=== PATIENT | female | born 1955 | race Caucasian/White ===

== ENCOUNTER 2018-02-21 12:20 | Inpatient (IN) | payer MEDICARE ==
[2018-02-21] MEDS ORDERED: Iopamidol 370 76% 100 ML VIAL ONE ×2 (12:30→17:48)
[2018-02-21 13:00] LABS: PTT 31.1 SEC (22.9-36.1); Prothrombin Time 13.4 SEC (12.0-14.7)
[2018-02-21 13:01] LABS: #Eosinphils 0.1 thou/uL (0.0-0.7); #Monocytes 0.4 thou/uL (0.11-0.59); %Basophils 0.5 % (0.0-1.0); %Eosinophils 1.9 % (0.0-10.0); %Lymphocytes 26.7 % (21.0-51.0); %Monocytes 5.4 % (0.0-10.0); %Neutrophils 65.4 % (42.0-75.0); Hemoglobin 12.9 g/dL (12.0-16.0); Mean Corpuscular HGB CONC 32.5 g/dL (32.0-36.0); Mean Corpuscular Hemoglobin 25.5 pg (27.0-31.0); Mean Corpuscular Volume 78.3 fl (81.0-99.0); Platelet Count 274 thou/uL (130-400); RBC Distribution Width 14.9 % (11.5-14.5); Red Blood Cell (RBC) Count 5.06 mill/uL (4.20-5.40); White Blood Cell (WBC) Count 7.6 thou/uL (4.8-10.8)
--- NOTE | 2018-02-21 13:02 | CT ---
CT BRAIN WITHOUT CONTRAST: Date: 02/21/18 HISTORY: Left-sided weakness, gait changes. Onset 4.5 hours ago. FINDINGS: No evidence of acute infarct, hemorrhage, midline shift, or abnormal extra-axial fluid collections ar e seen. The ventricular size is normal and the basilar cisterns are patent. The bony calvarium is int act. The visualized paranasal sinuses and mastoid air cells are well aerated. IMPRESSION: No CT evidence of acute intracranial process. Findings discussed over the telephone with ER physician, Dr. Nain Gambino, at 1236 hours. CODE CR. POS: JOYCELYN
[2018-02-21 13:07] LABS: ALT (SGPT) 26 U/L (8-55); AST (SGOT) 19 U/L (5-34); Albumin 3.9 g/dL (3.4-4.8); Alkaline Phosphatase 99 U/L (40-150); Anion Gap 12 mmol/L (10-20); BUN (Urea Nitrogen) 14 mg/dL (9.8-20.1); Bilirubin, Total 0.3 mg/dL (0.2-1.2); Calc. Creatinine Clearance 0 mL/min (70-130); Calcium 9.2 mg/dL (7.8-10.44); Carbon Dioxide 24 mmol/L (23-31); Chloride 105 mmol/L (98-107); Estimated GFR-MDRD 76; Globulin 3.7 g/dL (2.4-3.5); Glucose 107 mg/dL (80-115); Potassium 4.1 mmol/L (3.5-5.1); Protein, Total 7.6 g/dL (6.0-8.3); Sodium 137 mmol/L (136-145)
[2018-02-21 13:11] LABS: CKMB 0.7 ng/mL (0-6.6); Troponin I Less than 0.010 ng/mL (< 0.028)
[2018-02-21] MEDS ORDERED: Morphine 4 MG/ML VIAL ONE (15:38)
--- NOTE | 2018-02-21 17:42 | CT ---
CTA HEAD WITH IV CONTRAST AND 3D REFORMATTED IMAGING: CTA NECK WITH IV CONTRAST AND 3D REFORMATTED IMAGING: INDICATIONS: Left-sided upper extremity and lower extremity weakness with gait disturbance, with onset around 0800 hours this morning. COMPARISON: Noncontrast CT brain, dated 02/21/2018 at 12:30 p.m. FINDINGS: HEAD: No hemodynamically significant stenosis, occlusion, or aneurysmal formation is demonstrated. There is a origin of the right PHYSICIAN SUPPORT COORDINATOR. No area of abnormal enhancement is demonstrated. NECK: There are mild vascular calcifications involving the aortic arch. The great vessel origins ap pear within normal limits. The visualized aspects of the right and left subclavian artery appear wid dora patent. The common carotid arteries have a retropharyngeal course. The right internal carotid a rtery is widely patent throughout its visualized course. The left internal carotid artery is widely patent throughout its course. Both vertebral arteries appear patent throughout their course. There is post surgical change of a left thyroidectomy. There is soft tissue gas and inflammatory change in volving the right aspect of the neck, likely related to prior IV access attempt. The visualized lung apices are clear. No acute osseous abnormality is evident. There is an intervertebral disks implant at C5-C6. IMPRESSION: No hemodynamically significant stenosis, occlusion, or aneurysmal formation demonstrated. Findings were called to Dr. Arriaga at 4:15 p.m. on 02/21/2018. CODE CR POS: JOYCELYN
[2018-02-21 18:04] VITALS: BMI 49.1
[2018-02-21] MEDS ORDERED: hydrALAZINE 20 MG/ML VIAL SLOW IVP PRN (18:39)
[2018-02-21] MEDS ORDERED: Guaifenesin DM 100-10/5 ML UDCUP PO PRN (18:39)
[2018-02-21] MEDS ORDERED: PROVENTIL INHALER 6.7 G (200 INHALATIONS) INH PRN (18:39)
[2018-02-21] MEDS ORDERED: Acetaminophen 325 MG TAB PO PRN (18:39)
[2018-02-21] MEDS ORDERED: Atorvastatin Calcium 20 MG TAB PO SCH (21:00)
[2018-02-21] MEDS: Docusate 100 MG CAP PO SCH (21:06)
[2018-02-21] MEDS: Metoprolol Tartrate 25 MG TAB PO SCH (21:06)
[2018-02-21] MEDS: Famotidine 20 MG TAB PO SCH (21:06)
--- NOTE | 2018-02-22 00:15 | HP ---
REASON FOR ADMISSION: Left-sided weakness. HISTORY OF PRESENT ILLNESS: The patient gives history of waking up around 8 in the morning and having noticed left-sided numbness and weakness. She was also incoherent in her speech. She had trouble walking. This was associated with some headache in the occipital area. She called her friend who came to help her out and drove her to the emergency room here. The patient says she has had similar episode 2 days back which she thinks might have resolved or just got worse, which she is not able to tell me exactly. The patient states she started doxepin recently. This is in addition to the 250 mg sertraline that she takes on a daily basis to help with her depression and sleep. The patient is right-handed. No complaints of trouble swallowing or breathing at present. PAST MEDICAL AND SURGICAL HISTORY: History of obstructive sleep apnea on CPAP, hypertension, asthma, GERD, hypothyroidism, osteoarthritis, history of diverticulosis, morbid obesity, prior endoscopies both EGD and colonoscopy, hysterectomy, appendectomy. Has had cervical spine surgery, tonsillectomy, right hand surgery, cholecystectomy, and depression. CURRENT MEDICATIONS: The patient is on Protonix 40 mg p.o. daily, levothyroxine 150 mcg p.o. daily, losartan 50 mg p.o. daily, doxepin 100 mg p.o. at bedtime, Bentyl 20 mg half a tablet 3 times daily p.r.n., sertraline 250 mg p.o. daily. ALLERGIES: No known drug allergies. PERSONAL HISTORY: Does not abuse alcohol or drugs. She quit smoking 10 years ago, prior to that smoked one pack a day for 5 years. The patient is raising her 5-year-old grandson and has custody of her. FAMILY HISTORY: Mother at the age of 67 years. She has had history of end -stage renal disease. Father of massive [place] in his 60s. REVIEW OF SYSTEMS: The following complete review of systems was negative, unless otherwise mentioned in the HPI or below: Constitutional: Weight loss or gain, ability to conduct usual activities. Skin: Rash, itching. Eyes: Double vision, pain. ENT/Mouth: Nose bleeding, neck stiffness, pain, tenderness. Cardiovascular: Palpitations, dyspnea on exertion, orthopnea. Respiratory: Shortness of breath, wheezing, cough, hemoptysis, fever or night sweats. Gastrointestinal: Poor appetite, abdominal pain, heartburn, nausea, vomiting, constipation, or diarrhea. Genitourinary: Urgency, frequency, dysuria, nocturia. Musculoskeletal: Pain, swelling. Neurologic/Psychiatric: Anxiety, depression. Allergy/Immunologic: Skin rash, bleeding tendency. CODE STATUS: FULL. Power of hotel desk clerk is her son, Mr. Farhan Rahman Jr. PHYSICAL EXAMINATION: GENERAL: The patient is a 62-year-old female who is currently not in any acute distress. VITAL SIGNS: On arrival, blood pressure was 198/88, pulse 84 per minute, respiratory rate 20 per minute, temperature 97.6 degrees Fahrenheit, and saturating 94% on room air. NECK: Supple, no elevated JVD. HEENT: Eyes: Extraocular muscles intact. Pupils reacting to light. Oral cavity: Mucous membranes are moist. No exudates or congestion. CARDIOVASCULAR SYSTEM: S1, S2 heard. Regular rhythm. RESPIRATORY SYSTEM: Air entry 1+ bilateral. Scattered rhonchi plus no wheezes. ABDOMEN: Soft, bowel sounds heard. No tenderness, rigidity or guarding. EXTREMITIES: No peripheral edema or calf tenderness. VASCULAR SYSTEM: Peripheral pulses 1+ bilateral, no ischemic ulcerations or gangrene. CENTRAL NERVOUS SYSTEM: Cranial nerves are grossly intact. Strength on the left side is around 3/5 in the upper extremity and the same at the lower extremity. Reflexes are 1+ bilateral. Babinski is equivocal. Gait was not tested. The patient is alert, awake, and is oriented. PSYCHIATRIC SYSTEM: The patient's mood is euthymic. No hallucinations or delusions. LABORATORY AND X-RAY FINDINGS: White count of 7, H and H 12 and 39, platelet count 274, MCV 78 with 65% neutrophils. PT, INR, PTT within normal limits. Electrolytes stable. BUN 14, creatinine 0.7, glucose 107. Liver enzymes are within normal limits. Cardiac enzymes are negative. Albumin is 3.9. CT brain without contrast done shows no acute intracranial process. CT angio brain done showed no hemodynamically significant stenosis or occlusion, or aneurysmal formation. EKG done shows normal sinus rhythm at 79 beats per minute. CLINICAL IMPRESSION AND PLAN: The patient will be admitted to stroke unit for left-sided weakness with a strength of 3/5 in both upper and lower extremities on the left side. Please note patient has cervical spine disease and lumbar spine disk disease as well with prior surgeries. It is unclear if her current issues are related to cerebrovascular accident. We will obtain an MRI without contrast if there are no hardwares and is permissible to get an MRI. The patient is morbidly obese with a BMI of 49. We will place her on a small dose of Lipitor and we will obtain lipid profile in the morning. She will be on aspirin, Synthroid, Cozaar, and her Zoloft will be reduced to 100 mg twice daily. Please note patient takes a very high dose of sertraline at 250 mg daily , and also started on doxepin 100 mg at bedtime recently. She has been taking sertraline for a long time per patient with dose escalations from [facility]/referral to psychiatrist. We will also place her on a small dose of Lopressor 25 mg twice daily. We will obtain an echo with 2D Doppler for LV function. Follow stroke evidence based protocol and Neurology consultation with Dr. Banks. NOELLE
[2018-02-22 05:35] LABS: #Eosinphils 0.2 thou/uL (0.0-0.7); #Lymphocytes 2.3 thou/uL (1.20-3.40); #Monocytes 0.4 thou/uL (0.11-0.59); #Neutrophils 4.3 thou/uL (1.40-6.50); %Basophils 0.7 % (0.0-1.0); %Eosinophils 2.6 % (0.0-10.0); %Lymphocytes 32.2 % (21.0-51.0); %Monocytes 5.7 % (0.0-10.0); %Neutrophils 58.9 % (42.0-75.0); Hemoglobin 12.6 g/dL (12.0-16.0); Mean Corpuscular HGB CONC 33.2 g/dL (32.0-36.0); Mean Corpuscular Hemoglobin 25.8 pg (27.0-31.0); Mean Corpuscular Volume 77.6 fl (81.0-99.0); Mean Platelet Volume 6.8 fL (7.4-10.4); Platelet Count 268 thou/uL (130-400); RBC Distribution Width 14.9 % (11.5-14.5); Red Blood Cell (RBC) Count 4.88 mill/uL (4.20-5.40); White Blood Cell (WBC) Count 7.3 thou/uL (4.8-10.8)
[2018-02-22] MEDS ORDERED: Levothyroxine 150 MCG TAB PO SCH (06:00)
[2018-02-22 06:08] LABS: Anion Gap 12 mmol/L (10-20); BUN (Urea Nitrogen) 16 mg/dL (9.8-20.1); Calc. Creatinine Clearance 154 mL/min (70-130); Calcium 8.6 mg/dL (7.8-10.44); Carbon Dioxide 24 mmol/L (23-31); Cardiac Risk 4.4 (Less than 4.5); Chloride 104 mmol/L (98-107); Cholesterol 155 mg/dl (< 200 Desired); Estimated GFR-MDRD 72; Glucose 127 mg/dL (80-115); HDL Cholesterol 35 mg/dL (>60 Neg Risk); LDL Cholesterol, Calculated 89 mg/dL; Sodium 136 mmol/L (136-145); Triglycerides 153 mg/dL (Less than 150)
[2018-02-22] MEDS ORDERED: Mometasone/Formoterol 120 PUFF INHALER INH SCH (06:30)
[2018-02-22] MEDS ORDERED: Losartan 25 MG TAB PO SCH (09:00)
[2018-02-22] MEDS ORDERED: Enoxaparin Sodium 40 MG/0.4 ML SYRINGE SC SCH (09:00)
[2018-02-22] MEDS ORDERED: Aspirin 325 mg Enteric Coated Tablet PO SCH (09:00)
[2018-02-22] MEDS: Docusate 100 MG CAP PO SCH (09:50)
[2018-02-22] MEDS: Famotidine 20 MG TAB PO SCH (09:50)
[2018-02-22] MEDS: Metoprolol Tartrate 25 MG TAB PO SCH (09:50)
--- NOTE | 2018-02-22 11:36 | MRI ---
MRI BRAIN WITHOUT IV CONTRAST: Date: 02-22-18 History: Left sided weakness, gait changes. Stroke. Comparison: MRI brain 09-01-12 FINDINGS: Again noted are scattered punctate areas of increased FLAIR and T2 weighted signal intensity in the p eriventricular and subcortical white matter which have not significantly progressed when compared to the prior exam. There is no evidence of an acute infarction. Septum pellucidum and third ventricle ar e on the midline. Ventricular system is normal in size, shape, and position. 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 The remainder of the skull ba se, orbit, and paranasal sinuses have a normal MRI appearance. Grossly appropriate flow voids are dem onstrated at the base of the brain. IMPRESSION: 1. No acute intracranial abnormality demonstrated. 2. Chronic small vessel ischemic changes which have not significantly progressed from the prior exam. POS: MARTIN
--- NOTE | 2018-02-22 12:00 | PDOC.PN ---
- Subjective Encounter Start Date: 02/22/18 Encounter Start Time: 11:58 Ms. Vo was seen today in follow-up. She says she still feels like her left leg is a bit weaker than the right one. She says the weakness and numbness in her left arm has improved. - Objective Resuscitation Status: Resuscitation Status FULL:Full Resuscitation MAR Reviewed: Yes Vital Signs & Weight: Vital Signs (12 hours) Temp Pulse Resp BP Pulse Ox 02/22/18 08:00 97.4 F L 64 20 151/98 H 93 L 02/22/18 06:10 67 16 02/22/18 04:00 97.7 F 68 16 126/79 96 Weight Weight 295 lb 2 oz I&O: 02/21/18 02/22/18 02/23/18 06:59 06:59 06:59 Intake Total 970 Balance 970 Result Diagrams: 02/22/18 05:23 02/22/18 05:23 Phys Exam - Physical Examination HEENT: PERRLA Respiratory: no wheezing, no rales, no rhonchi, clear to auscultation bilateral Cardiovascular: RRR, no significant murmur, no rub Gastrointestinal: soft, non-tender, no distention, positive bowel sounds Musculoskeletal: no edema + mild left lower extremity weakness, but it is 5/5 Dx/Plan (1) Transient ischemic attack Status: Acute (2) Hypertension Code(s): I10 - ESSENTIAL (PRIMARY) HYPERTENSION Status: Chronic (3) Hypothyroidism Code(s): E03.9 - HYPOTHYROIDISM, UNSPECIFIED Status: Chronic (4) Morbid obesity with BMI of 45.0-49.9, adult Code(s): E66.01 - MORBID (SEVERE) OBESITY DUE TO EXCESS CALORIES; Z68.42 - BODY MASS INDEX (BMI) 45.0-49.9, ADULT Status: Chronic - Plan * Left uper and lower extremity weakness- probable TIA- will await Neurology input * HTN- not optimally controlled- discussed with the patient- weight loss would likely help * Dyslipidemia- she will need to go home on a statin * Obesity- discussed diet and exercise * Possible home later today.
[2018-02-22 17:16] VITALS: BP 140/91; TEMP 98.2
--- NOTE | 2018-02-22 21:05 | CON ---
DATE OF CONSULTATION: 02/22/2018 NEUROLOGY CONSULTATION CONSULTING PHYSICIAN: Hospitalist service. IMPRESSION: 1. Questionable transient ischemic attack. 2. Hypertension. 3. Obesity. 4. Untreated sleep apnea. PLAN: 1. Aspirin 81 mg per day. 2. Low-dose of statin. 3. Patient should follow up to have her sleep apnea addressed. HISTORY OF PRESENT ILLNESS: Ms. Vo is a 62-year-old white female who came in with complaints of left-sided weakness and numbness. She also reports some mild slurred speech. She was still able to walk. Her symptoms reportedly lasted about 4 hours. Her MRI of the brain was unremarkable other th an some chronic small vessel ischemic changes. No acute abnormalities were noted. Her CTA did not s how any intravascular stenosis. Laboratory studies were unremarkable. Her cholesterol ratio was 4.4 . Her vital signs have been stable since admission. She has not had any recurrent symptoms. She de nies any prior history of stroke like events. PAST MEDICAL HISTORY: As listed above. ALLERGIES: None reported. SOCIAL HISTORY: No tobacco or alcohol use. FAMILY HISTORY: Noncontributory. MEDICATION LIST: Reviewed. REVIEW OF SYSTEMS: No complaints of double vision, blurred vision, transient vision loss, difficulty swallowing, chest pain, or shortness of breath. PHYSICAL EXAMINATION: GENERAL: She is a morbidly obese, middle-aged woman, no distress. VITAL SIGNS: Stable. She is afebrile. HEENT: Unremarkable. NECK: Supple. EXTREMITIES: No cyanosis. NEUROLOGIC: She is alert and appropriate. Her speech is fluent and clear. Her exam is nonfocal. IMAGING: EKG shows sinus rhythm. SUMMARY: Middle-aged woman with risk factors for stroke. Nothing definitive showed up on her workup this time. I would go ahead and cover her for possible TIA that might have been missed.
--- NOTE | 2018-02-23 01:55 | DIS ---
DATE OF ADMISSION: 02/21/2018 DATE OF DISCHARGE: 02/22/2018 PRIMARY CARE PHYSICIAN: Karis Madrid MD DISCHARGE DISPOSITION: Home. PRIMARY DISCHARGE DIAGNOSES: 1. Transient ischemic attack. 2. Hypertension. 3. Morbid obesity with a body mass index of 49. 4. Obstructive sleep apnea. 5. Mild dyslipidemia. 6. Hypothyroidism. DISCHARGE MEDICATIONS: Include aspirin 81 mg daily, Lipitor 20 mg at bedtime, Symbicort 160/4.5 two puffs twice a day, Bentyl 10 mg t.i.d., Sinequan 100 mg at bedtime, levothyroxine 150 mcg daily, Coza ar 50 mg daily, Protonix 40 mg daily, Zoloft 250 mg daily, albuterol inhaler 2 puffs q.4 as needed. PROCEDURES DONE DURING ADMISSION: The patient had a CT angiogram of the brain and neck. There was n o hemodynamically significant stenosis, occlusion, or aneurysmal formation. The patient had a CT sca n of the brain which was essentially negative and also had an MRI of the brain showing no acute intra cranial abnormality. There was some chronic small vessel ischemic changes. CODE STATUS: FULL CODE. ALLERGIES: No known drug allergies. HOSPITAL COURSE: Ms. Vo is a pleasant 62-year-old female who presented to the emergency room wi complaints of numbness and weakness on her left upper and lower extremity. She was placed in obse rvation and a CT angiogram as well as an MRI of the brain was performed, both of which are essentiall y negative for any signs of acute ischemic insult. It is suspected that her symptoms are most likely a transient ischemic attack. Her symptoms were resolving the following day. She did have some cont inued weakness in the left lower leg; however, it was improving and the muscle strength was 5/5 and j ust slightly weaker in comparison to the right side. We expect a complete resolution. The patient w as noted to have some lability in her blood pressure ranging anywhere from 123 up to 180 systolic and even 200 systolic. This can be further managed as an outpatient as it was extremely labile. This w as also discussed with the patient. As well as diet and exercise were also discussed. She will be p laced on a statin as well as an aspirin and will be discharged home today with close outpatient denny goode.
== END 2018-02-22 17:38 | disposition home or self-care (01) | DRG 69 ==
LOC: ERS 12:20 → 2SE 17:30
PROVIDERS: ADMIT Internal Medicine; ATTEND Internal Medicine
DX: G45.9 Transient cerebral ischemic attack, unspecified (principal); Z68.42 Body mass index [BMI] 45.0-49.9, adult; E66.01 Morbid (severe) obesity due to excess calories; I10 Essential (primary) hypertension; G47.33 Obstructive sleep apnea (adult) (pediatric); E78.5 Hyperlipidemia, unspecified; E03.9 Hypothyroidism, unspecified; J45.909 Unspecified asthma, uncomplicated; K21.9 Gastro-esophageal reflux disease without esophagitis; F32.9 Major depressive disorder, single episode, unspecified; Z79.899 Other long term (current) drug therapy
CPT/HCPCS: 36415; 36416; 70450; 70496; 70498; 70551; 80048; 80053; 80061; 82553; 84484; 85025; 85610; 85730; 93005; 93306; 96374; G8978-GP-CJ; G8979-GP-CI; G8987-GO-CK; G8988-GO-CI; G8996-GN-CH; G8997-GN-CH; J1650; J2270

== ENCOUNTER 2018-06-02 07:19 | Outpatient (CLI) | payer MEDICARE ==
[2018-06-02] MEDS ORDERED: Regadenoson 0.4 MG/5 ML SYRINGE ONE (11:22)
--- NOTE | 2018-06-02 12:13 | NM ---
RADIONUCLIDE STRESS ONLY MYOCARDIAL PERFUSION SCAN WITH CT ATTENUATION CORRECTION AND SPECT IMAGING: LEFT VENTRICULAR WALL MOTION EVAULATION AND EJECTION FRACTION: HISTORY: Chest pain. FINDINGS: Lexiscan protocol. Heterogeneous uptake of radiotracer throughout the left ventricular myocardium. No focal perfusion defect. QGS analysis of gated SPECT images show no focal wall motion abnormalitie s. Ejection fraction is calculated at greater than 80%. IMPRESSION: Normal myocardial perfusion scan. Normal left ventricular ejection fraction. POS: MARTIN
== END 2018-06-02 07:20 | disposition home or self-care (01) ==
LOC: NM 07:19
PROVIDERS: ATTEND Physician Assistant
DX: I10 Essential (primary) hypertension (principal); R06.02 Shortness of breath
CPT/HCPCS: 78452; 93017; A9500; J0280; J2785

== ENCOUNTER 2018-06-13 13:34 | Outpatient (CLI) | payer MEDICARE ==
--- NOTE | 2018-06-13 15:26 | RAD ---
TWO VIEW CHEST: INDICATION: Preop evaluation. COMPARISON: Portable chest of 10/29/16. FINDINGS: Heart size is mildly prominent but stable. There is mild vascular engorgement w2hich appears slightl y more prominent today. Focal density in the right mid lung could represent an area of atelectasis o r focal infiltrate. There is stranding in the peripheral left lower lung which is a new finding sugg esting atelectasis. No effusion. IMPRESSION: 1. Mild cardiomegaly and mild vascular engorgement. 2. Question parenchymal density in the right mid lung. This could represent an area of atelectasis or infiltrate. 3. Linear stranding in the left peripheral lower lung is new suggesting atelectasis. Recommend close followup. Dr. Wilkerson was notified at the time of dictation. CODE CR POS: MARTIN
[2018-06-13 15:39] LABS: #Eosinphils 0.1 thou/uL (0.0-0.7); #Lymphocytes 2.4 thou/uL (1.20-3.40); #Monocytes 0.5 thou/uL (0.11-0.59); #Neutrophils 5.6 thou/uL (1.40-6.50); %Basophils 0.6 % (0.0-1.0); %Eosinophils 1.5 % (0.0-10.0); %Lymphocytes 27.5 % (21.0-51.0); %Monocytes 5.5 % (0.0-10.0); Hemoglobin 12.3 g/dL (12.0-16.0); Mean Corpuscular HGB CONC 32.3 g/dL (32.0-36.0); Mean Corpuscular Volume 77.2 fL (78.0-98.0); Mean Platelet Volume 7.5 fL (7.4-10.4); Platelet Count 291 thou/uL (130-400); RBC Distribution Width 14.9 % (11.5-14.5); Red Blood Cell (RBC) Count 4.91 mill/uL (4.20-5.40); White Blood Cell (WBC) Count 8.6 thou/uL (4.8-10.8)
[2018-06-13 15:57] LABS: ALT (SGPT) 34 U/L (8-55); AST (SGOT) 23 U/L (5-34); Alkaline Phosphatase 94 U/L (40-150); Anion Gap 15 mmol/L (10-20); BUN (Urea Nitrogen) 23 mg/dL (9.8-20.1); Bilirubin, Direct 0.2 mg/dL (0.1-0.3); Bilirubin, Total 0.3 mg/dL (0.2-1.2); Calc. Creatinine Clearance 0 mL/min (70-130); Calcium 8.9 mg/dL (7.8-10.44); Carbon Dioxide 22 mmol/L (23-31); Chloride 109 mmol/L (98-107); Estimated GFR-MDRD 72; Globulin 3.2 g/dL (2.4-3.5); Glucose 112 mg/dL (80-115); Potassium 3.9 mmol/L (3.5-5.1); Protein, Total 7.2 g/dL (6.0-8.3); Sodium 142 mmol/L (136-145)
--- NOTE | 2018-06-17 14:58 | EKG ---
Test Reason : Blood Pressure : / mmHG Vent. Rate : 071 BPM Atrial Rate : 071 BPM P-R Int : 164 ms QRS Dur : 084 ms QT Int : 392 ms P-R-T Axes : 043 023 040 degrees QTc Int : 425 ms Normal sinus rhythm Cannot rule out Anterior infarct , age undetermined Abnormal ECG When compared with ECG of 21-FEB-2018 13:33, No significant change was found Confirmed by GURWINDER VELAZQUEZ MD ([id number]) on 06/17/2018 2:58:11 PM Referred By: JERI Confirmed By:GURWINDER VELAZQUEZ MD
== END 2018-06-13 13:35 | disposition home or self-care (01) ==
LOC: LABBT 13:34
PROVIDERS: ATTEND Surgery
DX: Z01.818 Encounter for other preprocedural examination (principal); I10 Essential (primary) hypertension; G47.30 Sleep apnea, unspecified; I51.7 Cardiomegaly; Z68.41 Body mass index [BMI] 40.0-44.9, adult
CPT/HCPCS: 71046; 80053; 80076; 83036; 85025; 93005; 93010

== ENCOUNTER 2018-12-28 16:49 | Emergency (ER) | payer MEDICARE ==
[~2018-12-28 16:49] MED LIST: ISOVUE-370 76%-LOCM 1 ML ONE
[2018-12-28 17:50] LABS: #Basophils 0.1 thou/uL (0.0-0.2); #Eosinphils 0.1 thou/uL (0.0-0.7); #Lymphocytes 2.1 thou/uL (1.20-3.40); #Monocytes 0.5 thou/uL (0.11-0.59); #Neutrophils 5.6 thou/uL (1.40-6.50); %Basophils 1.2 % (0.0-1.0); %Eosinophils 1.5 % (0.0-10.0); %Lymphocytes 24.9 % (21.0-51.0); %Monocytes 5.8 % (0.0-10.0); %Neutrophils 66.5 % (42.0-75.0); Hemoglobin 13.2 g/dL (12.0-16.0); Mean Corpuscular HGB CONC 31.3 g/dL (32.0-36.0); Mean Corpuscular Hemoglobin 24.6 pg (27.0-31.0); Mean Corpuscular Volume 78.7 fL (78.0-98.0); Mean Platelet Volume 8.3 fL (7.4-10.4); Platelet Count 323 thou/uL (130-400); RBC Distribution Width 15.4 % (11.5-14.5); Red Blood Cell (RBC) Count 5.36 mill/uL (4.20-5.40); White Blood Cell (WBC) Count 8.4 thou/uL (4.8-10.8)
[2018-12-28] MEDS ORDERED: Acetaminophen 500 MG TAB ONE (18:08)
[2018-12-28 18:26] LABS: Bilirubin Negative (Negative); Blood, Urine Negative (Negative); Clarity CLEAR (Clear); Glucose, Urine (Dipstick) Negative (Negative); Leukocyte Small (Negative); Nitrite Positive (Negative); Protein, Urine (Dipstick) Negative (Neg-Trace); Specific Gravity, Urine 1.018 (1.002-1.036)
[2018-12-28 18:27] LABS: Bacteria/HPF None Seen HPF (None Seen); Hyaline Casts/LPF 4-6 HYALINE CAST LPF (0-3 Hyaline); Pathc Cast-AUWi Flag 1.45 (0-2.49); RBC/HPF 0-3 HPF (0-3); Squamous Epithelial 0-3 HPF (0-3); WBC/HPF None Seen HPF (0-3)
[2018-12-28 18:33] LABS: ALT (SGPT) 33 U/L (8-55); AST (SGOT) 41 U/L (5-34); Albumin 3.7 g/dL (3.4-4.8); Alkaline Phosphatase 99 U/L (40-150); Anion Gap 15 mmol/L (10-20); BUN (Urea Nitrogen) 16 mg/dL (9.8-20.1); Bilirubin, Total 0.2 mg/dL (0.2-1.2); Calc. Creatinine Clearance 0 mL/min (70-130); Calcium 9.5 mg/dL (7.8-10.44); Carbon Dioxide 22 mmol/L (23-31); Chloride 105 mmol/L (98-107); Estimated GFR-MDRD 76; Globulin 4.5 g/dL (2.4-3.5); Glucose 103 mg/dL (80-115); Potassium 5.2 mmol/L (3.5-5.1); Protein, Total 8.2 g/dL (6.0-8.3); Sodium 137 mmol/L (136-145)
--- NOTE | 2018-12-28 19:40 | CT ---
CT ANGIOGRAM CHEST WITH CONTRAST 12/28/18 HISTORY: COPD, hypertension. TECHNIQUE: CT angiogram chest performed after the intravenous administration of contrast. 3D rendering is provid ed. No proximal segmental pulmonary arterial filling defect. The aortic contour is nonaneurysmal. The pulmonary trunk measures 3.2 cm, abnormally dilated. No mediastinal adenopathy. Small right pericardiophrenic lymph nodes. These are similar to the prior examination. There are extensive calcified paraesophageal lymph nodes. There appears to be a prior le ft sided thyroidectomy. Pulmonary nodules are unchanged. No interval size increase. Large calcified granuloma left lung base. Mild atelectasis in the lung bases. No pneumothorax or effu ayan. No acute displaced rib fracture. Multiple calcified granulomas of the spleen. IMPRESSION: 1. No proximal segmental pulmonary arterial filling defect. 2. Dilated pulmonary trunk consistent of pulmonary arterial hypertension. 3. Unchanged pulmonary nodule as well as calcified paraesophageal lymph nodes and calcified gran uloma of the spleen suggesting prior granulomatous disease. POS: HOME
[2018-12-28] MEDS ORDERED: Ketorolac Tromethamine 30 MG/ML VIAL ONE (20:06)
== END 2018-12-28 20:16 | disposition home or self-care (01) ==
LOC: ERS 16:49
DX: J45.901 Unspecified asthma with (acute) exacerbation (principal); M54.9 Dorsalgia, unspecified; I10 Essential (primary) hypertension
CPT/HCPCS: 71275; 80053; 81003; 81015; 84484; 85025; 85379; 94640; 96374; J1885; Q9966

== ENCOUNTER 2020-05-02 10:46 | Outpatient (CLI) | payer MEDICARE, OTHER ==
[2020-05-02 18:17] LABS: #Eosinphils 0.2 thou/uL (0.0-0.7); #Lymphocytes 2.6 thou/uL (1.20-3.40); #Monocytes 0.5 thou/uL (0.11-0.59); #Neutrophils 5.7 thou/uL (1.40-6.50); %Basophils 0.2 % (0.0-1.0); %Eosinophils 1.7 % (0.0-10.0); %Lymphocytes 28.8 % (21.0-51.0); %Monocytes 5.2 % (0.0-10.0); %Neutrophils 64.2 % (42.0-75.0); Hemoglobin 13.3 g/dL (12.0-16.0); Mean Corpuscular HGB CONC 30.9 g/dL (32.0-36.0); Mean Corpuscular Hemoglobin 23.7 pg (27.0-31.0); Mean Corpuscular Volume 76.7 fL (78.0-98.0); Mean Platelet Volume 8.2 fL (7.4-10.4); Platelet Count 325 thou/uL (130-400); RBC Distribution Width 14.6 % (11.5-14.5); Red Blood Cell (RBC) Count 5.62 mill/uL (4.20-5.40); White Blood Cell (WBC) Count 8.9 thou/uL (4.8-10.8)
[2020-05-02 18:32] LABS: ALT (SGPT) 22 U/L (8-55); AST (SGOT) 20 U/L (5-34); Alkaline Phosphatase 105 U/L (40-110); Anion Gap 15 mmol/L (10-20); BUN (Urea Nitrogen) 16 mg/dL (9.8-20.1); Bilirubin, Total 0.4 mg/dL (0.2-1.2); Calc. Creatinine Clearance 0 mL/min (70-130); Calcium 9.2 mg/dL (7.8-10.44); Carbon Dioxide 23 mmol/L (23-31); Cardiac Risk 3.2 (Less than 4.5); Chloride 104 mmol/L (98-107); Cholesterol 108 mg/dl (< 200 Desired); Estimated GFR-MDRD 65; Globulin 3.6 g/dL (2.4-3.5); Glucose 102 mg/dL (80-115); HDL Cholesterol 34 mg/dL (>60 Neg Risk); LDL Cholesterol, Calculated 42 mg/dL; Potassium 3.9 mmol/L (3.5-5.1); Protein, Total 7.6 g/dL (6.0-8.3); Sodium 138 mmol/L (136-145); Triglycerides 160 mg/dL (Less than 150)
[2020-05-03 12:55] LABS: SARS-CoV-2 MS2 Positive; SARS-CoV-2 N Gene Negative; SARS-CoV-2 S Gene Negative; SARS-CoV-2 orf1ab Negative
== END 2020-05-02 10:47 | disposition home or self-care (01) ==
LOC: LABBT 10:46
PROVIDERS: ATTEND Internal Medicine Cardiovascular Disease
DX: Z01.812 Encounter for preprocedural laboratory examination (principal); Z11.59 Encounter for screening for other viral diseases
CPT/HCPCS: 80053; 80061; 85025; U0003; 87635

== ENCOUNTER 2020-07-23 07:39 | Outpatient (CLI) | payer MEDICARE ==
--- NOTE | 2020-07-23 08:12 | RAD ---
Lumbar spine 4 views: 07/23/2020 COMPARISON: None HISTORY: Back pain with lower extremity radiculopathy FINDINGS: Detailed assessment on the neutral lateral exam is limited secondary to body habitus and sl ight motion artifact. On the neutral exam there is retrolisthesis measuring 5 mm at L3-4. This is grossly unchanged on the flexion and extension imaging. Lower lumbar spine facet hypertrophy noted at L3-4, L4-5, and L5-S1. Mild disc space narrowing at the L2-3 and L3-4 levels. Laminectomy changes are noted at L4-5. No acute osseous abnormality. IMPRESSION: Degenerative changes as detailed above.
== END 2020-07-23 07:40 | disposition home or self-care (01) ==
LOC: BICRAD 07:39
PROVIDERS: ATTEND Neurological Surgery
DX: M54.5 Low back pain (principal); M47.816 Spondylosis without myelopathy or radiculopathy, lumbar region
CPT/HCPCS: 72110

== ENCOUNTER 2020-08-01 17:13 | Inpatient (IN) | payer MEDICARE, OTHER ==
[~2020-08-01 17:13] MED LIST changes: -ISOVUE-370 76%-LOCM 1 ML ONE; +Iopamidol-370 76% 500 ML 1 ML ONE
[2020-08-01 18:56] LABS: #Eosinphils 0.1 thou/uL (0.0-0.7); #Lymphocytes 1.4 thou/uL (1.20-3.40); #Monocytes 0.5 thou/uL (0.11-0.59); #Neutrophils 4.9 thou/uL (1.40-6.50); %Basophils 0.3 % (0.0-1.0); %Eosinophils 2.1 % (0.0-10.0); %Lymphocytes 20.2 % (21.0-51.0); %Monocytes 6.5 % (0.0-10.0); %Neutrophils 70.9 % (42.0-75.0); Hemoglobin 11.7 g/dL (12.0-16.0); Mean Corpuscular HGB CONC 32.6 g/dL (32.0-36.0); Mean Corpuscular Hemoglobin 26.3 pg (27.0-31.0); Mean Corpuscular Volume 80.8 fL (78.0-98.0); Mean Platelet Volume 7.1 fL (7.4-10.4); Platelet Count 227 thou/uL (130-400); RBC Distribution Width 15.6 % (11.5-14.5); Red Blood Cell (RBC) Count 4.46 mill/uL (4.20-5.40); White Blood Cell (WBC) Count 6.9 thou/uL (4.8-10.8)
[2020-08-01 19:03] LABS: PTT 34.9 sec (22.9-36.1); Prothrombin Time 13.1 sec (12.0-14.7)
--- NOTE | 2020-08-01 19:05 | CT ---
Exam: Head CT without contrast HISTORY: Altered mental status. Level 2 stroke alert. COMPARISON: 06/17/2020 FINDINGS: Hemorrhage: No intraparenchymal hemorrhage or extra-axial hematoma. Brain parenchyma: Cortical bautista-white matter differentiation is preserved. No mass effect or midline shift. Basilar cisterns are patent. Ventricular system: Ventricles and sulci are patent and symmetric. Calvarium: Intact. Sinuses and mastoid air cells: Adequate aeration. IMPRESSION: No acute intracranial process. Results discussed with Dr. Clark 08/01/2020 at 7:03 PM Code CR
[2020-08-01 19:18] LABS: ALT (SGPT) 25 U/L (8-55); AST (SGOT) 34 U/L (5-34); Albumin 3.5 g/dL (3.4-4.8); Alkaline Phosphatase 95 U/L (40-110); Anion Gap 11 mmol/L (10-20); BUN (Urea Nitrogen) 22 mg/dL (9.8-20.1); Bilirubin, Total 0.4 mg/dL (0.2-1.2); CK (CPK) 74 U/L (29-168); Calc. Creatinine Clearance 0 mL/min (70-130); Calcium 8.2 mg/dL (7.8-10.44); Carbon Dioxide 31 mmol/L (23-31); Chloride 101 mmol/L (98-107); Estimated GFR-MDRD 42; Globulin 3.8 g/dL (2.4-3.5); Glucose 126 mg/dL (80-115); Magnesium 1.8 mg/dL (1.6-2.6); Potassium 4.4 mmol/L (3.5-5.1); Protein, Total 7.3 g/dL (6.0-8.3); Sodium 139 mmol/L (136-145)
--- NOTE | 2020-08-01 19:34 | RAD ---
Exam: Chest one view HISTORY:Chest pain Comparison: 06/13/2020 FINDINGS: Cardiac silhouette:Cardiomegaly. Aorta: Unremarkable Pulmonary vessels: Prominent. Costophrenic angles: Clear LUNGS: Diminished lung was, likely due to a poor inspiratory effort. Increased interstitial may in pa rt be due to crowding secondary to diminished lung volumes. Interstitial edema and/or infiltrate cannot be entirely excluded. Pneumothorax: None Osseous abnormalities: None IMPRESSION: 1. Diminished lung volumes. Interstitial prominence may be due to decreased lung volume. Superimposed edema and/or infiltrate cannot be excluded. Repeat 2 view chest radiograph with better inspiration is recommended.
--- NOTE | 2020-08-01 19:49 | PDOC.HHP ---
Hospitalist HPI - History of Present Illness R leg weakness, altered mental status History of Present Illness: Patient is a 65 year old female with PMH HTN, TIAs, asthma/COPD on home o2, diverticulitis, DJD, distant uterine cancer s/p hysterectomy, hypothyroidism who presents to ED for altered mental status and R lower extremity weakness and numbness. She was last at baseline around noon, went for nap and woke up with new symptoms at 4pm. She states she woke up confused and did not know where she was. 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 She had similar event in May of this year as well, diagnosed with TIA at that time. She takes aspirin and statin daily. She fell this morning and had acute on chronic back and r leg pain afterwards. She complains of continued L sided weakness and also acute on chronic back pain and leg pain. She has COPD and also states that she has had increased shortness of breath and developed wheezing lately despite medication compliance. She uses O2 at home and is at baseline o2 requirement. In ED, labs unremarkable, CT head without acute findings. CTA head and neck did not reveal significant stenosis/occlusion/vascular abnormalities. Chronic lung nodules were observed. CXR with bilateral infiltrates concerning for COVID pneumonia. patient admitted for further workup and care. Hospitalist ROS - Review of Systems Constitutional: denies: fever, chills, sweats, weakness, malaise, other Eyes: denies: pain, vision change, conjunctivae inflammation, eyelid inflammation, redness, other ENT: denies: ear pain, ear discharge, nose pain, nose discharge, nose congestion, mouth pain, mouth swelling, throat pain, throat swelling, other Respiratory: reports: cough, shortness of breath, wheezing. denies: dry, hemoptysis, SOB with excertion, pleuritic pain, sputum, other Cardiovascular: denies: chest pain, palpitations, orthopnea, paroxysmal noc. dyspnea, edema, light headedness, other Gastrointestinal: denies: nausea, vomiting, abdominal pain, diarrhea, constipation, melena, hematochezia, other Genitourinary: denies: dysuria, frequency, incontinence, hematuria, retention, other Musculoskeletal: denies: neck pain, shoulder pain, arm pain, back pain, hand pain, leg pain, foot pain, other Skin: denies: rash, lesions, phu, bruising, other Neurological: reports: weakness, numbness, other (R lower extremity weakness and numbness) All other systems reviewed; all pertinent +/- noted in HPI/Subj - Medication Medications: dicyclomine oral [facility] Aug 01, 2020 18:38 JACQUELINE Ocampo Rachel capsule : Strength - 10 mg : ORAL Patient Dose: 20 mg Oral 3 times a day. Symbicort [facility] Aug 01, 2020 18:38 JACQUELINE Ocampo Rachel HFA aerosol inhaler : Strength - 80 mcg-4.5 mcg/actuation : INHALATION Patient Dose: 2 puff(s) 2 times a day. losartan [facility] Aug 01, 2020 18:38 JACQUELINE Ocampo Rachel tablet : Strength - 50 mg : ORAL Patient Dose: 100 once a day. levothyroxine oral [facility] Aug 01, 2020 18:38 JACQUELINE Ocampo Rachel tablet : Strength - 150 mcg : ORAL Patient Dose: once a day. pantoprazole oral [facility] Aug 01, 2020 18:38 JACQUELINE Ocampo Rachel tablet,delayed release (DR/EC) : Strength - 40 mg : ORAL Patient Dose: once a day. furosemide oral [facility] Aug 01, 2020 18:38 JACQUELINE Ocampo Rachel tablet : Strength - 20 mg : ORAL Patient Dose: 0.5 once a day. gabapentin [facility] Aug 01, 2020 18:42 JACQUELINE Pang Maggie TABLET : Strength - 600 mg : ORAL Patient Dose: 300 mg Oral once a day (at bedtime). promethazine oral [facility] Aug 01, 2020 18:42 JACQUELINE Pang Maggie TABLET : Strength - 25 mg : ORAL Patient Dose: 25 mg Oral every 6 hours PRN. traMADol [facility] Aug 01, 2020 18:42 JACQUELINE Pang Maggie TABLET : Strength - 50 mg : ORAL Patient Dose: 1 tab(s) Oral every 6 to 8 hours. Vitamin D3 [facility] Aug 01, 2020 18:42 JACQUELINE Pang Rebecca CAPSULE (HARD, SOFT, ETC.) : Strength - 1,000 unit : ORAL Patient Dose: 3000 units Oral once a day. Aspir-81 [facility] Aug 01, 2020 18:44 JACQUELINE Ocampo Rachel tablet,delayed release (DR/EC) : Strength - 81 mg : ORAL Patient Dose: 325 mg once a day. meclizine [facility] Aug 01, 2020 18:44 JACQUELINE Ocampo, Nelida tablet : Strength - 25 mg : ORAL Patient Dose: As Needed. isosorbide dinitrate oral [facility] Aug 01, 2020 18:46 JACQUELINE Pang, Maggie tablet : Strength - 30 mg : ORAL Patient Dose: 60 mg Oral once a day. amLODIPine [facility] Aug 01, 2020 18:47 JACQUELINE Pang, Maggie TABLET : Strength - 10 mg : ORAL Patient Dose: 5 mg Oral once a day (in the morning). Hospitalist History - Past Medical History Other Medical History: HTN, TIAs, asthma/COPD on home o2, diverticulitis, DJD, distant uterine cancer s/p hysterectomy, hypothyroidism - Past Surgical History Other Surgical History: EGD AND COLONOSCOPY ON 11/29/14., Surgical history of appendectomy, Surgical history of carpal tunnel surgery, RIGHT HAND, Surgical history of cholecystectomy, Surgical history of hysterectomy, Surgical history of spinal surgery, cervical, Surgical history of tonsillectomy, bladder sling placed 2010.verified 08/01/20. - Family History Family History: reports: no pertinent history - Social History Smoking Status: Former smoker Alcohol: reports: None Drugs: reports: none - Exam General Appearance: NAD, awake alert Eye: PERRL, anicteric sclera ENT: normocephalic atraumatic, no oropharyngeal lesions, moist mucosa Neck: supple, symmetric, no JVD, no thyromegaly, no lymphadenopathy, no carotid bruit Heart: RRR, no murmur, no gallops, no rubs, normal peripheral pulses Respiratory: CTAB, no rales, no ronchi, normal chest expansion, no tachypnea, wheezes Gastrointestinal: soft, non-tender, non-distended, normal bowel sounds, no palpable masses, no hepatomegaly, no splenomegaly, no bruit Extremities: no cyanosis, no clubbing, no edema Skin: normal turgor, no lesions, no rashes Neurological: cranial nerve grossly intact Neurological - other findings: L sided weakness 4/5 arm and leg muscle groups and reduced sensation Musculoskeletal: normal tone, no muscle wasting Psychiatric: normal affect, normal behavior, A&O x 3 Hospitalist Results - Labs Result Diagrams: 08/01/20 18:46 08/01/20 18:46 Lab results: WBC 6.9 thou/uL (4.8-10.8) 08/01/20 18:46 Hgb 11.7 g/dL (12.0-16.0) L 08/01/20 18:46 Hct 36.0 % (36.0-47.0) 08/01/20 18:46 MCV 80.8 fL (78.0-98.0) 08/01/20 18:46 Plt Count 227 thou/uL (130-400) 08/01/20 18:46 Neutrophils % 70.9 % (42.0-75.0) 08/01/20 18:46 Sodium 139 mmol/L (136-145) 08/01/20 18:46 Potassium 4.4 mmol/L (3.5-5.1) 08/01/20 18:46 Chloride 101 mmol/L (98-107) 08/01/20 18:46 Carbon Dioxide 31 mmol/L (23-31) 08/01/20 18:46 BUN 22 mg/dL (9.8-20.1) H 08/01/20 18:46 Creatinine 1.27 mg/dL (0.6-1.1) H 08/01/20 18:46 Glucose 126 mg/dL (80-115) H 08/01/20 18:46 Lactic Acid 0.7 mmol/L (0.5-2.2) 08/01/20 18:46 Calcium 8.2 mg/dL (7.8-10.44) 08/01/20 18:46 Total Bilirubin 0.4 mg/dL (0.2-1.2) 08/01/20 18:46 AST 34 U/L (5-34) 08/01/20 18:46 ALT 25 U/L (8-55) 08/01/20 18:46 Alkaline Phosphatase 95 U/L (40-110) 08/01/20 18:46 Creatine Kinase 74 U/L (29-168) 08/01/20 18:46 Troponin I 0.016 ng/mL (< 0.028) 08/01/20 18:46 Serum Total Protein 7.3 g/dL (6.0-8.3) 08/01/20 18:46 Albumin 3.5 g/dL (3.4-4.8) 08/01/20 18:46 Additional comment: VITAL SIGNS [facility] Aug 01, 2020 19:21 JACQUELINE Avina, Bam BP: 124/69 Pulse: 73 Resp: 18 Temp: 97.8 (Oral) Pain: 9 O2 sat: 100 on (3L Oxygen) Time: 08/01/2020 19:21. ED documents, laboratory studies, imaging reports, EKG reviewed - EKG Interpretation EKG: NSR 71 bpm, no STEMI, no AVB Hospitalist H&P A/P - Plan Plan: Patient is a 65 year old female with PMH HTN, TIAs, asthma/COPD on home o2, diverticulitis, DJD, distant uterine cancer s/p hysterectomy, hypothyroidism who presents to ED for altered mental status and R lower extremity weakness and numbness. # L sided weakness and suspected ischemic stroke # history of TIA acute onset confusion and L sided weakness similar to last TIA, takes ASA and statin, CT head without acute findings. CTA head and neck did not reveal significant stenosis/occlusion/vascular abnormalities - continue statin/aspirin - consult neurology, stroke team - permissive HTN - MRI brain # bilateral pneumonia - concerning for COVID 19 # COPD w/ exacerbation on 3L O2 by NC which is baseline. - admit to neurology unit w/ covid precautions - start empiric solu medrol iv - azithromycin/ceftriaxone - PRN + scheduled duonebs and resume home symbicort - ABG # lung nodules - incindental finding on imaging, reported as stable, recommend outpatient workup and follow up imaging # HTN - permissive HTN # hypothyroid - resume synthroid DVT/ GI ppx
[2020-08-01] MEDS ORDERED: Aspirin Chewable 81 MG TAB ONE (20:13)
[2020-08-01] MEDS ORDERED: traMADol HCl 50 MG TAB ONE (20:13)
--- NOTE | 2020-08-01 20:29 | RAD ---
Exam: Chest one view HISTORY:COVID pneumonia Comparison: 08/01/2020 at 7:18 PM FINDINGS: Cardiac silhouette: Normal Aorta: Unremarkable Pulmonary vessels: Normal Costophrenic angles: Clear LUNGS: Stable aeration and expansion lung parenchyma. Patchy interstitial opacities, compatible with patient's history of COVID pneumonia. Pneumothorax: None Osseous abnormalities: None IMPRESSION: Patchy interstitial opacities, compatible with COVID pneumonia.
[2020-08-01 21:48] LABS: Bilirubin Negative (Negative); Blood, Urine Negative (Negative); Clarity Clear (Clear); Glucose, Urine (Dipstick) Normal (Negative); Ketone, Urine Negative (Negative); Leukocyte Negative Leu/uL (Negative); Nitrite Negative (Negative); Protein, Urine (Dipstick) Negative (Neg-Trace); Specific Gravity, Urine 1.047 (1.002-1.036); Urobilinogen Normal mg/dL (Less than 2); pH, Urine 5.5 (5.0-9.0)
[2020-08-02 00:01] LABS: SARS-CoV-2 NAA Rapid Test Not Detected (NotDetected)
[2020-08-02] MEDS ORDERED: Ondansetron PF 4 MG/2 ML Vial IVP PRN (00:54)
[2020-08-02] MEDS ORDERED: Guaifenesin DM 100-10/5 ML UDCUP PO PRN (00:54)
[2020-08-02] MEDS ORDERED: Acetaminophen 325 MG TAB PO PRN (00:54)
[2020-08-02] MEDS ORDERED: Labetalol HCl 100 MG/20 ML VIAL SLOW IVP PRN (00:55)
[2020-08-02] MEDS ORDERED: hydrALAZINE 20 MG/ML VIAL SLOW IVP PRN (00:55)
[2020-08-02] MEDS ORDERED: Electrolyte Replacement Protoc 1 EACH EACH FS PRN (01:00)
[2020-08-02 01:11] LABS: Troponin I Less than 0.010 ng/mL (< 0.028)
[2020-08-02] MEDS: HYDROcodone/Acetaminophen 5/325 mg Tablet PO PRN (01:16)
[2020-08-02 01:24] LABS: Thyroid Stimulating Hormone 5.8539 uIU/mL (0.35-4.94)
[2020-08-02] MEDS ORDERED: cefTRIAXone\\ROCEPHIN 1 GM in Sodium Chloride 0.9% 100 ML IVPB SCH ×3 (01:30→22:00)
[2020-08-02] MEDS ORDERED: Azithromycin 500 MG in Sodium Chloride 0.9% 250 ML 250 ML IVPB SCH ×2 (01:30→21:00)
[2020-08-02] MEDS: Morphine 2 MG/ML VIAL SLOW IVP PRN ×4 (02:35→18:26)
[2020-08-02 02:40] LABS: Actual Bicarbonate (HCO3v) 29 mEq/L (22-28); Base Excess 3.5 mEq/L (-2.0 to +3.0); Calcium, Ionized (venous) 0.96 mmol/L (1.16-1.32); Chloride (ABG LAB) 102 mmol/L (98-106); Hemoglobin (Hb) 13.3 g/dL (11.7-16.0); Potassium - ABG Lab 3.99 mmol/L (3.70-5.30); Sodium 137.7 mmol/L (133-146)
[2020-08-02 05:23] LABS: Cardiac Risk 3.4 (Less than 4.5)
[2020-08-02] MEDS: Azithromycin 500 MG in Sodium Chloride 0.9% 250 ML 250 ML IVPB SCH (05:46)
[2020-08-02] MEDS: methylPREDNISolone Sod Succ 40 MG VIAL IVP SCH ×3 (05:47→22:02)
[2020-08-02] MEDS: Levothyroxine 150 MCG TAB PO SCH (05:47)
[2020-08-02] MEDS: Mometasone 200 MCG/Formoterol 5 MCG 120 PUFF INHALER INH SCH ×2 (05:48→19:10)
[2020-08-02] MEDS: cefTRIAXone\\ROCEPHIN 1 GM in Sodium Chloride 0.9% 100 ML IVPB SCH (05:49)
[2020-08-02] MEDS ORDERED: Magnesium 2 GM/50 ML 2 GM in Premix Bag 1 BAG IVPB SCH (06:45)
[2020-08-02] MEDS ORDERED: Aspirin 325 mg Enteric Coated Tablet PO SCH (09:00)
[2020-08-02] MEDS: Enoxaparin Sodium 40 MG/0.4 ML SYRINGE SC SCH (10:29)
[2020-08-02] MEDS: Polyethylene Glycol 3350 17 GM Packet PO SCH ×2 (10:30→11:37)
[2020-08-02 12:35] LABS: SARS-CoV-2 MS2 Positive; SARS-CoV-2 N Gene Negative; SARS-CoV-2 S Gene Negative; SARS-CoV-2 by NAA Not Detected (NotDetected); SARS-CoV-2 orf1ab Negative
--- NOTE | 2020-08-02 13:29 | CON ---
NEUROLOGY CONSULTATION DATE OF CONSULTATION: 08/02/2020 REASON FOR CONSULTATION: Altered mental status/right leg weakness. HISTORY OF PRESENT ILLNESS: Ms. Vo is a 65-year-old female with medical history significant for hypertension; TIA; asthma; COPD, on home oxygen; diverticulitis; DJD; uterine cancer; status post hysterectomy; hypothyroidism, presented to the emergency room with altered mental status and right lower extremity weakness and numbness. Per the patient, she was at her baseline until noon yesterday when she woke up from a nap and was unable to get up and woke up with these symptoms. At 4 p.m. 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 Per the patient, she had a similar event in May of this year and was diagnosed with a TIA and was discharged home on aspirin and statin. Per the patient, she has been compliant with her medication. She does admit that she had extreme acute on chronic back pain and right leg pain, for which she took the pain medications. In the emergency room, the labs were unremarkable and a CT scan was done, which did not reveal any acute intracranial pathology. CT of the head and neck did not reveal hemodynamically significant stenosis and chest x-ray showed bilateral infiltrate, and there was a concern about COVID pneumonia. She was admitted for further workup. The patient denies nausea, vomiting, headache, chest pain, abdominal pain, or problems with speech or swallowing. REVIEW OF SYSTEMS:- Constitutional: denies: fever, chills, sweats, weakness, malaise, other Eyes: denies: pain, vision change, conjunctivae inflammation, eyelid inflammation, redness, other ENT: denies: ear pain, ear discharge, nose pain, nose discharge, nose congestion, mouth pain, mouth swelling, throat pain, throat swelling, other Respiratory: reports: cough, shortness of breath, wheezing. denies: dry, hemoptysis, SOB with excertion, pleuritic pain, sputum, other Cardiovascular: denies: chest pain, palpitations, orthopnea, paroxysmal noc. dyspnea, edema, light headedness, other Gastrointestinal: denies: nausea, vomiting, abdominal pain, diarrhea, constipation, melena, hematochezia, other Genitourinary: denies: dysuria, frequency, incontinence, hematuria, retention, other Musculoskeletal: denies: neck pain, shoulder pain, arm pain, back pain, hand pain, leg pain, foot pain, other Skin: denies: rash, lesions, phu, bruising, other Neurological: reports: weakness, numbness, other (R lower extremity weakness and numbness) All other systems reviewed; all pertinent +/- noted in HPI/Subj MEDICATIONS: 1. Dicyclomine 20 mg t.i.d. 2. Symbicort 2 puffs 2 times a day. 3. Losartan 100 mg once daily. 4. Levothyroxine 150 mcg once daily. 5. Pantoprazole 40 mg once daily. 6. Furosemide 20 mg daily. 7. Gabapentin 300 mg once a day. 8. Promethazine 25 mg every 6 hours p.r.n. 9. Tramadol 50 mg every 6 to 8 hours. 10. Vitamin D3, 3000 units once daily. 11. Aspirin 325 mg daily. 12. Amlodipine 10 mg once a day. PAST MEDICAL HISTORY: Hypertension, TIA, asthma, COPD, early diverticulitis, DJD, history of uterine cancer, status post hysterectomy, and hypothyroidism. PAST SURGICAL HISTORY: EGD, colonoscopy, appendectomy, cholecystectomy, hysterectomy, history of spinal surgery, tonsillectomy, bladder sling placed in 2010. FAMILY HISTORY: No family history of stroke. SOCIAL HISTORY: The patient is a former smoker. Denies alcohol or illegal drug use. ALLERGIES: NKDA PHYSICAL EXAMINATION: VITAL SIGNS: Blood pressure 124/69, pulse 73, respiratory rate 18. General Appearance: NAD, awake alert Eye: PERRL, anicteric sclera ENT: normocephalic atraumatic, no oropharyngeal lesions, moist mucosa Neck: supple, symmetric, no JVD, no thyromegaly, no lymphadenopathy, no carotid bruit Heart: RRR, no murmur, no gallops, no rubs, normal peripheral pulses Respiratory: CTAB, no rales, no ronchi, normal chest expansion, no tachypnea, wheezes Gastrointestinal: soft, non-tender, non-distended, normal bowel sounds, no palpable masses, no hepatomegaly, no splenomegaly, no bruit Extremities: no cyanosis, no clubbing, no edema Skin: normal turgor, no lesions, no rashes Neurological: Mental status: The patient is alert and oriented to person, place, and time. Speech is clear. Cranial nerves 2 through 12 intact. Motor: Muscle tone and bulk are normal. Strength is 5/5 in the right upper and lower extremities, 4/5 in the left upper and lower extremities. Sensation: Decreased. Cerebellar: Finger-nose testing intact. Gait: Deferred due to the patient's safety reasons. DATA REVIEWED: I reviewed the labs, which were significant for hyperglycemia at 126 and chronic kidney disease with BUN of 22 and creatinine of 1.27, acute kidney injury. EKG showed normal sinus rhythm. Lab results: WBC 6.9 thou/uL (4.8-10.8) 08/01/20 18:46 Hgb 11.7 g/dL (12.0-16.0) L 08/01/20 18:46 Hct 36.0 % (36.0-47.0) 08/01/20 18:46 MCV 80.8 fL (78.0-98.0) 08/01/20 18:46 Plt Count 227 thou/uL (130-400) 08/01/20 18:46 Neutrophils % 70.9 % (42.0-75.0) 08/01/20 18:46 Sodium 139 mmol/L (136-145) 08/01/20 18:46 Potassium 4.4 mmol/L (3.5-5.1) 08/01/20 18:46 Chloride 101 mmol/L (98-107) 08/01/20 18:46 Carbon Dioxide 31 mmol/L (23-31) 08/01/20 18:46 BUN 22 mg/dL (9.8-20.1) H 08/01/20 18:46 Creatinine 1.27 mg/dL (0.6-1.1) H 08/01/20 18:46 Glucose 126 mg/dL (80-115) H 08/01/20 18:46 Lactic Acid 0.7 mmol/L (0.5-2.2) 08/01/20 18:46 Calcium 8.2 mg/dL (7.8-10.44) 08/01/20 18:46 Total Bilirubin 0.4 mg/dL (0.2-1.2) 08/01/20 18:46 AST 34 U/L (5-34) 08/01/20 18:46 ALT 25 U/L (8-55) 08/01/20 18:46 Alkaline Phosphatase 95 U/L (40-110) 08/01/20 18:46 Creatine Kinase 74 U/L (29-168) 08/01/20 18:46 Troponin I 0.016 ng/mL (< 0.028) 08/01/20 18:46 Serum Total Protein 7.3 g/dL (6.0-8.3) 08/01/20 18:46 Albumin 3.5 g/dL (3.4-4.8) 08/01/20 18:46 ASSESSMENT AND PLAN: Ms. Karis Vo is a 65-year-old female with a history significant for hypertension; prior transient ischemic attack; asthma; chronic obstructive pulmonary disease, on home oxygen; diverticulitis; degenerative joint disease; hypothyroidism, presented with an episode of altered mental status with right lower extremity weakness and numbness. Differential diagnosis includes transient ischemic attack versus seizures. With her seizures, consider EEG to rule out underlying cortical irritability. MRI brain to assess for acute intracranial process. CTA of the head and neck did not reveal significant stenosis. Continue aspirin and high-intensity statin for secondary stroke prevention. Permissive control of blood pressure at this time. Strict control of blood glucose. Continue home medications. 2 D echocardiography to evaluate for left ventricular ejection fraction. Continue medical management per primary team for other issues including bilateral pneumonia, which can also contribute to altered mental status. Physical Therapy/Occupational Therapy/Speech. Deep venous thrombosis prophylaxis. We will continue to follow. Thank you for the consult. Job ID: [id number] MTDD
--- NOTE | 2020-08-02 17:02 | PDOC.HOSPP ---
- Subjective Encounter Date: 08/02/20 Encounter Time: 16:45 Subjective: f/u for AMS/syncope/RLE weakness and transient amnesia. Workup to date unrevealing and no recurrence. - Objective Vital Signs & Weight: Vital Signs (12 hours) Temp Pulse Resp BP BP Pulse Ox 08/02/20 15:34 98.4 F 93 17 130/60 95 08/02/20 14:52 90 16 92 L 08/02/20 10:48 80 16 93 L 08/02/20 10:40 98.2 F 80 21 H 155/68 H 93 L 08/02/20 07:17 96 08/02/20 07:16 75 16 96 08/02/20 04:55 97.5 F L 67 16 144/67 H 98 Weight Weight 304 lb I&O: 08/01/20 08/02/20 08/03/20 06:59 06:59 06:59 Intake Total 580 606 Balance 580 606 Result Diagrams: 08/01/20 18:46 08/01/20 18:46 Additional Labs: Accuchecks 08/02/20 08/01/20 14:11 18:42 POC Glucose 276 H 120 H Microbiology 08/01/20 19:31 Venous blood - Right Hand Blood Culture - Preliminary Specimen has been received and culture in progre ss. No Growth to date. 08/01/20 18:46 Venous blood - Left Arm Blood Culture - Preliminary Specimen has been received and culture in prog ress. No Growth to date. Laboratory Tests 07/05/20 08/01/20 08/01/20 13:31 18:46 18:46 Creatinine 0.76 Lactic Acid 0.7 Troponin I 0.016 Triglycerides Cholesterol LDL Cholesterol, Calc HDL Cholesterol Vitamin B12 TSH 3rd Generation 08/01/20 08/01/20 08/02/20 23:52 23:52 04:52 Creatinine Lactic Acid Troponin I Less than 0.010 Triglycerides 142 Cholesterol 104 LDL Cholesterol, Calc 45 HDL Cholesterol 31 Vitamin B12 448 TSH 3rd Generation 5.8539 H Radiology Reviewed by me: Yes (CT brain - negative) EKG Reviewed by me: Yes (Tele - SR) Hospitalist ROS - Medication Medications: Active Medications Generic Name Dose Route Start Last Admin Trade Name Freq PRN Reason Stop Dose Admin Hydrocodone Bitart/Acetaminophen 1 tab 08/02/20 00:54 08/02/20 01:16 Hydrocodone/Acetaminophen 5/325 Mg Tablet PO 1 tab Q4H PRN Administration Moderate Pain (4-6) Albuterol/Ipratropium 3 ml 08/02/20 07:00 08/02/20 14:52 Ipratropium/Albuterol Sulfate 3 Ml Neb NEB 3 ml [id number] SHAINA Administration Aspirin 325 mg 08/02/20 09:00 08/02/20 10:29 Aspirin 325 Mg Enteric Coated Tablet PO 325 mg DAILY SHAINA Administration Enoxaparin Sodium 40 mg 08/02/20 09:00 08/02/20 10:29 Enoxaparin Sodium 40 Mg/0.4 Ml Syringe SC 40 mg 0900 SHAINA Administration Azithromycin 500 mg/ Sodium 250 mls @ 250 mls/hr 08/02/20 06:00 08/02/20 05:46 Chloride IVPB 250 mls 0600 SHAINA Administration Ceftriaxone Sodium 1 gm/ 100 mls @ 200 mls/hr 08/02/20 06:30 08/02/20 05:49 Sodium Chloride IVPB 100 mls 0630 SHAINA Administration Levothyroxine Sodium 150 mcg 08/02/20 06:00 08/02/20 05:47 Levothyroxine 150 Mcg Tab PO 150 mcg 0600 SHAINA Administration Methylprednisolone Sodium Succinate 60 mg 08/02/20 06:00 08/02/20 13:19 Methylprednisolone Sod Succ 40 Mg Vial IVP 60 mg Q8HR SHAINA Administration Mometasone Furoate/Formoterol Fumar 1 puff 08/02/20 06:30 08/02/20 05:48 Mometasone 200 Mcg/Formoterol 5 Mcg 120 Puff Inhaler INH 1 puff BID-RT SHAINA Administration Morphine Sulfate 2 mg 08/02/20 00:54 08/02/20 13:13 Morphine 2 Mg/Ml Vial SLOW IVP 2 mg Q4H PRN Administration severe pain 4-10 Pantoprazole Sodium 40 mg 08/02/20 09:00 08/02/20 10:29 Pantoprazole 40 Mg Tab PO 40 mg DAILY SHAINA Administration Polyethylene Glycol 17 gm 08/02/20 09:00 08/02/20 11:37 Polyethylene Glycol 3350 17 Gm Packet PO Not Given DAILY SHAINA - Exam General Appearance: NAD, awake alert Eye: PERRL, anicteric sclera ENT: normocephalic atraumatic, no oropharyngeal lesions Neck: supple, symmetric, no JVD, no thyromegaly, no lymphadenopathy Heart: RRR, no murmur, no gallops, no rubs, normal peripheral pulses Heart - other findings: S1, S2 Respiratory: CTAB, no wheezes, no rales, no ronchi, normal chest expansion Gastrointestinal: soft, non-tender, non-distended, normal bowel sounds, no palpable masses Extremities: no cyanosis, no clubbing, no edema Skin: normal turgor, no lesions Neurological: cranial nerve grossly intact, no new deficit Musculoskeletal: normal tone, normal strength, no muscle wasting Psychiatric: normal affect, A&O x 3 Hosp A/P (1) Syncope Code(s): R55 - SYNCOPE AND COLLAPSE Status: Acute Plan: Suspected, continue current mgmt, MRI brain pending, EEG pending (2) Acute metabolic encephalopathy Code(s): G93.41 - METABOLIC ENCEPHALOPATHY Status: Acute Plan: Transient, may be iatrogenic with pain meds (3) Transient global amnesia Code(s): G45.4 - TRANSIENT GLOBAL AMNESIA Status: Acute Plan: See above (4) Hypertension Code(s): I10 - ESSENTIAL (PRIMARY) HYPERTENSION Status: Chronic Qualifiers: Hypertension type: essential hypertension Qualified Code(s): I10 - Essential (primary) hypertension (5) Hypothyroidism Code(s): E03.9 - HYPOTHYROIDISM, UNSPECIFIED Status: Chronic Plan: Continue Levothyroxine 150mcg daily - Plan continue antibiotics, 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
[2020-08-02] MEDS ORDERED: Meclizine HCl 25 MG TAB PO PRN (17:07)
[2020-08-02] MEDS: Insulin Regular 300 UNITS/3 ML VIAL SC PRN ×2 (17:23→18:38)
[2020-08-02] MEDS ORDERED: Non-Formulary Item 1 EACH (Budesonide-Formoterol [Symbicort 160-4.5] 160 MG/4.5 MG Aer) INH SCH (18:30)
[2020-08-02] MEDS ORDERED: Gabapentin 300 MG CAP PO SCH (21:00)
[2020-08-02] MEDS ORDERED: Azithromycin 500 MG in Syringe 0 ML IVPB SCH (21:00)
[2020-08-02] MEDS: Atorvastatin Calcium 40 MG TAB PO SCH (22:02)
[2020-08-03] MEDS: HYDROcodone/Acetaminophen 5/325 mg Tablet PO PRN ×4 (03:03→22:53)
[2020-08-03 05:33] LABS: Anion Gap 15 mmol/L (10-20); BUN (Urea Nitrogen) 21 mg/dL (9.8-20.1); Calc. Creatinine Clearance 141 mL/min (70-130); Calcium 8.5 mg/dL (7.8-10.44); Carbon Dioxide 22 mmol/L (23-31); Chloride 101 mmol/L (98-107); Estimated GFR-MDRD 65; Glucose 198 mg/dL (80-115); Potassium 4.4 mmol/L (3.5-5.1); Sodium 134 mmol/L (136-145)
[2020-08-03] MEDS: cefTRIAXone\\ROCEPHIN 1 GM in Sodium Chloride 0.9% 100 ML IVPB SCH (05:50)
[2020-08-03] MEDS: methylPREDNISolone Sod Succ 40 MG VIAL IVP SCH ×2 (05:50→22:35)
[2020-08-03] MEDS: Morphine 2 MG/ML VIAL SLOW IVP PRN (05:51)
[2020-08-03] MEDS: Levothyroxine 150 MCG TAB PO SCH (05:54)
[2020-08-03] MEDS: Insulin Regular 300 UNITS/3 ML VIAL SC PRN ×3 (05:55→18:24)
[2020-08-03] MEDS: Mometasone 200 MCG/Formoterol 5 MCG 120 PUFF INHALER INH SCH ×2 (06:50→18:15)
[2020-08-03] MEDS: Aspirin 325 mg Enteric Coated Tablet PO SCH (08:59)
[2020-08-03] MEDS: Amlodipine 5 MG TAB PO SCH (08:59)
[2020-08-03] MEDS: Enoxaparin Sodium 40 MG/0.4 ML SYRINGE SC SCH (08:59)
[2020-08-03] MEDS: Cholecalciferol 1,000 UNITS (25 MCG) TAB PO SCH (09:00)
[2020-08-03] MEDS: Azithromycin 500 MG in Sodium Chloride 0.9% 250 ML 250 ML IVPB SCH (09:01)
[2020-08-03] MEDS: Polyethylene Glycol 3350 17 GM Packet PO SCH ×2 (09:02→13:50)
[2020-08-03] MEDS ORDERED: Lorazepam 2 MG/ML VIAL SLOW IVP SCH (12:15)
[2020-08-03] MEDS: tiZANidine HCl 4 MG TAB PO SCH ×2 (15:05→22:35)
[2020-08-03] MEDS: Lidocaine 5% Patch TD SCH (15:06)
[2020-08-03] MEDS: Gabapentin 300 MG CAP PO SCH ×2 (15:06→22:35)
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
--- NOTE | 2020-08-03 19:35 | CT ---
CT Brain WO Con History: Strokelike symptoms Comparison: CT brain 2 days prior Findings: No acute hemorrhage or infarct. No midline shift or mass effect. Ventricular size and extra -axial CSF spaces are normal. Calvarium is intact. Paranasal sinuses and mastoids are clear. Impression: No acute intracranial abnormality.
[2020-08-03] MEDS: Atorvastatin Calcium 40 MG TAB PO SCH (22:35)
[2020-08-03] MEDS ORDERED: Dextrose 5% in Water 1,000 ML IV PRN (23:45)
[2020-08-03] MEDS ORDERED: Dextrose 50% Abboject 50 ML SYRINGE IVP PRN (23:45)
[2020-08-03] MEDS ORDERED: HumaLOG 300 UNITS/3 ML VIAL SC PRN (23:50)
[2020-08-04] MEDS: Insulin Regular 300 UNITS/3 ML VIAL SC PRN ×5 (00:04→21:37)
[2020-08-04] MEDS: Lidocaine Patch Removal 1 EACH TOP SCH (00:08)
[2020-08-04] MEDS: Azithromycin 500 MG in Sodium Chloride 0.9% 250 ML 250 ML IVPB SCH (05:44)
[2020-08-04] MEDS: Levothyroxine 150 MCG TAB PO SCH (05:44)
[2020-08-04] MEDS: HYDROcodone/Acetaminophen 5/325 mg Tablet PO PRN ×3 (05:47→21:35)
[2020-08-04] MEDS: Mometasone 200 MCG/Formoterol 5 MCG 120 PUFF INHALER INH SCH ×2 (07:22→19:32)
[2020-08-04] MEDS: cefTRIAXone\\ROCEPHIN 1 GM in Sodium Chloride 0.9% 100 ML IVPB SCH (08:15)
[2020-08-04] MEDS ORDERED: Magnesium Citrate 300 ML BOT PO SCH (09:00)
[2020-08-04] MEDS ORDERED: Docusate 100 MG CAP PO SCH (09:30)
[2020-08-04] MEDS: Polyethylene Glycol 3350 17 GM Packet PO SCH (09:39)
[2020-08-04] MEDS: traMADol HCl 50 MG TAB PO PRN (09:41)
[2020-08-04] MEDS: Amlodipine 5 MG TAB PO SCH (09:42)
[2020-08-04] MEDS: Enoxaparin Sodium 40 MG/0.4 ML SYRINGE SC SCH (09:42)
[2020-08-04] MEDS: Aspirin 325 mg Enteric Coated Tablet PO SCH (09:42)
[2020-08-04] MEDS: Cholecalciferol 1,000 UNITS (25 MCG) TAB PO SCH (09:42)
[2020-08-04] MEDS: methylPREDNISolone Sod Succ 40 MG VIAL IVP SCH (09:43)
[2020-08-04] MEDS: Gabapentin 300 MG CAP PO SCH ×3 (09:43→21:34)
[2020-08-04] MEDS: tiZANidine HCl 4 MG TAB PO SCH ×3 (09:43→21:34)
[2020-08-04 10:09] LABS: Bacteria/HPF None Seen HPF (None Seen); Bilirubin Negative (Negative); Blood, Urine Negative (Negative); Clarity Clear (Clear); Glucose, Urine (Dipstick) 300 mg/dL (Negative); Ketone, Urine Negative (Negative); Leukocyte Negative Leu/uL (Negative); Nitrite Negative (Negative); Protein, Urine (Dipstick) Negative (Neg-Trace); RBC/HPF 0-3 HPF (0-3); Specific Gravity, Urine 1.016 (1.002-1.036); Squamous Epithelial 0-3 HPF (0-3); Urobilinogen Normal mg/dL (Less than 2); WBC/HPF 0-3 HPF (0-3); pH, Urine 7.5 (5.0-9.0)
[2020-08-04 10:11] LABS: Urine Culture Reflex No No
--- NOTE | 2020-08-04 11:04 | RAD ---
Radiograph abdomen one view: 08/04/2020 HISTORY: 65-year-old female with constipation and lower abdominal pain FINDINGS: Moderate amount of colonic stool in the left and right colon and transverse colon. No gas-filled dilated small bowel loops. Innumerable tiny round calcifications throughout left upper quadrant, overlying a mildly enlarged spl enic shadow. Midline laminectomy defects at lower lumbar spine. IMPRESSION: 1. No evidence of bowel obstruction. 2. Splenomegaly. 3. Old granulomatous disease of the spleen (innumerable calcified granulomata).
--- NOTE | 2020-08-04 11:09 | RAD ---
RADIOGRAPH LUMBAR SPINE 3 VIEWS: DATE: 08/04/2020 HISTORY: 65-year-old female with low back pain COMPARISON: 07/23/2020 FINDINGS: Straightening of the normal lumbar curvature. Vertebral body heights are maintained. 5 lumbar-type vertebrae. Vertebral body heights are maintained. Multilevel small endplate marginal osteophytes protrude into the prevertebral space. Mild disc space narrowing at multiple levels, most notably L2-3 and L3-4. L5-S1 and L4-5 disc spaces are maintained. Minimal retrolisthesis of L3 on L4. No anterolisthesis. Facet DJD at mid and lower levels. Laminectomy defects at L4-5 and L5. No interval change.. IMPRESSION: 1) lumbar spondylosis consisting of multilevel facet osteoarthrosis. 2) status post lower level laminectomies 3) loss of lordosis suggestive of muscle spasm.
--- NOTE | 2020-08-04 11:56 | PDOC.HOSPP ---
- Subjective Subjective: complaints of back pain, which has improved. Rpt CT head negative. C/o lower abd discomfort. - Objective Vital Signs & Weight: Vital Signs (12 hours) Temp Pulse Resp BP Pulse Ox 08/04/20 11:30 97.7 F 78 16 141/97 H 94 L 08/04/20 09:42 88 08/04/20 08:00 97.7 F 88 16 122/77 98 08/04/20 07:22 82 16 98 08/04/20 07:20 70 20 98 08/04/20 04:00 97.9 F 78 20 122/65 97 08/04/20 00:42 96 Weight Weight 314 lb I&O: 08/03/20 08/04/20 08/05/20 06:59 06:59 06:59 Intake Total 706 1443 395 Output Total 308 2100 Balance 398 -657 395 Result Diagrams: 08/01/20 18:46 08/03/20 04:32 Additional Labs: Accuchecks 08/04/20 08/04/20 08/03/20 11:35 05:47 23:38 POC Glucose 297 H 196 H 271 H 08/03/20 08/03/20 18:07 12:41 POC Glucose 398 H 340 H Radiology Reviewed by me: Yes EKG Reviewed by me: Yes Hospitalist ROS - Medication Medications: Active Medications Generic Name Dose Route Start Last Admin Trade Name Freq PRN Reason Stop Dose Admin Hydrocodone Bitart/Acetaminophen 1 tab 08/02/20 00:54 08/04/20 05:47 Hydrocodone/Acetaminophen 5/325 Mg Tablet PO 1 tab Q4H PRN Administration Moderate Pain (4-6) Albuterol/Ipratropium 3 ml 08/02/20 07:00 08/04/20 10:21 Ipratropium/Albuterol Sulfate 3 Ml Neb NEB Not Given [id number] SHAINA Amlodipine Besylate 5 mg 08/03/20 09:00 08/04/20 09:42 Amlodipine 5 Mg Tab PO 5 mg DAILY SHAINA Administration Aspirin 325 mg 08/03/20 09:00 08/04/20 09:42 Aspirin 325 Mg Enteric Coated Tablet PO 325 mg DAILY SHAINA Administration Atorvastatin Calcium 40 mg 08/02/20 21:00 08/03/20 22:35 Atorvastatin Calcium 40 Mg Tab PO 40 mg HS SHAINA Administration Cholecalciferol 1,000 units 08/03/20 09:00 08/04/20 09:42 Cholecalciferol 1,000 Units (25 Mcg) Tab PO 1,000 units DAILY SHAINA Administration Docusate Sodium 100 mg 08/04/20 09:30 08/04/20 09:43 Docusate 100 Mg Cap PO 08/04/20 12:00 100 mg NOW SHAINA Administration Enoxaparin Sodium 40 mg 08/02/20 09:00 08/04/20 09:42 Enoxaparin Sodium 40 Mg/0.4 Ml Syringe SC 40 mg 0900 SHAINA Administration Gabapentin 600 mg 08/03/20 15:00 08/04/20 09:43 Gabapentin 300 Mg Cap PO 600 mg TID SHAINA Administration Azithromycin 500 mg/ Sodium 250 mls @ 250 mls/hr 08/02/20 06:00 08/04/20 05:44 Chloride IVPB 250 mls 0600 SHAINA Administration Ceftriaxone Sodium 1 gm/ 100 mls @ 200 mls/hr 08/02/20 06:30 08/04/20 08:15 Sodium Chloride IVPB 100 mls 0630 SHAINA Administration Insulin Human Regular 0 units 08/02/20 00:55 08/04/20 11:45 Insulin Regular 300 Units/3 Ml Vial SC 6 unit .MODERATE SLIDING SC PRN Administration Moderate Correctional Scale Insulin Human Regular 0 units 08/03/20 23:45 08/04/20 00:04 Insulin Regular 300 Units/3 Ml Vial SC 3 unit .BEDTIME SLIDING SC PRN Administration BEDTIME SLIDING SCALE Protocol Isosorbide Mononitrate 60 mg 08/03/20 09:00 08/04/20 09:43 Isosorbide Mononitrate Er 60 Mg Tab PO 60 mg DAILY SHAINA Administration Levothyroxine Sodium 150 mcg 08/02/20 06:00 08/04/20 05:44 Levothyroxine 150 Mcg Tab PO 150 mcg 0600 SHAINA Administration Lidocaine 2 patch 08/03/20 13:00 08/03/20 15:06 Lidocaine 5% Patch TD 2 patch 1300 SHAINA Administration Magnesium Citrate 300 ml 08/04/20 09:00 08/04/20 09:39 Magnesium Citrate 300 Ml Bot PO 08/04/20 12:00 300 ml NOW SHAINA Administration Methylprednisolone Sodium Succinate 40 mg 08/03/20 21:00 08/04/20 09:43 Methylprednisolone Sod Succ 40 Mg Vial IVP 40 mg BID SHAINA Administration Miscellaneous Medication 1 each 08/04/20 01:00 08/04/20 00:08 Lidocaine Patch Removal 1 Each TOP 1 each 0100 SHAINA Administration Mometasone Furoate/Formoterol Fumar 1 puff 08/02/20 06:30 08/04/20 07:22 Mometasone 200 Mcg/Formoterol 5 Mcg 120 Puff Inhaler INH 1 puff BID-RT SHAINA Administration Morphine Sulfate 2 mg 08/02/20 00:54 08/03/20 05:51 Morphine 2 Mg/Ml Vial SLOW IVP 2 mg Q4H PRN Administration severe pain 4-10 Pantoprazole Sodium 40 mg 08/03/20 09:00 08/04/20 09:43 Pantoprazole 40 Mg Tab PO 40 mg DAILY SHAINA Administration Polyethylene Glycol 17 gm 08/02/20 09:00 08/04/20 09:39 Polyethylene Glycol 3350 17 Gm Packet PO 17 gm DAILY SHAINA Administration Tizanidine HCl 4 mg 08/03/20 15:00 08/04/20 09:43 Tizanidine Hcl 4 Mg Tab PO 4 mg TID SHAINA Administration Tramadol HCl 50 mg 08/02/20 17:07 08/04/20 09:41 Tramadol Hcl 50 Mg Tab PO 50 mg Q6H PRN Administration Mild Pain (1-3) - Exam General Appearance: NAD Eye: PERRL ENT: normocephalic atraumatic Neck: supple, symmetric, no JVD Heart: RRR Respiratory: CTAB, no wheezes Gastrointestinal: tender to palpation (suprapubic area) Extremities: no cyanosis Skin: normal turgor Neurological: cranial nerve grossly intact Musculoskeletal: normal tone Psychiatric: normal affect Hosp A/P - Plan Patient is a 65 year old female with PMH HTN, TIAs, asthma/COPD on home o2, d iverticulitis, DJD, distant uterine cancer s/p hysterectomy, hypothyroidism who presents to ED for altered mental status and R lower extremity weakness and numbness. Abd discomfort - exam benign. suspect d/t constipation --check KUB. start aggressive bowel regimen. --anticipated home tomorrow if her back pain is better controlled. AMS - likley d/t Acute metabolic encephalopathy. Mental status returned to baseline. --patient is unable to tolerate MRI due to her body habitus. Rpt CT negative --Appreciate neurology input Community-acquired pneumonia --Continue azithromycin, Rocephin empirically. COVID PCR was negative. Taper steroid. Cont nebs COPD with exacerbation --Continue taper steroid, transition to oral steroid, breathing treatment, empiric antibiotic as above Left side weakness --Continue PT. Patient had history of TIA. Will repeat CT as patient unable to tolerate MRI --Continue aspirin and statin Essential hypertension --Blood pressure stable continue current medications Hypothyroidism --Continue levothyroxine Morbid obesity with BMI of 47.6 --Aggressive risk factor modification is recommended Acute on chronic low back pain --Lumbar xray reviewed. adjusted pain regimen. Pt has an open MRI scheduled on the 08/21. Encouraged to keep appt
[2020-08-04] MEDS: Lidocaine 5% Patch TD SCH (13:16)
[2020-08-04] MEDS: Atorvastatin Calcium 40 MG TAB PO SCH (21:35)
[2020-08-04] MEDS: Docusate 100 MG CAP PO SCH (21:35)
[2020-08-05] MEDS: traMADol HCl 50 MG TAB PO PRN (00:08)
[2020-08-05] MEDS: Lidocaine Patch Removal 1 EACH TOP SCH (03:30)
[2020-08-05 04:56] LABS: #Lymphocytes 1.8 thou/uL (1.20-3.40); #Monocytes 0.7 thou/uL (0.11-0.59); #Neutrophils 7.5 thou/uL (1.40-6.50); %Basophils 0.4 % (0.0-1.0); %Eosinophils 0.1 % (0.0-10.0); %Lymphocytes 17.8 % (21.0-51.0); %Neutrophils 74.7 % (42.0-75.0); Hemoglobin 11.9 g/dL (12.0-16.0); Mean Corpuscular HGB CONC 31.3 g/dL (32.0-36.0); Mean Corpuscular Hemoglobin 25.5 pg (27.0-31.0); Mean Corpuscular Volume 81.3 fL (78.0-98.0); Mean Platelet Volume 7.6 fL (7.4-10.4); Platelet Count 221 thou/uL (130-400); RBC Distribution Width 15.7 % (11.5-14.5); Red Blood Cell (RBC) Count 4.69 mill/uL (4.20-5.40)
[2020-08-05] MEDS: Mometasone 200 MCG/Formoterol 5 MCG 120 PUFF INHALER INH SCH (05:04)
[2020-08-05 05:13] LABS: Anion Gap 11 mmol/L (10-20); BUN (Urea Nitrogen) 29 mg/dL (9.8-20.1); Calc. Creatinine Clearance 145 mL/min (70-130); Calcium 8.1 mg/dL (7.8-10.44); Carbon Dioxide 26 mmol/L (23-31); Chloride 103 mmol/L (98-107); Estimated GFR-MDRD 65; Glucose 155 mg/dL (80-115); Magnesium 2.6 mg/dL (1.6-2.6); Potassium 4.4 mmol/L (3.5-5.1); Sodium 136 mmol/L (136-145)
[2020-08-05] MEDS: Levothyroxine 150 MCG TAB PO SCH (05:31)
[2020-08-05] MEDS: Azithromycin 500 MG in Sodium Chloride 0.9% 250 ML 250 ML IVPB SCH (05:31)
[2020-08-05 05:37] LABS: CKMB 1.6 ng/mL (0-6.6)
--- NOTE | 2020-08-05 07:52 | RAD ---
RADIOGRAPH CHEST 1 VIEW: DATE: 08/05/2020 HISTORY: 65-year-old female with chest tightness FINDINGS: There are no airspace densities, pulmonary edema, pneumothorax, or cardiomegaly. The lateral costophr enic angles are sharp. Elevated right hemidiaphragm. Scar or subsegmental atelectasis at left midlung zone. IMPRESSION: No acute cardiopulmonary findings.
[2020-08-05] MEDS ORDERED: predniSONE 20 MG TAB PO SCH (08:00)
[2020-08-05] MEDS: Gabapentin 300 MG CAP PO SCH ×2 (08:30→15:02)
[2020-08-05] MEDS: Cholecalciferol 1,000 UNITS (25 MCG) TAB PO SCH (08:30)
[2020-08-05] MEDS: Aspirin 325 mg Enteric Coated Tablet PO SCH (08:30)
[2020-08-05] MEDS: Docusate 100 MG CAP PO SCH (08:30)
[2020-08-05] MEDS: Amlodipine 5 MG TAB PO SCH (08:31)
[2020-08-05] MEDS: HYDROcodone/Acetaminophen 5/325 mg Tablet PO PRN (08:32)
[2020-08-05] MEDS: Enoxaparin Sodium 40 MG/0.4 ML SYRINGE SC SCH (08:36)
[2020-08-05] MEDS: Polyethylene Glycol 3350 17 GM Packet PO SCH (08:38)
[2020-08-05] MEDS: tiZANidine HCl 4 MG TAB PO SCH ×2 (08:57→15:02)
[2020-08-05] MEDS ORDERED: Cefdinir 300 MG CAP PO SCH (11:15)
[2020-08-05] MEDS: Insulin Regular 300 UNITS/3 ML VIAL SC PRN (11:20)
[2020-08-05] MEDS: cefTRIAXone\\ROCEPHIN 1 GM in Sodium Chloride 0.9% 100 ML IVPB SCH (11:37)
--- NOTE | 2020-08-05 11:49 | CT ---
EXAM: CT ANGIOGRAM OF THE HEAD AND NECK INDICATION: Stroke COMPARISON: CT angiogram of the head and neck 06/14/2020 and 06/15/2020 TECHNIQUE: CT angiogram of the head and neck are performed in the axial plane. Three-dimensional refo rmatted images are submitted for interpretation. FINDINGS: CTA OF THE HEAD WITH AND WITHOUT CONTRAST: POSTCONTRAST CT OF BRAIN: Pathologic enhancement: No pathologic enhancement the brain. Postcontrast soft tissue neck CT: Aerodigestive tract:Aerodigestive tract is patent. No mucosal abnormality. Mass effect upon the poste rior oral cavity and hypopharynx due to medial deviation of the carotid arteries. Sinuses: Adequate aeration. Orbits: Bilateral ocular lenses are appropriately located. Both globes are intact. Retrobulbar fat is preserved. Symmetric attenuation the optic nerves and ocular rectus muscles. Salivary glands:Symmetric attenuation Thyroid gland: Absent left thyroid lobe Lymph nodes: No evidence of lymphadenopathy by size criteria. Paraspinal muscles: Symmetric attenuation of the sternocleidomastoid muscles. Appropriate attenuation of the paraspinal muscles. Cervical spine:Stable degenerative changes. Stable fusion at C5-C6. Upper mediastinum and lung apices: Patchy opacities of the lung parenchyma. There is a 0.6 cm groundg lass nodule in the right upper lobe. There is a 1 cm nodule, right suprahilar location. CTA OF THE NECK WITH CONTRAST: Aorta: Appropriate enhancement and luminal diameter. Right carotid artery: Appropriate enhancement and luminal diameter of the origin the right carotid ar diane, innominate artery, common carotid artery, carotid bifurcation and internal carotid artery. No significant stenosis based upon NASCET criteria Left carotid: Appropriate enhancement and luminal diameter the origin of the carotid artery, common c arotid artery, carotid bifurcation and in internal carotid artery. No significant stenosis based upon NASCET criteria Subclavian arteries:Symmetric and patent Vertebral arteries:Patent throughout their course in the neck. Dominant left vertebral artery. CTA OF THE BRAIN: Intracranial internal carotid arteries:Symmetric and patent Anterior circulation: Appropriate enhancement and luminal diameter the A1 segments, proximal A2 segme nts, M1 segments and proximal MCA branches. No occlusion or high-grade stenosis Intracranial vertebral arteries: Patent. Visualized PICA artery are are unremarkable. Posterior circulation: Both vertebral arteries supply normal caliber basilar artery. Bilateral P1 seg ments have appropriate enhancement and luminal diameter. IMPRESSION: 1. No hemodynamically significant stenosis, occlusion or aneurysmal formation. 2. Multiple lung parenchymal nodules which have been described as chronic on a previous CT angiogram of the chest performed on 06/13/2020 Results study discussed with Dr. Clark 08/01/2020 at 7:27 PM Code CR Transcribed Date/Time: 08/05/2020 11:48 AM
[2020-08-05 12:12] VITALS: TEMP 98
[2020-08-05] MEDS: Lidocaine 5% Patch TD SCH (12:18)
[2020-08-05 13:09] VITALS: BP 133/63
--- NOTE | 2020-08-06 09:03 | EKG ---
Test Reason : CP Blood Pressure : / mmHG Vent. Rate : 068 BPM Atrial Rate : 068 BPM P-R Int : 158 ms QRS Dur : 098 ms QT Int : 392 ms P-R-T Axes : 034 033 033 degrees QTc Int : 416 ms Normal sinus rhythm Normal ECG Confirmed by DR. Shirley SAAVEDRA ([id number]) on 08/06/2020 9:03:13 AM Referred By: ZACH Confirmed By:DR. Shirley SAAVEDRA
--- NOTE | 2020-08-06 11:22 | DIS ---
DATE OF ADMISSION: 08/02/2020 DATE OF DISCHARGE: 08/05/2020 PRIMARY CARE PROVIDER: Lela Aj, nurse practitioner. DISCHARGE DIAGNOSES: 1. Altered mental status, likely due to acute metabolic encephalopathy. No evidence of cerebrovascular accident. 2. Community-acquired pneumonia. 3. Chronic obstructive pulmonary disease with exacerbation. 4. Acute on chronic back pain. 5. Essential hypertension. 6. Hypothyroidism. 7. Morbid obesity with BMI of 47.6. LABORATORY DATA: WBC 10.0, hemoglobin 11.9, hematocrit 38.1, and platelets 221. INR is 1.0. Chemistry; sodium is 136, potassium 4.4, chloride is 103, BUN 29, and creatinine 0.88. IMAGING STUDY: 1. Brain CT, no acute intracranial abnormality. 2. Chest x-ray, diminished lung volume. Interstitial prominence, may due to decreased lung volume, superimposed edema, and/or infiltrate cannot be excluded. 3. CTA of the head and neck, no hemodynamically significant stenosis, occlusions, or aneurysmal formation. 4. Repeat brain CT on 08/03/2020. No acute intracranial abnormality. 5. Lumbar spine x-ray. Lumbar spondylosis consistent with multilevel facet osteoarthrosis, status post low-level laminectomy, loss of lordosis suggestive of muscle spasm. 6. Abdominal x-ray, no evidence of bowel obstruction. Moderate amount of colonic stool in the left and right colon and transverse colon. CONSULTATION: None. PROCEDURE PERFORMED: None. HISTORY OF PRESENT ILLNESS AND BRIEF HOSPITAL COURSE: The patient is a pleasant 65-year-old female, who has significant past medical history of hypertension, TIA, asthma/COPD, on home O2 of 2 to 3 L, history of diverticulitis, DJD of the lumbar spine, distant uterine cancer, status post hysterectomy, hypothyroidism, who presented to the ED with altered mental status. Symptoms associated with right lower extremity weakness and numbness. For that reason, she was subsequently admitted to hospitalist for further evaluations and management. Initial chest x-ray was suggestive of possible pneumonia. She was also in acute exacerbation of her COPD. The patient was started on steroids, empiric antibiotics. The patient was doing well. Her symptoms resolved. Mental status is back to baseline. Unfortunately, due to her body habitus, the patient was not able to fit in the MRI. For that reason, repeated CT was done after 48 hours. Again, no evidence of intracranial abnormalities. Her symptoms likely due to acute metabolic encephalopathy, that is now resolved. The patient was weaned down to her baseline home O2 requirement. At this time, the patient is stable to discharge home on oral antibiotic and taper prednisone. Additionally, the patient also complaining of back pain, she does have chronic back pain at her lumbar area, she also had a history of laminectomy. She follows at outpatient neurosurgery and has an open MRI scheduled on August 21, which we have encouraged her to keep the followup appointment and follow up with her data integrity specialist for further management. We have made some adjustment to her medication. We increased the dose of her gabapentin to 600 mg along with Lidoderm patch and muscle relaxants. Her symptoms are now back to baseline. At this time, the patient is stable to discharge home. DISPOSITION: Home. ACTIVITY: As tolerated. DIET: Low salt, heart-healthy diet. FOLLOWUP CARE: The patient to follow up with her PCP in 1 to 2 weeks and follow up with her data integrity specialist as scheduled. PHYSICAL EXAMINATION: VITAL SIGNS: Temperature is 98, respiratory rate 14, pulse 74, saturating 96% on 3 L, and blood pressure is 124/56. GENERAL APPEARANCE: The patient appears to be comfortable. She is not in acute distress. HEENT: Normocephalic, atraumatic. Mucous membranes moist. NECK: Supple. No lymphadenopathy. No JVD. CARDIOVASCULAR: Regular rate and rhythm. S1 and S2 noted. No murmur. PULMONARY: Clear to auscultation bilaterally. ABDOMEN: Soft, nontender, obese. MUSCULOSKELETAL: No joint pain or tenderness. No lower extremity edema. SKIN: Intact. NEUROLOGIC: Cranial nerves II through XII grossly intact. No focal weakness. PSYCHIATRIC: The patient is alert and oriented x3 with normal affect. DISCHARGE MEDICATIONS: New prescriptions: 1. Omnicef 300 mg b.i.d. x5 days. 2. Prednisone dose pack taper use as directed. 3. Gabapentin was increased to 600 mg t.i.d. 4. Zanaflex 4 mg t.i.d. p.r.n. for muscle spasm. 5. Lidoderm patch 5% apply one patch daily. She will continue her regular home medications including; 1. Nitroglycerin tablet p.r.n. for chest pain. 2. Bentyl 20 mg one tablet t.i.d. 3. Furosemide 20 mg p.o. daily. 4. Levothyroxine 150 mcg p.o. daily. 5. Meclizine 25 mg p.r.n. for dizziness. 6. Phenergan 25 mg q.12 p.r.n. 7. Protonix 40 mg p.o. daily. 8. Symbicort 160/4.5 mcg two puffs inhaler b.i.d. 9. Tramadol 50 mg q.6 p.r.n. 10. Vitamin D3 1000 units p.o. daily. 11. Aspirin 325 mg p.o. daily. 12. Imdur 60 mg p.o. daily. 13. Losartan 100 mg p.o. daily. 14. Norvasc 5 mg p.o. daily. Thank you for allowing us to participate in this patient's care. Discharge time spent, 35 minutes. Job ID: [id number] MTDD
--- NOTE | 2020-08-07 06:13 | PQF ---
CLINICAL DOCUMENTATION CLARIFICATION FORM: Dear : Fernando Mario Date / Time: 08/07/20 0612 Please exercise your independent, professional judgment in responding to the clarification form. Clinical indicators are provided on the bottom of this form for your review In your clinical opinion based on clinical findings below, can you please identify the etiology of Metabolic Encephalopathy if due to: Please check appropriate box(es): [ ] Adverse effect of pain medication [ X ] AECOPD [ ] CAP [ ] Other diagnosis [ ] Unable to determine Physician Signature: Date/Time: For continuity of documentation, please document condition throughout progress notes and discharge summary. Thank You. To be completed by CDI/Coding staff for physician review: Present Clinical Indicators - Signs / Symptoms / Labs Results and Location in Medical Record [X] BP 130/63, Pulse 68, Resp 18, Temp 97.8 Vital signs 08/01 [X] VBG: pH7.40, pCO2 48.1, HCCO3 29 Sat 98.4 Laboratory 08/02 [X] Presented with altered mental status and R lower extremity weakness and numbness H&P p1 08/01 Dr Joseph [X] COPD with excerbation with bilateral Pneumonia H&P p5 08/01 Dr Joseph [X] Acute metabolic encephalopathy, transient, may be iatrogenic with pain meds HPN p5 08/02 Dr Troncoso Present Risk Factors Results and Location in Medical Record [X] 65 year-old Female H&P p1 08/01 Dr Joseph [X] Morbid obesity H&P p1 08/01 Dr Joseph [X] Hx of uterine cancer H&P p1 08/01 Dr Joseph [X] Hx of TIA H&P p1 08/01 Dr Joseph [X] COPD on Home O2 H&P p1 08/01 Dr Joseph [X] Former smoker H&P p1 08/01 Dr Joseph Present Treatments Results and Location in Medical Record [X] IV Ceftriaoxne 1gm JAN 01 [X] IVF NS 1L JAN 01 [X] IV Azithromycin 500 mg JAN 01 [X] Duoneb 3 ml JAN 01 [X] Oxygen 3L Respiratory Panel 08/02 [X] Blood gas Laboratory 08/02 [X] Brain CT Imaging Dr Lechuga 08/01 [X] Neurologist consult Consult Breanna Sherwood CDS/Operating Theatre Technician Signature: Amber De Leon Phone #: [phone] Date/Time: 08/07/2020611 This is a permanent part of the Medical Record [facility]
== END 2020-08-05 15:37 | disposition home health service (06) | DRG 193 ==
LOC: ERS 17:13 → 2SE 23:27 → OBSVTOIN 08-02 05:50
PROVIDERS: ADMIT Internal Medicine; ATTEND Internal Medicine
PROC: 3E0234Z Introduction of Serum, Toxoid and Vaccine into Muscle, Percutaneous Approach (ICD-10-PCS; principal; 2020-08-02)
DX: J18.9 Pneumonia, unspecified organism (principal); G93.41 Metabolic encephalopathy; J44.0 Chronic obstructive pulmonary disease with (acute) lower respiratory infection; Z68.42 Body mass index [BMI] 45.0-49.9, adult; J44.1 Chronic obstructive pulmonary disease with (acute) exacerbation; Z23 Encounter for immunization; Z20.828 Contact with and (suspected) exposure to other viral communicable diseases; G89.29 Other chronic pain; I10 Essential (primary) hypertension; E03.9 Hypothyroidism, unspecified; M47.816 Spondylosis without myelopathy or radiculopathy, lumbar region; E66.01 Morbid (severe) obesity due to excess calories; R91.8 Other nonspecific abnormal finding of lung field; Z99.81 Dependence on supplemental oxygen; Z85.42 Personal history of malignant neoplasm of other parts of uterus; Z86.73 Personal history of transient ischemic attack (TIA), and cerebral infarction without residual deficits; Z90.49 Acquired absence of other specified parts of digestive tract; Z87.891 Personal history of nicotine dependence
CPT/HCPCS: 36415; 36416; 70450; 70496; 70498; 71045; 72100; 74018; 80048; 80053; 80061; 81001; 81003; 82550; 82553; 82607; 82805; 83605; 83735; 84439; 84443; 84484; 85025; 85610; 85730; 87040; 87635; 90471; 90732; 93005; 93010; 94640; 95712; 95819; 95957; 96374; 96375; G0009; G0378; J0456; J0696; J1650; J1815; J2060; J2270; J2920; J3475; J3490; J7050; J7512; J7620; Q9967; U0002; U0003

== ENCOUNTER 2020-08-12 09:22 | Inpatient (IN) | payer MEDICARE, OTHER ==
--- NOTE | 2020-08-12 10:25 | RAD ---
EXAM: Single view of the chest HISTORY: Shortness of breath COMPARISON: 08/05/2020 FINDINGS: Single view of the chest shows a normal sized cardiomediastinal silhouette. There is stabl e elevation of the right hemidiaphragm. There is no evidence of consolidation, mass, or pleural effusion. No acute osseous abnormality. IMPRESSION: No evidence of acute cardiopulmonary disease
[2020-08-12 10:33] LABS: Base Excess-Venous 5.5 mmol/L (-2.0 to 3.0); Bicarbonate (HCO3v) 32.9 mmol/L (22.0-28.0); CO2 Tension (PvCO2) 59.4 mmHg (40.0-50.0); Calcium, Ionized 1.09 mmol/L (1.15-1.33); Chloride 97 mmol/L (98-107); Hemoglobin - Calc 13.6 g/dL (12.0-16.0); Sodium 137 mmol/L (138-145); T. Carbon Dioxide 34.8 mmol/L (22.0-28.0)
[2020-08-12] MEDS ORDERED: Magnesium 2 GM/50 ML BAG (IN WATER) ONE (10:35)
[2020-08-12] MEDS ORDERED: predniSONE 20 MG TAB ONE (10:35)
[2020-08-12] MEDS ORDERED: Acetaminophen 325 MG TAB ONE (10:35)
[2020-08-12 10:43] LABS: Hemoglobin 11.8 g/dL (12.0-16.0); Mean Corpuscular HGB CONC 31.1 g/dL (32.0-36.0); Mean Corpuscular Hemoglobin 25.4 pg (27.0-31.0); Mean Corpuscular Volume 81.8 fL (78.0-98.0); Mean Platelet Volume 7.2 fL (7.4-10.4); Platelet Count 304 thou/uL (130-400); RBC Distribution Width 16.1 % (11.5-14.5); Red Blood Cell (RBC) Count 4.63 mill/uL (4.20-5.40); White Blood Cell (WBC) Count 22.9 thou/uL (4.8-10.8)
[2020-08-12] MEDS ORDERED: PROVENTIL INHALER 6.7 G (200 INHALATIONS) INH SCH (10:45)
[2020-08-12] MEDS ORDERED: Albuterol 200 PUFF (6.7GM INHALER) ONE (10:50)
[2020-08-12] MEDS ORDERED: Iopamidol-370 76% 500 ML 1 ML ONE (10:52)
[2020-08-12 10:56] LABS: ALT (SGPT) 39 U/L (8-55); AST (SGOT) 22 U/L (5-34); Albumin 3.7 g/dL (3.4-4.8); Alkaline Phosphatase 111 U/L (40-110); Anion Gap 12 mmol/L (10-20); BUN (Urea Nitrogen) 17 mg/dL (9.8-20.1); Bilirubin, Total 0.7 mg/dL (0.2-1.2); Calc. Creatinine Clearance 0 mL/min (70-130); Carbon Dioxide 31 mmol/L (23-31); Chloride 96 mmol/L (98-107); Estimated GFR-MDRD 63; Globulin 3.3 g/dL (2.4-3.5); Glucose 119 mg/dL (80-115); Potassium 4.1 mmol/L (3.5-5.1); Sodium 135 mmol/L (136-145)
[2020-08-12 11:06] LABS: Band 3 % (5-11); Lymphocytes 8 % (21-51); MDiff Complete? YES; Monocytes 7 % (0-10); Neutrophil 82 % (42-75); Platelet Morphology Comment Appears Adequate; RBC Morphology Normal
--- NOTE | 2020-08-12 11:13 | CT ---
Exam: CT angiogram of the chest HISTORY: Shortness of breath. Fever. COMPARISON: 06/13/2020. TECHNIQUE: CT angiogram of the chest is performed in the axial plane. Three-dimensional reformatted i mages are submitted for interpretation FINDINGS: Mediastinum: No mass, lymphadenopathy or hematoma. HEART: Normal size. No significant pericardial fluid. Aorta: No aneurysm or dissection Upper solid abdominal viscera: No acute abnormality. Multiple calcified granulomas in the spleen. Red emonstration of an enlarged peripancreatic lymph node, measuring 2.3 x 1.3 cm. Stable hyperdensity involving a distal esophageal diverticulum. Enlarged gastrohepatic ligament lymph node measures 1.1 c m. Trachea and central bronchi: Patent Pleural spaces: No effusion Lung parenchyma: There are interstitial and alveolar opacities throughout the lung parenchyma which m ay represent pneumonia. There do appear to be multiple solid nodules in the lung parenchyma. Solid nodule in the right upper lobe measures 0.6 cm, middle lobe measures 0.7 cm, left upper lobe measures 0.7 cm. Calcified granuloma in the left lower lobe measures 0.7 cm and 0.9 cm. Pneumothorax: None Osseous structures: No lytic or blastic lesions Pulmonary arteries: Adequate contrast opacification pulmonary arterial system to the level of lobar a rteries. No filling defect to suggest pulmonary embolism. Limited evaluation of the segmental and subsegmental arteries due to timing of contrast bolus. IMPRESSION: 1. No evidence of pulmonary artery embolism to the level of the lobar arteries 2. Multifocal interstitial and alveolar opacities worrisome for multilobar pneumonia until proven oth erwise. 3. Redemonstration of multiple solid nodules throughout the lung parenchyma. There is also evidence o f an enlarged peripancreatic lymph node and enlarged gastroesophageal lymph node. Possibility of metastases/malignancy cannot be excluded. Transcribed Date/Time: 08/12/2020 11:38 AM
[2020-08-12 12:03] LABS: Bilirubin Negative (Negative); Blood, Urine Negative (Negative); Clarity Clear (Clear); Glucose, Urine (Dipstick) Normal (Negative); Ketone, Urine Negative (Negative); Leukocyte Negative Leu/uL (Negative); Nitrite Negative (Negative); Protein, Urine (Dipstick) Negative (Neg-Trace); Specific Gravity, Urine 1.018 (1.002-1.036); Urobilinogen Normal mg/dL (Less than 2); pH, Urine 7.5 (5.0-9.0)
[2020-08-12] MEDS ORDERED: Cefepime 2 GM VIAL ONE (12:03)
[2020-08-12 12:18] LABS: SARS-CoV-2 NAA Rapid Test Not Detected (NotDetected)
[2020-08-12 13:03] LABS: Troponin I Less than 0.010 ng/mL (< 0.028)
--- NOTE | 2020-08-12 15:47 | CON ---
DATE OF CONSULTATION: 08/12/2020 CONSULTING PHYSICIAN: Marbin Gonzalez. REASON FOR CONSULTATION: Pneumonia. HISTORY OF PRESENT ILLNESS: Karis is a 65-year-old female, who was initially hospitalized here on 08/01/2020 by the [facility] with altered mental status and right leg weakness. Her discharge summary from 08/05/2020 indicates that she was also diagnosed with community-acquired pneumonia and COPD exacerbation. Discharge medications indicate that she went home on Omnicef and prednisone. The patient states that she took both medications. She has now been home for about 1 week. She came in today with fever, but no issues with her mental status. Her vital signs show a temperature of 99.9, but her primary care doctor had measured her at 101.9. She has been given cefepime and vancomycin in the emergency room. She says she is coughing up green-colored sputum secretions with some blood. She is also having some dysuria. Additionally, she has thrush in her mouth. PAST MEDICAL HISTORY: 1. Hypertension. 2. Transient ischemic attack. 3. Asthma/COPD, requiring home O2 at 3 L nasal cannula. 4. Diverticulitis. 5. Degenerative joint disease. 6. Uterine cancer. 7. Hypothyroidism. PAST SURGICAL HISTORY: She has had a hysterectomy, colonoscopy, EGD, appendectomy, carpal tunnel release in the right hand, cholecystectomy, spinal surgery, tonsillectomy, and bladder sling. FAMILY MEDICAL HISTORY: Unremarkable. SOCIAL HISTORY: Quit smoking over 30 years ago. Does not consume alcohol. She lives at home with her 7-year-old grandchild. MEDICATIONS PRIOR TO ADMISSION: 1. Omnicef 300 mg b.i.d. 2. Prednisone taper dose. 3. Gabapentin 600 mg t.i.d. 4. Zanaflex 4 mg t.i.d. 5. Lidoderm 5% patch. 6. Nitroglycerin tablets. 7. Bentyl 20 mg t.i.d. p.r.n. 8. Furosemide 20 mg daily. 9. Levothyroxine 150 mcg daily. 10. Meclizine 25 mg p.r.n. dizziness. 11. Phenergan 25 mg every 12 hours as needed. 12. Protonix 40 mg daily. 13. Symbicort 160/4.5 two puffs twice daily. 14. Tramadol 50 mg every 6 hours as needed for back pain. 15. Vitamin D3 of 1000 units daily. 16. Aspirin 325 mg daily. 17. Imdur 60 mg daily. 18. Losartan 100 mg daily. 19. Norvasc 5 mg daily. REVIEW OF SYSTEMS: She endorses fever, chills, hemoptysis, greenish sputum production, loss of appetite, back pain, and mouth pain. Otherwise, her 12-point review of systems is negative. PHYSICAL EXAMINATION: VITAL SIGNS: Temperature 99.9, pulse 88, blood pressure 130/63, O2 saturation 98% on 3 L, and respiratory rate 18. GENERAL: The patient is a morbidly obese female with estimated weight 136 kg. She is awake and alert and in no distress. HEENT: She has thrush on her tongue. She has a class 4 Mallampati airway. NECK: No adenopathy or JVD. LUNGS: Diminished breath sounds, but clear. CARDIOVASCULAR: S1 and S2, regular without murmur. ABDOMEN: Soft and nontender to palpation. EXTREMITIES: No clubbing, cyanosis, or edema. NEUROLOGIC: Seems grossly intact throughout. LABORATORY DATA: White blood cell count 22.9, hemoglobin 11.8, hematocrit 37.8, and platelet count 304. Sodium 137, potassium 4, chloride 97, CO2 of 31, BUN 17, creatinine 0.9, glucose 119, alkaline phosphatase 111. Troponin 0.05. BNP 60. COVID test was negative. Urinalysis did not show any white blood cells. Chest x-ray showed no change, but CT of the chest showed bilateral lower lobe infiltrates, right greater than left. ASSESSMENT: 1. Pneumonia - I am not sure if we are dealing with something new or continuation of previous process. Resistant organisms would have to be in the differential diagnosis. 2. Obesity. 3. Probable underlying obstructive sleep apnea. 4. Chronic low back pain. RECOMMENDATIONS: 1. I would extend her antibiotics to meropenem, Levaquin, and vancomycin. Awaiting cultures. 2. Low-dose steroids since she was recently on prednisone. 3. Consider CPAP/BiPAP at night if she has any difficulty. 4. Diflucan for 3 days for thrush. TIME SPENT: The above encompassed 75 minutes. Of that time, greater than 50% spent with the patient and/or the patient's unit in the hospital. Job ID: [id number]
[2020-08-12 16:48] LABS: Troponin I Less than 0.010 ng/mL (< 0.028)
[2020-08-12] MEDS ORDERED: Acetaminophen 650 MG Suppository PR PRN (17:15)
[2020-08-12] MEDS ORDERED: Senokot S 8.6-50 MG TAB PO PRN (17:15)
[2020-08-12] MEDS ORDERED: Guaifenesin DM 100-10/5 ML UDCUP PO PRN (17:15)
[2020-08-12] MEDS ORDERED: Acetaminophen 325 MG TAB PO PRN (17:15)
[2020-08-12] MEDS ORDERED: HYDROcodone/Acetaminophen 5/325 mg Tablet PO PRN (17:15)
[2020-08-12] MEDS ORDERED: Ondansetron PF 4 MG/2 ML Vial IVP PRN (17:15)
[2020-08-12] MEDS ORDERED: Ondansetron ODT 4 MG TAB PO PRN (17:15)
[2020-08-12] MEDS ORDERED: Promethazine 25 MG TAB PO PRN (17:22)
[2020-08-12] MEDS ORDERED: Meclizine HCl 25 MG TAB PO PRN (17:22)
[2020-08-12] MEDS ORDERED: traMADol HCl 50 MG TAB PO PRN (17:22)
[2020-08-12] MEDS ORDERED: Nitroglycerin 0.4 MG TAB (25 Tab Bottle) SL PRN (17:22)
[2020-08-12] MEDS: methylPREDNISolone Sod Succ 40 MG VIAL IVP SCH ×2 (17:27→23:09)
--- NOTE | 2020-08-12 18:15 | HP ---
PRIMARY CARE PHYSICIAN: Lela Aj at [facility]. CHIEF COMPLAINT: Fever and cough. HISTORY OF PRESENT ILLNESS: This is a 65-year-old white female with a known history of morbid obesity, COPD, on 3 L of home oxygen and she was recently hospitalized a week ago with pneumonia. She improved and was sent home on Omnicef. Stated that her symptoms had resolved until last night when she started to get fevers and cough productive of thick dark sputum with some blood. She also has shortness of breath and eventually came to the emergency room here today. In the ER, a CT scan showed bilateral multifocal infiltrates consistent with pneumonia. Dr. Mathew, Pulmonology, was consulted. He has put her on broad-spectrum antibiotics for possible resistant pneumonia including Levaquin and meropenem. REVIEW OF SYSTEMS: CONSTITUTIONAL: See HPI. EYES: The patient's states her vision is a little bit blurred. ENT: She has had some nasal congestion and drainage and severe burning of her throat and of her tongue. This has been going on since last night as well. CARDIOVASCULAR: No chest pain. No palpitations or racing heart. PULMONARY: See HPI. She has had some anterior lower chest pain with the cough since last night. GASTROINTESTINAL: The patient had some nausea this morning, but did not vomit. No diarrhea. She has had a little bit of constipation, but this improved with some stool softeners at home. GENITOURINARY: No dysuria or hematuria, but the patient does report that she has been having to strain to get her urine out. MUSCULOSKELETAL: The patient has chronic muscle aches and joint pains in all her extremities. She also has some severe low back pain, it is being worked up. She will also get an open MRI done tomorrow. She has been taking tramadol at home, although this has not been controlling the pain well. [place] during her last hospitalization helped better. SKIN: No rashes or lesions she has noted. NEUROLOGIC: No numbness, tingling, or focal weakness. PAST MEDICAL HISTORY: 1. Asthma/COPD, on 3 L nasal cannula at home. 2. Hypertension. 3. TIA 2 to 3 weeks ago. 4. Diverticulitis. 5. Degenerative joint disease. 6. Uterine cancer years ago with resection and treatments. 7. Hypothyroidism. 8. Degenerative disk disease. PAST PSYCHIATRIC HISTORY: Positive for bipolar disorder and depression. PAST SURGICAL HISTORY: 1. Complete hysterectomy for cancer. 2. Appendectomy. 3. Cholecystectomy. 4. Carpal tunnel surgery on right hand. 5. Tonsillectomy. 6. Bladder sling. SOCIAL HISTORY: The patient is a former smoker, but quit 30 years ago. No alcohol or illicit drug use. She does state she is a full code and if she is incapacitated then her son would be her medical decision maker, his name is Remi Rahman junior. FAMILY HISTORY: Mother at age 67 with end-stage renal disease. Father had a massive RI in his 60s. There is also diabetes and cancer running in the family. ALLERGIES: NO KNOWN DRUG ALLERGIES. CURRENT MEDICATIONS: 1. Amlodipine 5 mg daily. 2. Aspirin 325 mg daily. 3. Symbicort 160/4.5 two puffs inhaled twice a day. 4. Cefdinir 300 mg twice a day. 5. Vitamin D3 1000 units daily. 6. Bentyl 20 mg 3 times a day. 7. Furosemide 10 mg daily. 8. Gabapentin 900 mg at night. 9. Isosorbide mononitrate 60 mg daily. 10. Levothyroxine 150 mcg daily. 11. Lidoderm patch transdermal daily. 12. Losartan 100 mg daily. 13. Meclizine 25 mg as needed. 14. Nitroglycerin as needed. 15. Protonix 40 mg daily. 16. Prednisone Dosepak. 17. Phenergan as needed. 18. Tizanidine 4 mg 3 times a day. 19. Tramadol 50 mg q.6 hours as needed. PHYSICAL EXAMINATION: VITAL SIGNS: Blood pressure 141/63, pulse 77, respirations 18, temperature 98.0, and O2 saturation 93% on 3 L nasal cannula. GENERAL: This is a well-developed, obese, white female in no acute distress. HEENT: Pupils equal, round, and reactive to light. Oropharynx clear without lesions, erythema, or exudate. She does have some thrush to her tongue, otherwise clear. HEART: Regular rate and rhythm. No murmurs, rubs, or gallops. LUNGS: Clear to auscultation bilaterally. No wheezes, crackles, or rhonchi. ABDOMEN: Soft, obese, mildly tenderness to palpation around the umbilicus without any guarding or rebound tenderness. No masses or hepatosplenomegaly noted. EXTREMITIES: No clubbing, cyanosis, or edema. SKIN: No rashes or other lesions noted. NEUROLOGIC: The patient moves all extremities equally. No facial droop. PSYCHIATRIC: Alert and oriented x3. Normal mood and affect. LABORATORY DATA: CBC with a white blood cell count of 22,000, 82% neutrophils, 3% bands, hemoglobin 11.8, hematocrit 37.8, and platelet count 304. Venous blood gas with a pCO2 of 59, PO2 of 81, and normal pH. Complete metabolic panel is notable for a sodium of 135, chloride of 96, glucose of 119, and alkaline phosphatase of 111, the rest was normal. Troponin is negative x3. Lactic acid was negative. Urinalysis was negative on admission. COVID testing was negative on admission. Chest x-ray done in the emergency room, I did review it. No evidence of acute cardiopulmonary disease. CTA of the chest done in the emergency room shows no evidence for PE. There is multifocal interstitial and alveolar opacities worrisome for multilobar pneumonia and redemonstration of multiple solid nodules throughout the lung parenchyma, they were seen on previous CT scan and appeared to be unchanged. EKG done in the emergency room shows normal sinus rhythm at a heart rate of 93 beats per minute with nonspecific T-wave changes and a low-voltage QRS. ASSESSMENT: 1. Recurrent multifocal pneumonia with sepsis. The patient did have a fever in her primary care physician's office and has a significantly elevated white blood cell count meeting sepsis criteria. Given her recent adequate treatment for pneumonia, it is possible she has a resistant bacteria and Dr. Mathew has been consulted and has put her on meropenem and Levaquin. Blood and urine cultures are pending. She is doing well on her home oxygen level. 2. Chronic respiratory failure with hypoxia, stable on home oxygen. 3. Thrush. The patient has been put on Diflucan for the next 3 days. 4. Hypertension. We will resume the patient's home blood pressure medications. 5. Hypothyroidism. Resume the patient's home levothyroxine. 6. Difficulty with urinating and history of needing a bladder sling. We will get a postvoid residual and place a Bui if needed. 7. Deep venous thrombosis prophylaxis. Put the patient on Lovenox daily. 8. Gastrointestinal prophylaxis. We will continue the patient's Protonix. 9. Code status. The patient is a full code. Should she be incapacitated, her medical decision maker is Remi Rahman junior. Job ID: [id number]
[2020-08-12] MEDS: Mometasone 200 MCG/Formoterol 5 MCG 120 PUFF INHALER INH SCH (19:29)
[2020-08-12] MEDS ORDERED: Famotidine 20 MG TAB PO SCH (21:00)
[2020-08-12] MEDS: Gabapentin 300 MG CAP PO SCH (22:14)
[2020-08-12] MEDS: tiZANidine HCl 4 MG TAB PO SCH (22:14)
[2020-08-12] MEDS: Dicyclomine 20 MG TAB PO SCH (22:15)
[2020-08-12] MEDS: HYDROcodone/Acetaminophen 5/325 mg Tablet PO PRN (22:15)
[2020-08-12] MEDS: Meropenem 2 GM in Sodium Chloride 0.9% 100 ML IVPB SCH (22:16)
[2020-08-13] MEDS: HYDROcodone/Acetaminophen 5/325 mg Tablet PO PRN ×2 (02:24→21:49)
[2020-08-13 04:51] LABS: #Lymphocytes 0.8 thou/uL (1.20-3.40); #Monocytes 0.4 thou/uL (0.11-0.59); #Neutrophils 17.3 thou/uL (1.40-6.50); %Eosinophils 0.1 % (0.0-10.0); %Lymphocytes 4.2 % (21.0-51.0); %Neutrophils 93.7 % (42.0-75.0); Hemoglobin 11.1 g/dL (12.0-16.0); Mean Corpuscular HGB CONC 30.5 g/dL (32.0-36.0); Mean Corpuscular Hemoglobin 24.8 pg (27.0-31.0); Mean Corpuscular Volume 81.6 fL (78.0-98.0); Mean Platelet Volume 8.3 fL (7.4-10.4); Platelet Count 244 thou/uL (130-400); RBC Distribution Width 16.1 % (11.5-14.5); Red Blood Cell (RBC) Count 4.48 mill/uL (4.20-5.40); White Blood Cell (WBC) Count 18.5 thou/uL (4.8-10.8)
[2020-08-13 05:15] LABS: Anion Gap 13 mmol/L (10-20); BUN (Urea Nitrogen) 19 mg/dL (9.8-20.1); Calc. Creatinine Clearance 149 mL/min (70-130); Calcium 8.8 mg/dL (7.8-10.44); Carbon Dioxide 25 mmol/L (23-31); Chloride 100 mmol/L (98-107); Estimated GFR-MDRD 66; Glucose 199 mg/dL (80-115); Potassium 5.1 mmol/L (3.5-5.1); Sodium 133 mmol/L (136-145)
[2020-08-13] MEDS: methylPREDNISolone Sod Succ 40 MG VIAL IVP SCH ×3 (05:55→18:03)
[2020-08-13] MEDS: Levothyroxine 150 MCG TAB PO SCH (05:56)
[2020-08-13] MEDS: Meropenem 2 GM in Sodium Chloride 0.9% 100 ML IVPB SCH ×3 (05:56→21:35)
[2020-08-13] MEDS: Mometasone 200 MCG/Formoterol 5 MCG 120 PUFF INHALER INH SCH ×2 (06:41→18:34)
--- NOTE | 2020-08-13 07:21 | PDOC.HOSPP ---
- Subjective Encounter Date: 08/13/20 Encounter Time: 10:00 Subjective: Patient breathing well. Not coughing badly today and no fever. Has been feeling dizzy this morning, and BP running a bit low for her. No other complaints. - Objective Vital Signs & Weight: Vital Signs (12 hours) Temp Pulse Resp BP Pulse Ox 08/13/20 06:42 95 08/13/20 06:41 83 20 95 08/13/20 06:39 85 16 95 08/13/20 04:42 98.1 F 68 18 165/70 H 94 L 08/13/20 01:59 16 08/12/20 22:46 68 20 97 08/12/20 19:52 98.2 F 86 16 148/65 H 94 L Weight Weight 318 lb I&O: 08/12/20 08/13/20 08/14/20 06:59 06:59 06:59 Intake Total 600 Output Total 900 Balance -300 Result Diagrams: 08/13/20 04:10 08/13/20 04:10 Hospitalist ROS - Review of Systems Constitutional: denies: fever, chills Respiratory: denies: cough, shortness of breath Cardiovascular: denies: chest pain, palpitations Gastrointestinal: denies: nausea, vomiting, abdominal pain Genitourinary: denies: dysuria, hematuria - Medication Medications: Active Medications Generic Name Dose Route Start Last Admin Trade Name Freq PRN Reason Stop Dose Admin Hydrocodone Bitart/Acetaminophen 2 tab 08/12/20 17:15 08/13/20 02:24 Hydrocodone/Acetaminophen 5/325 Mg Tablet PO 2 tab Q4H PRN Administration Severe Pain (7-10) Albuterol/Ipratropium 3 ml 08/12/20 18:30 08/13/20 06:39 Ipratropium/Albuterol Sulfate 3 Ml Neb NEB 3 ml [id number] SHAINA Administration Dicyclomine HCl 20 mg 08/12/20 21:00 08/12/20 22:15 Dicyclomine 20 Mg Tab PO 20 mg TID SHAINA Administration Gabapentin 900 mg 08/12/20 21:00 08/12/20 22:14 Gabapentin 300 Mg Cap PO 900 mg HS SHAINA Administration Meropenem 2 gm/ Sodium 100 mls @ 200 mls/hr 08/12/20 22:00 08/13/20 05:56 Chloride IVPB 100 mls Q8HR SHAINA Administration Levofloxacin 750 mg/ Device 150 mls @ 100 mls/hr 08/12/20 17:00 08/12/20 17:27 IVPB 150 mls Q24HR SHAINA Administration Levothyroxine Sodium 150 mcg 08/13/20 06:00 08/13/20 05:56 Levothyroxine 150 Mcg Tab PO 150 mcg 0600 SHAINA Administration Methylprednisolone Sodium Succinate 20 mg 08/12/20 18:00 08/13/20 05:55 Methylprednisolone Sod Succ 40 Mg Vial IVP 20 mg Q6HR SHAINA Administration Mometasone Furoate/Formoterol Fumar 2 puff 08/12/20 18:30 08/13/20 06:41 Mometasone 200 Mcg/Formoterol 5 Mcg 120 Puff Inhaler INH 2 puff BID-RT SHAINA Administration Tizanidine HCl 4 mg 08/12/20 21:00 08/12/20 22:14 Tizanidine Hcl 4 Mg Tab PO 4 mg TID SHAINA Administration - Exam General Appearance: NAD, awake alert ENT: moist mucosa Heart: RRR, no murmur, no gallops, no rubs Respiratory: CTAB, no wheezes, no rales, no ronchi Gastrointestinal: soft, non-tender, non-distended, normal bowel sounds Psychiatric: normal affect, normal behavior, A&O x 3 Hosp A/P (1) Pneumonia Code(s): J18.9 - PNEUMONIA, UNSPECIFIED ORGANISM Status: Acute Qualifiers: Laterality: bilateral Lung location: unspecified part of lung (2) COPD (chronic obstructive pulmonary disease) Status: Chronic (3) Chronic respiratory failure with hypoxia Code(s): J96.11 - CHRONIC RESPIRATORY FAILURE WITH HYPOXIA Status: Chronic (4) Thrush Code(s): B37.0 - CANDIDAL STOMATITIS Status: Acute (5) GERD (gastroesophageal reflux disease) Code(s): K21.9 - GASTRO-ESOPHAGEAL REFLUX DISEASE WITHOUT ESOPHAGITIS Status: Chronic (6) Hypertension Code(s): I10 - ESSENTIAL (PRIMARY) HYPERTENSION Status: Chronic Qualifiers: Hypertension type: essential hypertension Qualified Code(s): I10 - Essential (primary) hypertension (7) Hypothyroidism Code(s): E03.9 - HYPOTHYROIDISM, UNSPECIFIED Status: Chronic (8) Morbid obesity with BMI of 45.0-49.9, adult Code(s): E66.01 - MORBID (SEVERE) OBESITY DUE TO EXCESS CALORIES; Z68.42 - BODY MASS INDEX [BMI] 45.0-49.9, ADULT Status: Chronic (9) Sleep apnea Code(s): G47.30 - SLEEP APNEA, UNSPECIFIED Status: Suspected - Plan Pneumonia- sating well on her home 3L O2. On Levaquin and Meropenem since 08/12/2020 Thrush from steroids- on Fluconazole x3 days starting 08/12/2020 Dizziness resolved with fluids, will hold BP medications unless SBP 130 or greater. Difficulty urinating- no urinary retention on bladder scan, will need to follow up with urology as an outpatient about her previous bladder lift GI proph/GERD- Protonix DVT proph- Lovenox
[2020-08-13] MEDS: tiZANidine HCl 4 MG TAB PO SCH ×3 (08:24→21:35)
[2020-08-13] MEDS: Losartan 25 MG TAB PO SCH (08:24)
[2020-08-13] MEDS: Cholecalciferol 1,000 UNITS (25 MCG) TAB PO SCH (08:25)
[2020-08-13] MEDS: Dicyclomine 20 MG TAB PO SCH ×3 (08:25→21:35)
[2020-08-13] MEDS: Furosemide 20 MG TAB PO SCH (08:25)
[2020-08-13] MEDS: Amlodipine 5 MG TAB PO SCH (08:25)
[2020-08-13] MEDS: Enoxaparin Sodium 40 MG/0.4 ML SYRINGE SC SCH (08:25)
[2020-08-13] MEDS: Fluconazole 100 MG TAB PO SCH (08:25)
[2020-08-13] MEDS: Lidocaine 5% Patch TD SCH (08:26)
[2020-08-13] MEDS: Aspirin 325 mg Enteric Coated Tablet PO SCH (08:28)
--- NOTE | 2020-08-13 09:24 | PRG ---
DATE OF SERVICE: 08/13/2020 SUBJECTIVE: Ms. Vo says she feels better today compared to yesterday. She says her shortness of breath is improved. OBJECTIVE: VITAL SIGNS: Temperature 97.4, pulse 75, respirations 22, O2 saturations 94% on 3 L, and blood pressure 136/92. HEENT: Clear. NECK: No JVD. LUNGS: Diminished breath sounds at the bases. CARDIAC: S1 and S2. Regular. ABDOMEN: Soft. EXTREMITIES: No edema. LABORATORY DATA: White blood cell count 18.5, hematocrit 36.6, and platelet count 244. Sodium 133, potassium 5.1, chloride 100, CO2 of 25, BUN 19, creatinine 0.8, and glucose 199. Culture showed no growth to-date. ASSESSMENT: 1. Pneumonia. 2. Obesity. 3. Probable underlying obstructive sleep apnea. PLAN: 1. Continue meropenem, Levaquin, vancomycin, and consolidate based on culture results. 2. Continue low-dose steroids. 3. Diflucan for thrush in her mouth. Job ID: [id number]
[2020-08-13] MEDS ORDERED: Sodium Chloride 0.9% 500 ML IVPB SCH ×2 (10:15→15:30)
[2020-08-13 14:29] VITALS: BMI 52.9
[2020-08-13] MEDS: Gabapentin 300 MG CAP PO SCH (21:35)
[2020-08-14] MEDS: methylPREDNISolone Sod Succ 40 MG VIAL IVP SCH ×4 (00:45→17:05)
[2020-08-14] MEDS ORDERED: Cepastat Lozenges 1 LOZ PO PRN (01:59)
[2020-08-14] MEDS: Levothyroxine 150 MCG TAB PO SCH (05:47)
[2020-08-14] MEDS: Meropenem 2 GM in Sodium Chloride 0.9% 100 ML IVPB SCH ×3 (05:47→23:30)
[2020-08-14] MEDS: Mometasone 200 MCG/Formoterol 5 MCG 120 PUFF INHALER INH SCH ×2 (06:50→18:31)
[2020-08-14] MEDS: Dicyclomine 20 MG TAB PO SCH ×3 (09:08→19:51)
[2020-08-14] MEDS: Aspirin 325 mg Enteric Coated Tablet PO SCH (09:08)
[2020-08-14] MEDS: Enoxaparin Sodium 40 MG/0.4 ML SYRINGE SC SCH (09:08)
[2020-08-14] MEDS: Lidocaine 5% Patch TD SCH (09:08)
[2020-08-14] MEDS: tiZANidine HCl 4 MG TAB PO SCH ×3 (09:09→19:51)
[2020-08-14] MEDS: Fluconazole 100 MG TAB PO SCH (09:09)
[2020-08-14] MEDS: Furosemide 20 MG TAB PO SCH (09:09)
[2020-08-14] MEDS: Cholecalciferol 1,000 UNITS (25 MCG) TAB PO SCH (09:12)
[2020-08-14] MEDS: Amlodipine 5 MG TAB PO SCH (09:38)
[2020-08-14] MEDS: Losartan 25 MG TAB PO SCH (09:38)
--- NOTE | 2020-08-14 10:58 | PRG ---
DATE OF SERVICE: 08/14/2020 SUBJECTIVE: The patient seems to be doing better. She says she is less short of breath and she is coughing up sputum. OBJECTIVE: VITAL SIGNS: On exam, temperature 97.9, pulse 71, respirations 18, O2 saturation 93% on 2 L, and blood pressure 135/62. HEENT: Unremarkable. NECK: No adenopathy or JVD. LUNGS: She has right lower lobe crackles. CARDIAC: S1 and S2. Regular. ABDOMEN: Soft. EXTREMITIES: No edema. LABORATORY DATA: Her cultures show no growth today. No new labs were done today. ASSESSMENT: 1. Pneumonia. 2. Underlying obstructive sleep apnea. PLAN: Go ahead and stop the fluconazole tomorrow after 3 days. She is continued on Levaquin and meropenem. Given her elevation in potassium yesterday, her chemistry will be rechecked tomorrow. Job ID: [id number]
--- NOTE | 2020-08-14 12:03 | PDOC.HOSPP ---
- Subjective Encounter Date: 08/14/20 Encounter Time: 12:00 Subjective: f/u for bilat PNA on Meropenem/Levaquin since 08/12/20. Remains on baseline O2 @ 2L/min NC. Still weak and fatigued. - Objective Vital Signs & Weight: Vital Signs (12 hours) Temp Pulse Resp BP BP Pulse Ox 08/14/20 11:44 97.5 F L 71 19 134/61 94 L 08/14/20 10:53 82 20 96 08/14/20 09:17 78 135/62 08/14/20 07:40 97.9 F 71 18 127/59 L 93 L 08/14/20 06:50 76 20 95 08/14/20 06:49 95 08/14/20 06:48 66 20 95 08/14/20 04:00 97.5 F L 65 16 109/54 L 94 L Weight Admit Weight 315 lb 4.8 oz Weight 316 lb 14.4 oz I&O: 08/13/20 08/14/20 08/15/20 06:59 06:59 06:59 Intake Total 600 550 Output Total 900 600 Balance -300 -50 Result Diagrams: 08/13/20 04:10 08/13/20 04:10 Additional Labs: Microbiology 08/12/20 11:10 Nasal swab Influenza Types A,B Direct EIA - Final 08/12/20 11:47 Urine voided Urine Culture - Preliminary 08/12/20 10:00 Venous blood - Left Hand Blood Culture - Preliminary NO GROWTH AT 48 HOURS 08/12/20 09:47 Venous blood - Right Arm Blood Culture - Preliminary NO GROWTH AT 48 HOURS 08/01/20 19:31 Venous blood - Right Hand Blood Culture - Preliminary Specimen has been received and culture in progress. No Growth to date. 08/01/20 18:46 Venous blood - Left Arm Blood Culture - Preliminary Specimen has been received and culture in progress. No Growth to date. Laboratory Tests 07/05/20 08/01/20 08/01/20 13:31 18:46 18:46 WBC Neutrophils % Neutrophils % (Manual) Creatinine 0.76 Lactic Acid 0.7 Troponin I 0.016 Triglycerides Cholesterol LDL Cholesterol, Calc HDL Cholesterol Vitamin B12 TSH 3rd Generation 08/01/20 08/01/20 08/02/20 23:52 23:52 04:52 WBC Neutrophils % Neutrophils % (Manual) Creatinine Lactic Acid Troponin I Less than 0.010 Triglycerides 142 Cholesterol 104 LDL Cholesterol, Calc 45 HDL Cholesterol 31 Vitamin B12 448 TSH 3rd Generation 5.8539 H 08/12/20 08/13/20 09:47 04:10 WBC 22.9 H Neutrophils % 93.7 H Neutrophils % (Manual) 82 H Creatinine Lactic Acid Troponin I Triglycerides Cholesterol LDL Cholesterol, Calc HDL Cholesterol Vitamin B12 TSH 3rd Generation Radiology Reviewed by me: Yes (CTA chest - multilobar PNA) EKG Reviewed by me: Yes (Tele - SR) Hospitalist ROS - Medication Medications: Active Medications Generic Name Dose Route Start Last Admin Trade Name Freq PRN Reason Stop Dose Admin Hydrocodone Bitart/Acetaminophen 2 tab 08/12/20 17:15 08/13/20 21:49 Hydrocodone/Acetaminophen 5/325 Mg Tablet PO 2 tab Q4H PRN Administration Severe Pain (7-10) Albuterol/Ipratropium 3 ml 08/12/20 18:30 08/14/20 10:53 Ipratropium/Albuterol Sulfate 3 Ml Neb NEB 3 ml [id number] SHAINA Administration Amlodipine Besylate 5 mg 08/13/20 09:00 08/14/20 09:38 Amlodipine 5 Mg Tab PO Not Given DAILY SHAINA Aspirin 325 mg 08/13/20 09:00 08/14/20 09:08 Aspirin 325 Mg Enteric Coated Tablet PO 325 mg DAILY SHAINA Administration Cholecalciferol 1,000 units 08/13/20 09:00 08/14/20 09:12 Cholecalciferol 1,000 Units (25 Mcg) Tab PO 1,000 units DAILY SHAINA Administration Dicyclomine HCl 20 mg 08/12/20 21:00 08/14/20 09:08 Dicyclomine 20 Mg Tab PO 20 mg TID SHAINA Administration Enoxaparin Sodium 40 mg 08/13/20 09:00 08/14/20 09:08 Enoxaparin Sodium 40 Mg/0.4 Ml Syringe SC 40 mg 0900 SHAINA Administration Fluconazole 100 mg 08/13/20 09:00 08/14/20 09:09 Fluconazole 100 Mg Tab PO 08/15/20 09:01 100 mg DAILY SHAINA Administration Furosemide 10 mg 08/13/20 09:00 08/14/20 09:09 Furosemide 20 Mg Tab PO 10 mg DAILY SHAINA Administration Gabapentin 900 mg 08/12/20 21:00 08/13/20 21:35 Gabapentin 300 Mg Cap PO 900 mg HS SHAINA Administration Meropenem 2 gm/ Sodium 100 mls @ 200 mls/hr 08/12/20 22:00 08/14/20 05:47 Chloride IVPB 100 mls Q8HR SHAINA Administration Levofloxacin 750 mg/ Device 150 mls @ 100 mls/hr 08/12/20 17:00 08/13/20 18:03 IVPB 150 mls Q24HR SHAINA Administration Isosorbide Mononitrate 60 mg 08/13/20 09:00 08/14/20 09:38 Isosorbide Mononitrate Er 60 Mg Tab PO Not Given DAILY SHAINA Levothyroxine Sodium 150 mcg 08/13/20 06:00 08/14/20 05:47 Levothyroxine 150 Mcg Tab PO 150 mcg 0600 SHAINA Administration Lidocaine 1 patch 08/13/20 09:00 08/14/20 09:08 Lidocaine 5% Patch TD 1 patch DAILY SHAINA Administration Losartan Potassium 100 mg 08/13/20 09:00 08/14/20 09:38 Losartan 25 Mg Tab PO Not Given DAILY SHAINA Meclizine HCl 25 mg 08/12/20 17:22 08/13/20 11:46 Meclizine Hcl 25 Mg Tab PO 25 mg DAILY PRN Administration Dizziness Methylprednisolone Sodium Succinate 20 mg 08/12/20 18:00 08/14/20 05:47 Methylprednisolone Sod Succ 40 Mg Vial IVP 20 mg Q6HR SHAINA Administration Mometasone Furoate/Formoterol Fumar 2 puff 08/12/20 18:30 08/14/20 06:50 Mometasone 200 Mcg/Formoterol 5 Mcg 120 Puff Inhaler INH 2 puff BID-RT SHAINA Administration Pantoprazole Sodium 40 mg 08/13/20 09:00 08/14/20 09:09 Pantoprazole 40 Mg Tab PO 40 mg DAILY SHAINA Administration Tizanidine HCl 4 mg 08/12/20 21:00 08/14/20 09:09 Tizanidine Hcl 4 Mg Tab PO 4 mg TID SHAINA Administration Tramadol HCl 50 mg 08/12/20 17:22 08/13/20 11:46 Tramadol Hcl 50 Mg Tab PO 50 mg Q6H PRN Administration Pain - Exam General Appearance: NAD, awake alert Eye: PERRL, anicteric sclera ENT: normocephalic atraumatic, no oropharyngeal lesions Neck: supple, symmetric, no JVD, no thyromegaly, no lymphadenopathy Heart: RRR, no murmur, no gallops, no rubs, normal peripheral pulses Heart - other findings: S1, S2 Respiratory - other findings: diminished bilat, occ rhonchi/wheeze Gastrointestinal: soft, non-tender, non-distended, normal bowel sounds, no palpable masses Gastrointestinal - other findings: obese Extremities: no cyanosis, 1+ LE edema Skin: normal turgor, no lesions Neurological: cranial nerve grossly intact, no new deficit Musculoskeletal: normal tone, generalized weakness Psychiatric: normal affect, A&O x 3 Hosp A/P (1) Bacterial pneumonia Code(s): J15.9 - UNSPECIFIED BACTERIAL PNEUMONIA Status: Acute Plan: Continue Meropenem/Levaquin, pulmonary support, O2 supplementation, contineu Solumedrol/Dulera (2) Chronic respiratory failure with hypoxia Code(s): J96.11 - CHRONIC RESPIRATORY FAILURE WITH HYPOXIA Status: Chronic Plan: Continue O2 supplementation 2L/min NC (3) Thrush Code(s): B37.0 - CANDIDAL STOMATITIS Status: Acute (4) COPD (chronic obstructive pulmonary disease) Status: Chronic Plan: See above in #1 (5) Hypertension Code(s): I10 - ESSENTIAL (PRIMARY) HYPERTENSION Status: Chronic Qualifiers: Hypertension type: essential hypertension Qualified Code(s): I10 - Essential (primary) hypertension (6) Hypothyroidism Code(s): E03.9 - HYPOTHYROIDISM, UNSPECIFIED Status: Chronic Plan: Resume home Levothyroxine 150mcg daily - Plan continue antibiotics, PT/OT, social work program coordinator, respiratory therapy, out of bed/ambulate, DVT proph w/SCDs Continue pulmonary support Continue Meropenem/Levaquin Continue Solumedrol Continue Duonebs/Dulera PT for mobilizaton AM lab: BMP, CBC
[2020-08-14] MEDS: Lidocaine Patch Removal TOP SCH (19:51)
[2020-08-14] MEDS: Gabapentin 300 MG CAP PO SCH (19:51)
[2020-08-15] MEDS: methylPREDNISolone Sod Succ 40 MG VIAL IVP SCH ×2 (00:07→05:40)
[2020-08-15] MEDS: HYDROcodone/Acetaminophen 5/325 mg Tablet PO PRN ×3 (03:16→19:51)
[2020-08-15 03:44] LABS: #Lymphocytes 0.7 thou/uL (1.20-3.40); #Monocytes 0.4 thou/uL (0.11-0.59); #Neutrophils 9.2 thou/uL (1.40-6.50); %Basophils 0.1 % (0.0-1.0); %Eosinophils 0.1 % (0.0-10.0); %Lymphocytes 6.4 % (21.0-51.0); %Monocytes 3.7 % (0.0-10.0); %Neutrophils 89.7 % (42.0-75.0); Hemoglobin 10.9 g/dL (12.0-16.0); Mean Corpuscular HGB CONC 30.7 g/dL (32.0-36.0); Mean Corpuscular Hemoglobin 25.1 pg (27.0-31.0); Mean Corpuscular Volume 81.9 fL (78.0-98.0); Mean Platelet Volume 7.5 fL (7.4-10.4); Platelet Count 293 thou/uL (130-400); Red Blood Cell (RBC) Count 4.35 mill/uL (4.20-5.40); White Blood Cell (WBC) Count 10.3 thou/uL (4.8-10.8)
[2020-08-15 04:08] LABS: Anion Gap 13 mmol/L (10-20); BUN (Urea Nitrogen) 31 mg/dL (9.8-20.1); Calc. Creatinine Clearance 132 mL/min (70-130); Calcium 8.6 mg/dL (7.8-10.44); Carbon Dioxide 28 mmol/L (23-31); Chloride 100 mmol/L (98-107); Estimated GFR-MDRD 57; Glucose 345 mg/dL (80-115); Potassium 4.5 mmol/L (3.5-5.1); Sodium 136 mmol/L (136-145)
[2020-08-15] MEDS: Levothyroxine 150 MCG TAB PO SCH (05:40)
[2020-08-15] MEDS: Meropenem 2 GM in Sodium Chloride 0.9% 100 ML IVPB SCH (06:14)
[2020-08-15] MEDS: Mometasone 200 MCG/Formoterol 5 MCG 120 PUFF INHALER INH SCH ×2 (07:32→19:02)
[2020-08-15] MEDS: tiZANidine HCl 4 MG TAB PO SCH ×3 (09:09→19:50)
[2020-08-15] MEDS: Lidocaine 5% Patch TD SCH (09:09)
[2020-08-15] MEDS: Furosemide 20 MG TAB PO SCH (09:10)
[2020-08-15] MEDS: Aspirin 325 mg Enteric Coated Tablet PO SCH (09:11)
[2020-08-15] MEDS: Amlodipine 5 MG TAB PO SCH (09:11)
[2020-08-15] MEDS: Fluconazole 100 MG TAB PO SCH (09:11)
[2020-08-15] MEDS: Cholecalciferol 1,000 UNITS (25 MCG) TAB PO SCH (09:11)
[2020-08-15] MEDS: Dicyclomine 20 MG TAB PO SCH ×3 (09:11→19:51)
[2020-08-15] MEDS: Enoxaparin Sodium 40 MG/0.4 ML SYRINGE SC SCH (09:11)
[2020-08-15] MEDS: Losartan 25 MG TAB PO SCH (09:11)
--- NOTE | 2020-08-15 10:57 | PRG ---
DATE OF SERVICE: 08/15/2020 SUBJECTIVE: She continues to feel better, but is having some problems with bladder retention. OBJECTIVE: VITAL SIGNS: Temperature 98.3, pulse 80, respirations 22, O2 saturation 96% on 2.5 L, blood pressure 142/63. HEENT: Unremarkable. NECK: No JVD. No bruits. LUNGS: Fairly clear. CARDIAC: S1 and S2. Regular. ABDOMEN: Soft and obese. EXTREMITIES: No edema. LABORATORY DATA: White blood cell count 10, hematocrit 35.6, and platelet count 293. Sodium 136, potassium 4.5, chloride 100, CO2 of 28, BUN 31, creatinine 0.9, glucose 345. ASSESSMENT: 1. Pneumonia with failure of previous therapy. 2. Obstructive sleep apnea. PLAN: Since she is having trouble IV access, I will go ahead and change her Levaquin oral medication. Since cultures have been sterile, I think it is probably safe to stop the meropenem. I have also changed her steroids to oral therapy. Provided her bladder issues have resolved, I think she is stable for discharge by tomorrow. Job ID: [id number]
--- NOTE | 2020-08-15 18:10 | PDOC.HOSPP ---
- Subjective Encounter Date: 08/15/20 Encounter Time: 18:00 Subjective: f/u for bilat PNA on Levaquin/O2. States feeling much better overall. Some urine retention relieved with in/out cath. - Objective Vital Signs & Weight: Vital Signs (12 hours) Temp Pulse Resp BP Pulse Ox Pulse Ox 08/15/20 17:10 97 08/15/20 12:00 98.4 F 82 20 138/62 97 08/15/20 09:11 80 08/15/20 08:39 98.3 F 80 22 H 142/63 H 96 08/15/20 07:33 80 16 Weight Admit Weight 315 lb 4.8 oz Weight 316 lb 14.4 oz I&O: 08/14/20 08/15/20 08/16/20 06:59 06:59 06:59 Intake Total 550 3360 Output Total 600 2560 Balance -50 800 Result Diagrams: 08/15/20 03:37 08/15/20 03:37 Additional Labs: Microbiology 08/12/20 11:10 Nasal swab Influenza Types A,B Direct EIA - Final 08/12/20 11:47 Urine voided Urine Culture - Preliminary 08/12/20 10:00 Venous blood - Left Hand Blood Culture - Preliminary NO GROWTH AT 48 HOURS 08/12/20 09:47 Venous blood - Right Arm Blood Culture - Preliminary NO GROWTH AT 48 HOURS 08/01/20 19:31 Venous blood - Right Hand Blood Culture - Preliminary Specimen has been received and culture in progress. No Growth to date. 08/01/20 18:46 Venous blood - Left Arm Blood Culture - Preliminary Specimen has been received and culture in progress. No Growth to date. Laboratory Tests 07/05/20 08/01/20 08/01/20 13:31 18:46 18:46 WBC Neutrophils % Neutrophils % (Manual) Creatinine 0.76 Lactic Acid 0.7 Troponin I 0.016 Triglycerides Cholesterol LDL Cholesterol, Calc HDL Cholesterol Vitamin B12 TSH 3rd Generation 08/01/20 08/01/20 08/02/20 23:52 23:52 04:52 WBC Neutrophils % Neutrophils % (Manual) Creatinine Lactic Acid Troponin I Less than 0.010 Triglycerides 142 Cholesterol 104 LDL Cholesterol, Calc 45 HDL Cholesterol 31 Vitamin B12 448 TSH 3rd Generation 5.8539 H 08/12/20 08/13/20 09:47 04:10 WBC 22.9 H Neutrophils % 93.7 H Neutrophils % (Manual) 82 H Creatinine Lactic Acid Troponin I Triglycerides Cholesterol LDL Cholesterol, Calc HDL Cholesterol Vitamin B12 TSH 3rd Generation Hospitalist ROS - Medication Medications: Active Medications Generic Name Dose Route Start Last Admin Trade Name Freq PRN Reason Stop Dose Admin Hydrocodone Bitart/Acetaminophen 2 tab 08/12/20 17:15 08/15/20 09:10 Hydrocodone/Acetaminophen 5/325 Mg Tablet PO 2 tab Q4H PRN Administration Severe Pain (7-10) Albuterol/Ipratropium 3 ml 08/12/20 18:30 08/15/20 14:12 Ipratropium/Albuterol Sulfate 3 Ml Neb NEB 3 ml [id number] SHAINA Administration Amlodipine Besylate 5 mg 08/13/20 09:00 08/15/20 09:11 Amlodipine 5 Mg Tab PO 5 mg DAILY SHAINA Administration Aspirin 325 mg 08/13/20 09:00 08/15/20 09:11 Aspirin 325 Mg Enteric Coated Tablet PO 325 mg DAILY SHAINA Administration Cholecalciferol 1,000 units 08/13/20 09:00 08/15/20 09:11 Cholecalciferol 1,000 Units (25 Mcg) Tab PO 1,000 units DAILY SHAINA Administration Dicyclomine HCl 20 mg 08/12/20 21:00 08/15/20 14:44 Dicyclomine 20 Mg Tab PO 20 mg TID SHAINA Administration Enoxaparin Sodium 40 mg 08/13/20 09:00 08/15/20 09:11 Enoxaparin Sodium 40 Mg/0.4 Ml Syringe SC 40 mg 0900 SHAINA Administration Furosemide 10 mg 08/13/20 09:00 08/15/20 09:10 Furosemide 20 Mg Tab PO 10 mg DAILY SHAINA Administration Gabapentin 900 mg 08/12/20 21:00 08/14/20 19:51 Gabapentin 300 Mg Cap PO 900 mg HS SHAIAN Administration Isosorbide Mononitrate 60 mg 08/13/20 09:00 08/15/20 09:10 Isosorbide Mononitrate Er 60 Mg Tab PO 60 mg DAILY SHAINA Administration Levofloxacin 750 mg 08/15/20 17:00 08/15/20 17:17 Levofloxacin 750 Mg Tab PO 750 mg 1700 SHAINA Administration Levothyroxine Sodium 150 mcg 08/13/20 06:00 08/15/20 05:40 Levothyroxine 150 Mcg Tab PO 150 mcg 0600 SHAINA Administration Lidocaine 1 patch 08/13/20 09:00 08/15/20 09:09 Lidocaine 5% Patch TD 1 patch DAILY SHAINA Administration Losartan Potassium 100 mg 08/13/20 09:00 08/15/20 09:11 Losartan 25 Mg Tab PO 100 mg DAILY SHAINA Administration Meclizine HCl 25 mg 08/12/20 17:22 08/13/20 11:46 Meclizine Hcl 25 Mg Tab PO 25 mg DAILY PRN Administration Dizziness Miscellaneous Medication 1 each 08/14/20 21:00 08/14/20 19:51 Lidocaine Patch Removal TOP 1 each HS SHAINA Administration Mometasone Furoate/Formoterol Fumar 2 puff 08/12/20 18:30 08/15/20 07:32 Mometasone 200 Mcg/Formoterol 5 Mcg 120 Puff Inhaler INH 2 puff BID-RT SHAINA Administration Pantoprazole Sodium 40 mg 08/13/20 09:00 08/15/20 09:09 Pantoprazole 40 Mg Tab PO 40 mg DAILY SHAINA Administration Tizanidine HCl 4 mg 08/12/20 21:00 08/15/20 14:44 Tizanidine Hcl 4 Mg Tab PO 4 mg TID SHAINA Administration Tramadol HCl 50 mg 08/12/20 17:22 08/13/20 11:46 Tramadol Hcl 50 Mg Tab PO 50 mg Q6H PRN Administration Pain - Exam General Appearance: NAD, awake alert Eye: PERRL, anicteric sclera ENT: normocephalic atraumatic, no oropharyngeal lesions Neck: supple, symmetric, no JVD, no thyromegaly, no lymphadenopathy Heart: RRR, no gallops, no rubs, normal peripheral pulses Heart - other findings: S1, S2 Respiratory - other findings: diminished bilat, basilar coarse sounds Gastrointestinal: soft, non-tender, non-distended, normal bowel sounds, no palpable masses Extremities: no cyanosis, no clubbing Skin: normal turgor, no lesions Neurological: cranial nerve grossly intact, no new deficit Musculoskeletal: normal tone, normal strength, no muscle wasting Psychiatric: normal affect, A&O x 3 Hosp A/P (1) Bacterial pneumonia Code(s): J15.9 - UNSPECIFIED BACTERIAL PNEUMONIA Status: Acute Plan: Continue pulmonary support, Levaquin 750mg daily, O2/Duonebs (2) Chronic respiratory failure with hypoxia Code(s): J96.11 - CHRONIC RESPIRATORY FAILURE WITH HYPOXIA Status: Chronic (3) Thrush Code(s): B37.0 - CANDIDAL STOMATITIS Status: Acute (4) COPD (chronic obstructive pulmonary disease) Status: Chronic (5) Hypertension Code(s): I10 - ESSENTIAL (PRIMARY) HYPERTENSION Status: Chronic Qualifiers: Hypertension type: essential hypertension Qualified Code(s): I10 - Essential (primary) hypertension (6) Hypothyroidism Code(s): E03.9 - HYPOTHYROIDISM, UNSPECIFIED Status: Chronic (7) Urine retention Code(s): R33.9 - RETENTION OF URINE, UNSPECIFIED Status: Acute Plan: Trial Flomax 0.4mg HS, serial monitoring, outpt follow up with Urology - Plan continue antibiotics, social media marketing analyst, respiratory therapy, DVT proph w/SCDs Continue pulmonary support Continue Levaquin Continue Prednisone Continue Duonebs/Dulera PT for mobilizaton Trial Flomax 0.4mg HS Likely home in 24h
[2020-08-15] MEDS: Lidocaine Patch Removal TOP SCH (19:46)
[2020-08-15] MEDS: Gabapentin 300 MG CAP PO SCH (19:50)
[2020-08-15] MEDS ORDERED: Tamsulosin HCl 0.4 MG CAP PO SCH (21:00)
[2020-08-16] MEDS: HYDROcodone/Acetaminophen 5/325 mg Tablet PO PRN (03:53)
[2020-08-16] MEDS: Levothyroxine 150 MCG TAB PO SCH (06:12)
[2020-08-16] MEDS: Mometasone 200 MCG/Formoterol 5 MCG 120 PUFF INHALER INH SCH (06:28)
[2020-08-16] MEDS: Lidocaine 5% Patch TD SCH (08:40)
[2020-08-16] MEDS: Enoxaparin Sodium 40 MG/0.4 ML SYRINGE SC SCH (08:40)
[2020-08-16] MEDS: Losartan 25 MG TAB PO SCH (08:41)
[2020-08-16] MEDS: Amlodipine 5 MG TAB PO SCH (08:41)
[2020-08-16] MEDS: Cholecalciferol 1,000 UNITS (25 MCG) TAB PO SCH (08:42)
[2020-08-16] MEDS: Aspirin 325 mg Enteric Coated Tablet PO SCH (08:42)
[2020-08-16] MEDS: Dicyclomine 20 MG TAB PO SCH (08:42)
[2020-08-16] MEDS: Furosemide 20 MG TAB PO SCH (08:42)
[2020-08-16] MEDS: tiZANidine HCl 4 MG TAB PO SCH (08:42)
[2020-08-16 08:43] VITALS: BP 143/63; TEMP 98
[2020-08-16] MEDS ORDERED: predniSONE 20 MG TAB PO SCH (09:00)
--- NOTE | 2020-08-16 09:42 | DIS ---
DATE OF ADMISSION: 08/12/2020 DATE OF DISCHARGE: 08/16/2020 DISCHARGE DIAGNOSES: 1. Bacterial pneumonia, suspected gram-positive cocci, improved. 2. Chronic hypoxic respiratory failure, on 3 L/minute by nasal cannula. 3. Chronic obstructive pulmonary disease, suspected. 4. Hypertension, stable. 5. Hypothyroidism. 6. Urinary retention, improved. CONSULTATION: Dr. Luigi Mathew with Pulmonology Service. PERTINENT LABORATORY AND X-RAY FINDINGS: Lactic acid level 0.8. Troponin I negative x3. BNP 60. Albumin 3.7. CBC showed a white blood cell count ranging between 10.3 to 22.9, hemoglobin ranged between 10.9 to 11.8. COVID-19 PCR not detected, 08/12/2020. Blood cultures x2 dated 08/12/2020 showed no growth at 48 hours. Influenza A and B antigen dated 08/12/2020 negative. Urine culture dated 08/12/2020 showed 10,000 to 25,000 colonies of mixed skin stone. Portable chest x-ray dated 08/12/2020 showed no acute cardiopulmonary process. CT angiogram of the chest dated 08/12/2020 showed no evidence for pulmonary embolus. Multifocal interstitial and alveolar opacities consistent with multilobar pneumonia. HOSPITAL COURSE: The patient was initially admitted after presenting with increased cough, shortness of breath, and fever. The patient with history of COPD, on chronic oxygen supplementation at 3 L/minute by nasal cannula with recent hospitalization with pneumonia, presenting for worsening shortness of breath and persistent cough and fever. Chest imaging showed evidence of pulmonary infiltrates bilaterally concerning for progressive infectious process. The patient was initially placed on IV Levaquin and meropenem and given general pulmonary supportive management including oxygen supplementation and bronchodilator therapy. The patient continued to clinically improve with IV antibiotic therapy and aggressive pulmonary supportive care monitored by the Pulmonology Service during her hospital course. The patient was transitioned to oral Levaquin and remained afebrile through the remainder of the hospital course. The patient was also treated for urinary retention with a trial of Flomax and will continue on an outpatient basis after discharge. Overall, the patient did remain clinically stable during the hospital course, tolerating regular oral intake with stable vital signs. Currently, the patient at baseline oxygen supplementation at 3 L/minute by nasal cannula. I have examined the patient at the time of discharge and discussed followup instructions. The patient verbalizes understanding and agreement, ready for discharge on 08/16/2020. DISCHARGE MEDICATIONS: 1. Lasix 10 mg p.o. daily. 2. Gabapentin 900 mg p.o. at bedtime. 3. Levothyroxine 150 mcg p.o. daily. 4. Meclizine 25 mg p.o. daily p.r.n. 5. Nitroglycerin 0.4 mg sublingually q.5 minutes p.r.n. chest pain. 6. Protonix 40 mg p.o. daily. 7. Symbicort 160/4.5 two puffs inhaled b.i.d. 8. Tramadol 50 mg p.o. q.6 hours p.r.n. 9. Vitamin D3 of 1000 units p.o. daily. 10. Flomax 0.4 mg p.o. daily. 11. Isosorbide mononitrate 60 mg p.o. daily. 12. Levofloxacin 750 mg p.o. daily x10 days. 13. Lidocaine 5% patch one patch transdermally daily, then removed. 14. Losartan 100 mg p.o. daily. 15. Amlodipine 5 mg p.o. daily. 16. Prednisone 20 mg 2 tablets p.o. daily x3 days, followed by 1 tablet p.o. daily x3 days, followed by half a tablet p.o. daily x3 days. 17. Zanaflex 4 mg p.o. t.i.d. p.r.n. FOLLOWUP: The patient may follow up with her primary care provider, Lela Aj within 7 days of discharge. The patient may follow up with Dr. Luigi Mathew to coordinate outpatient sleep study. CONDITION ON DISCHARGE: Fair. ACTIVITY: Ad-pardeep. DIET: Heart healthy. CODE STATUS: Full. DISPOSITION: To home, 08/16/2020. TIME SPENT: Total time preparing and coordinating discharge is 34 minutes. Job ID: [id number]
== END 2020-08-16 13:30 | disposition home or self-care (01) | DRG 871 ==
LOC: ERS 09:22 → ERHOLD 12:28 → 2NO 15:45 → ONC 08-14 23:23
PROVIDERS: ADMIT Family Medicine; ATTEND Family Medicine
DX: A41.89 Other specified sepsis (principal); J15.9 Unspecified bacterial pneumonia; J44.1 Chronic obstructive pulmonary disease with (acute) exacerbation; Z68.43 Body mass index [BMI] 50.0-59.9, adult; J96.11 Chronic respiratory failure with hypoxia; I10 Essential (primary) hypertension; Z20.828 Contact with and (suspected) exposure to other viral communicable diseases; K21.9 Gastro-esophageal reflux disease without esophagitis; E03.9 Hypothyroidism, unspecified; F31.9 Bipolar disorder, unspecified; M54.5 Low back pain; G89.29 Other chronic pain; G47.33 Obstructive sleep apnea (adult) (pediatric); E66.01 Morbid (severe) obesity due to excess calories; M19.90 Unspecified osteoarthritis, unspecified site; B37.9 Candidiasis, unspecified; R33.9 Retention of urine, unspecified; Z90.49 Acquired absence of other specified parts of digestive tract; Z90.710 Acquired absence of both cervix and uterus; Z87.891 Personal history of nicotine dependence; Z79.82 Long term (current) use of aspirin; Z79.890 Hormone replacement therapy; Z79.51 Long term (current) use of inhaled steroids; Z79.899 Other long term (current) drug therapy; Z86.73 Personal history of transient ischemic attack (TIA), and cerebral infarction without residual deficits; Z99.81 Dependence on supplemental oxygen
CPT/HCPCS: 36415; 71045; 71275; 80048; 80053; 81003; 82330; 82803; 83605; 83880; 84484; 85025; 87040; 87086; 87804; 93005; J0692; J1650; J1956; J2185; J2920; J3370; J3475; J3490; J7030; J7512; J7620; Q9967; U0002

== ENCOUNTER 2020-08-19 12:45 | Inpatient (IN) | payer MEDICARE, OTHER ==
[2020-08-19 13:13] LABS: #Lymphocytes 0.4 thou/uL (1.20-3.40); #Monocytes 0.4 thou/uL (0.11-0.59); #Neutrophils 11.6 thou/uL (1.40-6.50); %Basophils 0.1 % (0.0-1.0); %Eosinophils 0.2 % (0.0-10.0); %Lymphocytes 3.6 % (21.0-51.0); %Neutrophils 93.2 % (42.0-75.0); Hemoglobin 10.7 g/dL (12.0-16.0); Mean Corpuscular HGB CONC 31.6 g/dL (32.0-36.0); Mean Corpuscular Hemoglobin 25.5 pg (27.0-31.0); Mean Corpuscular Volume 80.8 fL (78.0-98.0); Mean Platelet Volume 7.2 fL (7.4-10.4); Platelet Count 176 thou/uL (130-400); RBC Distribution Width 15.8 % (11.5-14.5); Red Blood Cell (RBC) Count 4.18 mill/uL (4.20-5.40); White Blood Cell (WBC) Count 12.5 thou/uL (4.8-10.8)
[2020-08-19 13:38] LABS: Albumin 2.9 g/dL (3.4-4.8); Calcium 8.1 mg/dL (7.8-10.44); Chloride 100 mmol/L (98-107); Globulin 3.1 g/dL (2.4-3.5); Glucose 228 mg/dL (80-115); Potassium 4.3 mmol/L (3.5-5.1); Sodium 131 mmol/L (136-145)
[2020-08-19 13:39] LABS: Anion Gap 15 mmol/L (10-20); Carbon Dioxide 20 mmol/L (23-31)
[2020-08-19 13:40] LABS: Bilirubin, Total 0.5 mg/dL (0.2-1.2)
[2020-08-19 13:41] LABS: Alkaline Phosphatase 73 U/L (40-110); Calc. Creatinine Clearance 0 mL/min (70-130); Estimated GFR-MDRD 54
[2020-08-19 13:42] LABS: BUN (Urea Nitrogen) 28 mg/dL (9.8-20.1)
[2020-08-19 13:43] LABS: AST (SGOT) 42 U/L (5-34)
[2020-08-19 13:44] LABS: ALT (SGPT) 50 U/L (8-55)
--- NOTE | 2020-08-19 14:03 | RAD ---
PORTABLE CHEST 1 VIEW: Date: 08/19/2020 Time: 1307 hours HISTORY: Chest pain, shortness of breath. COMPARISON: 08/12/2020. FINDINGS/IMPRESSION: There is continued elevation of the right hemidiaphragm. The heart size is prominent. There are mild patchy infiltrates in the left lower lung and the right mid lung. No pneumothoraces or large effusion s are seen. POS: OFF
[2020-08-19] MEDS ORDERED: cefTRIAXone\\ROCEPHIN 2 GM VIAL ONE (14:36)
[2020-08-19] MEDS ORDERED: Azithromycin 500 MG VIAL ONE (14:36)
[2020-08-19 15:04] LABS: Bacteria/HPF None Seen HPF (None Seen); Bilirubin Negative (Negative); Blood, Urine Negative (Negative); Clarity Clear (Clear); Glucose, Urine (Dipstick) Normal (Negative); Ketone, Urine Negative (Negative); Leukocyte Negative Leu/uL (Negative); Nitrite Negative (Negative); Protein, Urine (Dipstick) 30 mg/dL (Neg-Trace); RBC/HPF None Seen HPF (0-3); Specific Gravity, Urine 1.028 (1.002-1.036); Squamous Epithelial 0-3 HPF (0-3); Urobilinogen Normal mg/dL (Less than 2); WBC/HPF 0-3 HPF (0-3); pH, Urine 5.5 (5.0-9.0)
[2020-08-19] MEDS ORDERED: methylPREDNISolone Sod Succ/PF 125 MG/2 ML VIAL ONE (15:47)
--- NOTE | 2020-08-19 16:19 | PDOC.HHP ---
Hospitalist HPI - History of Present Illness Shortness of breath History of Present Illness: This is a 65-year-old female with a history of COPD on 3 L home oxygen, recently discharged treated for pneumonia and acute hypoxic respiratory failure coming back 3 days after discharge on account of worsening shortness of breath. She went home and started feeling short of breath a day after with fever. she al so had 2 loose stools a day ago which have since resolved. Giving her increasing requirements for oxygen, her geriatric care manager decided that she would have to come to the ED At presentation her BP was 132/52, pulse 92, respiratory rate 26, temperature 99.4 and saturating 85 on room air. Labs showed a leukocytosis of 12.5, was 10.3 4 days ago, hemoglobin 10.7, sodium 131, creatinine 1.03, glucose 228, urinalysis was essentially within normal limits. Chest x-ray showed continued elevation of the right hemidiaphragm with patchy infiltrates in the left lower lung and right midlung. Lactate was 0.8 She was started on duo nebs, methylprednisolone, azithromycin and ceftriaxone. Hospitalist team was then consulted for admission Hospitalist ROS - Review of Systems Constitutional: reports: fever, chills, weakness. denies: sweats Respiratory: reports: cough, shortness of breath (Brownish sputum blood-tinged), SOB with excertion Cardiovascular: denies: chest pain, palpitations, orthopnea, paroxysmal noc. dyspnea Gastrointestinal: reports: nausea, abdominal pain, diarrhea. denies: vomiting Genitourinary: denies: dysuria, frequency, incontinence Neurological: denies: weakness, numbness, incoordination, change in speech Hospitalist History - Past Medical History Cardiac: reports: CHF, HTN Pulmonary: reports: COPD Endocrine: reports: Hypothyroidism - Past Surgical History Past Surgical History: reports: Appendectomy, Hysterectomy Other Surgical History: Bladder sling, tonsillectomy - Family History Other Family History: MS, renal disease - Social History Smoking Status: Former smoker Alcohol: reports: None Drugs: reports: none - Exam General Appearance: awake alert General - other findings: Mild respiratory distress, morbidly obese Heart: RRR, no murmur, no gallops, normal peripheral pulses Respiratory: wheezes (Bilateral) Respiratory - other findings: Nasal cannula in place4 L Gastrointestinal: soft, non-tender, non-distended, normal bowel sounds, no palpable masses Extremities: no cyanosis, no clubbing, 1+ LE edema Neurological: cranial nerve grossly intact, no weakness Psychiatric: normal affect, A&O x 3 Hospitalist Results - Labs Result Diagrams: 08/19/20 13:05 08/19/20 13:05 Lab results: WBC 12.5 thou/uL (4.8-10.8) H 08/19/20 13:05 Hgb 10.7 g/dL (12.0-16.0) L 08/19/20 13:05 Hct 33.8 % (36.0-47.0) L 08/19/20 13:05 MCV 80.8 fL (78.0-98.0) 08/19/20 13:05 Plt Count 176 thou/uL (130-400) 08/19/20 13:05 Neutrophils % 93.2 % (42.0-75.0) H 08/19/20 13:05 Sodium 131 mmol/L (136-145) L 08/19/20 13:05 Potassium 4.3 mmol/L (3.5-5.1) 08/19/20 13:05 Chloride 100 mmol/L (98-107) 08/19/20 13:05 Carbon Dioxide 20 mmol/L (23-31) L 08/19/20 13:05 BUN 28 mg/dL (9.8-20.1) H 08/19/20 13:05 Creatinine 1.03 mg/dL (0.6-1.1) 08/19/20 13:05 Glucose 228 mg/dL (80-115) H 08/19/20 13:05 Lactic Acid 0.8 mmol/L (0.5-2.2) 08/19/20 13:05 Calcium 8.1 mg/dL (7.8-10.44) 08/19/20 13:05 Total Bilirubin 0.5 mg/dL (0.2-1.2) 08/19/20 13:05 AST 42 U/L (5-34) H 08/19/20 13:05 ALT 50 U/L (8-55) 08/19/20 13:05 Alkaline Phosphatase 73 U/L (40-110) 08/19/20 13:05 B-Natriuretic Peptide 18.4 pg/mL (0-100) 08/19/20 13:06 Serum Total Protein 6.0 g/dL (6.0-8.3) 08/19/20 13:05 Albumin 2.9 g/dL (3.4-4.8) L 08/19/20 13:05 Urine Ketones Negative mg/dL (Negative) 08/19/20 14:54 Urine Blood Negative (Negative) 08/19/20 14:54 Urine Nitrite Negative (Negative) 08/19/20 14:54 Ur Leukocyte Esterase Negative Ladarius/uL (Negative) 08/19/20 14:54 Urine RBC None Seen HPF (0-3) 08/19/20 14:54 Urine WBC 0-3 HPF (0-3) 08/19/20 14:54 Ur Squamous Epith Cells 0-3 HPF (0-3) 08/19/20 14:54 Urine Bacteria None Seen HPF (None Seen) 08/19/20 14:54 Hospitalist H&P A/P - Plan Plan: This is a 65-year-old female patient with a history of hypertension, CHF, COPD on home oxygen recently admitted for pneumonia and discharged 3 days ago. -Sepsis Leukocytosis and tachypnea with polmonary source BP stable, did not receive bollus lactate within normal limits Continue antibiotics Treat pneumonia Acute hypoxic respiratory failure In the setting of COPD exacerbation/pneumonia Currently on 4 L from a baseline of 3 Continue close monitoring Pneumonia Mild patchy infiltrate noted on left lower lungs admitted right lung Started on azithromycin and ceftriaxone Given her recent admission we will give doxycycline and cefepime Covid test pending, low suspicion however Follow-up on cultures Acute COPD exacerbation Continue on steroids, antibiotics Duo nebs as needed schedule Heart failure No indication of acute exacerbation We will check BNP Lasix 40 mg IV for now. Restart home medications once verified. Diarrhea Hard to lose stools a day agocurrently stopped We will monitor Initial concerns for C. difficile given recent admission and antibiotics Stool test and if diarrhea case Morbid obesity VT prophylaxisLovenox CODE STATUSfull code Addendum: Covid test came back positive Start dexamethasone Check CRP, ferritin, D-dimer ID consult in a.m.
[2020-08-19 17:46] LABS: SARS-CoV-2 NAA Rapid Test DETECTED (NotDetected)
[2020-08-19] MEDS: Cefepime 1 GM in Sodium Chloride 0.9% 100 ML IVPB SCH (19:44)
[2020-08-19] MEDS: Acetaminophen 325 MG TAB PO PRN (21:14)
[2020-08-19] MEDS ORDERED: Albuterol 200 PUFF (6.7GM INHALER) INH PRN (22:08)
[2020-08-19] MEDS: Albuterol 200 PUFF (6.7GM INHALER) INH SCH (22:28)
[2020-08-20] MEDS: Albuterol 200 PUFF (6.7GM INHALER) INH SCH ×6 (03:41→22:17)
[2020-08-20] MEDS: Benzonatate 100 MG CAP PO PRN ×3 (04:26→20:40)
[2020-08-20] MEDS: Acetaminophen 325 MG TAB PO PRN ×2 (04:26→20:39)
[2020-08-20 06:06] LABS: #Lymphocytes 0.4 thou/uL (1.20-3.40); #Monocytes 0.2 thou/uL (0.11-0.59); #Neutrophils 5.8 thou/uL (1.40-6.50); %Eosinophils 0.1 % (0.0-10.0); %Lymphocytes 6.4 % (21.0-51.0); %Monocytes 2.9 % (0.0-10.0); %Neutrophils 90.6 % (42.0-75.0); Hemoglobin 11.5 g/dL (12.0-16.0); Mean Corpuscular HGB CONC 31.2 g/dL (32.0-36.0); Mean Corpuscular Hemoglobin 25.7 pg (27.0-31.0); Mean Corpuscular Volume 82.2 fL (78.0-98.0); Mean Platelet Volume 7.6 fL (7.4-10.4); Platelet Count 192 thou/uL (130-400); RBC Distribution Width 15.7 % (11.5-14.5); Red Blood Cell (RBC) Count 4.48 mill/uL (4.20-5.40); White Blood Cell (WBC) Count 6.4 thou/uL (4.8-10.8)
[2020-08-20 06:17] LABS: Anion Gap 12 mmol/L (10-20); BUN (Urea Nitrogen) 19 mg/dL (9.8-20.1); Calc. Creatinine Clearance 159 mL/min (70-130); Calcium 8.5 mg/dL (7.8-10.44); Carbon Dioxide 30 mmol/L (23-31); Chloride 103 mmol/L (98-107); Estimated GFR-MDRD 74; Glucose 201 mg/dL (80-115); Potassium 4.4 mmol/L (3.5-5.1); Sodium 141 mmol/L (136-145)
[2020-08-20] MEDS: Enoxaparin Sodium 40 MG/0.4 ML SYRINGE SC SCH (09:00)
[2020-08-20] MEDS: Cefepime 1 GM in Sodium Chloride 0.9% 100 ML IVPB SCH (09:00)
[2020-08-20] MEDS ORDERED: methylPREDNISolone Sod Succ 40 MG VIAL IVP SCH (09:00)
[2020-08-20] MEDS: Dexamethasone 10 MG in Sodium Chloride 0.9% 50 ML IVPB SCH (11:07)
--- NOTE | 2020-08-20 14:17 | PDOC.HOSPP ---
- Subjective Encounter Date: 08/20/20 Encounter Time: 14:15 Subjective: Ms. Vo was seen today in follow-up of respiratory failure due to COVID pneumonia. She had some difficulty breathing earlier, and had some panicking. She is doing better now on high flow oxygen. - Objective Vital Signs & Weight: Vital Signs (12 hours) Temp Pulse Resp BP Pulse Ox 08/20/20 13:00 78 22 H 96 08/20/20 11:20 97.8 F 79 20 169/83 H 94 L 08/20/20 09:00 97.5 F L 69 20 164/79 H 93 L 08/20/20 03:39 97.8 F 73 17 158/103 H 93 L Weight Admit Weight 305 lb Weight 305 lb Result Diagrams: 08/20/20 05:36 08/20/20 05:36 Hospitalist ROS - Medication Medications: Active Medications Generic Name Dose Route Start Last Admin Trade Name Freq PRN Reason Stop Dose Admin Acetaminophen 650 mg 08/19/20 20:24 08/20/20 04:26 Acetaminophen 325 Mg Tab PO 650 mg Q4H PRN Administration Headache/Fever or Pain Albuterol Sulfate 2 puff 08/19/20 22:30 08/20/20 13:57 Albuterol 200 Puff (6.7gm Inhaler) INH 2 puff [id number] SHAINA Administration Benzonatate 100 mg 08/20/20 04:12 08/20/20 12:31 Benzonatate 100 Mg Cap PO 100 mg TIDPRN PRN Administration Cough Enoxaparin Sodium 40 mg 08/20/20 09:00 08/20/20 09:00 Enoxaparin Sodium 40 Mg/0.4 Ml Syringe SC 40 mg 0900 SHAINA Administration Dexamethasone 10 mg/ Sodium 51 mls @ 100 mls/hr 08/20/20 09:00 08/20/20 11:07 Chloride IVPB 51 mls DAILY SHAINA Administration - Exam Eye: PERRL Heart: RRR, no murmur, no gallops, no rubs, normal peripheral pulses Respiratory: rales (at the bases, and some wheezing) Gastrointestinal: soft, non-tender, non-distended, normal bowel sounds, no palpable masses, no hepatomegaly Extremities: no cyanosis, no edema Hosp A/P (1) Acute respiratory failure with hypoxemia Code(s): J96.01 - ACUTE RESPIRATORY FAILURE WITH HYPOXIA Status: Acute (2) Pneumonia due to COVID-19 virus Code(s): U07.1 - COVID-19; J12.89 - OTHER VIRAL PNEUMONIA Status: Acute (3) GERD (gastroesophageal reflux disease) Code(s): K21.9 - GASTRO-ESOPHAGEAL REFLUX DISEASE WITHOUT ESOPHAGITIS Status: Chronic (4) Hypertension Code(s): I10 - ESSENTIAL (PRIMARY) HYPERTENSION Status: Chronic Qualifiers: Hypertension type: essential hypertension Qualified Code(s): I10 - Essential (primary) hypertension (5) Hypothyroidism Code(s): E03.9 - HYPOTHYROIDISM, UNSPECIFIED Status: Chronic (6) Morbid obesity with BMI of 45.0-49.9, adult Code(s): E66.01 - MORBID (SEVERE) OBESITY DUE TO EXCESS CALORIES; Z68.42 - BODY MASS INDEX [BMI] 45.0-49.9, ADULT Status: Chronic - Plan * Acute respiratory failure due to COVID pneumonia- Continue Decadron, and Remde sivir has been started by ID * Doxycycline has been discontinued * HTN- blood pressure is elevated- will re-start Losartan * Hypothyroidism- she appears clinically euthyroid- will re-start Levothyroxine *
[2020-08-20] MEDS ORDERED: traMADol HCl 50 MG TAB PO PRN (14:20)
[2020-08-20] MEDS ORDERED: Meclizine HCl 25 MG TAB PO PRN (14:20)
[2020-08-20] MEDS ORDERED: Nitroglycerin 0.4 MG TAB (25 Tab Bottle) SL PRN (14:20)
[2020-08-20] MEDS ORDERED: REMDESIVIR (EUA) 200 MG in Sodium Chloride 0.9% 250 ML 210 ML IV SCH (14:30)
--- NOTE | 2020-08-20 14:32 | CON ---
DATE OF CONSULTATION: 08/20/2020 REASON FOR CONSULTATION: COVID pneumonia. HISTORY OF PRESENT ILLNESS: Ms. Vo has a history of obesity, COPD, sleep apnea, and hypertension. She was admitted in May 2020 with hypertensive urgency and a possible TIA. Her medications were adjusted and readmitted in July. Discharged on August 06. Discharge diagnoses included altered mental state, metabolic encephalopathy, and community-acquired pneumonia. The chest x-ray showed interstitial prominence. She has home O2 at 2 to 3 L normally and she was discharged home on prednisone taper and then readmitted on August 12 with fever and cough. The patient had a CT scan of the chest, which demonstrated an area of subsegmental pulmonary consolidation in the right lower lobe. Blood cultures were negative and she had negative SARS-CoV-2 PCR. Previous SARS-CoV-2 PCR on August 01 was not detected as well. She had COVID PCR, which is a slow PCR negative on August 02, June 13, and May 02. She had a discharge diagnosis of bacterial pneumonia and she was given Lasix, Flomax, levofloxacin, and prednisone for discharge with a tapering dose. She was discharged just two or three days before readmission with worsening dyspnea and diarrhea and this time on arrival, she had a temperature of 99.4 and O2 saturations were 85 on room air and 92 on 4 L oxygen. The exam described as coarse breath sounds. Abdomen is soft. Heart exam was described as normal. Initial lab data; white cell count 12.5, hemoglobin 10.7, platelets 176, and 93% neutrophils. D-dimer is 1.11 and sodium 131, creatinine 1.03, AST 42, ALT 50, and albumin 2.9. Urinalysis was essentially normal. At this time, the SARS-CoV-2 RNA PCR was positive. The chest x-ray with patchy bilateral infiltrates. The patient is awake, sitting in bed with a high-flow nasal cannula O2 being just started and she is a bit tachypneic and apprehensive. No headaches. No chest pain. Some cough. No abdominal pain or diarrhea. She did have diarrhea earlier though. She is voiding in the diaper. No neurological symptoms. PAST MEDICAL HISTORY: Includes obesity, COPD, asthma, hypertension, TIA, diverticulitis, uterine cancer in remission after resection and chemotherapy, and recent episode of pneumonia diagnosed as bacterial pneumonia, treated with antimicrobial therapy. PAST SURGICAL HISTORY: Hysterectomy, appendectomy, cholecystectomy, carpal tunnel, tonsillectomy, and bladder sling. SOCIAL HISTORY: Former smoker, quit 3 decades ago. 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 FAMILY HISTORY: End-stage renal disease, coronary artery disease, and type 2 diabetes. ALLERGIES: NONE. CURRENT MEDICATION LIST: 1. Inhalers. 2. Cefepime. 3. Decadron. 4. Doxycyline. PHYSICAL EXAMINATION: VITAL SIGNS: T-max 98.8, blood pressure 160/80, heart rate 79, and O2 saturation 96 on 50 L/minute high-flow nasal cannula O2. SKIN: Normal. Peripheral IV access. No Bui catheter. GENERAL: Awake and oriented. Follows commands. Tachypneic. HEENT: Oral cavity somewhat dry. LUNGS: Symmetric air entry. No crackles or wheezing. HEART: S1 and S2. Regular rate. Diminished heart sounds. ABDOMEN: Soft, not distended or tender. No ascites. No bladder distention. EXTREMITIES: Osteoarthrosis, but no inflammatory process. Trace edema. Pulses 1+ in dorsalis pedis. Moves all extremities equally. Plantar responses are flexor. NEUROLOGIC: Cognitive function appears to be intact. LABORATORY DATA: The latest white cell count 6.4, hemoglobin 11.5, platelets 192, and 90% neutrophils. Creatinine 0.78. CRP 12.04 and ferritin 409. ASSESSMENT: Obesity, chronic obstructive pulmonary disease/asthma, and episode of pneumonia recently treated here in the hospital just a few days ago, now with a positive SARS-CoV-2 PCR and patchy bilateral pulmonary infiltrates. DISCUSSION: The incubation time for SARS-CoV-2 is around 4 or 5 days, so this means that she might have acquired the virus in the hospital or that she had it in the last admission and the SARS-CoV-2 PCR test was falsely negative. This second possibility is the more likely one, although I cannot be certain of either possibility. We will give her the benefit of the doubt and start remdesivir. Continue Decadron. Discontinue antimicrobial therapy. She is at high risk for complications of worsening of her pneumonia and end up in the ICU intubated. Hopefully, she will turn around. Monitor daily inflammatory markers. Job ID: [id number] [facility]
[2020-08-20 15:00] LABS: SARS-CoV-2 IgG Ab Non-Reactive (NonReactive); SARS-CoV-2 IgG Index 0.03 S/CO (< 1.40)
[2020-08-20] MEDS ORDERED: hydrALAZINE 25 MG TAB PO PRN (15:25)
[2020-08-20] MEDS: tiZANidine HCl 4 MG TAB PO SCH ×2 (15:52→20:38)
[2020-08-20] MEDS: Chloraseptic Spray 180 ml Bottle PO PRN ×2 (17:27→20:36)
[2020-08-20] MEDS: Gabapentin 300 MG CAP PO SCH (20:38)
[2020-08-20] MEDS: Guaifenesin DM 100-10/5 ML UDCUP PO PRN (20:40)
[2020-08-21] MEDS: Albuterol 200 PUFF (6.7GM INHALER) INH SCH ×5 (03:15→18:37)
[2020-08-21] MEDS: Guaifenesin DM 100-10/5 ML UDCUP PO PRN ×4 (03:15→20:04)
[2020-08-21] MEDS: Levothyroxine 150 MCG TAB PO SCH (06:19)
[2020-08-21] MEDS: Losartan 25 MG TAB PO SCH (07:44)
[2020-08-21] MEDS: tiZANidine HCl 4 MG TAB PO SCH ×3 (07:44→19:43)
[2020-08-21] MEDS: Tamsulosin HCl 0.4 MG CAP PO SCH (07:45)
[2020-08-21] MEDS: Dexamethasone 10 MG in Sodium Chloride 0.9% 50 ML IVPB SCH (07:45)
[2020-08-21] MEDS: Amlodipine 5 MG TAB PO SCH (07:45)
[2020-08-21] MEDS: Enoxaparin Sodium 40 MG/0.4 ML SYRINGE SC SCH ×2 (07:45→19:42)
[2020-08-21 08:10] LABS: ALT (SGPT) 53 U/L (8-55); AST (SGOT) 38 U/L (5-34); Albumin 3.5 g/dL (3.4-4.8); Alkaline Phosphatase 86 U/L (40-110); Anion Gap 15 mmol/L (10-20); BUN (Urea Nitrogen) 20 mg/dL (9.8-20.1); Bilirubin, Direct 0.2 mg/dL (0.1-0.3); Bilirubin, Total 0.3 mg/dL (0.2-1.2); Calc. Creatinine Clearance 155 mL/min (70-130); Calcium 9.1 mg/dL (7.8-10.44); Carbon Dioxide 26 mmol/L (23-31); Chloride 103 mmol/L (98-107); Estimated GFR-MDRD 72; Glucose 111 mg/dL (80-115); Potassium 4.6 mmol/L (3.5-5.1); Protein, Total 7.5 g/dL (6.0-8.3); Sodium 139 mmol/L (136-145)
[2020-08-21] MEDS: Chloraseptic Spray 180 ml Bottle PO PRN (08:18)
--- NOTE | 2020-08-21 13:45 | PRG ---
DATE OF SERVICE: SUBJECTIVE: Ms. Vo still uncomfortable at rest, tachypneic. No abdominal pain. OBJECTIVE: VITAL SIGNS: T-max 98.5, BP 140/70, heart rate 66. She is on 60% high-flow nasal cannula with satting at 91. LUNGS: With a few crackles on both sides. HEART: S1 and S2, regular rate. ABDOMEN: Soft, not distended or tender. EXTREMITIES: Moves extremities equally. LABORATORY DATA: White cell count 6.4, hemoglobin 11, platelets 192. D-dimer down to 0.63 and ferritin is at 493, which is up. CRP is down to 6.22, which on admission. ASSESSMENT AND DISCUSSION: Obesity, chronic obstructive pulmonary disease, asthma, recent pneumonia, now with positive SARS-CoV-2 PCR, just 2 or 3 days after being discharged from the last admission, patchy bilateral pulmonary infiltrates, high oxygen supplementation requirements, pretty much maxed out on her high-flow nasal cannula O2 supplementation, so it is unclear the duration of illness right now. I am afraid that she has been positive since the last admission. The initial test done when she was admitted last time was a false negative test that is the more likely scenario. In the other hand, her COVID antibody test was negative, which would argue against an infection longer than one week duration. At this point in time, she is getting worse and will have pulmonary consult on the case in preparation for possible requirement of transfer to the ICU and intubation. Job ID: [id number] [facility]
--- NOTE | 2020-08-21 14:22 | CON ---
DATE OF CONSULTATION: HISTORY OF PRESENT ILLNESS: Karis Vo is a 65-year-old morbidly obese female, who was just discharged from the hospital no more than 48 hours ago, readmitted to the hospital on Wednesday08/19/2020. Infectious Disease was consulted for bilateral bronchopneumonia. She has multiple coronavirus tests negative, now it was positive, appears she was re-swabbed and has been negative as of yesterday. She is in isolation room. Infectious Disease notified as she was having more difficulty breathing. Upon arrival to the room, she was coughing, but really appeared to be in no significant distress. She is on high-flow with sats running at about 90. She states she has seen Dr. Mathew in the past. Following the discharge from the hospital, she says she has not been in any place, just stayed in the house. There is no fever, no chills. PAST MEDICAL HISTORY: Sleep apnea, to undergo a repeat sleep study; history of morbid obesity; history of hypothyroidism; history of apparently chronic asthma; history of diabetes; and history of diverticulitis. PAST SURGICAL HISTORY: Colonoscopy, cholecystectomy, hysterectomy, spinal surgery, tonsils, bladder sling surgery. SOCIAL HISTORY: Tobacco abuse, quit 10 years ago. No alcohol. History of depression. HOME MEDICATIONS: Include: 1. Protonix 40. 2. Nitroglycerin. 3. Meclizine 25. 4. Losartan 100. 5. Synthroid 150. 6. ISMO 60. 7. Gabapentin . 8. Symbicort. 9. Amlodipine. 10. Tramadol. 11. Tizanidine 4. 12. Prednisone. 13. Flomax. HOSPITAL MEDICATIONS: She is now in the hospital on, 1. Dexamethasone. 2. Lovenox. 3. Hydralazine. 4. Synthroid. 5. Meclizine. 6. No antibiotics. ALLERGIES: NONE. REVIEW OF SYSTEMS: Otherwise, negative. PHYSICAL EXAMINATION: VITAL SIGNS: FiO2 of 70%, sats 90, respiratory rate 22, temperature 98, blood pressure 160/83. CHEST: Morbid obesity, but no wheezing or no crackles. CARDIAC: Normal S1, S2. No gallops. LABORATORY DATA: On admission, white count was 6000, H and H 11 and 36, platelet count 192. Chemistry shows normal BUN and creatinine. C-reactive protein is 6.2. Thyroid function borderline elevated at 5.8. IMPRESSION: 1. Respiratory failure, morbid obesity, bilateral bronchopneumonia, possibly aspiration. 2. Coronavirus, indeterminate, possibly positive. 3. Sleep apnea, depression, hypothyroidism. PLAN: Continue Decadron as prescribed. I would give a convalescent plasma if she has not already had. She was started on remdesivir as per Infectious Disease. I have added some inhaled steroids. Consider nocturnal BiPAP, daytime high-flow. She clearly has what appears to be obstructive sleep apnea. Increase the dose of Lovenox as prescribed. This is a consultation note, 70 minutes, 50% direct patient care. Job ID: [id number]
[2020-08-21] MEDS: REMDESIVIR (EUA) 100 MG in Sodium Chloride 0.9% 250 ML 230 ML IV SCH (15:16)
[2020-08-21] MEDS ORDERED: Dextrose 50% Abboject 50 ML SYRINGE SLOW IVP PRN (16:04)
[2020-08-21] MEDS ORDERED: HumaLOG 300 UNITS/3 ML VIAL SC PRN (16:04)
[2020-08-21] MEDS ORDERED: Dextrose 5% in Water 1,000 ML IV PRN (16:04)
--- NOTE | 2020-08-21 16:07 | PDOC.HOSPP ---
- Subjective Encounter Date: 08/21/20 Encounter Time: 16:05 Subjective: Ms. Vo was seen today in follow-up of respiratory failure due to COVID pneumonia. She has had some ups and downs in how she is feeling. She notes some dyspnea off and on. - Objective Vital Signs & Weight: Vital Signs (12 hours) Temp Pulse Resp BP Pulse Ox 08/21/20 15:41 97.8 F 67 24 H 143/80 H 92 L 08/21/20 12:05 98.2 F 66 26 H 144/74 H 91 L 08/21/20 09:00 22 H 89 L 08/21/20 07:45 98.5 F 68 22 H 164/83 H 86 L Weight Admit Weight 305 lb Weight 305 lb I&O: 08/20/20 08/21/20 08/22/20 06:59 06:59 06:59 Intake Total 2140 Output Total 600 Balance 1540 Result Diagrams: 08/20/20 05:36 08/21/20 07:41 Hospitalist ROS - Medication Medications: Active Medications Generic Name Dose Route Start Last Admin Trade Name Freq PRN Reason Stop Dose Admin Acetaminophen 650 mg 08/19/20 20:24 08/20/20 20:39 Acetaminophen 325 Mg Tab PO 650 mg Q4H PRN Administration Headache/Fever or Pain Albuterol Sulfate 2 puff 08/21/20 13:00 08/21/20 12:46 Albuterol 200 Puff (6.7gm Inhaler) INH 2 puff [id number] SHAINA Administration Amlodipine Besylate 5 mg 08/21/20 09:00 08/21/20 07:45 Amlodipine 5 Mg Tab PO 5 mg DAILY SHAINA Administration Benzonatate 100 mg 08/20/20 04:12 08/20/20 20:40 Benzonatate 100 Mg Cap PO 100 mg TIDPRN PRN Administration Cough Gabapentin 900 mg 08/20/20 21:00 08/20/20 20:38 Gabapentin 300 Mg Cap PO 900 mg HS SHAINA Administration Guaifenesin/Dextromethorphan 15 ml 08/20/20 20:14 08/21/20 15:15 Guaifenesin Dm 100-10/5 Ml Udcup PO 15 ml Q4H PRN Administration Cough Remdesivir 100 mg/ Sodium 250 mls @ 250 mls/hr 08/21/20 15:00 08/21/20 15:16 Chloride IV 08/24/20 15:59 250 mls 1500 SHAINA Administration Doxycycline Hyclate 100 mg/ 100 mls @ 100 mls/hr 08/21/20 13:00 08/21/20 13:00 Sodium Chloride IVPB 100 mls 0100,1300 SHAINA Administration Isosorbide Mononitrate 60 mg 08/21/20 09:00 08/21/20 07:44 Isosorbide Mononitrate Er 60 Mg Tab PO 60 mg DAILY SHAINA Administration Levothyroxine Sodium 150 mcg 08/21/20 06:00 08/21/20 06:19 Levothyroxine 150 Mcg Tab PO 150 mcg 0600 SHAINA Administration Losartan Potassium 100 mg 08/21/20 09:00 08/21/20 07:44 Losartan 25 Mg Tab PO 100 mg DAILY SHAINA Administration Pantoprazole Sodium 40 mg 08/21/20 09:00 08/21/20 07:45 Pantoprazole 40 Mg Tab PO 40 mg DAILY SHAINA Administration Phenol 1 ml 08/20/20 14:28 08/21/20 08:18 Chloraseptic [place] 180 Ml Bottle PO 1 spr BIDPRN PRN Administration Sore Throat Tamsulosin HCl 0.4 mg 08/21/20 09:00 08/21/20 07:45 Tamsulosin Hcl 0.4 Mg Cap PO 0.4 mg DAILY SHAINA Administration Tizanidine HCl 4 mg 08/20/20 15:00 08/21/20 15:15 Tizanidine Hcl 4 Mg Tab PO 4 mg TID SHAINA Administration Tramadol HCl 50 mg 08/20/20 14:20 08/21/20 03:29 Tramadol Hcl 50 Mg Tab PO 50 mg Q6H PRN Administration Pain - Exam Eye: PERRL, anicteric sclera Heart: RRR, no murmur, no gallops, no rubs, normal peripheral pulses Respiratory: rales (+ rales in both bases) Gastrointestinal: soft, non-tender, non-distended, normal bowel sounds, no palpable masses, no hepatomegaly, no splenomegaly Extremities: no cyanosis, 1+ LE edema Hosp A/P (1) Acute respiratory failure with hypoxemia Code(s): J96.01 - ACUTE RESPIRATORY FAILURE WITH HYPOXIA Status: Acute (2) Pneumonia due to COVID-19 virus Code(s): U07.1 - COVID-19; J12.89 - OTHER VIRAL PNEUMONIA Status: Acute (3) GERD (gastroesophageal reflux disease) Code(s): K21.9 - GASTRO-ESOPHAGEAL REFLUX DISEASE WITHOUT ESOPHAGITIS Status: Chronic (4) Hypertension Code(s): I10 - ESSENTIAL (PRIMARY) HYPERTENSION Status: Chronic Qualifiers: Hypertension type: essential hypertension Qualified Code(s): I10 - Essential (primary) hypertension (5) Hypothyroidism Code(s): E03.9 - HYPOTHYROIDISM, UNSPECIFIED Status: Chronic (6) Morbid obesity with BMI of 45.0-49.9, adult Code(s): E66.01 - MORBID (SEVERE) OBESITY DUE TO EXCESS CALORIES; Z68.42 - BODY MASS INDEX [BMI] 45.0-49.9, ADULT Status: Chronic - Plan * Acute respiratory failure due to COVID pneumonia- Continue Decadron, and Remdesivir * She continues to require high flow oxygen * HTN- blood pressure is elevated- will re-start Losartan * Hypothyroidism- she appears clinically euthyroid- will re-start Levothyroxine * DM- blood glucose is stable so far * She is at high risk for decompensation due to COVID infection due to multiple co-morbid risk factors
[2020-08-21] MEDS: HumaLOG 300 UNITS/3 ML VIAL SC PRN (16:41)
[2020-08-21] MEDS: methylPREDNISolone Sod Succ 40 MG VIAL IVP SCH (18:26)
[2020-08-21] MEDS: Mometasone 200 MCG/Formoterol 5 MCG 120 PUFF INHALER INH SCH ×2 (18:54→19:43)
[2020-08-21] MEDS: Gabapentin 300 MG CAP PO SCH (19:42)
[2020-08-21] MEDS: Benzonatate 100 MG CAP PO PRN (22:27)
[2020-08-22] MEDS: methylPREDNISolone Sod Succ 40 MG VIAL IVP SCH ×5 (00:06→22:53)
[2020-08-22] MEDS: Albuterol 200 PUFF (6.7GM INHALER) INH SCH ×5 (01:15→19:28)
[2020-08-22] MEDS: Levothyroxine 150 MCG TAB PO SCH (04:48)
[2020-08-22] MEDS: Enoxaparin Sodium 40 MG/0.4 ML SYRINGE SC SCH (08:13)
[2020-08-22] MEDS: tiZANidine HCl 4 MG TAB PO SCH ×4 (08:14→20:34)
[2020-08-22] MEDS: Losartan 25 MG TAB PO SCH ×2 (08:14→11:31)
[2020-08-22] MEDS: Amlodipine 5 MG TAB PO SCH ×2 (08:14→11:31)
[2020-08-22] MEDS: Tamsulosin HCl 0.4 MG CAP PO SCH ×2 (08:15→11:31)
[2020-08-22 08:51] LABS: ALT (SGPT) 48 U/L (8-55); AST (SGOT) 31 U/L (5-34); Albumin 3.3 g/dL (3.4-4.8); Alkaline Phosphatase 82 U/L (40-110); Anion Gap 15 mmol/L (10-20); BUN (Urea Nitrogen) 25 mg/dL (9.8-20.1); Bilirubin, Direct 0.2 mg/dL (0.1-0.3); Bilirubin, Total 0.3 mg/dL (0.2-1.2); Calc. Creatinine Clearance 151 mL/min (70-130); Calcium 9.2 mg/dL (7.8-10.44); Carbon Dioxide 28 mmol/L (23-31); Chloride 103 mmol/L (98-107); Estimated GFR-MDRD 70; Glucose 178 mg/dL (80-115); Potassium 4.7 mmol/L (3.5-5.1); Sodium 141 mmol/L (136-145)
[2020-08-22] MEDS ORDERED: Propofol 1,000 MG/100 ML VIAL IV ONE (09:12)
[2020-08-22] MEDS ORDERED: Electrolyte Replacement Protoc 1 EACH EACH FS ONE (09:16)
[2020-08-22] MEDS ORDERED: Ventilator Sedation Protocol 1 EACH FS ONE (09:16)
[2020-08-22] MEDS ORDERED: Vecuronium 10 MG VIAL ONE (09:20)
--- NOTE | 2020-08-22 09:42 | PRG ---
DATE OF SERVICE: 08/22/2020 35 minutes of critical care time. SUBJECTIVE: This patient has done extremely poorly over the last 24 hours. She is on BiPAP. She is requiring 100% FiO2 and still not oxygenating very well. OBJECTIVE: VITAL SIGNS: Her temperature is 97.5, pulse 75, blood pressure 156/64. GENERAL: She is a morbidly obese female, who is in respiratory distress. HEENT: Unremarkable. NECK: No JVD. LUNGS: Coarse breath sounds. CARDIAC: S1 and S2. Regular. ABDOMEN: Obese, soft, nontender. EXTREMITIES: Obese. LABORATORY DATA: D-dimer 0.57. Sodium 141, potassium 4.7, chloride 103, CO2 of 28, BUN 25, creatinine 0.8, glucose 178. C-reactive protein is 5.8. Her COVID test was positive, but her antibodies are negative. ASSESSMENT: 1. COVID-19 pneumonia. 2. Acute hypoxic respiratory failure. 3. Morbid obesity. 4. Diabetes mellitus. PLAN: The patient needs to be intubated, placed in a prone position. She will continue on steroids, anticoagulation. Since she is in the early phase of illness, she has been placed on remdesivir. I will go ahead and give her some convalescent plasma. Job ID: [id number]
[2020-08-22] MEDS ORDERED: Morphine 2 MG/ML VIAL SLOW IVP PRN (10:00)
[2020-08-22] MEDS ORDERED: Fentanyl BOLUS 250 ML IVPB PRN (10:00)
[2020-08-22] MEDS: fentaNYL Citrate/PF 2,000 MCG in Sodium Chloride 0.9% 60 ML IV SCH ×2 (10:00→22:53)
[2020-08-22] MEDS ORDERED: DISCONTINUE PREVIOUS NARCOTIC PAIN MEDICATIONS AND BENZODIAZEPINES FS SCH (10:00)
[2020-08-22] MEDS ORDERED: Propofol BOLUS 1,000 MG/100 ML VIAL IV PRN (10:00)
[2020-08-22 10:03] LABS: Actual Bicarbonate (HCO3a) 30.1 mEq/L (22-28); Base Excess (BEa) 4.4 mEq/L (-2.0 to +3.0); CO2 Tension 49.7 mmHg (35.0-45.0); Calcium, Ionized (arterial) 1.13 mmol/L (1.12-1.30); Hemoglobin (Hb) 12.5 g/dL (12.0-16.0); Potassium - ABG Lab 4.24 mmol/L (3.70-5.30)
[2020-08-22 10:04] LABS: ALV-art Gradient 600.775 mmHg (0-20); O2 Tension (PaO2), arterial 50.1 mmHg (> 80.0); Puncture Site RR
[2020-08-22] MEDS ORDERED: Electrolyte Replacement Protocol FS PRN (10:30)
[2020-08-22] MEDS: Lorazepam 2 MG/ML VIAL SLOW IVP PRN ×2 (10:45→16:18)
[2020-08-22] MEDS: Vecuronium 10 MG VIAL IVP PRN ×7 (10:50→23:00)
--- NOTE | 2020-08-22 11:08 | OP ---
DATE OF PROCEDURE: 08/22/2020 PROCEDURE PERFORMED: Right IJ central line placement. PREOPERATIVE DIAGNOSES: COVID-19 pneumonia, poor IV access. POSTOPERATIVE DIAGNOSIS: Successful right IJ central line placement. ANESTHESIA: None. DESCRIPTION OF PROCEDURE: This was done on emergent basis as the patient had poor IV access and needs to be prone ventilated. The patient was placed in Trendelenburg position. The right internal jugular area was cleansed with chlorhexidine and draped sterilely. Using real-time ultrasound, the right IJ vessel was cannulated with a needle. A guidewire was passed. Needle was removed. Triple-lumen catheter was placed over guidewire, the vessel was dilated. Three ports flushed of venous blood. The patient tolerated the procedure well. Job ID: [id number]
--- NOTE | 2020-08-22 11:26 | RAD ---
Chest AP view INDICATION: Tube placement COMPARISON: August 22, 2020 FINDINGS: Lungs: Bilateral pneumonia is largely stable Cardiac silhouette: The cardiomediastinal silhouette appears within normal limits. Pulmonary vasculature: Normal Pleural spaces: No pleural effusion or pneumothorax is demonstrated. Upper abdomen: No abnormality seen. Osseous structures: No acute osseous abnormality. Additional findings: There is a new right IJ central venous catheter in the region of the right atri um. There is a new gastric catheter projects below the left hemidiaphragm. ET tube tip is unchanged. IMPRESSION: Stable bilateral pneumonia. Tubes and lines as above
[2020-08-22] MEDS: Cholecalciferol 1,000 UNITS (25 MCG) TAB PO SCH (11:31)
--- NOTE | 2020-08-22 11:51 | RAD ---
1 VIEW CHEST: Date: 08/22/2020 HISTORY: Pneumonia. COMPARISON: 08/12/2020. FINDINGS: There has been interval placement of an endotracheal tube which overlies the T5 vertebral body and ab ove the level of the peter. There has been interval worsening of air space opacities at the left phyllis g base with interval development of more confluent opacities within the right mid and upper lung zone , as well as left mid lung zones, worrisome for multifocal pneumonia and possibly atypical infectious process. Elevation right hemidiaphragm again present. Cardiac silhouette is within normal limits. IMPRESSION: 1. Worsening air space opacities bilaterally which may represent multifocal pneumonia and possibly a typical infectious process. 2. Interval placement of an endotracheal tube which is above the level of the peter. 3. Stable postoperative change of the cervical spine. POS: OFF
[2020-08-22] MEDS: Propofol 1,000 MG/100 ML VIAL IV PRN ×4 (11:58→22:54)
[2020-08-22] MEDS: REMDESIVIR (EUA) 100 MG in Sodium Chloride 0.9% 250 ML 230 ML IV SCH (15:56)
[2020-08-22] MEDS: HumaLOG 300 UNITS/3 ML VIAL SC PRN (16:27)
--- NOTE | 2020-08-22 17:46 | PDOC.HOSPP ---
- Subjective Encounter Date: 08/22/20 Encounter Time: 17:45 Subjective: Ms. Vo was seen today in follow-up of COVID pneumonia. She had a progressive need for increasing oxygen requirements. She did not do well on Bipap, and has been moved to the ICU and has been intubated and placed in the p ck position. - Objective Vital Signs & Weight: Vital Signs (12 hours) Temp Pulse Resp BP BP Pulse Ox 08/22/20 16:00 28 H 08/22/20 14:45 64 152/60 H 08/22/20 14:00 28 H 08/22/20 12:00 28 H 96 08/22/20 11:25 56 L 121/72 08/22/20 10:00 28 H 08/22/20 09:00 84 L 08/22/20 08:10 97.5 F L 75 24 H 156/64 H 84 L 08/22/20 08:00 84 L Weight Admit Weight 305 lb Weight 305 lb Most Recent Monitor Data Heart Rate from ECG 64 NIBP 149/87 NIBP BP-Mean 107 Respiration from ECG 28 SpO2 97 I&O: 08/21/20 08/22/20 08/23/20 06:59 06:59 06:59 Intake Total 2140 1800 590 Output Total 600 700 335 Balance 1540 1100 255 Result Diagrams: 08/20/20 05:36 08/22/20 07:34 Additional Labs: Accuchecks 08/22/20 06:03 POC Glucose 159 H Hospitalist ROS - Medication Medications: Active Medications Generic Name Dose Route Start Last Admin Trade Name Freq PRN Reason Stop Dose Admin Acetaminophen 650 mg 08/19/20 20:24 08/20/20 20:39 Acetaminophen 325 Mg Tab PO 650 mg Q4H PRN Administration Headache/Fever or Pain Albuterol Sulfate 2 puff 08/21/20 13:00 08/22/20 01:15 Albuterol 200 Puff (6.7gm Inhaler) INH Not Given [id number] SHAINA Amlodipine Besylate 5 mg 08/21/20 09:00 08/22/20 11:31 Amlodipine 5 Mg Tab PO Not Given DAILY SHAINA Benzonatate 100 mg 08/20/20 04:12 08/21/20 22:27 Benzonatate 100 Mg Cap PO 100 mg TIDPRN PRN Administration Cough Cholecalciferol 1,000 units 08/22/20 09:00 08/22/20 11:31 Cholecalciferol 1,000 Units (25 Mcg) Tab PO Not Given DAILY SHAINA Gabapentin 900 mg 08/20/20 21:00 08/21/20 19:42 Gabapentin 300 Mg Cap PO 900 mg HS SHAINA Administration Guaifenesin/Dextromethorphan 15 ml 08/20/20 20:14 08/21/20 20:04 Guaifenesin Dm 100-10/5 Ml Udcup PO 15 ml Q4H PRN Administration Cough Remdesivir 100 mg/ Sodium 250 mls @ 250 mls/hr 08/21/20 15:00 08/22/20 15:56 Chloride IV 08/24/20 15:59 250 mls 1500 SHAINA Administration Fentanyl Citrate 2,000 mcg/ 100 mls @ 0 mls/hr 08/22/20 10:00 08/22/20 10:00 Sodium Chloride IV 09/21/20 10:00 100 mls INF SHAINA Administration Protocol Per Protocol Insulin Human Lispro 0 units 08/21/20 16:04 08/22/20 16:27 Humalog 300 Units/3 Ml Vial SC 2 unit .MODERATE SLIDING SC PRN Administration Moderate Correctional Scale Isosorbide Mononitrate 60 mg 08/21/20 09:00 08/22/20 11:31 Isosorbide Mononitrate Er 60 Mg Tab PO Not Given DAILY SHAINA Levothyroxine Sodium 150 mcg 08/21/20 06:00 08/22/20 04:48 Levothyroxine 150 Mcg Tab PO 150 mcg 0600 SHAINA Administration Lorazepam 2 mg 08/22/20 10:00 08/22/20 16:18 Lorazepam 2 Mg/Ml Vial SLOW IVP 09/21/20 10:00 2 mg Q1H PRN Administration Breakthrough agitation Losartan Potassium 100 mg 08/21/20 09:00 08/22/20 11:31 Losartan 25 Mg Tab PO Not Given DAILY SHAINA Methylprednisolone Sodium Succinate 40 mg 08/21/20 18:00 08/22/20 11:53 Methylprednisolone Sod Succ 40 Mg Vial IVP 40 mg Q6HR SHAINA Administration Mometasone Furoate/Formoterol Fumar 2 puff 08/21/20 18:30 08/21/20 19:43 Mometasone 200 Mcg/Formoterol 5 Mcg 120 Puff Inhaler INH 2 puff BID-RT SHAINA Administration Pantoprazole Sodium 40 mg 08/21/20 09:00 08/22/20 11:31 Pantoprazole 40 Mg Tab PO Not Given DAILY SHAINA Phenol 1 ml 08/20/20 14:28 08/21/20 08:18 Chloraseptic [place] 180 Ml Bottle PO 1 spr BIDPRN PRN Administration Sore Throat Propofol 1,000 mg 08/22/20 10:00 08/22/20 14:47 Propofol 1,000 Mg/100 Ml Vial IV 09/21/20 10:00 1,000 mg INF PRN Administration TO ACHIEVE GOAL RASS Protocol Tamsulosin HCl 0.4 mg 08/21/20 09:00 08/22/20 11:31 Tamsulosin Hcl 0.4 Mg Cap PO Not Given DAILY SHAINA Tizanidine HCl 4 mg 08/20/20 15:00 08/22/20 16:19 Tizanidine Hcl 4 Mg Tab PO Not Given TID SHAINA Vecuronium [place] 10 mg 08/22/20 09:17 08/22/20 16:18 Vecuronium 10 Mg Vial IVP 10 mg Q30MIN PRN Administration Agitation - Exam Eye: PERRL, anicteric sclera Heart: RRR, no murmur, no gallops, no rubs, normal peripheral pulses Respiratory: rales Gastrointestinal: soft, non-tender, non-distended, normal bowel sounds, no palpable masses, no hepatomegaly Extremities: no cyanosis, no edema Hosp A/P (1) Acute respiratory failure with hypoxemia Code(s): J96.01 - ACUTE RESPIRATORY FAILURE WITH HYPOXIA Status: Acute (2) Pneumonia due to COVID-19 virus Code(s): U07.1 - COVID-19; J12.89 - OTHER VIRAL PNEUMONIA Status: Acute (3) GERD (gastroesophageal reflux disease) Code(s): K21.9 - GASTRO-ESOPHAGEAL REFLUX DISEASE WITHOUT ESOPHAGITIS Status: Chronic (4) Hypertension Code(s): I10 - ESSENTIAL (PRIMARY) HYPERTENSION Status: Chronic Qualifiers: Hypertension type: essential hypertension Qualified Code(s): I10 - Essential (primary) hypertension (5) Hypothyroidism Code(s): E03.9 - HYPOTHYROIDISM, UNSPECIFIED Status: Chronic (6) Morbid obesity with BMI of 45.0-49.9, adult Code(s): E66.01 - MORBID (SEVERE) OBESITY DUE TO EXCESS CALORIES; Z68.42 - BODY MASS INDEX [BMI] 45.0-49.9, ADULT Status: Chronic - Plan * Acute respiratory failure due to COVID pneumonia- She has decompensated and has been intubated and placed in the prone position * PCCM is managing * She is receiving Remdesivir, and convalescent plasma is currently being infused * HTN- blood pressure is stable * Hypothyroidism- stable * DM- blood glucose is stable * Agree with increased dose of Lovenox- given the thrombotic nature of the disease
[2020-08-22] MEDS: Mometasone 200 MCG/Formoterol 5 MCG 120 PUFF INHALER INH SCH (19:20)
[2020-08-22] MEDS: Enoxaparin Sodium 80 MG/0.8 ML SYRINGE SC SCH (20:33)
[2020-08-22] MEDS: Gabapentin 300 MG CAP PO SCH (20:34)
[2020-08-22] MEDS ORDERED: Sterile Water 10 ML ONE (22:56)
[2020-08-23] MEDS: Albuterol 200 PUFF (6.7GM INHALER) INH SCH ×4 (01:12→18:55)
[2020-08-23] MEDS: Vecuronium 10 MG VIAL IVP PRN ×6 (01:53→21:20)
[2020-08-23] MEDS: Propofol 1,000 MG/100 ML VIAL IV PRN ×6 (01:53→23:48)
[2020-08-23] MEDS: HumaLOG 300 UNITS/3 ML VIAL SC PRN ×4 (03:33→21:25)
[2020-08-23 04:45] LABS: ALT (SGPT) 40 U/L (8-55); AST (SGOT) 26 U/L (5-34); Albumin 2.7 g/dL (3.4-4.8); Alkaline Phosphatase 71 U/L (40-110); Anion Gap 16 mmol/L (10-20); BUN (Urea Nitrogen) 32 mg/dL (9.8-20.1); Bilirubin, Direct 0.3 mg/dL (0.1-0.3); Bilirubin, Total 0.4 mg/dL (0.2-1.2); Calc. Creatinine Clearance 155 mL/min (70-130); Carbon Dioxide 24 mmol/L (23-31); Chloride 101 mmol/L (98-107); Estimated GFR-MDRD 72; Glucose 259 mg/dL (80-115); Potassium 3.2 mmol/L (3.5-5.1); Protein, Total 5.8 g/dL (6.0-8.3); Sodium 138 mmol/L (136-145)
[2020-08-23] MEDS ORDERED: Potassium Chloride 40 MEQ in Premix Bag 1 BAG IVPB SCH (05:00)
[2020-08-23] MEDS: methylPREDNISolone Sod Succ 40 MG VIAL IVP SCH (05:23)
[2020-08-23] MEDS: Levothyroxine 150 MCG TAB PO SCH (05:24)
[2020-08-23] MEDS: Mometasone 200 MCG/Formoterol 5 MCG 120 PUFF INHALER INH SCH ×2 (07:16→18:55)
--- NOTE | 2020-08-23 07:51 | RAD ---
EXAM: Portable chest PROVIDED CLINICAL HISTORY: Respiratory insufficiency COMPARISON: 08/22/2020 FINDINGS: Evaluation is limited by patient body habitus. Given differences in positioning, significant interval change with respect to the prior examination is not apparent. IMPRESSION: As above.
[2020-08-23 08:25] LABS: Actual Bicarbonate (HCO3a) 23.8 mEq/L (22-28); Base Excess (BEa) 3.6 mEq/L (-2.0 to +3.0); Calcium, Ionized (arterial) 1.09 mmol/L (1.12-1.30); Hemoglobin (Hb) 12.6 g/dL (12.0-16.0); O2 Tension (PaO2), arterial 61.9 mmHg (> 80.0); Potassium - ABG Lab 3.74 mmol/L (3.70-5.30)
[2020-08-23] MEDS: Cholecalciferol 1,000 UNITS (25 MCG) TAB PO SCH (08:48)
[2020-08-23] MEDS: Enoxaparin Sodium 80 MG/0.8 ML SYRINGE SC SCH ×2 (08:49→20:48)
[2020-08-23] MEDS: Ascorbic Acid 500 mg Chewable Tablet PER TUBE SCH (08:49)
[2020-08-23] MEDS: Zinc Sulfate 220 MG CAP PO SCH (08:50)
[2020-08-23] MEDS: Tamsulosin HCl 0.4 MG CAP PO SCH (08:50)
[2020-08-23] MEDS: tiZANidine HCl 4 MG TAB PO SCH ×3 (08:50→20:53)
[2020-08-23] MEDS: Losartan 25 MG TAB PO SCH (08:50)
[2020-08-23] MEDS: Amlodipine 5 MG TAB PO SCH (08:51)
[2020-08-23 09:06] LABS: CO2 Tension 24.2 mmHg (35.0-45.0); Puncture Site LRA; pH, Arterial 7.61 (7.35-7.45)
[2020-08-23] MEDS ORDERED: Sterile Water 10 ML ONE (09:11)
--- NOTE | 2020-08-23 09:23 | PRG ---
DATE OF SERVICE: 08/23/2020 35 minutes critical care time. SUBJECTIVE: The patient remains intubated in a prone position on mechanical ventilation. There has been no acute changes overnight. OBJECTIVE: VITAL SIGNS: Temperature 97.8, pulse 67, blood pressure 143/68, O2 saturation generally in the mid 90s. 24-hour intake has been 1709, output 790. HEENT: Cannot be assessed because she is in a prone position. Her lungs have crackles bilaterally. CARDIAC: S1 and S2. Regular. EXTREMITIES: Trace edema. LABORATORY DATA: ABG is pending at the time of dictation. Sodium is 138, potassium 3.2, chloride 101, CO2 of 24, BUN 32, creatinine 0.8, glucose 259. CBC was not done. Chest x-ray continues to show bilateral infiltrates, although aeration is better compared to yesterday. ASSESSMENT: 1. COVID-19 pneumonia. 2. Acute hypoxic respiratory failure requiring mechanical ventilation. 3. Morbid obesity. PLAN: Continue care with steroids, anticoagulation, mechanical ventilation, and insulin. I think she will be on the ventilator for many days. Job ID: [id number]
[2020-08-23 10:28] LABS: Potassium 3.6 mmol/L (3.5-5.1)
[2020-08-23] MEDS: Hydrocortisone Sod Succ/PF 100 mg/2 ml Vial IVP SCH ×3 (11:14→23:48)
[2020-08-23] MEDS: fentaNYL Citrate/PF 2,000 MCG in Sodium Chloride 0.9% 60 ML IV SCH (12:12)
[2020-08-23] MEDS: NPH, Human Insulin Isophane 300 UNIT/3 ML VIAL SC SCH ×2 (12:27→20:49)
[2020-08-23] MEDS: Vasopressin 20 UNIT, Admixture Fee 1 EACH in Sodium Chloride 0.9% 50 ML IV SCH ×2 (13:45→19:18)
[2020-08-23] MEDS: Sodium Chloride 0.9% 1,000 ML IV SCH ×2 (13:46→23:14)
--- NOTE | 2020-08-23 14:32 | PDOC.HOSPP ---
- Subjective Encounter Date: 08/23/20 Encounter Time: 14:31 Subjective: Mr. Vo was seen today in follow-up of respiratory failure due to COVID pneumonia. She is intubated. She has been just taken off of prone positioning. - Objective Vital Signs & Weight: Vital Signs (12 hours) Temp Pulse Resp BP Pulse Ox 08/23/20 14:10 50 L 08/23/20 12:00 98 F 63 18 08/23/20 10:33 67 08/23/20 10:00 18 08/23/20 08:51 67 154/80 H 08/23/20 08:00 28 H 95 08/23/20 06:47 65 08/23/20 06:00 28 H 08/23/20 04:00 97.8 F 28 H 08/23/20 02:35 58 L 113/63 Weight Admit Weight 305 lb Weight 305 lb Most Recent Monitor Data Heart Rate from ECG 58 NIBP 80/43 NIBP BP-Mean 55 Respiration from ECG 18 SpO2 98 I&O: 08/22/20 08/23/20 08/24/20 06:59 06:59 06:59 Intake Total 1800 1709.3 200 Output Total 700 790 135 Balance 1100 919.3 65 Result Diagrams: 08/20/20 05:36 08/23/20 09:50 Hospitalist ROS - Medication Medications: Active Medications Generic Name Dose Route Start Last Admin Trade Name Freq PRN Reason Stop Dose Admin Acetaminophen 650 mg 08/19/20 20:24 08/20/20 20:39 Acetaminophen 325 Mg Tab PO 650 mg Q4H PRN Administration Headache/Fever or Pain Albuterol Sulfate 2 puff 08/21/20 13:00 08/23/20 14:13 Albuterol 200 Puff (6.7gm Inhaler) INH 2 puff [id number] SHAINA Administration Amlodipine Besylate 5 mg 08/21/20 09:00 08/23/20 08:51 Amlodipine 5 Mg Tab PO 5 mg DAILY SHAINA Administration Ascorbic Acid 1,000 mg 08/23/20 09:00 08/23/20 08:49 Ascorbic Acid 500 Mg Chewable Tablet PER TUBE 1,000 mg DAILY SHAINA Administration Benzonatate 100 mg 08/20/20 04:12 08/21/20 22:27 Benzonatate 100 Mg Cap PO 100 mg TIDPRN PRN Administration Cough Cholecalciferol 1,000 units 08/22/20 09:00 08/23/20 08:48 Cholecalciferol 1,000 Units (25 Mcg) Tab PO 1,000 units DAILY SHAINA Administration Enoxaparin Sodium 80 mg 08/22/20 09:18 08/23/20 08:49 Enoxaparin Sodium 80 Mg/0.8 Ml Syringe SC 80 mg BID SHAINA Administration Gabapentin 900 mg 08/20/20 21:00 08/22/20 20:34 Gabapentin 300 Mg Cap PO 900 mg HS SHAINA Administration Guaifenesin/Dextromethorphan 15 ml 08/20/20 20:14 08/21/20 20:04 Guaifenesin Dm 100-10/5 Ml Udcup PO 15 ml Q4H PRN Administration Cough Hydrocortisone Sodium Succinate 100 mg 08/23/20 12:00 08/23/20 11:14 Hydrocortisone Sod Succ/Pf 100 Mg/2 Ml Vial IVP 100 mg Q6HR SHAINA Administration Remdesivir 100 mg/ Sodium 250 mls @ 250 mls/hr 08/21/20 15:00 08/22/20 15:56 Chloride IV 08/24/20 15:59 250 mls 1500 SHAINA Administration Fentanyl Citrate 2,000 mcg/ 100 mls @ 0 mls/hr 08/22/20 10:00 08/23/20 12:12 Sodium Chloride IV 09/21/20 10:00 100 mls INF SHAINA Administration Protocol Per Protocol Doxycycline Hyclate 100 mg/ 100 mls @ 100 mls/hr 08/22/20 21:00 08/23/20 08:48 Sodium Chloride IVPB 100 mls Q12HR SHAINA Administration Sodium Chloride 1,000 mls @ 75 mls/hr 08/23/20 13:45 08/23/20 13:46 Normal Saline 0.9% IV 1,000 mls .[id number] SHAINA Administration Vasopressin 20 unit/ 51 mls @ 0 mls/hr 08/23/20 13:45 08/23/20 13:45 Miscellaneous Medication 1 IV 51 mls each/ Sodium Chloride INF SHAINA Administration Protocol As Directed Insulin Human Lispro 0 units 08/21/20 16:04 08/23/20 10:00 Humalog 300 Units/3 Ml Vial SC 4 unit .MODERATE SLIDING SC PRN Administration Moderate Correctional Scale Insulin Human NPH 20 unit 08/23/20 09:00 08/23/20 12:27 Nph, Human Insulin Isophane 300 Unit/3 Ml Vial SC Not Given BID SHAINA Isosorbide Mononitrate 60 mg 08/21/20 09:00 08/23/20 08:50 Isosorbide Mononitrate Er 60 Mg Tab PO 60 mg DAILY SHAINA Administration Levothyroxine Sodium 150 mcg 08/21/20 06:00 08/23/20 05:24 Levothyroxine 150 Mcg Tab PO 150 mcg 0600 SHAINA Administration Lorazepam 2 mg 08/22/20 10:00 08/22/20 16:18 Lorazepam 2 Mg/Ml Vial SLOW IVP 09/21/20 10:00 2 mg Q1H PRN Administration Breakthrough agitation Losartan Potassium 100 mg 08/21/20 09:00 08/23/20 08:50 Losartan 25 Mg Tab PO 100 mg DAILY SHAINA Administration Mometasone Furoate/Formoterol Fumar 2 puff 08/21/20 18:30 08/23/20 07:16 Mometasone 200 Mcg/Formoterol 5 Mcg 120 Puff Inhaler INH 2 puff BID-RT SHAINA Administration Pantoprazole Sodium 40 mg 08/21/20 09:00 08/23/20 08:50 Pantoprazole 40 Mg Tab PO 40 mg DAILY SHAINA Administration Phenol 1 ml 08/20/20 14:28 08/21/20 08:18 Chloraseptic [place] 180 Ml Bottle PO 1 spr BIDPRN PRN Administration Sore Throat Propofol 1,000 mg 08/22/20 10:00 08/23/20 11:13 Propofol 1,000 Mg/100 Ml Vial IV 09/21/20 10:00 1,000 mg INF PRN Administration TO ACHIEVE GOAL RASS Protocol Sodium Chloride 10 ml 08/23/20 09:00 08/23/20 08:51 Flush - Normal Saline 10 Ml Syringe IVF 10 ml Q12HR SHAINA Administration Tamsulosin HCl 0.4 mg 08/21/20 09:00 08/23/20 08:50 Tamsulosin Hcl 0.4 Mg Cap PO 0.4 mg DAILY SHAINA Administration Tizanidine HCl 4 mg 08/20/20 15:00 08/23/20 08:50 Tizanidine Hcl 4 Mg Tab PO 4 mg TID SHAINA Administration Vecuronium [place] 10 mg 08/22/20 09:17 08/23/20 11:34 Vecuronium 10 Mg Vial IVP 10 mg Q30MIN PRN Administration Agitation Zinc Sulfate 220 mg 08/23/20 09:00 08/23/20 08:50 Zinc Sulfate 220 Mg Cap PO 220 mg DAILY SHAINA Administration - Exam Eye: PERRL, anicteric sclera Heart: RRR, no murmur, no gallops, no rubs, normal peripheral pulses Respiratory: rales (+ rales at both bases) Gastrointestinal: soft, non-tender, non-distended, normal bowel sounds, no palpable masses, no hepatomegaly Extremities: no cyanosis, 1+ LE edema Hosp A/P (1) Acute respiratory failure with hypoxemia Code(s): J96.01 - ACUTE RESPIRATORY FAILURE WITH HYPOXIA Status: Acute (2) Pneumonia due to COVID-19 virus Code(s): U07.1 - COVID-19; J12.89 - OTHER VIRAL PNEUMONIA Status: Acute (3) GERD (gastroesophageal reflux disease) Code(s): K21.9 - GASTRO-ESOPHAGEAL REFLUX DISEASE WITHOUT ESOPHAGITIS Status: Chronic (4) Hypertension Code(s): I10 - ESSENTIAL (PRIMARY) HYPERTENSION Status: Chronic Qualifiers: Hypertension type: essential hypertension Qualified Code(s): I10 - Essential (primary) hypertension (5) Hypothyroidism Code(s): E03.9 - HYPOTHYROIDISM, UNSPECIFIED Status: Chronic (6) Morbid obesity with BMI of 45.0-49.9, adult Code(s): E66.01 - MORBID (SEVERE) OBESITY DUE TO EXCESS CALORIES; Z68.42 - BODY MASS INDEX [BMI] 45.0-49.9, ADULT Status: Chronic - Plan * Acute respiratory failure due to COVID pneumonia- on requiring ventilator support. She is now out of prone position * She is on her forth day of Remdesivir, and received convalescent plasma yesterday * HTN- has been variable, and a little on the lower side * Hypothyroidism- stable * DM- blood glucose is stable * Continue Lovenos for thrombotic prophylaxis ( due to COVID ) * Prognosis is guarded
[2020-08-23] MEDS: REMDESIVIR (EUA) 100 MG in Sodium Chloride 0.9% 250 ML 230 ML IV SCH (15:38)
[2020-08-23] MEDS: Gabapentin 300 MG CAP PO SCH (20:48)
[2020-08-24] MEDS ORDERED: Bacteriostatic Normal Saline 30 ML VIAL ONE
[2020-08-24] MEDS: Vecuronium 10 MG VIAL IVP PRN ×6 (00:02→18:17)
[2020-08-24] MEDS: Albuterol 200 PUFF (6.7GM INHALER) INH SCH ×4 (00:44→18:38)
[2020-08-24] MEDS: fentaNYL Citrate/PF 2,000 MCG in Sodium Chloride 0.9% 60 ML IV SCH ×2 (01:38→15:27)
[2020-08-24] MEDS: Vasopressin 20 UNIT, Admixture Fee 1 EACH in Sodium Chloride 0.9% 50 ML IV SCH (03:39)
[2020-08-24] MEDS: Propofol 1,000 MG/100 ML VIAL IV PRN ×8 (03:39→23:34)
[2020-08-24 03:44] LABS: Actual Bicarbonate (HCO3a) 26.5 mEq/L (22-28); Base Excess (BEa) -0.2 mEq/L (-2.0 to +3.0); CO2 Tension 53.2 mmHg (35.0-45.0); Calcium, Ionized (arterial) 1.06 mmol/L (1.12-1.30); Carboxyhemoglobin (COHb) 0.3 gm% (0.0-3.0); Hemoglobin (Hb) 10.9 g/dL (12.0-16.0); Potassium - ABG Lab 4.04 mmol/L (3.70-5.30); pH, Arterial 7.32 (7.35-7.45)
[2020-08-24 03:46] LABS: O2 Tension (PaO2), arterial 40.7 mmHg (> 80.0)
[2020-08-24 03:47] LABS: Puncture Site RBA
[2020-08-24] MEDS: HumaLOG 300 UNITS/3 ML VIAL SC PRN ×4 (04:01→21:53)
[2020-08-24 04:51] LABS: #Basophils 0.1 thou/uL (0.0-0.2); #Lymphocytes 0.5 thou/uL (1.20-3.40); #Monocytes 0.2 thou/uL (0.11-0.59); #Neutrophils 6.2 thou/uL (1.40-6.50); %Basophils 0.7 % (0.0-1.0); %Lymphocytes 6.6 % (21.0-51.0); %Monocytes 3.4 % (0.0-10.0); %Neutrophils 89.4 % (42.0-75.0); Hemoglobin 10.5 g/dL (12.0-16.0); Mean Corpuscular Hemoglobin 25.9 pg (27.0-31.0); Mean Corpuscular Volume 80.9 fL (78.0-98.0); Mean Platelet Volume 7.9 fL (7.4-10.4); Platelet Count 179 thou/uL (130-400); RBC Distribution Width 15.8 % (11.5-14.5); Red Blood Cell (RBC) Count 4.04 mill/uL (4.20-5.40)
[2020-08-24 05:15] LABS: ALT (SGPT) 39 U/L (8-55); AST (SGOT) 23 U/L (5-34); Albumin 2.7 g/dL (3.4-4.8); Alkaline Phosphatase 70 U/L (40-110); Anion Gap 16 mmol/L (10-20); BUN (Urea Nitrogen) 45 mg/dL (9.8-20.1); Bilirubin, Direct 0.2 mg/dL (0.1-0.3); Bilirubin, Total 0.2 mg/dL (0.2-1.2); Calc. Creatinine Clearance 151 mL/min (70-130); Calcium 7.6 mg/dL (7.8-10.44); Carbon Dioxide 24 mmol/L (23-31); Chloride 102 mmol/L (98-107); Estimated GFR-MDRD 70; Glucose 335 mg/dL (80-115); Potassium 4.1 mmol/L (3.5-5.1); Protein, Total 5.7 g/dL (6.0-8.3); Sodium 138 mmol/L (136-145)
[2020-08-24] MEDS: Hydrocortisone Sod Succ/PF 100 mg/2 ml Vial IVP SCH ×4 (05:33→23:00)
[2020-08-24] MEDS: Levothyroxine 150 MCG TAB PO SCH (05:33)
[2020-08-24] MEDS: Mometasone 200 MCG/Formoterol 5 MCG 120 PUFF INHALER INH SCH ×2 (06:42→18:53)
[2020-08-24 07:01] LABS: Actual Bicarbonate (HCO3a) 24.1 mEq/L (22-28); Base Excess (BEa) -0.8 mEq/L (-2.0 to +3.0); CO2 Tension 40.8 mmHg (35.0-45.0); Calcium, Ionized (arterial) 1.08 mmol/L (1.12-1.30); Carboxyhemoglobin (COHb) 0.4 gm% (0.0-3.0); Hemoglobin (Hb) 12.8 g/dL (12.0-16.0); O2 Tension (PaO2), arterial 88.8 mmHg (> 80.0); Potassium - ABG Lab 3.81 mmol/L (3.70-5.30); pH, Arterial 7.39 (7.35-7.45)
[2020-08-24 07:13] LABS: Puncture Site RRAD
[2020-08-24] MEDS: Lorazepam 2 MG/ML VIAL SLOW IVP PRN (07:48)
[2020-08-24] MEDS: Enoxaparin Sodium 80 MG/0.8 ML SYRINGE SC SCH ×2 (09:16→19:50)
[2020-08-24] MEDS: Zinc Sulfate 220 MG CAP PO SCH (09:16)
[2020-08-24] MEDS: Tamsulosin HCl 0.4 MG CAP PO SCH (09:17)
[2020-08-24] MEDS: Amlodipine 5 MG TAB PO SCH (09:17)
[2020-08-24] MEDS: Cholecalciferol 1,000 UNITS (25 MCG) TAB PO SCH (09:17)
[2020-08-24] MEDS: Losartan 25 MG TAB PO SCH (09:17)
[2020-08-24] MEDS: tiZANidine HCl 4 MG TAB PO SCH ×3 (09:17→19:53)
[2020-08-24] MEDS: Ascorbic Acid 500 mg Chewable Tablet PER TUBE SCH (09:17)
[2020-08-24] MEDS: NPH, Human Insulin Isophane 300 UNIT/3 ML VIAL SC SCH ×2 (09:18→19:52)
--- NOTE | 2020-08-24 09:54 | PDOC.HOSPP ---
- Subjective Encounter Date: 08/24/20 Encounter Time: 11:00 Subjective: Patient desated again early this morning, had to be put prone again and doing better now. - Objective Vital Signs & Weight: Vital Signs (12 hours) Temp Pulse Resp BP Pulse Ox 08/24/20 09:17 65 148/65 H 08/24/20 08:00 18 100 08/24/20 07:00 96.5 F L 08/24/20 06:00 18 08/24/20 04:00 97.6 F 18 08/24/20 02:59 47 L 122/56 L 08/24/20 02:00 18 08/24/20 00:00 98.9 F 18 08/23/20 22:51 47 L 113/54 L 08/23/20 22:00 18 Weight Admit Weight 305 lb Weight 305 lb Most Recent Monitor Data Heart Rate from ECG 64 NIBP 151/64 NIBP BP-Mean 93 Respiration from ECG 18 SpO2 98 I&O: 08/23/20 08/24/20 08/25/20 06:59 06:59 05:59 Intake Total 1709.3 3014.6 100 Output Total 790 585 110 Balance 919.3 2429.6 -10 Result Diagrams: 08/24/20 03:50 08/24/20 03:50 Additional Labs: Accuchecks 08/24/20 08/24/20 08/23/20 09:25 03:48 15:44 POC Glucose 264 H 286 H 240 H 08/23/20 08/23/20 08/22/20 09:57 03:29 16:24 POC Glucose 232 H 234 H 193 H 08/21/20 19:56 POC Glucose 202 H Hospitalist ROS - Review of Systems ROS unobtainable: due to endotracheal tube - Medication Medications: Active Medications Generic Name Dose Route Start Last Admin Trade Name Freq PRN Reason Stop Dose Admin Acetaminophen 650 mg 08/19/20 20:24 08/20/20 20:39 Acetaminophen 325 Mg Tab PO 650 mg Q4H PRN Administration Headache/Fever or Pain Albuterol Sulfate 2 puff 08/21/20 13:00 08/24/20 06:42 Albuterol 200 Puff (6.7gm Inhaler) INH 2 puff [id number] SHAINA Administration Amlodipine Besylate 5 mg 08/21/20 09:00 08/24/20 09:17 Amlodipine 5 Mg Tab PO 5 mg DAILY SHAINA Administration Ascorbic Acid 1,000 mg 08/23/20 09:00 08/24/20 09:17 Ascorbic Acid 500 Mg Chewable Tablet PER TUBE 1,000 mg DAILY SHAINA Administration Benzonatate 100 mg 08/20/20 04:12 08/21/20 22:27 Benzonatate 100 Mg Cap PO 100 mg TIDPRN PRN Administration Cough Cholecalciferol 1,000 units 08/22/20 09:00 08/24/20 09:17 Cholecalciferol 1,000 Units (25 Mcg) Tab PO 1,000 units DAILY SHAINA Administration Enoxaparin Sodium 80 mg 08/22/20 09:18 08/24/20 09:16 Enoxaparin Sodium 80 Mg/0.8 Ml Syringe SC 80 mg BID SHAINA Administration Gabapentin 900 mg 08/20/20 21:00 08/23/20 20:48 Gabapentin 300 Mg Cap PO 900 mg HS SHAINA Administration Guaifenesin/Dextromethorphan 15 ml 08/20/20 20:14 08/21/20 20:04 Guaifenesin Dm 100-10/5 Ml Udcup PO 15 ml Q4H PRN Administration Cough Hydrocortisone Sodium Succinate 100 mg 08/23/20 12:00 08/24/20 05:33 Hydrocortisone Sod Succ/Pf 100 Mg/2 Ml Vial IVP 100 mg Q6HR SHAINA Administration Remdesivir 100 mg/ Sodium 250 mls @ 250 mls/hr 08/21/20 15:00 08/23/20 15:38 Chloride IV 08/24/20 15:59 250 mls 1500 SHAINA Administration Fentanyl Citrate 2,000 mcg/ 100 mls @ 0 mls/hr 08/22/20 10:00 08/24/20 01:38 Sodium Chloride IV 09/21/20 10:00 100 mls INF SHAINA Administration Protocol Per Protocol Doxycycline Hyclate 100 mg/ 100 mls @ 100 mls/hr 08/22/20 21:00 08/24/20 09:16 Sodium Chloride IVPB 100 mls Q12HR SHAINA Administration Sodium Chloride 1,000 mls @ 75 mls/hr 08/23/20 13:45 08/23/20 23:14 Normal Saline 0.9% IV 1,000 mls .[id number] SHAINA Administration Vasopressin 20 unit/ 51 mls @ 0 mls/hr 08/23/20 13:45 08/24/20 03:39 Miscellaneous Medication 1 IV 51 mls each/ Sodium Chloride INF SHAINA Administration Protocol As Directed Insulin Human Lispro 0 units 08/21/20 16:04 08/24/20 09:19 Humalog 300 Units/3 Ml Vial SC 6 unit .MODERATE SLIDING SC PRN Administration Moderate Correctional Scale Insulin Human NPH 20 unit 08/23/20 09:00 08/24/20 09:18 Nph, Human Insulin Isophane 300 Unit/3 Ml Vial SC 20 unit BID SHAINA Administration Isosorbide Mononitrate 60 mg 08/21/20 09:00 08/24/20 09:16 Isosorbide Mononitrate Er 60 Mg Tab PO 60 mg DAILY SHAINA Administration Levothyroxine Sodium 150 mcg 08/21/20 06:00 08/24/20 05:33 Levothyroxine 150 Mcg Tab PO 150 mcg 0600 SHAINA Administration Lorazepam 2 mg 08/22/20 10:00 08/24/20 07:48 Lorazepam 2 Mg/Ml Vial SLOW IVP 09/21/20 10:00 2 mg Q1H PRN Administration Breakthrough agitation Losartan Potassium 100 mg 08/21/20 09:00 08/24/20 09:17 Losartan 25 Mg Tab PO 100 mg DAILY SHAINA Administration Mometasone Furoate/Formoterol Fumar 2 puff 08/21/20 18:30 08/24/20 06:42 Mometasone 200 Mcg/Formoterol 5 Mcg 120 Puff Inhaler INH 2 puff BID-RT SHAINA Administration Pantoprazole Sodium 40 mg 08/21/20 09:00 08/24/20 09:17 Pantoprazole 40 Mg Tab PO 40 mg DAILY SHAINA Administration Phenol 1 ml 08/20/20 14:28 08/21/20 08:18 Chloraseptic [place] 180 Ml Bottle PO 1 spr BIDPRN PRN Administration Sore Throat Propofol 1,000 mg 08/22/20 10:00 08/24/20 07:24 Propofol 1,000 Mg/100 Ml Vial IV 09/21/20 10:00 1,000 mg INF PRN Administration TO ACHIEVE GOAL RASS Protocol Sodium Chloride 10 ml 08/23/20 09:00 08/24/20 09:42 Flush - Normal Saline 10 Ml Syringe IVF 10 ml Q12HR SHAINA Administration Tamsulosin HCl 0.4 mg 08/21/20 09:00 08/24/20 09:17 Tamsulosin Hcl 0.4 Mg Cap PO 0.4 mg DAILY SHAINA Administration Tizanidine HCl 4 mg 08/20/20 15:00 08/24/20 09:17 Tizanidine Hcl 4 Mg Tab PO 4 mg TID SHAINA Administration Vecuronium [place] 10 mg 08/22/20 09:17 08/24/20 07:47 Vecuronium 10 Mg Vial IVP 10 mg Q30MIN PRN Administration Agitation Zinc Sulfate 220 mg 08/23/20 09:00 08/24/20 09:16 Zinc Sulfate 220 Mg Cap PO 220 mg DAILY SHAINA Administration - Exam General - other findings: sedated and unresponsive on the vent, prone position ENT: moist mucosa Heart: RRR, no murmur, no gallops, no rubs Respiratory: CTAB, no wheezes, no rales, no ronchi Gastrointestinal: normal bowel sounds Extremities: no edema Psychiatric - other findings: unresponsive on the vent Hosp A/P - Plan * Acute respiratory failure due to COVID pneumonia- on requiring ventilator support. She is now back to prone position due to desats * She is finishing her last day of Remdesivir, and received convalescent plasma. * HTN- has been variable, and a little on the lower side * Hypothyroidism- stable * DM- blood glucose is stable * Continue Lovenox for thrombotic prophylaxis ( due to COVID ) * Prognosis is guarded
--- NOTE | 2020-08-24 10:11 | RAD ---
PORTABLE CHEST: 08/24/20 PROVIDED CLINICAL HISTORY: Pneumonia. COMPARISON: 08/23/2020 FINDINGS: Evaluation is limited by patient body habitus. Significant interval change with respect to the prior examination is not apparent. IMPRESSION: As above. POS: CLIFF
[2020-08-24] MEDS: Sodium Chloride 0.9% 1,000 ML IV SCH (13:42)
--- NOTE | 2020-08-24 14:58 | PRG ---
DATE OF SERVICE: 08/24/2020 SUBJECTIVE: Ms. Vo has been placed back in prone position since early hours of the morning. She continues to receive significant ventilatory support including rate of 18, bilevel 32/15 with FiO2 of 0.7%. She is receiving paralytics as well. Interestingly, her blood pressure is improved prone rather than supine. PHYSICAL EXAMINATION: VITAL SIGNS: Blood pressure is 118/55, heart rate is 53, saturation 97%. She is intubated, paralyzed in prone. LUNGS: Rhonchi, but no wheezing. HEART: Regular rate and rhythm. ABDOMEN: Obese. EXTREMITIES: She has no edema. LABORATORY DATA: White count 7000, hemoglobin is 10.5 with hematocrit of 32.7, and platelet count 179,000. Blood gas following prone positioning includes pH 7.39, CO2 of 41, pO2 of 88, and bicarbonate 24. Sodium is 138, potassium 4.1, chloride 102, BUN 45, creatinine 0.8. Liver tests are negative. IMAGING: Chest x-ray this morning reveals extensive bilateral consolidative findings. IMPRESSION: COVID pneumonia with severe respiratory failure, requiring high ventilatory support and prone positioning. PLAN: We will continue current support. Prognosis is guarded. Critical care, 32 minutes. Job ID: [id number]
[2020-08-24] MEDS: REMDESIVIR (EUA) 100 MG in Sodium Chloride 0.9% 250 ML 230 ML IV SCH (15:27)
[2020-08-24] MEDS: Gabapentin 300 MG CAP PO SCH (19:50)
[2020-08-25] MEDS: Vasopressin 20 UNIT, Admixture Fee 1 EACH in Sodium Chloride 0.9% 50 ML IV SCH ×3 (00:43→22:44)
[2020-08-25] MEDS: Albuterol 200 PUFF (6.7GM INHALER) INH SCH ×4 (01:37→18:49)
[2020-08-25] MEDS: Propofol 1,000 MG/100 ML VIAL IV PRN ×7 (02:04→23:39)
[2020-08-25] MEDS: fentaNYL Citrate/PF 2,000 MCG in Sodium Chloride 0.9% 60 ML IV SCH ×2 (03:21→17:47)
[2020-08-25 04:00] LABS: #Lymphocytes 0.5 thou/uL (1.20-3.40); #Monocytes 0.3 thou/uL (0.11-0.59); #Neutrophils 7.5 thou/uL (1.40-6.50); %Lymphocytes 6.4 % (21.0-51.0); %Neutrophils 90.6 % (42.0-75.0); Hemoglobin 10.2 g/dL (12.0-16.0); Mean Corpuscular HGB CONC 32.4 g/dL (32.0-36.0); Mean Corpuscular Hemoglobin 25.8 pg (27.0-31.0); Mean Corpuscular Volume 79.7 fL (78.0-98.0); Mean Platelet Volume 8.2 fL (7.4-10.4); Platelet Count 205 thou/uL (130-400); RBC Distribution Width 15.7 % (11.5-14.5); Red Blood Cell (RBC) Count 3.95 mill/uL (4.20-5.40); White Blood Cell (WBC) Count 8.2 thou/uL (4.8-10.8)
[2020-08-25 04:22] LABS: Anion Gap 15 mmol/L (10-20); BUN (Urea Nitrogen) 52 mg/dL (9.8-20.1); CRP (Inflammatory) 1.25 mg/dL (= or < 0.5); Calc. Creatinine Clearance 139 mL/min (70-130); Calcium 7.4 mg/dL (7.8-10.44); Carbon Dioxide 24 mmol/L (23-31); Chloride 104 mmol/L (98-107); Estimated GFR-MDRD 64; Glucose 240 mg/dL (80-115); Potassium 4.2 mmol/L (3.5-5.1); Sodium 139 mmol/L (136-145)
[2020-08-25] MEDS: Sodium Chloride 0.9% 1,000 ML IV SCH ×2 (04:26→14:38)
[2020-08-25] MEDS: HumaLOG 300 UNITS/3 ML VIAL SC PRN ×4 (04:36→21:41)
[2020-08-25] MEDS: Levothyroxine 150 MCG TAB PO SCH (05:13)
[2020-08-25] MEDS: Hydrocortisone Sod Succ/PF 100 mg/2 ml Vial IVP SCH ×4 (05:13→23:39)
[2020-08-25 07:59] LABS: Actual Bicarbonate (HCO3a) 24.2 mEq/L (22-28); CO2 Tension 37.5 mmHg (35.0-45.0); Calcium, Ionized (arterial) 1.05 mmol/L (1.12-1.30); Carboxyhemoglobin (COHb) 0.3 gm% (0.0-3.0); Hemoglobin (Hb) 10.4 g/dL (12.0-16.0); O2 Tension (PaO2), arterial 81.3 mmHg (> 80.0); Potassium - ABG Lab 3.92 mmol/L (3.70-5.30); pH, Arterial 7.43 (7.35-7.45)
[2020-08-25] MEDS: Mometasone 200 MCG/Formoterol 5 MCG 120 PUFF INHALER INH SCH ×2 (08:03→18:49)
[2020-08-25] MEDS: Losartan 25 MG TAB PO SCH (08:03)
[2020-08-25] MEDS: Ascorbic Acid 500 mg Chewable Tablet PER TUBE SCH (08:05)
[2020-08-25] MEDS: Zinc Sulfate 220 MG CAP PO SCH (08:05)
[2020-08-25] MEDS: Tamsulosin HCl 0.4 MG CAP PO SCH (08:05)
[2020-08-25] MEDS: Amlodipine 5 MG TAB PO SCH (08:05)
[2020-08-25] MEDS: NPH, Human Insulin Isophane 300 UNIT/3 ML VIAL SC SCH ×2 (08:06→21:09)
[2020-08-25] MEDS: Enoxaparin Sodium 80 MG/0.8 ML SYRINGE SC SCH ×2 (08:06→21:08)
[2020-08-25] MEDS: tiZANidine HCl 4 MG TAB PO SCH ×3 (08:06→21:08)
[2020-08-25] MEDS: Cholecalciferol 1,000 UNITS (25 MCG) TAB PO SCH (08:06)
[2020-08-25 08:13] LABS: Puncture Site RRA
[2020-08-25 08:14] LABS: ALV-art Gradient 370.925 mmHg (0-20)
[2020-08-25] MEDS: Lorazepam 2 MG/ML VIAL SLOW IVP PRN ×3 (09:31→16:33)
--- NOTE | 2020-08-25 10:28 | RAD ---
PORTABLE CHEST; 08/25/20 PROVIDED CLINICAL HISTORY: Pneumonia. COMPARISON: 08/24/2020 FINDINGS: Evaluation is limited by patient body habitus. Significant interval change with respect to the prior examination is not apparent. IMPRESSION: As above. POS: CLIFF
--- NOTE | 2020-08-25 10:49 | PRG ---
DATE OF SERVICE: 08/25/2020 SUBJECTIVE: She has been prone position since 3 a.m. yesterday morning. She was just now repositioned into the supine position and we will see if there is hemodynamic stability. From a ventilator perspective, she remains on a rate of 18 with bilevel support 30/15, FiO2 of 70%. PHYSICAL EXAMINATION: VITAL SIGNS: Blood pressure 135/61, heart rate is 45. This is a bit lower than she has been, although usually she is in the upper 40s and lower 50s. Her current saturation is 96%. GENERAL: She is not responsive to verbal stimuli secondary to sedation. LUNGS: Coarse rhonchi and no wheezing. HEART: Bradycardic without murmur. ABDOMEN: Obese. There is no palpable cord or asymmetric swelling. LABORATORY DATA: White count 8200, hemoglobin is 10.2 with hematocrit of 31.5, and platelet count 205,000. Blood gas shows pH 7.43, CO2 of 37, PO2 of 81, bicarbonate 24 on ventilator settings as above (prone at that time). Chemistries include sodium 139, potassium 4.2, chloride 104, CO2 is 24, BUN 52, creatinine 0.9, glucose ranging from 240 to 300. Chest x-ray today interpreted by me to show endotracheal tube just above the peter and probably could be withdrawn about a centimeter. She has patchy consolidation greater on the left than on the right. Compared to the x-ray of 08/22, the right lung appears slightly better, although there are very dramatic changes in technique. IMPRESSION: 1. COVID pneumonia with severe hypoxic respiratory failure. 2. Diabetes. PLAN: We will continue current ventilator support. She has been prone for the past 30 hours. She is returned to the supine position and we will see how she does over the next period of time. Her bradycardia persists, although hemodynamically is acceptable. Plan as above. Critical care, 32 minutes. Job ID: [id number]
[2020-08-25] MEDS: Vecuronium 10 MG VIAL IVP PRN (17:23)
--- NOTE | 2020-08-25 19:29 | PDOC.HOSPP ---
- Subjective Encounter Date: 08/25/20 Encounter Time: 18:25 Subjective: f/u for COVID PNA with resp failure on Bi-level. Bradycardia noted on tele monitoring but no fever noted. Receiving Doxycycline/Hydrocortisone/Lovenox. - Objective Vital Signs & Weight: Vital Signs (12 hours) Temp Pulse Resp BP Pulse Ox 08/25/20 18:46 43 L 08/25/20 18:00 18 08/25/20 16:00 97.9 F 18 08/25/20 14:55 48 L 130/61 08/25/20 14:00 18 08/25/20 12:00 97.8 F 18 08/25/20 10:03 45 L 135/61 08/25/20 10:00 18 08/25/20 09:00 98.3 F 08/25/20 08:05 57 L 104/49 L 08/25/20 08:00 18 08/25/20 07:50 97 08/25/20 07:48 57 L 104/49 L Weight Admit Weight 305 lb Weight 305 lb Most Recent Monitor Data Heart Rate from ECG 44 NIBP 101/45 NIBP BP-Mean 63 Respiration from ECG 18 SpO2 92 I&O: 08/24/20 08/25/20 08/26/20 07:59 06:59 06:59 Intake Total 1809 Output Total 660 Balance 1149 Result Diagrams: 08/25/20 03:15 08/25/20 03:15 Additional Labs: Accuchecks 08/25/20 08/25/20 08/24/20 17:22 11:53 21:50 POC Glucose 210 H 202 H 282 H Microbiology 08/19/20 13:52 Venous blood - Right Hand Blood Culture - Final NO GROWTH IN 5 DAYS 08/19/20 13:05 Venous blood - Left Hand Blood Culture - Final NO GROWTH IN 5 DAYS 08/12/20 11:10 Nasal swab Influenza Types A,B Direct EIA - Final 08/12/20 11:47 Urine voided Urine Culture - Preliminary 08/12/20 10:00 Venous blood - Left Hand Blood Culture - Preliminary NO GROWTH AT 48 HOURS 08/12/20 09:47 Venous blood - Right Arm Blood Culture - Preliminary NO GROWTH AT 48 HOURS 08/01/20 19:31 Venous blood - Right Hand Blood Culture - Preliminary Specimen has been received and culture in progress. No Growth to date. 08/01/20 18:46 Venous blood - Left Arm Blood Culture - Preliminary Specimen has been received and culture in progress. No Growth to date. Laboratory Tests 07/05/20 08/01/20 08/01/20 13:31 18:46 18:46 WBC Neutrophils % Neutrophils % (Manual) D-Dimer Creatinine 0.76 Lactic Acid 0.7 Ferritin Troponin I 0.016 C-Reactive Protein Triglycerides Cholesterol LDL Cholesterol, Calc HDL Cholesterol Vitamin B12 TSH 3rd Generation SARS-CoV-2 Rap RNA(RT-PCR) SARS-CoV-2 IgG Ab SARS-CoV-2 IgG Ab Index 08/01/20 08/01/20 08/02/20 23:52 23:52 04:52 WBC Neutrophils % Neutrophils % (Manual) D-Dimer Creatinine Lactic Acid Ferritin Troponin I Less than 0.010 C-Reactive Protein Triglycerides 142 Cholesterol 104 LDL Cholesterol, Calc 45 HDL Cholesterol 31 Vitamin B12 448 TSH 3rd Generation 5.8539 H SARS-CoV-2 Rap RNA(RT-PCR) SARS-CoV-2 IgG Ab SARS-CoV-2 IgG Ab Index 08/12/20 08/13/20 08/19/20 09:47 04:10 15:55 WBC 22.9 H Neutrophils % 93.7 H Neutrophils % (Manual) 82 H D-Dimer Creatinine Lactic Acid Ferritin Troponin I C-Reactive Protein Triglycerides Cholesterol LDL Cholesterol, Calc HDL Cholesterol Vitamin B12 TSH 3rd Generation SARS-CoV-2 Rap RNA(RT-PCR) DETECTED A* SARS-CoV-2 IgG Ab SARS-CoV-2 IgG Ab Index 08/20/20 08/21/20 08/22/20 05:30 06:05 07:34 WBC Neutrophils % Neutrophils % (Manual) D-Dimer Creatinine Lactic Acid Ferritin 493.48 H Troponin I C-Reactive Protein 5.82 H Triglycerides Cholesterol LDL Cholesterol, Calc HDL Cholesterol Vitamin B12 TSH 3rd Generation SARS-CoV-2 Rap RNA(RT-PCR) SARS-CoV-2 IgG Ab Non-Reactive SARS-CoV-2 IgG Ab Index 0.03 08/22/20 08/22/20 08/23/20 07:34 07:34 03:31 WBC Neutrophils % Neutrophils % (Manual) D-Dimer 0.57 H Creatinine Lactic Acid Ferritin 567.72 H Troponin I C-Reactive Protein 2.83 H Triglycerides Cholesterol LDL Cholesterol, Calc HDL Cholesterol Vitamin B12 TSH 3rd Generation SARS-CoV-2 Rap RNA(RT-PCR) SARS-CoV-2 IgG Ab SARS-CoV-2 IgG Ab Index 08/23/20 08/23/20 08/24/20 03:31 03:31 03:50 WBC Neutrophils % Neutrophils % (Manual) D-Dimer 0.40 Creatinine Lactic Acid Ferritin 491.35 H Troponin I C-Reactive Protein 1.79 H Triglycerides Cholesterol LDL Cholesterol, Calc HDL Cholesterol Vitamin B12 TSH 3rd Generation SARS-CoV-2 Rap RNA(RT-PCR) SARS-CoV-2 IgG Ab SARS-CoV-2 IgG Ab Index 08/24/20 08/24/20 08/25/20 03:50 03:50 03:15 WBC Neutrophils % Neutrophils % (Manual) D-Dimer 0.55 H Creatinine Lactic Acid Ferritin 323.43 H Troponin I C-Reactive Protein 1.25 H Triglycerides Cholesterol LDL Cholesterol, Calc HDL Cholesterol Vitamin B12 TSH 3rd Generation SARS-CoV-2 Rap RNA(RT-PCR) SARS-CoV-2 IgG Ab SARS-CoV-2 IgG Ab Index 08/25/20 08/25/20 03:15 03:15 WBC Neutrophils % Neutrophils % (Manual) D-Dimer 0.55 H Creatinine Lactic Acid Ferritin 211.74 Troponin I C-Reactive Protein Triglycerides Cholesterol LDL Cholesterol, Calc HDL Cholesterol Vitamin B12 TSH 3rd Generation SARS-CoV-2 Rap RNA(RT-PCR) SARS-CoV-2 IgG Ab SARS-CoV-2 IgG Ab Index Radiology Reviewed by me: Yes (PCXR - bilat infiltrates, no significant change, lines/tubes in position) EKG Reviewed by me: Yes (Tele - Sinus mahad in 40's) Hospitalist ROS - Medication Medications: Active Medications Generic Name Dose Route Start Last Admin Trade Name Freq PRN Reason Stop Dose Admin Acetaminophen 650 mg 08/19/20 20:24 08/20/20 20:39 Acetaminophen 325 Mg Tab PO 650 mg Q4H PRN Administration Headache/Fever or Pain Albuterol Sulfate 2 puff 08/21/20 13:00 08/25/20 18:49 Albuterol 200 Puff (6.7gm Inhaler) INH 2 puff [id number] SHAINA Administration Amlodipine Besylate 5 mg 08/21/20 09:00 08/25/20 08:05 Amlodipine 5 Mg Tab PO Not Given DAILY [facility] Ascorbic Acid 1,000 mg 08/23/20 09:00 08/25/20 08:05 Ascorbic Acid 500 Mg Chewable Tablet PER TUBE 1,000 mg DAILY SHAINA Administration Benzonatate 100 mg 08/20/20 04:12 08/21/20 22:27 Benzonatate 100 Mg Cap PO 100 mg TIDPRN PRN Administration Cough Cholecalciferol 1,000 units 08/22/20 09:00 08/25/20 08:06 Cholecalciferol 1,000 Units (25 Mcg) Tab PO 1,000 units DAILY SHAINA Administration Enoxaparin Sodium 80 mg 08/22/20 09:18 08/25/20 08:06 Enoxaparin Sodium 80 Mg/0.8 Ml Syringe SC 80 mg BID SHAINA Administration Gabapentin 900 mg 08/20/20 21:00 08/24/20 19:50 Gabapentin 300 Mg Cap PO 900 mg HS SHAINA Administration Guaifenesin/Dextromethorphan 15 ml 08/20/20 20:14 08/21/20 20:04 Guaifenesin Dm 100-10/5 Ml Udcup PO 15 ml Q4H PRN Administration Cough Hydrocortisone Sodium Succinate 100 mg 08/23/20 12:00 08/25/20 17:30 Hydrocortisone Sod Succ/Pf 100 Mg/2 Ml Vial IVP 100 mg Q6HR SHAINA Administration Fentanyl Citrate 2,000 mcg/ 100 mls @ 0 mls/hr 08/22/20 10:00 08/25/20 17:47 Sodium Chloride IV 09/21/20 10:00 100 mls INF SHAINA Administration Protocol Per Protocol Doxycycline Hyclate 100 mg/ 100 mls @ 100 mls/hr 08/22/20 21:00 08/25/20 08:18 Sodium Chloride IVPB 100 mls Q12HR SHAINA Administration Sodium Chloride 1,000 mls @ 75 mls/hr 08/23/20 13:45 08/25/20 14:38 Normal Saline 0.9% IV 1,000 mls .[id number] SHAINA Administration Vasopressin 20 unit/ 51 mls @ 0 mls/hr 08/23/20 13:45 08/25/20 11:49 Miscellaneous Medication 1 IV 51 mls each/ Sodium Chloride INF SHAINA Administration Protocol As Directed Insulin Human Lispro 0 units 08/21/20 16:04 08/25/20 17:30 Humalog 300 Units/3 Ml Vial SC 4 unit .MODERATE SLIDING SC PRN Administration Moderate Correctional Scale Insulin Human NPH 20 unit 08/23/20 09:00 08/25/20 08:06 Nph, Human Insulin Isophane 300 Unit/3 Ml Vial SC 20 unit BID SHAINA Administration Isosorbide Mononitrate 60 mg 08/21/20 09:00 08/25/20 08:05 Isosorbide Mononitrate Er 60 Mg Tab PO 60 mg DAILY SHAINA Administration Levothyroxine Sodium 150 mcg 08/21/20 06:00 08/25/20 05:13 Levothyroxine 150 Mcg Tab PO 150 mcg 0600 SHAINA Administration Lorazepam 2 mg 08/22/20 10:00 08/25/20 16:33 Lorazepam 2 Mg/Ml Vial SLOW IVP 09/21/20 10:00 2 mg Q1H PRN Administration Breakthrough agitation Losartan Potassium 100 mg 08/21/20 09:00 08/25/20 08:03 Losartan 25 Mg Tab PO 100 mg DAILY SHAINA Administration Mometasone Furoate/Formoterol Fumar 2 puff 08/21/20 18:30 08/25/20 18:49 Mometasone 200 Mcg/Formoterol 5 Mcg 120 Puff Inhaler INH 2 puff BID-RT SHAINA Administration Pantoprazole Sodium 40 mg 08/21/20 09:00 08/25/20 08:18 Pantoprazole 40 Mg Tab PO 40 mg DAILY SHAINA Administration Phenol 1 ml 08/20/20 14:28 08/21/20 08:18 Chloraseptic [place] 180 Ml Bottle PO 1 spr BIDPRN PRN Administration Sore Throat Propofol 1,000 mg 08/22/20 10:00 08/25/20 19:19 Propofol 1,000 Mg/100 Ml Vial IV 09/21/20 10:00 1,000 mg INF PRN Administration TO ACHIEVE GOAL RASS Protocol Sodium Chloride 10 ml 08/23/20 09:00 08/25/20 08:07 Flush - Normal Saline 10 Ml Syringe IVF 10 ml Q12HR SHAINA Administration Tamsulosin HCl 0.4 mg 08/21/20 09:00 08/25/20 08:05 Tamsulosin Hcl 0.4 Mg Cap PO 0.4 mg DAILY SHAINA Administration Tizanidine HCl 4 mg 08/20/20 15:00 08/25/20 14:37 Tizanidine Hcl 4 Mg Tab PO 4 mg TID SHAINA Administration Vecuronium [place] 10 mg 08/22/20 09:17 08/25/20 17:23 Vecuronium 10 Mg Vial IVP 10 mg Q30MIN PRN Administration Agitation Zinc Sulfate 220 mg 08/23/20 09:00 08/25/20 08:05 Zinc Sulfate 220 Mg Cap PO 220 mg DAILY SHAINA Administration - Exam General - other findings: sedate on mech vent Eye: PERRL, anicteric sclera ENT: normocephalic atraumatic, no oropharyngeal lesions ENT - other findings: ETT in place Neck: supple, symmetric, no JVD, no thyromegaly, no lymphadenopathy Heart: RRR, no gallops, no rubs, normal peripheral pulses Heart - other findings: S1, S2 bradycardic Respiratory - other findings: diminished bilat, few rhonchi Gastrointestinal: soft, non-distended, normal bowel sounds, no palpable masses Gastrointestinal - other findings: obese Extremities: no cyanosis, 1+ LE edema Skin: normal turgor Neurological - other findings: sedate on mech vent Musculoskeletal: generalized weakness Psychiatric: somnolent, lethargic Hosp A/P (1) Pneumonia due to COVID-19 virus Code(s): U07.1 - COVID-19; J12.89 - OTHER VIRAL PNEUMONIA Status: Acute Plan: Continue aggressive pulmonary support, Doxycycline/Hydrocortisone/Lovenox/Vit C/Zinc (2) Acute respiratory failure with hypoxemia Code(s): J96.01 - ACUTE RESPIRATORY FAILURE WITH HYPOXIA Status: Acute Plan: Continue mech ventilation with Bi-level, prone ventilation PRN (3) Acute metabolic encephalopathy Code(s): G93.41 - METABOLIC ENCEPHALOPATHY Status: Acute Plan: Secondary to #1, supportive mgmt (4) Sinus bradycardia Code(s): R00.1 - BRADYCARDIA, UNSPECIFIED Status: Acute Plan: Likely multifactorial including sedation, may consider alternative sedation (5) COPD (chronic obstructive pulmonary disease) Status: Chronic (6) Hypertension Code(s): I10 - ESSENTIAL (PRIMARY) HYPERTENSION Status: Chronic Qualifiers: Hypertension type: essential hypertension Qualified Code(s): I10 - Essential (primary) hypertension - Plan continue antibiotics, 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
[2020-08-25] MEDS: Gabapentin 300 MG CAP PO SCH (21:08)
[2020-08-26] MEDS ORDERED: Sterile Water 10 ML ONE ×3 (00:01→21:02)
[2020-08-26] MEDS ORDERED: Norepinephrine 8 MG/0.9% NS 250 ML ONE (00:05)
[2020-08-26] MEDS: Lorazepam 2 MG/ML VIAL SLOW IVP PRN (00:07)
[2020-08-26 00:20] LABS: Actual Bicarbonate (HCO3a) 24.4 mEq/L (22-28); Base Excess (BEa) -2.8 mEq/L (-2.0 to +3.0); CO2 Tension 54.3 mmHg (35.0-45.0); Calcium, Ionized (arterial) 1.09 mmol/L (1.12-1.30); Carboxyhemoglobin (COHb) 0.3 gm% (0.0-3.0); Hemoglobin (Hb) 10.5 g/dL (12.0-16.0); O2 Tension (PaO2), arterial 60.6 mmHg (> 80.0); Potassium - ABG Lab 4.38 mmol/L (3.70-5.30); pH, Arterial 7.27 (7.35-7.45)
[2020-08-26 00:30] LABS: Puncture Site RRA
[2020-08-26 00:31] LABS: ALV-art Gradient 584.525 mmHg (0-20)
[2020-08-26] MEDS: Albuterol 200 PUFF (6.7GM INHALER) INH SCH ×4 (01:40→19:10)
[2020-08-26] MEDS: Propofol 1,000 MG/100 ML VIAL IV PRN ×4 (04:34→22:38)
[2020-08-26] MEDS: HumaLOG 300 UNITS/3 ML VIAL SC PRN ×2 (04:34→14:02)
[2020-08-26] MEDS: Vecuronium 10 MG VIAL IVP PRN ×3 (04:37→21:03)
[2020-08-26] MEDS: fentaNYL Citrate/PF 2,000 MCG in Sodium Chloride 0.9% 60 ML IV SCH ×2 (04:48→15:40)
[2020-08-26 04:53] LABS: #Lymphocytes 0.4 thou/uL (1.20-3.40); #Monocytes 0.2 thou/uL (0.11-0.59); %Eosinophils 0.1 % (0.0-10.0); %Lymphocytes 6.5 % (21.0-51.0); %Monocytes 2.7 % (0.0-10.0); %Neutrophils 90.6 % (42.0-75.0); Hemoglobin 10.4 g/dL (12.0-16.0); Mean Corpuscular HGB CONC 31.5 g/dL (32.0-36.0); Mean Corpuscular Hemoglobin 25.4 pg (27.0-31.0); Mean Corpuscular Volume 80.6 fL (78.0-98.0); Mean Platelet Volume 8.6 fL (7.4-10.4); Platelet Count 169 thou/uL (130-400); RBC Distribution Width 15.9 % (11.5-14.5); Red Blood Cell (RBC) Count 4.08 mill/uL (4.20-5.40); White Blood Cell (WBC) Count 6.6 thou/uL (4.8-10.8)
[2020-08-26 05:12] LABS: Anion Gap 13 mmol/L (10-20); BUN (Urea Nitrogen) 54 mg/dL (9.8-20.1); Calc. Creatinine Clearance 159 mL/min (70-130); Calcium 7.2 mg/dL (7.8-10.44); Carbon Dioxide 26 mmol/L (23-31); Chloride 104 mmol/L (98-107); Estimated GFR-MDRD 74; Glucose 292 mg/dL (80-115); Potassium 4.6 mmol/L (3.5-5.1); Sodium 138 mmol/L (136-145)
[2020-08-26] MEDS: Hydrocortisone Sod Succ/PF 100 mg/2 ml Vial IVP SCH ×3 (05:39→18:40)
[2020-08-26] MEDS: Levothyroxine 150 MCG TAB PO SCH (05:39)
[2020-08-26] MEDS: Vasopressin 20 UNIT, Admixture Fee 1 EACH in Sodium Chloride 0.9% 50 ML IV SCH (07:03)
[2020-08-26 08:02] LABS: Base Excess (BEa) -1.9 mEq/L (-2.0 to +3.0); Calcium, Ionized (arterial) 1.09 mmol/L (1.12-1.30); Carboxyhemoglobin (COHb) 0.3 gm% (0.0-3.0); Hemoglobin (Hb) 10.8 g/dL (12.0-16.0); Potassium - ABG Lab 4.67 mmol/L (3.70-5.30)
[2020-08-26 08:05] LABS: CO2 Tension 60.4 mmHg (35.0-45.0); pH, Arterial 7.25 (7.35-7.45)
[2020-08-26 08:06] LABS: O2 Tension (PaO2), arterial 36.8 mmHg (> 80.0); Puncture Site LF
[2020-08-26] MEDS: Mometasone 200 MCG/Formoterol 5 MCG 120 PUFF INHALER INH SCH ×2 (08:20→19:10)
[2020-08-26] MEDS: Amlodipine 5 MG TAB PO SCH (09:10)
[2020-08-26] MEDS: Sodium Chloride 0.9% 1,000 ML IV SCH ×2 (09:10→20:51)
[2020-08-26] MEDS: Losartan 25 MG TAB PO SCH ×2 (09:11→09:31)
[2020-08-26] MEDS: tiZANidine HCl 4 MG TAB PO SCH ×3 (09:11→21:40)
[2020-08-26] MEDS: Zinc Sulfate 220 MG CAP PO SCH (09:11)
[2020-08-26] MEDS: Ascorbic Acid 500 mg Chewable Tablet PER TUBE SCH (09:11)
[2020-08-26] MEDS: Tamsulosin HCl 0.4 MG CAP PO SCH (09:11)
[2020-08-26] MEDS: NPH, Human Insulin Isophane 300 UNIT/3 ML VIAL SC SCH ×2 (09:30→20:52)
--- NOTE | 2020-08-26 09:31 | RAD ---
CHEST 1 VIEW PORTABLE: Date; 08/26/2020 HISTORY: Follow-up pneumonia. FINDINGS/IMPRESSION: Life support tubes again noted in place and stable. Extensive bilateral alveolar and ground-glass opa city and linear and parenchymal changes noted with some blunting in the costophrenic angles, worse on the left side. There does appear to be somewhat more opacity in the right lung on today's exam than on the most recent 08/25/2020 study. Continue short-term follow-up. POS: RRE
[2020-08-26] MEDS: Enoxaparin Sodium 80 MG/0.8 ML SYRINGE SC SCH ×2 (13:35→20:52)
[2020-08-26] MEDS: DOPamine 400 MG/D5W 250 ML 250 ML IVPB SCH (13:46)
[2020-08-26] MEDS: Cholecalciferol 1,000 UNITS (25 MCG) TAB PO SCH (14:17)
--- NOTE | 2020-08-26 20:22 | PDOC.HOSPP ---
- Subjective Encounter Date: 08/26/20 Encounter Time: 18:25 Subjective: f/u for COVID PNA/Resp failure currently on [facility] prone ventilation after episode of severe hypoxia this am. - Objective Vital Signs & Weight: Vital Signs (12 hours) Temp Pulse Resp BP 08/26/20 18:00 18 08/26/20 16:00 18 08/26/20 14:49 64 08/26/20 14:00 18 08/26/20 13:28 44 L 154/57 H 08/26/20 13:00 96.0 F L 08/26/20 12:00 18 08/26/20 10:20 49 L 168/77 H 08/26/20 10:00 18 08/26/20 09:10 46 L 118/58 L Weight Admit Weight 305 lb Weight 305 lb Most Recent Monitor Data Heart Rate from ECG 70 NIBP 146/63 NIBP BP-Mean 90 Respiration from ECG 17 SpO2 100 I&O: 08/25/20 08/26/20 08/27/20 06:59 06:59 06:59 Intake Total 3736 64 Output Total 1210 725 Balance 2526 -661 Result Diagrams: 08/26/20 03:55 08/26/20 03:55 Additional Labs: Accuchecks 08/26/20 08/26/20 08/26/20 18:19 14:36 03:59 POC Glucose 197 H 214 H 260 H 08/25/20 08/23/20 21:17 21:10 POC Glucose 203 H 239 H Microbiology 08/19/20 13:52 Venous blood - Right Hand Blood Culture - Final NO GROWTH IN 5 DAYS 08/19/20 13:05 Venous blood - Left Hand Blood Culture - Final NO GROWTH IN 5 DAYS 08/12/20 11:10 Nasal swab Influenza Types A,B Direct EIA - Final 08/12/20 11:47 Urine voided Urine Culture - Preliminary 08/12/20 10:00 Venous blood - Left Hand Blood Culture - Preliminary NO GROWTH AT 48 HOURS 08/12/20 09:47 Venous blood - Right Arm Blood Culture - Preliminary NO GROWTH AT 48 HOURS 08/01/20 19:31 Venous blood - Right Hand Blood Culture - Preliminary Specimen has been received and culture in progress. No Growth to date. 08/01/20 18:46 Venous blood - Left Arm Blood Culture - Preliminary Specimen has been received and culture in progress. No Growth to date. Laboratory Tests 07/05/20 08/01/20 08/01/20 13:31 18:46 18:46 WBC Neutrophils % Neutrophils % (Manual) D-Dimer Creatinine 0.76 Lactic Acid 0.7 Ferritin Troponin I 0.016 C-Reactive Protein Triglycerides Cholesterol LDL Cholesterol, Calc HDL Cholesterol Vitamin B12 TSH 3rd Generation SARS-CoV-2 Rap RNA(RT-PCR) SARS-CoV-2 IgG Ab SARS-CoV-2 IgG Ab Index 08/01/20 08/01/20 08/02/20 23:52 23:52 04:52 WBC Neutrophils % Neutrophils % (Manual) D-Dimer Creatinine Lactic Acid Ferritin Troponin I Less than 0.010 C-Reactive Protein Triglycerides 142 Cholesterol 104 LDL Cholesterol, Calc 45 HDL Cholesterol 31 Vitamin B12 448 TSH 3rd Generation 5.8539 H SARS-CoV-2 Rap RNA(RT-PCR) SARS-CoV-2 IgG Ab SARS-CoV-2 IgG Ab Index 08/12/20 08/13/20 08/19/20 09:47 04:10 15:55 WBC 22.9 H Neutrophils % 93.7 H Neutrophils % (Manual) 82 H D-Dimer Creatinine Lactic Acid Ferritin Troponin I C-Reactive Protein Triglycerides Cholesterol LDL Cholesterol, Calc HDL Cholesterol Vitamin B12 TSH 3rd Generation SARS-CoV-2 Rap RNA(RT-PCR) DETECTED A* SARS-CoV-2 IgG Ab SARS-CoV-2 IgG Ab Index 08/20/20 08/21/20 08/22/20 05:30 06:05 07:34 WBC Neutrophils % Neutrophils % (Manual) D-Dimer Creatinine Lactic Acid Ferritin 493.48 H Troponin I C-Reactive Protein 5.82 H Triglycerides Cholesterol LDL Cholesterol, Calc HDL Cholesterol Vitamin B12 TSH 3rd Generation SARS-CoV-2 Rap RNA(RT-PCR) SARS-CoV-2 IgG Ab Non-Reactive SARS-CoV-2 IgG Ab Index 0.03 08/22/20 08/22/20 08/23/20 07:34 07:34 03:31 WBC Neutrophils % Neutrophils % (Manual) D-Dimer 0.57 H Creatinine Lactic Acid Ferritin 567.72 H Troponin I C-Reactive Protein 2.83 H Triglycerides Cholesterol LDL Cholesterol, Calc HDL Cholesterol Vitamin B12 TSH 3rd Generation SARS-CoV-2 Rap RNA(RT-PCR) SARS-CoV-2 IgG Ab SARS-CoV-2 IgG Ab Index 08/23/20 08/23/20 08/24/20 03:31 03:31 03:50 WBC Neutrophils % Neutrophils % (Manual) D-Dimer 0.40 Creatinine Lactic Acid Ferritin 491.35 H Troponin I C-Reactive Protein 1.79 H Triglycerides Cholesterol LDL Cholesterol, Calc HDL Cholesterol Vitamin B12 TSH 3rd Generation SARS-CoV-2 Rap RNA(RT-PCR) SARS-CoV-2 IgG Ab SARS-CoV-2 IgG Ab Index 08/24/20 08/24/20 08/25/20 03:50 03:50 03:15 WBC Neutrophils % Neutrophils % (Manual) D-Dimer 0.55 H Creatinine Lactic Acid Ferritin 323.43 H Troponin I C-Reactive Protein 1.25 H Triglycerides Cholesterol LDL Cholesterol, Calc HDL Cholesterol Vitamin B12 TSH 3rd Generation SARS-CoV-2 Rap RNA(RT-PCR) SARS-CoV-2 IgG Ab SARS-CoV-2 IgG Ab Index 08/25/20 08/25/20 03:15 03:15 WBC Neutrophils % Neutrophils % (Manual) D-Dimer 0.55 H Creatinine Lactic Acid Ferritin 211.74 Troponin I C-Reactive Protein Triglycerides Cholesterol LDL Cholesterol, Calc HDL Cholesterol Vitamin B12 TSH 3rd Generation SARS-CoV-2 Rap RNA(RT-PCR) SARS-CoV-2 IgG Ab SARS-CoV-2 IgG Ab Index Radiology Reviewed by me: Yes (PCXR - bilat infiltrates, lines/tubes in places) EKG Reviewed by me: Yes (Tele - SR) Hospitalist ROS - Medication Medications: Active Medications Generic Name Dose Route Start Last Admin Trade Name Freq PRN Reason Stop Dose Admin Acetaminophen 650 mg 08/19/20 20:24 08/20/20 20:39 Acetaminophen 325 Mg Tab PO 650 mg Q4H PRN Administration Headache/Fever or Pain Albuterol Sulfate 2 puff 08/21/20 13:00 08/26/20 19:10 Albuterol 200 Puff (6.7gm Inhaler) INH 2 puff [id number] SHAINA Administration Amlodipine Besylate 5 mg 08/21/20 09:00 08/26/20 09:10 Amlodipine 5 Mg Tab PO Not Given DAILY SHAINA Ascorbic Acid 1,000 mg 08/23/20 09:00 08/26/20 09:11 Ascorbic Acid 500 Mg Chewable Tablet PER TUBE 1,000 mg DAILY SHAINA Administration Benzonatate 100 mg 08/20/20 04:12 08/21/20 22:27 Benzonatate 100 Mg Cap PO 100 mg TIDPRN PRN Administration Cough Cholecalciferol 1,000 units 08/22/20 09:00 08/26/20 14:17 Cholecalciferol 1,000 Units (25 Mcg) Tab PO Not Given DAILY SHAINA Enoxaparin Sodium 80 mg 08/22/20 09:18 08/26/20 13:35 Enoxaparin Sodium 80 Mg/0.8 Ml Syringe SC 80 mg BID SHAINA Administration Gabapentin 900 mg 08/20/20 21:00 08/25/20 21:08 Gabapentin 300 Mg Cap PO 900 mg HS SHAINA Administration Guaifenesin/Dextromethorphan 15 ml 08/20/20 20:14 08/21/20 20:04 Guaifenesin Dm 100-10/5 Ml Udcup PO 15 ml Q4H PRN Administration Cough Hydrocortisone Sodium Succinate 100 mg 08/23/20 12:00 08/26/20 18:40 Hydrocortisone Sod Succ/Pf 100 Mg/2 Ml Vial IVP 100 mg Q6HR SHAINA Administration Fentanyl Citrate 2,000 mcg/ 100 mls @ 0 mls/hr 08/22/20 10:00 08/26/20 15:40 Sodium Chloride IV 09/21/20 10:00 100 mls INF SHAINA Administration Protocol Per Protocol Doxycycline Hyclate 100 mg/ 100 mls @ 100 mls/hr 08/22/20 21:00 08/26/20 13:33 Sodium Chloride IVPB 100 mls Q12HR SHAINA Administration Sodium Chloride 1,000 mls @ 75 mls/hr 08/23/20 13:45 08/26/20 09:10 Normal Saline 0.9% IV Not Given .[id number] SHAINA Vasopressin 20 unit/ 51 mls @ 0 mls/hr 08/23/20 13:45 08/26/20 07:03 Miscellaneous Medication 1 IV 51 mls each/ Sodium Chloride INF SHAINA Administration Protocol As Directed Dopamine HCl/Dextrose 250 mls @ 0 mls/hr 08/26/20 13:00 08/26/20 13:46 Dopamine 400 Mg/D5w 250 Ml IVPB 250 mls INF SHAINA Administration Protocol As Directed Insulin Human Lispro 0 units 08/21/20 16:04 08/26/20 14:02 Humalog 300 Units/3 Ml Vial SC 4 unit .MODERATE SLIDING SC PRN Administration Moderate Correctional Scale Insulin Human NPH 20 unit 08/23/20 09:00 08/26/20 09:30 Nph, Human Insulin Isophane 300 Unit/3 Ml Vial SC 20 unit BID SHAINA Administration Isosorbide Mononitrate 60 mg 08/21/20 09:00 08/26/20 09:31 Isosorbide Mononitrate Er 60 Mg Tab PO Not Given DAILY SHAINA Levothyroxine Sodium 150 mcg 08/21/20 06:00 08/26/20 05:39 Levothyroxine 150 Mcg Tab PO 150 mcg 0600 SHAINA Administration Lorazepam 2 mg 08/22/20 10:00 08/26/20 00:07 Lorazepam 2 Mg/Ml Vial SLOW IVP 09/21/20 10:00 2 mg Q1H PRN Administration Breakthrough agitation Losartan Potassium 100 mg 08/21/20 09:00 08/26/20 09:31 Losartan 25 Mg Tab PO Not Given DAILY SHAINA Mometasone Furoate/Formoterol Fumar 2 puff 08/21/20 18:30 08/26/20 19:10 Mometasone 200 Mcg/Formoterol 5 Mcg 120 Puff Inhaler INH 2 puff BID-RT SHAINA Administration Pantoprazole Sodium 40 mg 08/21/20 09:00 08/26/20 09:11 Pantoprazole 40 Mg Tab PO 40 mg DAILY SHAINA Administration Phenol 1 ml 08/20/20 14:28 08/21/20 08:18 Chloraseptic [place] 180 Ml Bottle PO 1 spr BIDPRN PRN Administration Sore Throat Propofol 1,000 mg 08/22/20 10:00 08/26/20 17:47 Propofol 1,000 Mg/100 Ml Vial IV 09/21/20 10:00 1,000 mg INF PRN Administration TO ACHIEVE GOAL RASS Protocol Sodium Chloride 10 ml 08/23/20 09:00 08/26/20 14:18 Flush - Normal Saline 10 Ml Syringe IVF Not Given Q12HR SHAINA Tamsulosin HCl 0.4 mg 08/21/20 09:00 08/26/20 09:11 Tamsulosin Hcl 0.4 Mg Cap PO 0.4 mg DAILY SHAINA Administration Tizanidine HCl 4 mg 08/20/20 15:00 08/26/20 18:39 Tizanidine Hcl 4 Mg Tab PO Not Given TID SHAINA Vecuronium [place] 10 mg 08/22/20 09:17 08/26/20 17:47 Vecuronium 10 Mg Vial IVP 10 mg Q30MIN PRN Administration Agitation Zinc Sulfate 220 mg 08/23/20 09:00 08/26/20 09:11 Zinc Sulfate 220 Mg Cap PO 220 mg DAILY SHAINA Administration - Exam General Appearance: ill appearing General - other findings: prone mech ventilation ENT: normocephalic atraumatic, no oropharyngeal lesions ENT - other findings: ETT in prone position Neck: supple, symmetric, no JVD, no thyromegaly Heart: RRR, no gallops, no rubs, normal peripheral pulses Heart - other findings: S1, S2 Respiratory - other findings: diminished in bilat cisneros Gastrointestinal: non-tender, normal bowel sounds, no palpable masses, no guarding Extremities: no cyanosis, 1+ LE edema Skin: normal turgor Neurological - other findings: sedate on mech ventilation Musculoskeletal: generalized weakness Psychiatric: somnolent, lethargic Hosp A/P (1) Pneumonia due to COVID-19 virus Code(s): U07.1 - COVID-19; J12.89 - OTHER VIRAL PNEUMONIA Status: Acute Plan: Continue Doxycycline/Lovenox/Hydrocortisone/mech prone ventilation (2) Acute respiratory failure with hypoxemia Code(s): J96.01 - ACUTE RESPIRATORY FAILURE WITH HYPOXIA Status: Acute (3) Acute metabolic encephalopathy Code(s): G93.41 - METABOLIC ENCEPHALOPATHY Status: Acute (4) Sinus bradycardia Code(s): R00.1 - BRADYCARDIA, UNSPECIFIED Status: Acute Plan: Improved with prone ventilation (5) COPD (chronic obstructive pulmonary disease) Status: Chronic (6) Hypertension Code(s): I10 - ESSENTIAL (PRIMARY) HYPERTENSION Status: Chronic Qualifiers: Hypertension type: essential hypertension Qualified Code(s): I10 - Essential (primary) hypertension - Plan continue antibiotics, respiratory therapy Consults: Palliative Care Continue critical support Mech ventilation with Bi-level, prone Continue Hydrocortisone Continue Doxycycline Continue Lovenox Continue IVF's AM lab: BMP, CBC, ABG PCXR in am
--- NOTE | 2020-08-26 21:14 | PRG ---
DATE OF SERVICE: 08/26/2020 SUBJECTIVE: Karis Vo is prone ventilated. Medications have been reviewed. OBJECTIVE: VITAL SIGNS: Blood pressure is 144/57, heart rate is 70s. She is afebrile. LUNGS: Unchanged. HEART: Unchanged. ABDOMEN: Unchanged. LABORATORY DATA: White count 6.6, hemoglobin 10.4, platelets 169. Electrolytes are unremarkable. BUN 54. IMPRESSION: COVID pneumonia, severe. PH today is 7.25, CO2 60, PO2 36, prior to being prone is on bilevel 30/15. Does not seem likely that she will survive this. Her FiO2 is at 100%. Critical care time 30 min. Job ID: [id number] MTDD
[2020-08-26] MEDS: Gabapentin 300 MG CAP PO SCH (21:40)
[2020-08-27] MEDS ORDERED: Sterile Water 10 ML ONE ×2 (00:24→05:41)
[2020-08-27] MEDS: Lorazepam 2 MG/ML VIAL SLOW IVP PRN ×4 (00:26→22:07)
[2020-08-27] MEDS: Vecuronium 10 MG VIAL IVP PRN ×5 (00:26→22:07)
[2020-08-27] MEDS: Hydrocortisone Sod Succ/PF 100 mg/2 ml Vial IVP SCH ×5 (00:27→22:07)
[2020-08-27] MEDS: Albuterol 200 PUFF (6.7GM INHALER) INH SCH ×4 (00:38→19:37)
[2020-08-27] MEDS: fentaNYL Citrate/PF 2,000 MCG in Sodium Chloride 0.9% 60 ML IV SCH ×2 (02:57→15:40)
[2020-08-27] MEDS: Propofol 1,000 MG/100 ML VIAL IV PRN ×4 (03:06→16:49)
[2020-08-27 04:24] LABS: #Lymphocytes 0.3 thou/uL (1.20-3.40); #Monocytes 0.4 thou/uL (0.11-0.59); #Neutrophils 9.3 thou/uL (1.40-6.50); %Eosinophils 0.2 % (0.0-10.0); %Lymphocytes 2.9 % (21.0-51.0); %Monocytes 3.8 % (0.0-10.0); Hemoglobin 10.9 g/dL (12.0-16.0); Mean Corpuscular HGB CONC 31.3 g/dL (32.0-36.0); Mean Corpuscular Volume 79.9 fL (78.0-98.0); Mean Platelet Volume 7.9 fL (7.4-10.4); Platelet Count 274 thou/uL (130-400); RBC Distribution Width 16.1 % (11.5-14.5); Red Blood Cell (RBC) Count 4.37 mill/uL (4.20-5.40)
[2020-08-27 04:44] LABS: Anion Gap 13 mmol/L (10-20); BUN (Urea Nitrogen) 42 mg/dL (9.8-20.1); Calc. Creatinine Clearance 166 mL/min (70-130); Calcium 7.8 mg/dL (7.8-10.44); Carbon Dioxide 26 mmol/L (23-31); Chloride 106 mmol/L (98-107); Estimated GFR-MDRD 78; Glucose 199 mg/dL (80-115); Potassium 4.5 mmol/L (3.5-5.1); Sodium 140 mmol/L (136-145)
[2020-08-27] MEDS: Levothyroxine 150 MCG TAB PO SCH (05:48)
[2020-08-27] MEDS: DOPamine 400 MG/D5W 250 ML 250 ML IVPB SCH ×2 (07:26→19:48)
[2020-08-27] MEDS: Enoxaparin Sodium 80 MG/0.8 ML SYRINGE SC SCH ×2 (07:59→19:44)
[2020-08-27 08:38] LABS: Actual Bicarbonate (HCO3a) 24.5 mEq/L (22-28); Base Excess (BEa) 1.7 mEq/L (-2.0 to +3.0); CO2 Tension 32.3 mmHg (35.0-45.0); Calcium, Ionized (arterial) 1.11 mmol/L (1.12-1.30); Carboxyhemoglobin (COHb) 0.3 gm% (0.0-3.0); Hemoglobin (Hb) 11.7 g/dL (12.0-16.0); O2 Tension (PaO2), arterial 196.8 mmHg (> 80.0)
[2020-08-27 08:43] LABS: ALV-art Gradient 475.825 mmHg (0-20); Puncture Site RRA
[2020-08-27] MEDS: Mometasone 200 MCG/Formoterol 5 MCG 120 PUFF INHALER INH SCH ×2 (08:48→19:37)
[2020-08-27] MEDS: NPH, Human Insulin Isophane 300 UNIT/3 ML VIAL SC SCH ×2 (08:50→19:46)
--- NOTE | 2020-08-27 10:22 | RAD ---
PORTABLE CHEST: Date: 08/27/2020 HISTORY: Multifocal pneumonia follow-up. COMPARISON: Prior day's study. FINDINGS: Endotracheal and NG tubes are in satisfactory position. Bilateral infiltrative lung changes are stabl e. Right central line is unchanged. IMPRESSION: Stable exam. POS: LOW
[2020-08-27] MEDS: Amlodipine 5 MG TAB PO SCH (11:37)
[2020-08-27] MEDS: Cholecalciferol 1,000 UNITS (25 MCG) TAB PO SCH (11:38)
[2020-08-27] MEDS: Tamsulosin HCl 0.4 MG CAP PO SCH (11:38)
[2020-08-27] MEDS: Losartan 25 MG TAB PO SCH (11:38)
[2020-08-27] MEDS: Ascorbic Acid 500 mg Chewable Tablet PER TUBE SCH (11:38)
[2020-08-27] MEDS: tiZANidine HCl 4 MG TAB PO SCH ×3 (11:39→19:45)
[2020-08-27] MEDS: Zinc Sulfate 220 MG CAP PO SCH (11:39)
[2020-08-27] MEDS: HumaLOG 300 UNITS/3 ML VIAL SC PRN ×3 (12:00→22:23)
[2020-08-27] MEDS: Sodium Chloride 0.9% 1,000 ML IV SCH (17:50)
[2020-08-27] MEDS: Gabapentin 300 MG CAP PO SCH (19:44)
--- NOTE | 2020-08-27 20:06 | PDOC.HOSPP ---
- Subjective Encounter Date: 08/27/20 Encounter Time: 19:45 Subjective: f/u for COVID PNA/resp [facility] with Bi-level 30/15 with FIO2 80%. - Objective Vital Signs & Weight: Vital Signs (12 hours) Temp Pulse Resp BP Pulse Ox 08/27/20 18:00 19 08/27/20 16:00 99.1 F 18 94 L 08/27/20 14:00 18 08/27/20 13:34 69 08/27/20 12:00 23 H 95 08/27/20 11:37 69 140/58 L 08/27/20 10:20 69 140/58 L 08/27/20 10:00 18 08/27/20 08:30 76 Weight Admit Weight 305 lb Weight 305 lb Most Recent Monitor Data Heart Rate from ECG 52 NIBP 150/58 NIBP BP-Mean 88 Respiration from ECG 18 SpO2 90 I&O: 08/26/20 08/27/20 08/28/20 06:59 06:59 06:59 Intake Total 3736 2537 1479.3 Output Total 1210 1915 1065 Balance 2526 622 414.3 Result Diagrams: 08/27/20 03:05 08/27/20 03:05 Additional Labs: Accuchecks 08/27/20 08/27/20 08/27/20 15:33 11:46 03:14 POC Glucose 161 H 179 H 186 H 08/26/20 21:10 POC Glucose 198 H Microbiology 08/19/20 13:52 Venous blood - Right Hand Blood Culture - Final NO GROWTH IN 5 DAYS 08/19/20 13:05 Venous blood - Left Hand Blood Culture - Final NO GROWTH IN 5 DAYS 08/12/20 11:10 Nasal swab Influenza Types A,B Direct EIA - Final 08/12/20 11:47 Urine voided Urine Culture - Preliminary 08/12/20 10:00 Venous blood - Left Hand Blood Culture - Preliminary NO GROWTH AT 48 HOURS 08/12/20 09:47 Venous blood - Right Arm Blood Culture - Preliminary NO GROWTH AT 48 HOURS 08/01/20 19:31 Venous blood - Right Hand Blood Culture - Preliminary Specimen has been received and culture in progress. No Growth to date. 08/01/20 18:46 Venous blood - Left Arm Blood Culture - Preliminary Specimen has been received and culture in progress. No Growth to date. Laboratory Tests 07/05/20 08/01/20 08/01/20 13:31 18:46 18:46 WBC Neutrophils % Neutrophils % (Manual) D-Dimer Creatinine 0.76 Lactic Acid 0.7 Ferritin Troponin I 0.016 C-Reactive Protein Triglycerides Cholesterol LDL Cholesterol, Calc HDL Cholesterol Vitamin B12 TSH 3rd Generation SARS-CoV-2 Rap RNA(RT-PCR) SARS-CoV-2 IgG Ab SARS-CoV-2 IgG Ab Index 08/01/20 08/01/20 08/02/20 23:52 23:52 04:52 WBC Neutrophils % Neutrophils % (Manual) D-Dimer Creatinine Lactic Acid Ferritin Troponin I Less than 0.010 C-Reactive Protein Triglycerides 142 Cholesterol 104 LDL Cholesterol, Calc 45 HDL Cholesterol 31 Vitamin B12 448 TSH 3rd Generation 5.8539 H SARS-CoV-2 Rap RNA(RT-PCR) SARS-CoV-2 IgG Ab SARS-CoV-2 IgG Ab Index 08/12/20 08/13/20 08/19/20 09:47 04:10 15:55 WBC 22.9 H Neutrophils % 93.7 H Neutrophils % (Manual) 82 H D-Dimer Creatinine Lactic Acid Ferritin Troponin I C-Reactive Protein Triglycerides Cholesterol LDL Cholesterol, Calc HDL Cholesterol Vitamin B12 TSH 3rd Generation SARS-CoV-2 Rap RNA(RT-PCR) DETECTED A* SARS-CoV-2 IgG Ab SARS-CoV-2 IgG Ab Index 08/20/20 08/21/20 08/22/20 05:30 06:05 07:34 WBC Neutrophils % Neutrophils % (Manual) D-Dimer Creatinine Lactic Acid Ferritin 493.48 H Troponin I C-Reactive Protein 5.82 H Triglycerides Cholesterol LDL Cholesterol, Calc HDL Cholesterol Vitamin B12 TSH 3rd Generation SARS-CoV-2 Rap RNA(RT-PCR) SARS-CoV-2 IgG Ab Non-Reactive SARS-CoV-2 IgG Ab Index 0.03 08/22/20 08/22/20 08/23/20 07:34 07:34 03:31 WBC Neutrophils % Neutrophils % (Manual) D-Dimer 0.57 H Creatinine Lactic Acid Ferritin 567.72 H Troponin I C-Reactive Protein 2.83 H Triglycerides Cholesterol LDL Cholesterol, Calc HDL Cholesterol Vitamin B12 TSH 3rd Generation SARS-CoV-2 Rap RNA(RT-PCR) SARS-CoV-2 IgG Ab SARS-CoV-2 IgG Ab Index 08/23/20 08/23/2020 03:31 03:31 03:50 WBC Neutrophils % Neutrophils % (Manual) D-Dimer 0.40 Creatinine Lactic Acid Ferritin 491.35 H Troponin I C-Reactive Protein 1.79 H Triglycerides Cholesterol LDL Cholesterol, Calc HDL Cholesterol Vitamin B12 TSH 3rd Generation SARS-CoV-2 Rap RNA(RT-PCR) SARS-CoV-2 IgG Ab SARS-CoV-2 IgG Ab Index 08/24/20 08/24/20 08/25/20 03:50 03:50 03:15 WBC Neutrophils % Neutrophils % (Manual) D-Dimer 0.55 H Creatinine Lactic Acid Ferritin 323.43 H Troponin I C-Reactive Protein 1.25 H Triglycerides Cholesterol LDL Cholesterol, Calc HDL Cholesterol Vitamin B12 TSH 3rd Generation SARS-CoV-2 Rap RNA(RT-PCR) SARS-CoV-2 IgG Ab SARS-CoV-2 IgG Ab Index 08/25/20 08/25/20 03:15 03:15 WBC Neutrophils % Neutrophils % (Manual) D-Dimer 0.55 H Creatinine Lactic Acid Ferritin 211.74 Troponin I C-Reactive Protein Triglycerides Cholesterol LDL Cholesterol, Calc HDL Cholesterol Vitamin B12 TSH 3rd Generation SARS-CoV-2 Rap RNA(RT-PCR) SARS-CoV-2 IgG Ab SARS-CoV-2 IgG Ab Index Radiology Reviewed by me: Yes (PCXR - lines/tubes in place, bilat infiltrates) EKG Reviewed by me: Yes (Tele - SR) Hospitalist ROS - Medication Medications: Active Medications Generic Name Dose Route Start Last Admin Trade Name Freq PRN Reason Stop Dose Admin Acetaminophen 650 mg 08/19/20 20:24 08/20/20 20:39 Acetaminophen 325 Mg Tab PO 650 mg Q4H PRN Administration Headache/Fever or Pain Albuterol Sulfate 2 puff 08/21/20 13:00 08/27/20 19:37 Albuterol 200 Puff (6.7gm Inhaler) INH 2 puff [id number] SHAINA Administration Amlodipine Besylate 5 mg 08/21/20 09:00 08/27/20 11:37 Amlodipine 5 Mg Tab PO Not Given DAILY SHAINA Ascorbic Acid 1,000 mg 08/23/20 09:00 08/27/20 11:38 Ascorbic Acid 500 Mg Chewable Tablet PER TUBE Not Given DAILY SHAINA Benzonatate 100 mg 08/20/20 04:12 08/21/20 22:27 Benzonatate 100 Mg Cap PO 100 mg TIDPRN PRN Administration Cough Cholecalciferol 1,000 units 08/22/20 09:00 08/27/20 11:38 Cholecalciferol 1,000 Units (25 Mcg) Tab PO Not Given DAILY SHAINA Enoxaparin Sodium 80 mg 08/22/20 09:18 08/27/20 19:44 Enoxaparin Sodium 80 Mg/0.8 Ml Syringe SC 80 mg BID SHAINA Administration Gabapentin 900 mg 08/20/20 21:00 08/27/20 19:44 Gabapentin 300 Mg Cap PO 900 mg HS SHAINA Administration Guaifenesin/Dextromethorphan 15 ml 08/20/20 20:14 08/21/20 20:04 Guaifenesin Dm 100-10/5 Ml Udcup PO 15 ml Q4H PRN Administration Cough Hydrocortisone Sodium Succinate 100 mg 08/23/20 12:00 08/27/20 17:48 Hydrocortisone Sod Succ/Pf 100 Mg/2 Ml Vial IVP 100 mg Q6HR SHAINA Administration Fentanyl Citrate 2,000 mcg/ 100 mls @ 0 mls/hr 08/22/20 10:00 08/27/20 15:40 Sodium Chloride IV 09/21/20 10:00 100 mls INF SHAINA Administration Protocol Per Protocol Doxycycline Hyclate 100 mg/ 100 mls @ 100 mls/hr 08/22/20 21:00 08/27/20 19:55 Sodium Chloride IVPB 100 mls Q12HR SHAINA Administration Sodium Chloride 1,000 mls @ 75 mls/hr 08/23/20 13:45 08/27/20 17:50 Normal Saline 0.9% IV 1,000 mls .[id number] SHAINA Administration Vasopressin 20 unit/ 51 mls @ 0 mls/hr 08/23/20 13:45 08/26/20 07:03 Miscellaneous Medication 1 IV 51 mls each/ Sodium Chloride INF SHAINA Administration Protocol As Directed Dopamine HCl/Dextrose 250 mls @ 0 mls/hr 08/26/20 13:00 08/27/20 19:48 Dopamine 400 Mg/D5w 250 Ml IVPB 250 mls INF SHAINA Administration Protocol As Directed Insulin Human Lispro 0 units 08/21/20 16:04 08/27/20 15:33 Humalog 300 Units/3 Ml Vial SC 2 unit .MODERATE SLIDING SC PRN Administration Moderate Correctional Scale Insulin Human NPH 20 unit 08/23/20 09:00 08/27/20 19:46 Nph, Human Insulin Isophane 300 Unit/3 Ml Vial SC 20 unit BID SHAINA Administration Isosorbide Mononitrate 60 mg 08/21/20 09:00 08/27/20 11:38 Isosorbide Mononitrate Er 60 Mg Tab PO Not Given DAILY SHAINA Levothyroxine Sodium 150 mcg 08/21/20 06:00 08/27/20 05:48 Levothyroxine 150 Mcg Tab PO Not Given 0600 SHAINA Lorazepam 2 mg 08/22/20 10:00 08/27/20 16:47 Lorazepam 2 Mg/Ml Vial SLOW IVP 09/21/20 10:00 2 mg Q1H PRN Administration Breakthrough agitation Losartan Potassium 100 mg 08/21/20 09:00 08/27/20 11:38 Losartan 25 Mg Tab PO Not Given DAILY SHAINA Mometasone Furoate/Formoterol Fumar 2 puff 08/21/20 18:30 08/27/20 19:37 Mometasone 200 Mcg/Formoterol 5 Mcg 120 Puff Inhaler INH 2 puff BID-RT SHAINA Administration Phenol 1 ml 08/20/20 14:28 08/21/20 08:18 Chloraseptic [place] 180 Ml Bottle PO 1 spr BIDPRN PRN Administration Sore Throat Propofol 1,000 mg 08/22/20 10:00 08/27/20 16:49 Propofol 1,000 Mg/100 Ml Vial IV 09/21/20 10:00 1,000 mg INF PRN Administration TO ACHIEVE GOAL RASS Protocol Sodium Chloride 10 ml 08/23/20 09:00 08/27/20 19:47 Flush - Normal Saline 10 Ml Syringe IVF 10 ml Q12HR SHAINA Administration Tamsulosin HCl 0.4 mg 08/21/20 09:00 08/27/20 11:38 Tamsulosin Hcl 0.4 Mg Cap PO Not Given DAILY SHAINA Tizanidine HCl 4 mg 08/20/20 15:00 08/27/20 19:45 Tizanidine Hcl 4 Mg Tab PO 4 mg TID SHAINA Administration Vecuronium [place] 10 mg 08/22/20 09:17 08/27/20 12:28 Vecuronium 10 Mg Vial IVP 10 mg Q30MIN PRN Administration Agitation Zinc Sulfate 220 mg 08/23/20 09:00 08/27/20 11:39 Zinc Sulfate 220 Mg Cap PO Not Given DAILY SHAINA - Exam General - other findings: sedate on mech vent ENT: normocephalic atraumatic, no oropharyngeal lesions ENT - other findings: ETT in place Neck: supple, symmetric, no JVD, no thyromegaly Heart: RRR, no gallops, no rubs, normal peripheral pulses Heart - other findings: S1, S2 Respiratory - other findings: diminished bilat, coarse sounds in bases Gastrointestinal: soft, normal bowel sounds, no palpable masses, no guarding, no rigidity Gastrointestinal - other findings: obese Extremities: no cyanosis, 1+ LE edema Skin: normal turgor Psychiatric: somnolent, lethargic Hosp A/P (1) Pneumonia due to COVID-19 virus Code(s): U07.1 - COVID-19; J12.89 - OTHER VIRAL PNEUMONIA Status: Acute Plan: Continue Doxycycline/Lovenox/Hydrocortisone/mech prone ventilation (2) Acute respiratory failure with hypoxemia Code(s): J96.01 - ACUTE RESPIRATORY FAILURE WITH HYPOXIA Status: Acute Plan: Continue mech ventilation, poor overall prognosis (3) Acute metabolic encephalopathy Code(s): G93.41 - METABOLIC ENCEPHALOPATHY Status: Acute (4) Sinus bradycardia Code(s): R00.1 - BRADYCARDIA, UNSPECIFIED Status: Acute (5) COPD (chronic obstructive pulmonary disease) Status: Chronic (6) Hypertension Code(s): I10 - ESSENTIAL (PRIMARY) HYPERTENSION Status: Chronic Qualifiers: Hypertension type: essential hypertension Qualified Code(s): I10 - Esse ntial (primary) hypertension - Plan continue antibiotics, respiratory therapy, DVT proph w/SCDs Continue critical support [facility] ventilation with Bi-level, prone Continue Hydrocortisone Continue Doxycycline Continue Lovenox Continue IVF's AM lab: BMP, CBC, ABG PCXR in am
--- NOTE | 2020-08-27 20:18 | PDOC.BPN ---
- Brief Progress Note Encounter Date: 08/27/20 Encounter Time: 20:15 Ms Vo remains on mech ventilation due to COVID PNA and severe hypoxia. Discussed with Dr. Dunlap and agree that the overall prognosis is poor and would not recommend aggressive resuscitation and convert to DNAR given the multitude of co-morbid conditions. No other family available to discuss the code status and no legal guardian or MPOA discovered.
[2020-08-28] MEDS: Propofol 1,000 MG/100 ML VIAL IV PRN ×6 (00:36→23:27)
[2020-08-28] MEDS: Vecuronium 10 MG VIAL IVP PRN ×4 (00:37→12:33)
[2020-08-28] MEDS: Lorazepam 2 MG/ML VIAL SLOW IVP PRN ×2 (00:37→02:55)
[2020-08-28] MEDS: Albuterol 200 PUFF (6.7GM INHALER) INH SCH ×4 (00:57→18:40)
[2020-08-28] MEDS: Sodium Chloride 0.9% 1,000 ML IV SCH ×2 (01:04→14:11)
[2020-08-28] MEDS: fentaNYL Citrate/PF 2,000 MCG in Sodium Chloride 0.9% 60 ML IV SCH ×2 (03:36→17:07)
[2020-08-28 04:16] LABS: #Lymphocytes 0.6 thou/uL (1.20-3.40); #Monocytes 0.4 thou/uL (0.11-0.59); #Neutrophils 9.8 thou/uL (1.40-6.50); %Basophils 0.1 % (0.0-1.0); %Eosinophils 0.3 % (0.0-10.0); %Lymphocytes 5.6 % (21.0-51.0); %Monocytes 3.3 % (0.0-10.0); %Neutrophils 90.8 % (42.0-75.0); Hemoglobin 11.6 g/dL (12.0-16.0); Mean Corpuscular HGB CONC 31.8 g/dL (32.0-36.0); Mean Corpuscular Hemoglobin 25.7 pg (27.0-31.0); Mean Corpuscular Volume 80.8 fL (78.0-98.0); Mean Platelet Volume 7.7 fL (7.4-10.4); Platelet Count 278 thou/uL (130-400); RBC Distribution Width 16.4 % (11.5-14.5); Red Blood Cell (RBC) Count 4.51 mill/uL (4.20-5.40); White Blood Cell (WBC) Count 10.8 thou/uL (4.8-10.8)
[2020-08-28 04:32] LABS: Anion Gap 13 mmol/L (10-20); BUN (Urea Nitrogen) 32 mg/dL (9.8-20.1); Calc. Creatinine Clearance 180 mL/min (70-130); Calcium 8.2 mg/dL (7.8-10.44); Carbon Dioxide 26 mmol/L (23-31); Chloride 109 mmol/L (98-107); Estimated GFR-MDRD 86; Glucose 256 mg/dL (80-115); Potassium 4.8 mmol/L (3.5-5.1); Sodium 143 mmol/L (136-145)
[2020-08-28] MEDS: HumaLOG 300 UNITS/3 ML VIAL SC PRN ×4 (04:36→21:28)
[2020-08-28] MEDS: Hydrocortisone Sod Succ/PF 100 mg/2 ml Vial IVP SCH ×4 (05:06→23:27)
[2020-08-28] MEDS: Levothyroxine 150 MCG TAB PO SCH (05:06)
--- NOTE | 2020-08-28 07:54 | RAD ---
Chest AP view INDICATION: Pneumonia COMPARISON: August 27, 2020 FINDINGS: Lungs: Bilateral airspace disease is largely stable. Cardiac silhouette: Cardiomegaly persists Pulmonary vasculature: Pulmonary vascular congestion stable. Pleural spaces: Small bilateral pleural effusions are similar. No pneumothorax is evident. Upper abdomen: No abnormality seen. Osseous structures: No acute osseous abnormality. Additional findings: ET tube, gastric catheter right IJ central venous catheter appears stable. Ther e are multiple cardiac leads overlying the patient. IMPRESSION: Stable examination.
[2020-08-28] MEDS: Zinc Sulfate 220 MG CAP PO SCH (08:19)
[2020-08-28] MEDS: Enoxaparin Sodium 80 MG/0.8 ML SYRINGE SC SCH ×2 (08:19→20:08)
[2020-08-28] MEDS: tiZANidine HCl 4 MG TAB PO SCH ×3 (08:20→20:09)
[2020-08-28] MEDS: Tamsulosin HCl 0.4 MG CAP PO SCH (08:20)
[2020-08-28] MEDS: Ascorbic Acid 500 mg Chewable Tablet PER TUBE SCH (08:20)
[2020-08-28] MEDS: Mometasone 200 MCG/Formoterol 5 MCG 120 PUFF INHALER INH SCH ×2 (08:20→18:50)
[2020-08-28] MEDS: Cholecalciferol 1,000 UNITS (25 MCG) TAB PO SCH (08:20)
[2020-08-28] MEDS: Pantoprazole 40 MG GRANULES PACKET PER TUBE SCH (08:20)
[2020-08-28 09:02] LABS: Actual Bicarbonate (HCO3a) 26.6 mEq/L (22-28); Base Excess (BEa) -1.3 mEq/L (-2.0 to +3.0); Carboxyhemoglobin (COHb) 0.3 gm% (0.0-3.0); Hemoglobin (Hb) 11.8 g/dL (12.0-16.0); Potassium - ABG Lab 4.66 mmol/L (3.70-5.30); pH, Arterial 7.26 (7.35-7.45)
[2020-08-28] MEDS: NPH, Human Insulin Isophane 300 UNIT/3 ML VIAL SC SCH ×2 (09:20→20:10)
[2020-08-28] MEDS: Amlodipine 5 MG TAB PO SCH (10:24)
[2020-08-28] MEDS: Losartan 25 MG TAB PO SCH (10:25)
[2020-08-28 12:31] LABS: CO2 Tension 60.5 mmHg (35.0-45.0)
[2020-08-28 12:32] LABS: ALV-art Gradient 430.775 mmHg (0-20)
--- NOTE | 2020-08-28 18:01 | PDOC.HOSPP ---
- Subjective Encounter Date: 08/28/20 Encounter Time: 17:40 Subjective: f/u for COVID PNA/resp failure on mech ventilation. Receiving Doxycycline/Lovenox/Hydrocortisone. - Objective Vital Signs & Weight: Vital Signs (12 hours) Temp Pulse Resp BP Pulse Ox 08/28/20 16:00 98 F 18 08/28/20 14:42 57 L 158/62 H 08/28/20 14:00 18 08/28/20 12:00 93.7 F L 18 08/28/20 11:15 63 130/54 L 08/28/20 10:00 18 08/28/20 08:20 50 L 150/62 H 08/28/20 08:00 97.8 F 18 90 L 08/28/20 06:00 18 Weight Admit Weight 305 lb Weight 305 lb Most Recent Monitor Data Heart Rate from ECG 59 NIBP 141/54 NIBP BP-Mean 83 Respiration from ECG 18 SpO2 95 I&O: 08/27/20 08/28/20 08/29/20 06:59 06:59 06:59 Intake Total 2537 3142.3 320 Output Total 1915 2210 700 Balance 622 932.3 -380 Result Diagrams: 08/28/20 03:41 08/28/20 03:41 Additional Labs: Accuchecks 08/28/20 08/28/20 08/27/20 16:23 09:24 22:14 POC Glucose 225 H 173 H 213 H Microbiology 08/19/20 13:52 Venous blood - Right Hand Blood Culture - Final NO GROWTH IN 5 DAYS 08/19/20 13:05 Venous blood - Left Hand Blood Culture - Final NO GROWTH IN 5 DAYS 08/12/20 11:10 Nasal swab Influenza Types A,B Direct EIA - Final 08/12/20 11:47 Urine voided Urine Culture - Preliminary 08/12/20 10:00 Venous blood - Left Hand Blood Culture - Preliminary NO GROWTH AT 48 HOURS 08/12/20 09:47 Venous blood - Right Arm Blood Culture - Preliminary NO GROWTH AT 48 HOURS 08/01/20 19:31 Venous blood - Right Hand Blood Culture - Preliminary Specimen has been received and culture in progress. No Growth to date. 08/01/20 18:46 Venous blood - Left Arm Blood Culture - Preliminary Specimen has been received and culture in progress. No Growth to date. Laboratory Tests 07/05/20 08/01/20 08/01/20 13:31 18:46 18:46 WBC Neutrophils % Neutrophils % (Manual) D-Dimer Creatinine 0.76 Lactic Acid 0.7 Ferritin Troponin I 0.016 C-Reactive Protein Triglycerides Cholesterol LDL Cholesterol, Calc HDL Cholesterol Vitamin B12 TSH 3rd Generation SARS-CoV-2 Rap RNA(RT-PCR) SARS-CoV-2 IgG Ab SARS-CoV-2 IgG Ab Index 08/01/20 08/01/20 08/02/20 23:52 23:52 04:52 WBC Neutrophils % Neutrophils % (Manual) D-Dimer Creatinine Lactic Acid Ferritin Troponin I Less than 0.010 C-Reactive Protein Triglycerides 142 Cholesterol 104 LDL Cholesterol, Calc 45 HDL Cholesterol 31 Vitamin B12 448 TSH 3rd Generation 5.8539 H SARS-CoV-2 Rap RNA(RT-PCR) SARS-CoV-2 IgG Ab SARS-CoV-2 IgG Ab Index 08/12/20 08/13/20 08/19/20 09:47 04:10 15:55 WBC 22.9 H Neutrophils % 93.7 H Neutrophils % (Manual) 82 H D-Dimer Creatinine Lactic Acid Ferritin Troponin I C-Reactive Protein Triglycerides Cholesterol LDL Cholesterol, Calc HDL Cholesterol Vitamin B12 TSH 3rd Generation SARS-CoV-2 Rap RNA(RT-PCR) DETECTED A* SARS-CoV-2 IgG Ab SARS-CoV-2 IgG Ab Index 08/20/20 08/21/20 08/22/20 05:30 06:05 07:34 WBC Neutrophils % Neutrophils % (Manual) D-Dimer Creatinine Lactic Acid Ferritin 493.48 H Troponin I C-Reactive Protein 5.82 H Triglycerides Cholesterol LDL Cholesterol, Calc HDL Cholesterol Vitamin B12 TSH 3rd Generation SARS-CoV-2 Rap RNA(RT-PCR) SARS-CoV-2 IgG Ab Non-Reactive SARS-CoV-2 IgG Ab Index 0.03 08/22/20 08/22/20 08/23/20 07:34 07:34 03:31 WBC Neutrophils % Neutrophils % (Manual) D-Dimer 0.57 H Creatinine Lactic Acid Ferritin 567.72 H Troponin I C-Reactive Protein 2.83 H Triglycerides Cholesterol LDL Cholesterol, Calc HDL Cholesterol Vitamin B12 TSH 3rd Generation SARS-CoV-2 Rap RNA(RT-PCR) SARS-CoV-2 IgG Ab SARS-CoV-2 IgG Ab Index 08/23/20 08/23/20 08/24/20 03:31 03:31 03:50 WBC Neutrophils % Neutrophils % (Manual) D-Dimer 0.40 Creatinine Lactic Acid Ferritin 491.35 H Troponin I C-Reactive Protein 1.79 H Triglycerides Cholesterol LDL Cholesterol, Calc HDL Cholesterol Vitamin B12 TSH 3rd Generation SARS-CoV-2 Rap RNA(RT-PCR) SARS-CoV-2 IgG Ab SARS-CoV-2 IgG Ab Index 08/24/20 08/24/20 08/25/20 03:50 03:50 03:15 WBC Neutrophils % Neutrophils % (Manual) D-Dimer 0.55 H Creatinine Lactic Acid Ferritin 323.43 H Troponin I C-Reactive Protein 1.25 H Triglycerides Cholesterol LDL Cholesterol, Calc HDL Cholesterol Vitamin B12 TSH 3rd Generation SARS-CoV-2 Rap RNA(RT-PCR) SARS-CoV-2 IgG Ab SARS-CoV-2 IgG Ab Index 08/25/20 08/25/20 03:15 03:15 WBC Neutrophils % Neutrophils % (Manual) D-Dimer 0.55 H Creatinine Lactic Acid Ferritin 211.74 Troponin I C-Reactive Protein Triglycerides Cholesterol LDL Cholesterol, Calc HDL Cholesterol Vitamin B12 TSH 3rd Generation SARS-CoV-2 Rap RNA(RT-PCR) SARS-CoV-2 IgG Ab SARS-CoV-2 IgG Ab Index Radiology Reviewed by me: Yes (PCXR - bilat infiltrates, lines/tubes in position) EKG Reviewed by me: Yes (Tele - SR) Hospitalist ROS - Medication Medications: Active Medications Generic Name Dose Route Start Last Admin Trade Name Freq PRN Reason Stop Dose Admin Acetaminophen 650 mg 08/19/20 20:24 08/20/20 20:39 Acetaminophen 325 Mg Tab PO 650 mg Q4H PRN Administration Headache/Fever or Pain Albuterol Sulfate 2 puff 08/21/20 13:00 08/28/20 14:42 Albuterol 200 Puff (6.7gm Inhaler) INH 2 puff [id number] SHAINA Administration Amlodipine Besylate 5 mg 08/21/20 09:00 08/28/20 10:24 Amlodipine 5 Mg Tab PO Not Given DAILY SHAINA Ascorbic Acid 1,000 mg 08/23/20 09:00 08/28/20 08:20 Ascorbic Acid 500 Mg Chewable Tablet PER TUBE 1,000 mg DAILY SHAINA Administration Benzonatate 100 mg 08/20/20 04:12 10/28/20 22:27 Benzonatate 100 Mg Cap PO 100 mg TIDPRN PRN Administration Cough Cholecalciferol 1,000 units 08/22/20 09:00 08/28/20 08:20 Cholecalciferol 1,000 Units (25 Mcg) Tab PO 1,000 units DAILY SHAINA Administration Enoxaparin Sodium 80 mg 08/22/20 09:18 08/28/20 08:19 Enoxaparin Sodium 80 Mg/0.8 Ml Syringe SC 80 mg BID SHAINA Administration Gabapentin 900 mg 08/20/20 21:00 08/27/20 19:44 Gabapentin 300 Mg Cap PO 900 mg HS SHAINA Administration Guaifenesin/Dextromethorphan 15 ml 08/20/20 20:14 08/21/20 20:04 Guaifenesin Dm 100-10/5 Ml Udcup PO 15 ml Q4H PRN Administration Cough Hydrocortisone Sodium Succinate 100 mg 08/23/20 12:00 08/28/20 17:07 Hydrocortisone Sod Succ/Pf 100 Mg/2 Ml Vial IVP 100 mg Q6HR SHAINA Administration Fentanyl Citrate 2,000 mcg/ 100 mls @ 0 mls/hr 08/22/20 10:00 08/28/20 17:07 Sodium Chloride IV 09/21/20 10:00 100 mls INF SHAINA Administration Protocol Per Protocol Doxycycline Hyclate 100 mg/ 100 mls @ 100 mls/hr 08/22/20 21:00 08/28/20 09:19 Sodium Chloride IVPB 100 mls Q12HR SHAINA Administration Sodium Chloride 1,000 mls @ 75 mls/hr 08/23/20 13:45 08/28/20 14:11 Normal Saline 0.9% IV 1,000 mls .[id number] SHAINA Administration Vasopressin 20 unit/ 51 mls @ 0 mls/hr 08/23/20 13:45 08/26/20 07:03 Miscellaneous Medication 1 IV 51 mls each/ Sodium Chloride INF SHAINA Administration Protocol As Directed Dopamine HCl/Dextrose 250 mls @ 0 mls/hr 08/26/20 13:00 08/27/20 19:48 Dopamine 400 Mg/D5w 250 Ml IVPB 250 mls INF SHAINA Administration Protocol As Directed Insulin Human Lispro 0 units 08/21/20 16:04 08/28/20 16:29 Humalog 300 Units/3 Ml Vial SC 4 unit .MODERATE SLIDING SC PRN Administration Moderate Correctional Scale Insulin Human NPH 20 unit 08/23/20 09:00 08/28/20 09:20 Nph, Human Insulin Isophane 300 Unit/3 Ml Vial SC 20 unit BID SHAINA Administration Isosorbide Mononitrate 60 mg 08/21/20 09:00 08/28/20 10:24 Isosorbide Mononitrate Er 60 Mg Tab PO Not Given DAILY SHAINA Levothyroxine Sodium 150 mcg 08/21/20 06:00 08/28/20 05:06 Levothyroxine 150 Mcg Tab PO 150 mcg 0600 SHAINA Administration Lorazepam 2 mg 08/22/20 10:00 08/28/20 02:55 Lorazepam 2 Mg/Ml Vial SLOW IVP 09/21/20 10:00 2 mg Q1H PRN Administration Breakthrough agitation Losartan Potassium 100 mg 08/21/20 09:00 08/28/20 10:25 Losartan 25 Mg Tab PO Not Given DAILY SHAINA Mometasone Furoate/Formoterol Fumar 2 puff 08/21/20 18:30 08/28/20 08:20 Mometasone 200 Mcg/Formoterol 5 Mcg 120 Puff Inhaler INH 2 puff BID-RT SHAINA Administration Pantoprazole Sodium 40 mg 08/28/20 09:00 08/28/20 08:20 Pantoprazole 40 Mg Granules Packet PER TUBE 40 mg DAILY SHAINA Administration Phenol 1 ml 08/20/20 14:28 08/21/20 08:18 Chloraseptic [place] 180 Ml Bottle PO 1 spr BIDPRN PRN Administration Sore Throat Propofol 1,000 mg 08/22/20 10:00 08/28/20 14:11 Propofol 1,000 Mg/100 Ml Vial IV 09/21/20 10:00 1,000 mg INF PRN Administration TO ACHIEVE GOAL RASS Protocol Sodium Chloride 10 ml 08/23/20 09:00 08/28/20 08:21 Flush - Normal Saline 10 Ml Syringe IVF 10 ml Q12HR SHAINA Administration Tamsulosin HCl 0.4 mg 08/21/20 09:00 08/28/20 08:20 Tamsulosin Hcl 0.4 Mg Cap PO 0.4 mg DAILY SHAINA Administration Tizanidine HCl 4 mg 08/20/20 15:00 08/28/20 14:11 Tizanidine Hcl 4 Mg Tab PO 4 mg TID SHAINA Administration Vecuronium [place] 10 mg 08/22/20 09:17 08/28/20 12:33 Vecuronium 10 Mg Vial IVP 10 mg Q30MIN PRN Administration Agitation Zinc Sulfate 220 mg 08/23/20 09:00 08/28/20 08:19 Zinc Sulfate 220 Mg Cap PO 220 mg DAILY SHAINA Administration - Exam General - other findings: sedate on mech ventilation Eye: PERRL, anicteric sclera ENT: normocephalic atraumatic, no oropharyngeal lesions ENT - other findings: ETT/OGT in place Neck: supple, symmetric, no JVD, no thyromegaly Heart: RRR, no gallops, no rubs, normal peripheral pulses Heart - other findings: S1, S2 Respiratory - other findings: diminished bilat, occ rhonchi Gastrointestinal: soft, non-tender, non-distended, normal bowel sounds, no palpable masses Gastrointestinal - other findings: obese Extremities: no cyanosis, 1+ LE edema Skin: normal turgor Neurological - other findings: sedate on mech vent Musculoskeletal: generalized weakness Psychiatric: somnolent, lethargic Hosp A/P (1) Pneumonia due to COVID-19 virus Code(s): U07.1 - COVID-19; J12.89 - OTHER VIRAL PNEUMONIA Status: Acute Plan: Continue Doxycycline/Lovenox/Hydrocortisone/Albuterol/mech ventilation (2) Acute respiratory failure with hypoxemia Code(s): J96.01 - ACUTE RESPIRATORY FAILURE WITH HYPOXIA Status: Acute Plan: Continue mech ventilation, prone positioning intermittently (3) Acute metabolic encephalopathy Code(s): G93.41 - METABOLIC ENCEPHALOPATHY Status: Acute (4) Sinus bradycardia Code(s): R00.1 - BRADYCARDIA, UNSPECIFIED Status: Acute (5) COPD (chronic obstructive pulmonary disease) Status: Chronic (6) Hypertension Code(s): I10 - ESSENTIAL (PRIMARY) HYPERTENSION Status: Chronic Qualifiers: Hypertension type: essential hypertension Qualified Code(s): I10 - Essential (primary) hypertension - Plan continue antibiotics, social service manager, respiratory therapy, DVT proph w/SCDs Continue critical support Mech ventilation with Bi-level, prone Continue Hydrocortisone Continue Doxycycline Continue Lovenox Continue IVF's AM lab: BMP, CBC, ABG PCXR in am
[2020-08-28] MEDS: Gabapentin 300 MG CAP PO SCH (20:08)
[2020-08-28] MEDS: DOPamine 400 MG/D5W 250 ML 250 ML IVPB SCH (21:16)
[2020-08-29] MEDS: Albuterol 200 PUFF (6.7GM INHALER) INH SCH ×3 (01:21→14:05)
[2020-08-29] MEDS: Propofol 1,000 MG/100 ML VIAL IV PRN ×5 (03:10→20:38)
[2020-08-29] MEDS: Sodium Chloride 0.9% 1,000 ML IV SCH (03:11)
[2020-08-29 03:14] LABS: #Lymphocytes 0.3 thou/uL (1.20-3.40); #Monocytes 0.4 thou/uL (0.11-0.59); #Neutrophils 8.7 thou/uL (1.40-6.50); %Eosinophils 0.3 % (0.0-10.0); %Lymphocytes 2.7 % (21.0-51.0); %Monocytes 4.7 % (0.0-10.0); %Neutrophils 92.3 % (42.0-75.0); Hemoglobin 10.2 g/dL (12.0-16.0); Mean Corpuscular HGB CONC 31.3 g/dL (32.0-36.0); Mean Corpuscular Hemoglobin 25.5 pg (27.0-31.0); Mean Corpuscular Volume 81.3 fL (78.0-98.0); Platelet Count 220 thou/uL (130-400); RBC Distribution Width 16.3 % (11.5-14.5); White Blood Cell (WBC) Count 9.4 thou/uL (4.8-10.8)
[2020-08-29 03:47] LABS: Anion Gap 12 mmol/L (10-20); BUN (Urea Nitrogen) 33 mg/dL (9.8-20.1); Calc. Creatinine Clearance 188 mL/min (70-130); Calcium 7.9 mg/dL (7.8-10.44); Carbon Dioxide 27 mmol/L (23-31); Chloride 111 mmol/L (98-107); Estimated GFR-MDRD 90; Glucose 227 mg/dL (80-115); Potassium 4.7 mmol/L (3.5-5.1); Sodium 145 mmol/L (136-145)
[2020-08-29] MEDS: HumaLOG 300 UNITS/3 ML VIAL SC PRN ×4 (03:48→21:14)
[2020-08-29] MEDS: Levothyroxine 150 MCG TAB PO SCH (05:23)
[2020-08-29] MEDS: Hydrocortisone Sod Succ/PF 100 mg/2 ml Vial IVP SCH ×3 (05:23→17:48)
[2020-08-29] MEDS: fentaNYL Citrate/PF 2,000 MCG in Sodium Chloride 0.9% 60 ML IV SCH ×2 (05:28→18:29)
[2020-08-29] MEDS: Mometasone 200 MCG/Formoterol 5 MCG 120 PUFF INHALER INH SCH (07:41)
[2020-08-29] MEDS: tiZANidine HCl 4 MG TAB PO SCH ×3 (08:12→20:39)
[2020-08-29] MEDS: Pantoprazole 40 MG GRANULES PACKET PER TUBE SCH (08:12)
[2020-08-29] MEDS: Ascorbic Acid 500 mg Chewable Tablet PER TUBE SCH (08:12)
[2020-08-29] MEDS: Zinc Sulfate 220 MG CAP PO SCH (08:12)
[2020-08-29] MEDS: Cholecalciferol 1,000 UNITS (25 MCG) TAB PO SCH (08:12)
[2020-08-29] MEDS: Tamsulosin HCl 0.4 MG CAP PO SCH (08:12)
[2020-08-29] MEDS: Vecuronium 10 MG VIAL IVP PRN ×3 (08:13→20:39)
[2020-08-29] MEDS: Enoxaparin Sodium 80 MG/0.8 ML SYRINGE SC SCH ×2 (08:13→20:38)
[2020-08-29] MEDS: Lorazepam 2 MG/ML VIAL SLOW IVP PRN (08:13)
[2020-08-29] MEDS: NPH, Human Insulin Isophane 300 UNIT/3 ML VIAL SC SCH ×2 (08:14→20:40)
--- NOTE | 2020-08-29 09:01 | RAD ---
PORTABLE CHEST: Date: 08/29/2020 HISTORY: Pneumonia. COMPARISON: 08/28/2020. FINDINGS/IMPRESSION: ET tube and NG tube remain in place. Bilateral confluent infiltrates and bilateral effusions again noted. No significant change in the senia earance of the chest. POS: AGW
[2020-08-29] MEDS ORDERED: Furosemide 40 MG/4 ML VIAL IVP SCH ×2 (10:47→16:00)
[2020-08-29] MEDS ORDERED: Sodium Chloride 0.9% 1,000 ML IV SCH (10:50)
--- NOTE | 2020-08-29 11:10 | PRG ---
DATE OF SERVICE: 08/28/2020 SUBJECTIVE: Ms. Vo remains hemodynamically stable, but unfortunately, remains on high FiO2, mechanical ventilation. Her FiO2 is at 100%. Her saturations are in the low 90s. OBJECTIVE: LUNGS: Breath sounds are distant. HEART: Regular rhythm. ABDOMEN: Soft. LABORATORY DATA: White count 10.8, hemoglobin 11.6, platelets 278. Sodium 143, potassium 4.8, chloride 109, bicarb 26, BUN 32, creatinine 0.69. PH 7.26, CO2 is 60, PO2 is 64. IMPRESSION: COVID pneumonia, status post multiple episodes of prone ventilation. I do not feel there is any benefit from proning her and I am not sure she would survive being proned. I have recommended continued support. It is a very sad situation, and unfortunately, I am not sure if she can survive those. Critical care time 30 min. Job ID: [id number] MTDD
--- NOTE | 2020-08-29 11:11 | PRG ---
DATE OF SERVICE: 08/29/2020 SUBJECTIVE: Ms. Vo remains mechanically ventilated. OBJECTIVE: VITAL SIGNS: Still on 100%, respiratory rate is 18, FiO2 is 100, she is on bilevel ventilation, blood pressure 159/60, heart rate in the 60s. LUNGS: Remarkable for coarse equal breath sounds. HEART: Regular rhythm. ABDOMEN: Soft. LABORATORY DATA: Sodium 145, potassium 4.7, chloride 111, bicarb 27, BUN 33, creatinine 0.6. White count 9.4, hemoglobin 10.2, platelets 220. Intake and output positive 2 L. PLAN: We will try giving her 2 doses of IV Lasix today to see if this makes a difference in her gas exchange. Perhaps she can mobilize some third space pulmonary fluid. Prognosis remains extremely poor. CRITICAL CARE TIME: 30 minutes. Job ID: [id number]
--- NOTE | 2020-08-29 17:46 | PDOC.HOSPP ---
- Subjective Encounter Date: 08/29/20 Encounter Time: 17:10 Subjective: f/u for COVID PNA on mech ventilation with intermttent prone ventilation assistance. Receiving Doxycycline/Hydrocortisone/Vit C/Zinc. - Objective Vital Signs & Weight: Vital Signs (12 hours) Temp Pulse Resp BP Pulse Ox 08/29/20 16:00 98.8 F 18 08/29/20 14:03 56 L 18 94 L 08/29/20 14:00 18 08/29/20 13:50 55 L 155/60 H 08/29/20 12:00 98.8 F 18 08/29/20 11:19 59 L 171/62 H 08/29/20 10:00 18 08/29/20 08:00 99.1 F 18 91 L 08/29/20 07:36 56 L 161/52 H 08/29/20 05:46 18 Weight Admit Weight 305 lb Weight 305 lb Most Recent Monitor Data Heart Rate from ECG 54 NIBP 159/65 NIBP BP-Mean 96 Respiration from ECG 18 SpO2 100 I&O: 08/28/20 08/29/20 08/30/20 06:59 06:59 06:59 Intake Total 3142.3 3853.5 100 Output Total 2210 1805 2920 Balance 932.3 2048.5 -2820 Result Diagrams: 08/29/20 03:00 08/29/20 03:00 Additional Labs: Accuchecks 08/29/20 08/29/20 08/29/20 15:59 08:38 03:38 POC Glucose 225 H 152 H 202 H 08/28/20 21:21 POC Glucose 206 H Microbiology 08/19/20 13:52 Venous blood - Right Hand Blood Culture - Final NO GROWTH IN 5 DAYS 08/19/20 13:05 Venous blood - Left Hand Blood Culture - Final NO GROWTH IN 5 DAYS 08/12/20 11:10 Nasal swab Influenza Types A,B Direct EIA - Final 08/12/20 11:47 Urine voided Urine Culture - Preliminary 08/12/20 10:00 Venous blood - Left Hand Blood Culture - Preliminary NO GROWTH AT 48 HOURS 08/12/20 09:47 Venous blood - Right Arm Blood Culture - Preliminary NO GROWTH AT 48 HOURS 08/01/20 19:31 Venous blood - Right Hand Blood Culture - Preliminary Specimen has been received and culture in progress. No Growth to date. 08/01/20 18:46 Venous blood - Left Arm Blood Culture - Preliminary Specimen has been received and culture in progress. No Growth to date. Laboratory Tests 07/05/20 08/01/20 08/01/20 13:31 18:46 18:46 WBC Neutrophils % Neutrophils % (Manual) D-Dimer Creatinine 0.76 Lactic Acid 0.7 Ferritin Troponin I 0.016 C-Reactive Protein Triglycerides Cholesterol LDL Cholesterol, Calc HDL Cholesterol Vitamin B12 TSH 3rd Generation SARS-CoV-2 Rap RNA(RT-PCR) SARS-CoV-2 IgG Ab SARS-CoV-2 IgG Ab Index 08/01/20 08/01/20 08/02/20 23:52 23:52 04:52 WBC Neutrophils % Neutrophils % (Manual) D-Dimer Creatinine Lactic Acid Ferritin Troponin I Less than 0.010 C-Reactive Protein Triglycerides 142 Cholesterol 104 LDL Cholesterol, Calc 45 HDL Cholesterol 31 Vitamin B12 448 TSH 3rd Generation 5.8539 H SARS-CoV-2 Rap RNA(RT-PCR) SARS-CoV-2 IgG Ab SARS-CoV-2 IgG Ab Index 08/12/20 08/13/20 08/19/20 09:47 04:10 15:55 WBC 22.9 H Neutrophils % 93.7 H Neutrophils % (Manual) 82 H D-Dimer Creatinine Lactic Acid Ferritin Troponin I C-Reactive Protein Triglycerides Cholesterol LDL Cholesterol, Calc HDL Cholesterol Vitamin B12 TSH 3rd Generation SARS-CoV-2 Rap RNA(RT-PCR) DETECTED A* SARS-CoV-2 IgG Ab SARS-CoV-2 IgG Ab Index 08/20/20 08/21/20 08/22/20 05:30 06:05 07:34 WBC Neutrophils % Neutrophils % (Manual) D-Dimer Creatinine Lactic Acid Ferritin 493.48 H Troponin I C-Reactive Protein 5.82 H Triglycerides Cholesterol LDL Cholesterol, Calc HDL Cholesterol Vitamin B12 TSH 3rd Generation SARS-CoV-2 Rap RNA(RT-PCR) SARS-CoV-2 IgG Ab Non-Reactive SARS-CoV-2 IgG Ab Index 0.03 08/22/20 08/22/20 08/23/20 07:34 07:34 03:31 WBC Neutrophils % Neutrophils % (Manual) D-Dimer 0.57 H Creatinine Lactic Acid Ferritin 567.72 H Troponin I C-Reactive Protein 2.83 H Triglycerides Cholesterol LDL Cholesterol, Calc HDL Cholesterol Vitamin B12 TSH 3rd Generation SARS-CoV-2 Rap RNA(RT-PCR) SARS-CoV-2 IgG Ab SARS-CoV-2 IgG Ab Index 08/23/20 08/23/20 08/24/20 03:31 03:31 03:50 WBC Neutrophils % Neutrophils % (Manual) D-Dimer 0.40 Creatinine Lactic Acid Ferritin 491.35 H Troponin I C-Reactive Protein 1.79 H Triglycerides Cholesterol LDL Cholesterol, Calc HDL Cholesterol Vitamin B12 TSH 3rd Generation SARS-CoV-2 Rap RNA(RT-PCR) SARS-CoV-2 IgG Ab SARS-CoV-2 IgG Ab Index 08/24/20 08/24/20 08/25/20 03:50 03:50 03:15 WBC Neutrophils % Neutrophils % (Manual) D-Dimer 0.55 H Creatinine Lactic Acid Ferritin 323.43 H Troponin I C-Reactive Protein 1.25 H Triglycerides Cholesterol LDL Cholesterol, Calc HDL Cholesterol Vitamin B12 TSH 3rd Generation SARS-CoV-2 Rap RNA(RT-PCR) SARS-CoV-2 IgG Ab SARS-CoV-2 IgG Ab Index 08/25/20 08/25/20 03:15 03:15 WBC Neutrophils % Neutrophils % (Manual) D-Dimer 0.55 H Creatinine Lactic Acid Ferritin 211.74 Troponin I C-Reactive Protein Triglycerides Cholesterol LDL Cholesterol, Calc HDL Cholesterol Vitamin B12 TSH 3rd Generation SARS-CoV-2 Rap RNA(RT-PCR) SARS-CoV-2 IgG Ab SARS-CoV-2 IgG Ab Index Radiology Reviewed by me: Yes (PCXR - bilat infiltrates/effusions) EKG Reviewed by me: Yes (Tele - SR) Hospitalist ROS - Medication Medications: Active Medications Generic Name Dose Route Start Last Admin Trade Name Ciprianoq PRN Reason Stop Dose Admin Acetaminophen 650 mg 08/19/20 20:24 08/20/20 20:39 Acetaminophen 325 Mg Tab PO 650 mg Q4H PRN Administration Headache/Fever or Pain Albuterol/Ipratropium 3 ml 08/29/20 19:00 08/29/20 14:03 Ipratropium/Albuterol Sulfate 3 Ml Neb NEB 3 ml [id number] SHAINA Administration Amlodipine Besylate 5 mg 08/21/20 09:00 08/28/20 10:24 Amlodipine 5 Mg Tab PO Not Given DAILY SHAINA Ascorbic Acid 1,000 mg 08/23/20 09:00 08/29/20 08:12 Ascorbic Acid 500 Mg Chewable Tablet PER TUBE 1,000 mg DAILY SHAINA Administration Benzonatate 100 mg 08/20/20 04:12 08/21/20 22:27 Benzonatate 100 Mg Cap PO 100 mg TIDPRN PRN Administration Cough Cholecalciferol 1,000 units 08/22/20 09:00 08/29/20 08:12 Cholecalciferol 1,000 Units (25 Mcg) Tab PO 1,000 units DAILY SHAINA Administration Enoxaparin Sodium 80 mg 08/22/20 09:18 08/29/20 08:13 Enoxaparin Sodium 80 Mg/0.8 Ml Syringe SC 80 mg BID SHAINA Administration Furosemide 60 mg 08/29/20 16:00 08/29/20 16:38 Furosemide 40 Mg/4 Ml Vial IVP 08/29/20 18:00 60 mg 1600 SHAINA Administration Gabapentin 900 mg 08/20/20 21:00 08/28/20 20:08 Gabapentin 300 Mg Cap PO 900 mg HS SHAINA Administration Guaifenesin/Dextromethorphan 15 ml 08/20/20 20:14 08/21/20 20:04 Guaifenesin Dm 100-10/5 Ml Udcup PO 15 ml Q4H PRN Administration Cough Hydrocortisone Sodium Succinate 100 mg 08/23/20 12:00 08/29/20 12:43 Hydrocortisone Sod Succ/Pf 100 Mg/2 Ml Vial IVP 100 mg Q6HR SHAINA Administration Fentanyl Citrate 2,000 mcg/ 100 mls @ 0 mls/hr 08/22/20 10:00 08/29/20 05:28 Sodium Chloride IV 09/21/20 10:00 100 mls INF SHAINA Administration Protocol Per Protocol Doxycycline Hyclate 100 mg/ 100 mls @ 100 mls/hr 08/22/20 21:00 08/29/20 08:20 Sodium Chloride IVPB 100 mls Q12HR SHAINA Administration Vasopressin 20 unit/ 51 mls @ 0 mls/hr 08/23/20 13:45 08/26/20 07:03 Miscellaneous Medication 1 IV 51 mls each/ Sodium Chloride INF SHAINA Administration Protocol As Directed Dopamine HCl/Dextrose 250 mls @ 0 mls/hr 08/26/20 13:00 08/28/20 21:16 Dopamine 400 Mg/D5w 250 Ml IVPB 250 mls INF SHAINA Administration Protocol As Directed Insulin Human Lispro 0 units 08/21/20 16:04 08/29/20 03:48 Humalog 300 Units/3 Ml Vial SC 4 unit .MODERATE SLIDING SC PRN Administration Moderate Correctional Scale Insulin Human NPH 20 unit 08/23/20 09:00 08/29/20 08:14 Nph, Human Insulin Isophane 300 Unit/3 Ml Vial SC 20 unit BID SHAINA Administration Levothyroxine Sodium 150 mcg 08/21/20 06:00 08/29/20 05:23 Levothyroxine 150 Mcg Tab PO 150 mcg 0600 SHAINA Administration Lorazepam 2 mg 08/22/20 10:00 08/29/20 08:13 Lorazepam 2 Mg/Ml Vial SLOW IVP 09/21/20 10:00 2 mg Q1H PRN Administration Breakthrough agitation Losartan Potassium 100 mg 08/21/20 09:00 08/28/20 10:25 Losartan 25 Mg Tab PO Not Given DAILY SHAINA Pantoprazole Sodium 40 mg 08/28/20 09:00 08/29/20 08:12 Pantoprazole 40 Mg Granules Packet PER TUBE 40 mg DAILY SHAINA Administration Propofol 1,000 mg 08/22/20 10:00 08/29/20 16:37 Propofol 1,000 Mg/100 Ml Vial IV 09/21/20 10:00 1,000 mg INF PRN Administration TO ACHIEVE GOAL RASS Protocol Sodium Chloride 10 ml 08/23/20 09:00 08/29/20 08:14 Flush - Normal Saline 10 Ml Syringe IVF 10 ml Q12HR SHAINA Administration Tamsulosin HCl 0.4 mg 08/21/20 09:00 08/29/20 08:12 Tamsulosin Hcl 0.4 Mg Cap PO 0.4 mg DAILY SHAINA Administration Tizanidine HCl 4 mg 08/20/20 15:00 08/29/20 16:37 Tizanidine Hcl 4 Mg Tab PO 4 mg TID SHAINA Administration Vecuronium [place] 10 mg 08/22/20 09:17 08/29/20 16:21 Vecuronium 10 Mg Vial IVP 10 mg Q30MIN PRN Administration Agitation Zinc Sulfate 220 mg 08/23/20 09:00 08/29/20 08:12 Zinc Sulfate 220 Mg Cap PO 220 mg DAILY SHAINA Administration - Exam General Appearance: ill appearing General - other findings: sedate on mech ventilation Eye: PERRL, anicteric sclera ENT: normocephalic atraumatic, no oropharyngeal lesions Neck: supple, symmetric, no JVD, no thyromegaly, no lymphadenopathy Heart: RRR, no murmur, no gallops, no rubs, normal peripheral pulses Heart - other findings: S1, S2 Respiratory - other findings: diminished bilat, occ wheeze/rhonchi Gastrointestinal: soft, non-distended, normal bowel sounds, no palpable masses Gastrointestinal - other findings: obese Extremities: no cyanosis, 2+ LE edema Skin: normal turgor Musculoskeletal: generalized weakness Psychiatric: somnolent, lethargic Hosp A/P (1) Pneumonia due to COVID-19 virus Code(s): U07.1 - COVID-19; J12.89 - OTHER VIRAL PNEUMONIA Status: Acute Plan: Continue Doxycycline/Hydrocortisone/Vit C/Zinc/Lovenox, continue pulmonary support with mech ventilation (2) Acute respiratory failure with hypoxemia Code(s): J96.01 - ACUTE RESPIRATORY FAILURE WITH HYPOXIA Status: Acute Plan: Continue mech ventilation (3) Acute metabolic encephalopathy Code(s): G93.41 - METABOLIC ENCEPHALOPATHY Status: Acute (4) Sinus bradycardia Code(s): R00.1 - BRADYCARDIA, UNSPECIFIED Status: Acute Plan: improved, continue tele monitoring (5) COPD (chronic obstructive pulmonary disease) Status: Chronic (6) Hypertension Code(s): I10 - ESSENTIAL (PRIMARY) HYPERTENSION Status: Chronic Qualifiers: Hypertension type: essential hypertension Qualified Code(s): I10 - Essential (primary) hypertension - Plan continue antibiotics, social work job titles, respiratory therapy, DVT proph w/SCDs Continue critical support Mech ventilation with Bi-level, prone Continue Hydrocortisone Continue Doxycycline Continue Lovenox Continue IVF's AM lab: CBC, ABG PCXR in am
[2020-08-29] MEDS ORDERED: Sterile Water 10 ML ONE (20:32)
[2020-08-29] MEDS: Gabapentin 300 MG CAP PO SCH (20:39)
[2020-08-30] MEDS: Hydrocortisone Sod Succ/PF 100 mg/2 ml Vial IVP SCH ×5 (00:24→23:04)
[2020-08-30] MEDS: Propofol 1,000 MG/100 ML VIAL IV PRN ×6 (01:44→22:09)
[2020-08-30 04:28] LABS: #Lymphocytes 0.3 thou/uL (1.20-3.40); #Monocytes 0.4 thou/uL (0.11-0.59); %Eosinophils 0.5 % (0.0-10.0); %Lymphocytes 4.6 % (21.0-51.0); %Monocytes 5.2 % (0.0-10.0); %Neutrophils 89.7 % (42.0-75.0); Hemoglobin 9.6 g/dL (12.0-16.0); Mean Corpuscular Hemoglobin 26.2 pg (27.0-31.0); Mean Corpuscular Volume 81.8 fL (78.0-98.0); Mean Platelet Volume 8.5 fL (7.4-10.4); Platelet Count 182 thou/uL (130-400); Red Blood Cell (RBC) Count 3.65 mill/uL (4.20-5.40); White Blood Cell (WBC) Count 6.6 thou/uL (4.8-10.8)
[2020-08-30] MEDS: HumaLOG 300 UNITS/3 ML VIAL SC PRN ×4 (04:31→20:34)
[2020-08-30] MEDS ORDERED: Sterile Water 10 ML ONE (05:58)
[2020-08-30] MEDS: Lorazepam 2 MG/ML VIAL SLOW IVP PRN ×6 (06:16→19:22)
[2020-08-30] MEDS: Vecuronium 10 MG VIAL IVP PRN ×5 (06:16→19:21)
[2020-08-30] MEDS: Levothyroxine 150 MCG TAB PO SCH (06:17)
[2020-08-30] MEDS: Cholecalciferol 1,000 UNITS (25 MCG) TAB PO SCH (08:03)
[2020-08-30] MEDS: tiZANidine HCl 4 MG TAB PO SCH ×3 (08:04→20:18)
[2020-08-30] MEDS: Tamsulosin HCl 0.4 MG CAP PO SCH (08:04)
[2020-08-30] MEDS: Enoxaparin Sodium 80 MG/0.8 ML SYRINGE SC SCH ×2 (08:04→20:19)
[2020-08-30] MEDS: Pantoprazole 40 MG GRANULES PACKET PER TUBE SCH (08:04)
[2020-08-30] MEDS: Ascorbic Acid 500 mg Chewable Tablet PER TUBE SCH (08:05)
[2020-08-30] MEDS: NPH, Human Insulin Isophane 300 UNIT/3 ML VIAL SC SCH ×2 (08:05→20:18)
[2020-08-30] MEDS: Zinc Sulfate 220 MG CAP PO SCH (08:05)
[2020-08-30] MEDS: fentaNYL Citrate/PF 2,000 MCG in Sodium Chloride 0.9% 60 ML IV SCH ×2 (08:06→18:34)
--- NOTE | 2020-08-30 17:14 | PRG ---
DATE OF SERVICE: 08/30/2020 SUBJECTIVE: Ms. Vo remains on 100% oxygen. Her sats have not been up in the 90s. She appears to be spiraling downward throughout the day today. OBJECTIVE: VITAL SIGNS: Blood pressure 141/64, heart rate is 80, respiratory rate is 18. LUNGS: Unchanged. HEART: Unchanged. ABDOMEN: Unchanged. LABORATORY DATA: White count 6.6, hemoglobin 9.6, platelets 182. Creatinine is 0.6. IMPRESSION: COVID-19 pneumonia. It does not appear that she will survive this. Job ID: [id number]
--- NOTE | 2020-08-30 18:04 | PDOC.HOSPP ---
- Subjective Encounter Date: 08/30/20 Encounter Time: 17:40 Subjective: f/u for [facility] O2 sats remain low despite FIO2 100%. Receiving Hydrocortisone/Lovenox. - Objective Vital Signs & Weight: Vital Signs (12 hours) Temp Pulse Resp BP Pulse Ox 08/30/20 16:00 98.1 F 18 08/30/20 15:35 65 143/55 H 08/30/20 14:00 18 08/30/20 12:00 98 F 18 08/30/20 10:00 18 08/30/20 09:59 57 L 150/57 H 08/30/20 08:00 97.9 F 18 88 L Weight Admit Weight 305 lb Weight 305 lb Most Recent Monitor Data Heart Rate from ECG 85 NIBP 143/65 NIBP BP-Mean 91 Respiration from ECG 18 SpO2 49 I&O: 08/29/20 08/30/20 08/31/20 06:59 06:59 06:59 Intake Total 3853.5 3806.4 60 Output Total 1805 5115 650 Balance 2048.5 -1308.6 -590 Result Diagrams: 08/30/20 03:40 08/29/20 03:00 Additional Labs: Accuchecks 08/30/20 08/30/20 08/30/20 15:45 10:37 03:44 POC Glucose 234 H 262 H 277 H 08/29/20 20:50 POC Glucose 258 H Microbiology 08/19/20 13:52 Venous blood - Right Hand Blood Culture - Final NO GROWTH IN 5 DAYS 08/19/20 13:05 Venous blood - Left Hand Blood Culture - Final NO GROWTH IN 5 DAYS 08/12/20 11:10 Nasal swab Influenza Types A,B Direct EIA - Final 08/12/20 11:47 Urine voided Urine Culture - Preliminary 08/12/20 10:00 Venous blood - Left Hand Blood Culture - Preliminary NO GROWTH AT 48 HOURS 08/12/20 09:47 Venous blood - Right Arm Blood Culture - Preliminary NO GROWTH AT 48 HOURS 08/01/20 19:31 Venous blood - Right Hand Blood Culture - Preliminary Specimen has been received and culture in progress. No Growth to date. 08/01/20 18:46 Venous blood - Left Arm Blood Culture - Preliminary Specimen has been received and culture in progress. No Growth to date. Laboratory Tests 07/05/20 08/01/20 08/01/20 13:31 18:46 18:46 WBC Neutrophils % Neutrophils % (Manual) D-Dimer Creatinine 0.76 Lactic Acid 0.7 Ferritin Troponin I 0.016 C-Reactive Protein Triglycerides Cholesterol LDL Cholesterol, Calc HDL Cholesterol Vitamin B12 TSH 3rd Generation SARS-CoV-2 Rap RNA(RT-PCR) SARS-CoV-2 IgG Ab SARS-CoV-2 IgG Ab Index 08/01/20 08/01/20 08/02/20 23:52 23:52 04:52 WBC Neutrophils % Neutrophils % (Manual) D-Dimer Creatinine Lactic Acid Ferritin Troponin I Less than 0.010 C-Reactive Protein Triglycerides 142 Cholesterol 104 LDL Cholesterol, Calc 45 HDL Cholesterol 31 Vitamin B12 448 TSH 3rd Generation 5.8539 H SARS-CoV-2 Rap RNA(RT-PCR) SARS-CoV-2 IgG Ab SARS-CoV-2 IgG Ab Index 08/12/20 08/13/20 08/19/20 09:47 04:10 15:55 WBC 22.9 H Neutrophils % 93.7 H Neutrophils % (Manual) 82 H D-Dimer Creatinine Lactic Acid Ferritin Troponin I C-Reactive Protein Triglycerides Cholesterol LDL Cholesterol, Calc HDL Cholesterol Vitamin B12 TSH 3rd Generation SARS-CoV-2 Rap RNA(RT-PCR) DETECTED A* SARS-CoV-2 IgG Ab SARS-CoV-2 IgG Ab Index 08/20/20 08/21/20 08/22/20 05:30 06:05 07:34 WBC Neutrophils % Neutrophils % (Manual) D-Dimer Creatinine Lactic Acid Ferritin 493.48 H Troponin I C-Reactive Protein 5.82 H Triglycerides Cholesterol LDL Cholesterol, Calc HDL Cholesterol Vitamin B12 TSH 3rd Generation SARS-CoV-2 Rap RNA(RT-PCR) SARS-CoV-2 IgG Ab Non-Reactive SARS-CoV-2 IgG Ab Index 0.03 08/22/20 08/22/20 08/23/20 07:34 07:34 03:31 WBC Neutrophils % Neutrophils % (Manual) D-Dimer 0.57 H Creatinine Lactic Acid Ferritin 567.72 H Troponin I C-Reactive Protein 2.83 H Triglycerides Cholesterol LDL Cholesterol, Calc HDL Cholesterol Vitamin B12 TSH 3rd Generation SARS-CoV-2 Rap RNA(RT-PCR) SARS-CoV-2 IgG Ab SARS-CoV-2 IgG Ab Index 08/23/20 08/23/20 08/24/20 03:31 03:31 03:50 WBC Neutrophils % Neutrophils % (Manual) D-Dimer 0.40 Creatinine Lactic Acid Ferritin 491.35 H Troponin I C-Reactive Protein 1.79 H Triglycerides Cholesterol LDL Cholesterol, Calc HDL Cholesterol Vitamin B12 TSH 3rd Generation SARS-CoV-2 Rap RNA(RT-PCR) SARS-CoV-2 IgG Ab SARS-CoV-2 IgG Ab Index 08/24/20 08/24/20 08/25/20 03:50 03:50 03:15 WBC Neutrophils % Neutrophils % (Manual) D-Dimer 0.55 H Creatinine Lactic Acid Ferritin 323.43 H Troponin I C-Reactive Protein 1.25 H Triglycerides Cholesterol LDL Cholesterol, Calc HDL Cholesterol Vitamin B12 TSH 3rd Generation SARS-CoV-2 Rap RNA(RT-PCR) SARS-CoV-2 IgG Ab SARS-CoV-2 IgG Ab Index 08/25/20 08/25/20 03:15 03:15 WBC Neutrophils % Neutrophils % (Manual) D-Dimer 0.55 H Creatinine Lactic Acid Ferritin 211.74 Troponin I C-Reactive Protein Triglycerides Cholesterol LDL Cholesterol, Calc HDL Cholesterol Vitamin B12 TSH 3rd Generation SARS-CoV-2 Rap RNA(RT-PCR) SARS-CoV-2 IgG Ab SARS-CoV-2 IgG Ab Index EKG Reviewed by me: Yes (Tele - SR) Hospitalist ROS - Medication Medications: Active Medications Generic Name Dose Route Start Last Admin Trade Name Freq PRN Reason Stop Dose Admin Acetaminophen 650 mg 08/19/20 20:24 08/20/20 20:39 Acetaminophen 325 Mg Tab PO 650 mg Q4H PRN Administration Headache/Fever or Pain Albuterol/Ipratropium 3 ml 08/29/20 19:00 08/30/20 15:33 Ipratropium/Albuterol Sulfate 3 Ml Neb NEB 3 ml [id number] SHAINA Administration Amlodipine Besylate 5 mg 08/21/20 09:00 08/28/20 10:24 Amlodipine 5 Mg Tab PO Not Given DAILY SHAINA Ascorbic Acid 1,000 mg 08/23/20 09:00 08/30/20 08:05 Ascorbic Acid 500 Mg Chewable Tablet PER TUBE 1,000 mg DAILY SHAINA Administration Benzonatate 100 mg 08/20/20 04:12 08/21/20 22:27 Benzonatate 100 Mg Cap PO 100 mg TIDPRN PRN Administration Cough Cholecalciferol 1,000 units 08/22/20 09:00 08/30/20 08:03 Cholecalciferol 1,000 Units (25 Mcg) Tab PO 1,000 units DAILY SHAINA Administration Enoxaparin Sodium 80 mg 08/22/20 09:18 08/30/20 08:04 Enoxaparin Sodium 80 Mg/0.8 Ml Syringe SC 80 mg BID SHAINA Administration Gabapentin 900 mg 08/20/20 21:00 08/29/20 20:39 Gabapentin 300 Mg Cap PO 900 mg HS SHAINA Administration Guaifenesin/Dextromethorphan 15 ml 08/20/20 20:14 08/21/20 20:04 Guaifenesin Dm 100-10/5 Ml Udcup PO 15 ml Q4H PRN Administration Cough Hydrocortisone Sodium Succinate 100 mg 08/23/20 12:00 08/30/20 16:41 Hydrocortisone Sod Succ/Pf 100 Mg/2 Ml Vial IVP 100 mg Q6HR SHAINA Administration Fentanyl Citrate 2,000 mcg/ 100 mls @ 0 mls/hr 08/22/20 10:00 08/30/20 08:06 Sodium Chloride IV 09/21/20 10:00 100 mls INF SHAINA Administration Protocol Per Protocol Vasopressin 20 unit/ 51 mls @ 0 mls/hr 08/23/20 13:45 08/26/20 07:03 Miscellaneous Medication 1 IV 51 mls each/ Sodium Chloride INF SHAINA Administration Protocol As Directed Dopamine HCl/Dextrose 250 mls @ 0 mls/hr 08/26/20 13:00 08/28/20 21:16 Dopamine 400 Mg/D5w 250 Ml IVPB 250 mls INF SHAINA Administration Protocol As Directed Sodium Chloride 1,000 mls @ 0 mls/hr 08/29/20 10:50 08/30/20 10:28 Normal Saline 0.9% IV 1,000 mls .Q0M SHAINA Administration KVO Insulin Human Lispro 0 units 08/21/20 16:04 08/30/20 16:42 Humalog 300 Units/3 Ml Vial SC 4 unit .MODERATE SLIDING SC PRN Administration Moderate Correctional Scale Insulin Human NPH 20 unit 08/23/20 09:00 08/30/20 08:05 Nph, Human Insulin Isophane 300 Unit/3 Ml Vial SC 20 unit BID SHAINA Administration Levothyroxine Sodium 150 mcg 08/21/20 06:00 08/30/20 06:17 Levothyroxine 150 Mcg Tab PO 150 mcg 0600 SHAINA Administration Lorazepam 2 mg 08/22/20 10:00 08/30/20 15:32 Lorazepam 2 Mg/Ml Vial SLOW IVP 09/21/20 10:00 2 mg Q1H PRN Administration Breakthrough agitation Losartan Potassium 100 mg 08/21/20 09:00 08/28/20 10:25 Losartan 25 Mg Tab PO Not Given DAILY SHAINA Pantoprazole Sodium 40 mg 08/28/20 09:00 08/30/20 08:04 Pantoprazole 40 Mg Granules Packet PER TUBE 40 mg DAILY SHAINA Administration Propofol 1,000 mg 08/22/20 10:00 08/30/20 16:41 Propofol 1,000 Mg/100 Ml Vial IV 09/21/20 10:00 1,000 mg INF PRN Administration TO ACHIEVE GOAL RASS Protocol Sodium Chloride 10 ml 08/23/20 09:00 08/30/20 08:06 Flush - Normal Saline 10 Ml Syringe IVF 10 ml Q12HR SHAINA Administration Tamsulosin HCl 0.4 mg 08/21/20 09:00 08/30/20 08:04 Tamsulosin Hcl 0.4 Mg Cap PO 0.4 mg DAILY SHAINA Administration Tizanidine HCl 4 mg 08/20/20 15:00 08/30/20 15:31 Tizanidine Hcl 4 Mg Tab PO 4 mg TID SHAINA Administration Vecuronium [place] 10 mg 08/22/20 09:17 08/30/20 15:32 Vecuronium 10 Mg Vial IVP 10 mg Q30MIN PRN Administration Agitation Zinc Sulfate 220 mg 08/23/20 09:00 08/30/20 08:05 Zinc Sulfate 220 Mg Cap PO 220 mg DAILY SHAINA Administration - Exam General Appearance: ill appearing General - other findings: sedate on mech ventilation ENT - other findings: blistering/abrasions on nose/upper lip Neck: supple, symmetric, no JVD, no thyromegaly Heart: RRR, no gallops, no rubs, normal peripheral pulses Heart - other findings: S1, S2 Respiratory: tachypneic Respiratory - other findings: diminished bilat, scattered rhonchi Gastrointestinal: soft, non-tender, non-distended, normal bowel sounds, no palpable masses Gastrointestinal - other findings: obese Extremities: 2+ LE edema Skin: normal turgor Neurological - other findings: sedate on mech vent Psychiatric: somnolent, lethargic Hosp A/P (1) Pneumonia due to COVID-19 virus Code(s): U07.1 - COVID-19; J12.89 - OTHER VIRAL PNEUMONIA Status: Acute Plan: Continue mech vent/Lovenox/Hydrocortisone, poor prognosis given persistent hypoxia despite maximal FIO2 (2) Acute respiratory failure with hypoxemia Code(s): J96.01 - ACUTE RESPIRATORY FAILURE WITH HYPOXIA Status: Acute (3) Acute metabolic encephalopathy Code(s): G93.41 - METABOLIC ENCEPHALOPATHY Status: Acute (4) Sinus bradycardia Code(s): R00.1 - BRADYCARDIA, UNSPECIFIED Status: Acute (5) COPD (chronic obstructive pulmonary disease) Status: Chronic (6) Hypertension Code(s): I10 - ESSENTIAL (PRIMARY) HYPERTENSION Status: Chronic Qualifiers: Hypertension type: essential hypertension Qualified Code(s): I10 - Essential (primary) hypertension - Plan respiratory therapy, DVT proph w/SCDs Continue critical support Mech ventilation with Bi-level, prone Continue Hydrocortisone Continue Lovenox AM lab: CBC PCXR in am Poor prognosis
[2020-08-30] MEDS: Gabapentin 300 MG CAP PO SCH (20:18)
[2020-08-30] MEDS: DOPamine 400 MG/D5W 250 ML 250 ML IVPB SCH (21:20)
[2020-08-31] MEDS: Propofol 1,000 MG/100 ML VIAL IV PRN ×6 (01:23→20:47)
[2020-08-31] MEDS: Lorazepam 2 MG/ML VIAL SLOW IVP PRN (01:23)
[2020-08-31] MEDS: Vecuronium 10 MG VIAL IVP PRN (01:23)
[2020-08-31] MEDS: HumaLOG 300 UNITS/3 ML VIAL SC PRN ×2 (04:38→10:29)
[2020-08-31 04:50] LABS: #Lymphocytes 0.2 thou/uL (1.20-3.40); #Monocytes 0.8 thou/uL (0.11-0.59); #Neutrophils 15.5 thou/uL (1.40-6.50); %Eosinophils 0.3 % (0.0-10.0); %Lymphocytes 1.4 % (21.0-51.0); %Monocytes 4.8 % (0.0-10.0); %Neutrophils 93.4 % (42.0-75.0); Hemoglobin 11.5 g/dL (12.0-16.0); Mean Corpuscular HGB CONC 30.5 g/dL (32.0-36.0); Mean Corpuscular Hemoglobin 25.6 pg (27.0-31.0); Mean Corpuscular Volume 83.9 fL (78.0-98.0); Mean Platelet Volume 8.5 fL (7.4-10.4); Platelet Count 244 thou/uL (130-400); RBC Distribution Width 16.7 % (11.5-14.5); Red Blood Cell (RBC) Count 4.51 mill/uL (4.20-5.40); White Blood Cell (WBC) Count 16.6 thou/uL (4.8-10.8)
[2020-08-31] MEDS: Levothyroxine 150 MCG TAB PO SCH (05:41)
[2020-08-31] MEDS: Hydrocortisone Sod Succ/PF 100 mg/2 ml Vial IVP SCH ×4 (05:41→23:53)
[2020-08-31] MEDS: fentaNYL Citrate/PF 2,000 MCG in Sodium Chloride 0.9% 60 ML IV SCH ×2 (07:38→23:47)
[2020-08-31] MEDS: Enoxaparin Sodium 80 MG/0.8 ML SYRINGE SC SCH ×2 (07:40→20:47)
[2020-08-31] MEDS: Cholecalciferol 1,000 UNITS (25 MCG) TAB PO SCH (07:41)
[2020-08-31] MEDS: Pantoprazole 40 MG GRANULES PACKET PER TUBE SCH (07:41)
[2020-08-31] MEDS: tiZANidine HCl 4 MG TAB PO SCH ×2 (07:41→17:33)
[2020-08-31] MEDS: Zinc Sulfate 220 MG CAP PO SCH (07:41)
[2020-08-31] MEDS: Tamsulosin HCl 0.4 MG CAP PO SCH (07:42)
[2020-08-31] MEDS: Ascorbic Acid 500 mg Chewable Tablet PER TUBE SCH (07:47)
[2020-08-31] MEDS: NPH, Human Insulin Isophane 300 UNIT/3 ML VIAL SC SCH ×2 (10:30→20:48)
--- NOTE | 2020-08-31 11:13 | PRG ---
DATE OF SERVICE: 08/31/2020 SUBJECTIVE: Karis Vo continues to do poorly. She is on 100% oxygen now. OBJECTIVE: VITAL SIGNS: Her sats are in the 80s, her blood pressure is in the 60s. LUNGS: Otherwise unchanged. HEART: Otherwise unchanged. ABDOMEN: Otherwise unchanged. LABORATORY DATA: White count 16.6, hemoglobin 11.5, platelets 244. Sodium 145, potassium 4.7, chloride 111, bicarb 27, BUN 33 two days ago. IMPRESSION: COVID pneumonia. In my opinion, she can survive this. We will continue with comfort measures. There is no family available. Job ID: [id number]
--- NOTE | 2020-08-31 11:43 | EKG ---
Test Reason : Blood Pressure : / mmHG Vent. Rate : 091 BPM Atrial Rate : 091 BPM P-R Int : 138 ms QRS Dur : 072 ms QT Int : 332 ms P-R-T Axes : 027 -01 009 degrees QTc Int : 408 ms Normal sinus rhythm Minimal voltage criteria for LVH, may be normal variant Borderline ECG Confirmed by JONNIE NAPIER M.D. ([id number]), scientific publications editor SAMARA COVINGTON ([id number]) on 08/31/2020 11:43:24 AM Referred By: Confirmed By:JONNIE NAPIER M.D.
--- NOTE | 2020-08-31 18:30 | PDOC.EVN ---
Event Note - Event Note Event Note: The patient is doing poorly. She is on 100% oxygen at this time. BP when I saw her was 45 systolic. Comfort measures were initiated this am by dye operator. Per nursing, there is no family available she has failed prone positioning General: patient is morbidly obese, appears pale and frail CV: hypotensive Lungs: diminished Abdomen: distended Ext: no edema Chest X ray: worsening edema/ infiltrates This is a 65 year old female who presented with COVID pneumonia Acute hypoxic respiratory failure secondary to COVId pneumonia - patient is intubated, on 100% FiO2. She has received remdesivir, convalescent plasma - she received IV diuretics but is now hypotensive - she received doxycycline 08/20 to 08/30. Cefepime was given 08/19 to 08/20. Will trial zosyn/vanc more for comfort to see if it helps work of breathing - she is on therapeutic lovenox - will place palliative care consult for inpatient hospice Hypotension - continue high dose hydrocortisone and small bolus fluid - discontinue losartan and amlodipine and tizanidine Leukocytosis - WBC up to 16. possibly from steroids vs pneumonia - continue antibiotics Poor prognosis, possible imminent
[2020-08-31] MEDS ORDERED: Sodium Chloride 0.9% 500 ML IV SCH (18:45)
[2020-08-31] MEDS ORDERED: Piperacillin/Tazobactam 3.375 GM in Sodium Chloride 0.9% 100 ML IVPB SCH ×2 (19:00→23:59)
[2020-08-31] MEDS: Gabapentin 300 MG CAP PO SCH (20:48)
[2020-09-01] MEDS: Propofol 1,000 MG/100 ML VIAL IV PRN ×6 (00:53→23:21)
[2020-09-01] MEDS: Levothyroxine 150 MCG TAB PO SCH (06:16)
[2020-09-01] MEDS: Hydrocortisone Sod Succ/PF 100 mg/2 ml Vial IVP SCH ×4 (06:16→23:21)
[2020-09-01] MEDS: Enoxaparin Sodium 80 MG/0.8 ML SYRINGE SC SCH ×2 (09:44→21:16)
[2020-09-01] MEDS: Cholecalciferol 1,000 UNITS (25 MCG) TAB PO SCH (09:45)
[2020-09-01] MEDS: Tamsulosin HCl 0.4 MG CAP PO SCH (09:45)
[2020-09-01] MEDS: Pantoprazole 40 MG GRANULES PACKET PER TUBE SCH (09:45)
[2020-09-01] MEDS: Ascorbic Acid 500 mg Chewable Tablet PER TUBE SCH (09:45)
[2020-09-01] MEDS: Zinc Sulfate 220 MG CAP PO SCH (09:45)
[2020-09-01 10:31] LABS: Anion Gap 22 mmol/L (10-20); BUN (Urea Nitrogen) 89 mg/dL (9.8-20.1); Calc. Creatinine Clearance 63 mL/min (70-130); Calcium 7.3 mg/dL (7.8-10.44); Carbon Dioxide 21 mmol/L (23-31); Chloride 106 mmol/L (98-107); Estimated GFR-MDRD 25; Glucose 221 mg/dL (80-115); Sodium 144 mmol/L (136-145)
[2020-09-01 10:35] LABS: Hemoglobin 7.8 g/dL (12.0-16.0); Mean Corpuscular HGB CONC 29.8 g/dL (32.0-36.0); Mean Corpuscular Hemoglobin 25.3 pg (27.0-31.0); Mean Corpuscular Volume 84.8 fL (78.0-98.0); Mean Platelet Volume 9.3 fL (7.4-10.4); Platelet Count 125 thou/uL (130-400); RBC Distribution Width 16.9 % (11.5-14.5); Red Blood Cell (RBC) Count 3.07 mill/uL (4.20-5.40); White Blood Cell (WBC) Count 8.1 thou/uL (4.8-10.8)
[2020-09-01] MEDS: fentaNYL Citrate/PF 2,000 MCG in Sodium Chloride 0.9% 60 ML IV SCH (15:26)
--- NOTE | 2020-09-01 18:01 | PDOC.EVN ---
Event Note - Event Note Event Note: The patient is still doing poorly. She is intubated. Blood pressure improved but she is more anuric. The patient was recently admitted and discharged on 08/19. She was discharged on 08/16 with levaquin for ten days. She got readmitted on 08/19 with worsening symptoms. She was given cef and azithro in ER, doxycycline 08/20 to 08/30 and one dose of cefepime 08/20. She has received remdesivir, convalescent plasma, IV steroids and was proned. Chest x ray showed bilateral infiltrates and effusions 08/29. She has been intubated for over five days. There is no family still General: obese CV: hypotensive Lungs: diminished Abdomen: +BS, soft, nontender, nondistended Ext: mild edema Chest X ray: worsening edema/ infiltrates This is a 65 year old female who presented with COVID pneumonia Acute hypoxic respiratory failure secondary to COVId pneumonia - patient is intubated, on 100% FiO2. She has received remdesivir, convalescent plasma, doxycycline 08/20 to 08/30 - she is off dopamine and pressors since it was decided to start comfort measures yesterday, therefore fluid bolus not given -Vanc and zosyn ordered 08/31 but not given since pulmonary does not feel there is bacterial component - palliative care consult ordered - she is on therapeutic lovenox Oliguric RENETTA - creatinine worsening tp 1.98 Hypotension - continue high dose hydrocortisone and small bolus fluid - discontinue losartan and amlodipine and tizanidine Leukocytosis - resolved Anemia - Hb 7.8, stable
[2020-09-01] MEDS ORDERED: Piperacillin/Tazobactam 2.25 GM in Sodium Chloride 0.9% 100 ML IVPB SCH (18:15)
--- NOTE | 2020-09-01 18:50 | PRG ---
DATE OF SERVICE: 09/01/2020 , heart rates in the 70s, still on 100% oxygen. GENERAL: She is anuric. LUNGS: Unchanged. HEART: Unchanged. ABDOMEN: Unchanged. LABORATORY DATA: White count 8.1, hemoglobin 7.8, platelets 125. BUN 89, creatinine 1.98. IMPRESSION: COVID-19 pneumonia with multiorgan failure. This is not survivable. Critical care time 30 min. Job ID: [id number] MTDD
[2020-09-01] MEDS: NPH, Human Insulin Isophane 300 UNIT/3 ML VIAL SC SCH ×2 (19:24→21:34)
[2020-09-01] MEDS: Sodium Chloride 0.9% 1,000 ML IV SCH (19:40)
--- NOTE | 2020-09-01 21:02 | RAD ---
PORTABLE CHEST ONE VIEW: Date: 09-01-2020 Time: 8:23 p.m. History: Covid pneumonia. Worsening hypoxia. Comparison: 08-29-2020 FINDINGS: Lines and tube placement are unchanged. The heart size is stable. Multifocal bilateral lung opacities are again seen with mild interval improvement. No pneumothoraces or large effusions are seen. IMPRESSION: As above. POS: [facility]
[2020-09-01] MEDS: Gabapentin 300 MG CAP PO SCH (21:15)
[2020-09-02] MEDS: Propofol 1,000 MG/100 ML VIAL IV PRN ×5 (04:28→23:09)
[2020-09-02] MEDS: Levothyroxine 150 MCG TAB PO SCH (05:03)
[2020-09-02] MEDS: Hydrocortisone Sod Succ/PF 100 mg/2 ml Vial IVP SCH ×4 (05:03→23:09)
[2020-09-02] MEDS ORDERED: Norepinephrine 8 MG/0.9% NS 250 ML ONE (08:00)
--- NOTE | 2020-09-02 08:07 | PRG ---
DATE OF SERVICE: 09/02/2020 TIME SPENT: 35 minutes of critical care time. SUBJECTIVE: The patient remains intubated, on mechanical ventilation. OBJECTIVE: VITAL SIGNS: Temperature 98.6, pulse 73, blood pressure 59/29, O2 saturation 95% on 100% oxygen via mechanical ventilation. GENERAL: She is obtunded, sedated. HEENT: She has excoriation of her nostril on her upper lip. NECK: No JVD. LUNGS: Coarse breath sounds. CARDIOVASCULAR: S1 and S2. Regular. ABDOMEN: Obese, soft, nontender. EXTREMITIES: No edema. LABORATORY DATA: No labs were done today. I did review the labs from yesterday. X-ray from yesterday showed bilateral changes. ASSESSMENT: 1. COVID-19 pneumonia. 2. Acute respiratory failure requiring mechanical ventilation - no improvement. PLAN: We will start Levophed for blood pressure. I am not sure that will do any good. She is to continue anticoagulation, steroids, mechanical ventilation. I do not expect that she will survive this. Job ID: [id number]
[2020-09-02] MEDS: Zinc Sulfate 220 MG CAP PO SCH (08:14)
[2020-09-02] MEDS: Cholecalciferol 1,000 UNITS (25 MCG) TAB PO SCH (08:14)
[2020-09-02] MEDS: Ascorbic Acid 500 mg Chewable Tablet PER TUBE SCH (08:14)
[2020-09-02] MEDS: Pantoprazole 40 MG GRANULES PACKET PER TUBE SCH (08:15)
[2020-09-02] MEDS: Enoxaparin Sodium 80 MG/0.8 ML SYRINGE SC SCH ×2 (08:15→21:42)
[2020-09-02] MEDS: Tamsulosin HCl 0.4 MG CAP PO SCH (08:15)
[2020-09-02] MEDS: NPH, Human Insulin Isophane 300 UNIT/3 ML VIAL SC SCH ×2 (08:15→21:44)
[2020-09-02] MEDS: Norepinephrine 8 MG/0.9% NS 250 ML IVPB SCH (10:00)
[2020-09-02] MEDS: fentaNYL Citrate/PF 2,000 MCG in Sodium Chloride 0.9% 60 ML IV SCH (10:06)
[2020-09-02 14:16] LABS: Hemoglobin 10.1 g/dL (12.0-16.0); Mean Corpuscular HGB CONC 32.2 g/dL (32.0-36.0); Mean Corpuscular Hemoglobin 25.6 pg (27.0-31.0); Mean Corpuscular Volume 79.5 fL (78.0-98.0); Mean Platelet Volume 9.5 fL (7.4-10.4); Platelet Count 272 thou/uL (130-400); Red Blood Cell (RBC) Count 3.93 mill/uL (4.20-5.40)
[2020-09-02 14:46] LABS: BUN (Urea Nitrogen) 124 mg/dL (9.8-20.1)
[2020-09-02 14:52] LABS: Anion Gap 24 mmol/L (10-20); Calc. Creatinine Clearance 36 mL/min (70-130); Calcium 7.3 mg/dL (7.8-10.44); Carbon Dioxide 21 mmol/L (23-31); Chloride 102 mmol/L (98-107); Estimated GFR-MDRD 13; Glucose 248 mg/dL (80-115); Potassium 4.9 mmol/L (3.5-5.1); Sodium 142 mmol/L (136-145)
--- NOTE | 2020-09-02 15:19 | PDOC.HOSPP ---
- Subjective Encounter Date: 09/02/20 Encounter Time: 15:17 Subjective: intubated, non-verbal - Objective Vital Signs & Weight: Vital Signs (12 hours) Temp Pulse Resp BP Pulse Ox 09/02/20 15:01 65 103/41 L 09/02/20 15:00 65 18 90 L 09/02/20 14:00 18 09/02/20 12:00 98.7 F 18 09/02/20 10:43 72 91/44 L 09/02/20 10:00 18 09/02/20 08:00 99 F 18 93 L 09/02/20 07:30 73 18 95 09/02/20 06:00 18 09/02/20 04:00 98.6 F 18 Weight Admit Weight 305 lb Weight 325 lb 13.491 oz Most Recent Monitor Data Heart Rate from ECG 66 NIBP 104/41 NIBP BP-Mean 62 Respiration from ECG 23 SpO2 90 I&O: 09/01/20 09/02/20 09/03/20 06:59 06:59 06:59 Intake Total 1168.8 1156.4 Output Total 1140 975 5 Balance 28.8 181.4 -5 Result Diagrams: 09/02/20 14:00 09/02/20 14:00 Additional Labs: Accuchecks 09/02/20 09/02/20 09/01/20 09:57 04:33 21:23 POC Glucose 230 H 215 H 212 H Hospitalist ROS - Medication Medications: Active Medications Generic Name Dose Route Start Last Admin Trade Name Freq PRN Reason Stop Dose Admin Acetaminophen 650 mg 08/19/20 20:24 08/20/20 20:39 Acetaminophen 325 Mg Tab PO 650 mg Q4H PRN Administration Headache/Fever or Pain Albuterol/Ipratropium 3 ml 08/29/20 19:00 09/02/20 15:00 Ipratropium/Albuterol Sulfate 3 Ml Neb NEB 3 ml [id number] SHAINA Administration Ascorbic Acid 1,000 mg 08/23/20 09:00 09/02/20 08:14 Ascorbic Acid 500 Mg Chewable Tablet PER TUBE 1,000 mg DAILY SHAINA Administration Benzonatate 100 mg 08/20/20 04:12 08/21/20 22:27 Benzonatate 100 Mg Cap PO 100 mg TIDPRN PRN Administration Cough Cholecalciferol 1,000 units 08/22/20 09:00 09/02/20 08:14 Cholecalciferol 1,000 Units (25 Mcg) Tab PO 1,000 units DAILY SHAINA Administration Enoxaparin Sodium 80 mg 08/22/20 09:18 09/02/20 08:15 Enoxaparin Sodium 80 Mg/0.8 Ml Syringe SC 80 mg BID SHAINA Administration Gabapentin 900 mg 08/20/20 21:00 09/01/20 21:15 Gabapentin 300 Mg Cap PO 900 mg HS SHAINA Administration Guaifenesin/Dextromethorphan 15 ml 08/20/20 20:14 08/21/20 20:04 Guaifenesin Dm 100-10/5 Ml Udcup PO 15 ml Q4H PRN Administration Cough Hydrocortisone Sodium Succinate 100 mg 08/23/20 12:00 09/02/20 12:45 Hydrocortisone Sod Succ/Pf 100 Mg/2 Ml Vial IVP 100 mg Q6HR SHAINA Administration Fentanyl Citrate 2,000 mcg/ 100 mls @ 0 mls/hr 08/22/20 10:00 09/02/20 10:06 Sodium Chloride IV 09/21/20 10:00 100 mls INF SHAINA Administration Protocol Per Protocol Sodium Chloride 1,000 mls @ 30 mls/hr 09/01/20 18:15 09/01/20 19:40 Normal Saline 0.9% IV 1,000 mls .Q24H SHAINA Administration Norepinephrine Bitartrate 250 mls @ 0 mls/hr 09/02/20 08:00 09/02/20 10:00 Levophed IVPB 250 mls INF SHAINA Administration Protocol Titrate Insulin Human NPH 40 unit 09/02/20 07:53 09/02/20 08:15 Nph, Human Insulin Isophane 300 Unit/3 Ml Vial SC 40 unit BID SHAINA Administration Levothyroxine Sodium 150 mcg 08/21/20 06:00 09/02/20 05:03 Levothyroxine 150 Mcg Tab PO 150 mcg 0600 SHAINA Administration Lorazepam 2 mg 08/22/20 10:00 08/31/20 01:23 Lorazepam 2 Mg/Ml Vial SLOW IVP 09/21/20 10:00 2 mg Q1H PRN Administration Breakthrough agitation Pantoprazole Sodium 40 mg 08/28/20 09:00 09/02/20 08:15 Pantoprazole 40 Mg Granules Packet PER TUBE 40 mg DAILY SHAINA Administration Propofol 1,000 mg 08/22/20 10:00 09/02/20 13:57 Propofol 1,000 Mg/100 Ml Vial IV 09/21/20 10:00 1,000 mg INF PRN Administration TO ACHIEVE GOAL RASS Protocol Sodium Chloride 10 ml 08/23/20 09:00 09/02/20 08:16 Flush - Normal Saline 10 Ml Syringe IVF 10 ml Q12HR SHAINA Administration Tamsulosin HCl 0.4 mg 08/21/20 09:00 09/02/20 08:15 Tamsulosin Hcl 0.4 Mg Cap PO 0.4 mg DAILY SHAINA Administration Vecuronium [place] 10 mg 08/22/20 09:17 08/31/20 01:23 Vecuronium 10 Mg Vial IVP 10 mg Q30MIN PRN Administration Agitation Zinc Sulfate 220 mg 08/23/20 09:00 09/02/20 08:14 Zinc Sulfate 220 Mg Cap PO 220 mg DAILY SHAINA Administration Hosp A/P (1) Acute respiratory failure with hypoxemia Code(s): J96.01 - ACUTE RESPIRATORY FAILURE WITH HYPOXIA Status: Acute (2) Pneumonia due to COVID-19 virus Code(s): U07.1 - COVID-19; J12.89 - OTHER VIRAL PNEUMONIA Status: Acute (3) Acute metabolic encephalopathy Code(s): G93.41 - METABOLIC ENCEPHALOPATHY Status: Acute (4) COPD exacerbation Code(s): J44.1 - CHRONIC OBSTRUCTIVE PULMONARY DISEASE W (ACUTE) EXACERBATION Status: Acute (5) Hypertension Code(s): I10 - ESSENTIAL (PRIMARY) HYPERTENSION Status: Chronic Qualifiers: Hypertension type: essential hypertension Qualified Code(s): I10 - Essential (primary) hypertension (6) Hypothyroidism Code(s): E03.9 - HYPOTHYROIDISM, UNSPECIFIED Status: Chronic - Plan cont vent cont steroidss cont anticoag cont pressors for HTN cont bronchodilators etc
[2020-09-02] MEDS: Sodium Chloride 0.9% 1,000 ML IV SCH (18:27)
[2020-09-02] MEDS: Gabapentin 300 MG CAP PO SCH (21:42)
[2020-09-03] MEDS: Propofol 1,000 MG/100 ML VIAL IV PRN ×4 (04:02→18:39)
[2020-09-03] MEDS: Norepinephrine 8 MG/0.9% NS 250 ML IVPB SCH ×2 (04:50→20:36)
[2020-09-03 05:25] LABS: Anion Gap 26 mmol/L (10-20); Calc. Creatinine Clearance 32 mL/min (70-130); Calcium 7.3 mg/dL (7.8-10.44); Carbon Dioxide 19 mmol/L (23-31); Chloride 100 mmol/L (98-107); Estimated GFR-MDRD 11; Glucose 273 mg/dL (80-115); Potassium 5.8 mmol/L (3.5-5.1); Sodium 139 mmol/L (136-145)
[2020-09-03] MEDS: Hydrocortisone Sod Succ/PF 100 mg/2 ml Vial IVP SCH ×3 (05:30→18:39)
[2020-09-03] MEDS: Levothyroxine 150 MCG TAB PO SCH (05:30)
[2020-09-03 05:36] LABS: BUN (Urea Nitrogen) 136 mg/dL (9.8-20.1)
[2020-09-03 05:56] LABS: Hemoglobin 9.9 g/dL (12.0-16.0); Mean Corpuscular HGB CONC 31.8 g/dL (32.0-36.0); Mean Corpuscular Hemoglobin 25.5 pg (27.0-31.0); Mean Corpuscular Volume 80.2 fL (78.0-98.0); Mean Platelet Volume 9.3 fL (7.4-10.4); Platelet Count 254 thou/uL (130-400); RBC Distribution Width 17.7 % (11.5-14.5); Red Blood Cell (RBC) Count 3.89 mill/uL (4.20-5.40); White Blood Cell (WBC) Count 22.1 thou/uL (4.8-10.8)
[2020-09-03 06:16] LABS: Band 19 % (5-11); Lymphocytes 4 % (21-51); MDiff Complete? YES; Monocytes 2 % (0-10); Neutrophil 75 % (42-75)
[2020-09-03] MEDS: fentaNYL Citrate/PF 2,000 MCG in Sodium Chloride 0.9% 60 ML IV SCH (07:20)
[2020-09-03] MEDS: Pantoprazole 40 MG GRANULES PACKET PER TUBE SCH (09:02)
[2020-09-03] MEDS: Cholecalciferol 1,000 UNITS (25 MCG) TAB PO SCH (09:02)
[2020-09-03] MEDS: Tamsulosin HCl 0.4 MG CAP PO SCH (09:02)
[2020-09-03] MEDS: Zinc Sulfate 220 MG CAP PO SCH (09:03)
[2020-09-03] MEDS: Ascorbic Acid 500 mg Chewable Tablet PER TUBE SCH (09:03)
[2020-09-03] MEDS: NPH, Human Insulin Isophane 300 UNIT/3 ML VIAL SC SCH ×2 (09:04→20:38)
--- NOTE | 2020-09-03 14:47 | PDOC.HOSPP ---
- Subjective Encounter Date: 09/03/20 Encounter Time: 14:44 Subjective: intubated, sedated - Objective Vital Signs & Weight: Vital Signs (12 hours) Temp Pulse Resp BP Pulse Ox 09/03/20 12:00 98.1 F 09/03/20 10:58 68 09/03/20 10:00 18 09/03/20 08:08 65 09/03/20 08:00 98.8 F 18 88 L 09/03/20 06:00 18 09/03/20 04:00 97.9 F 18 09/03/20 02:50 65 91/39 L Weight Admit Weight 305 lb Weight 325 lb 9.964 oz Most Recent Monitor Data Heart Rate from ECG 69 NIBP 98/50 NIBP BP-Mean 66 Respiration from ECG 18 SpO2 88 I&O: 09/02/20 09/03/20 09/04/20 06:59 06:59 06:59 Intake Total 1156.4 1788.2 60 Output Total 975 108 0 Balance 181.4 1680.2 60 Result Diagrams: 09/03/20 04:05 09/03/20 04:05 Hospitalist ROS - Medication Medications: Active Medications Generic Name Dose Route Start Last Admin Trade Name Freq PRN Reason Stop Dose Admin Acetaminophen 650 mg 08/19/20 20:24 08/20/20 20:39 Acetaminophen 325 Mg Tab PO 650 mg Q4H PRN Administration Headache/Fever or Pain Albuterol/Ipratropium 3 ml 08/29/20 19:00 09/03/20 08:08 Ipratropium/Albuterol Sulfate 3 Ml Neb NEB 3 ml [id number] SHAINA Administration Ascorbic Acid 1,000 mg 08/23/20 09:00 09/03/20 09:03 Ascorbic Acid 500 Mg Chewable Tablet PER TUBE 1,000 mg DAILY SHAINA Administration Benzonatate 100 mg 08/20/20 04:12 08/21/20 22:27 Benzonatate 100 Mg Cap PO 100 mg TIDPRN PRN Administration Cough Cholecalciferol 1,000 units 08/22/20 09:00 09/03/20 09:02 Cholecalciferol 1,000 Units (25 Mcg) Tab PO 1,000 units DAILY SHAINA Administration Gabapentin 900 mg 08/20/20 21:00 09/02/20 21:42 Gabapentin 300 Mg Cap PO 900 mg HS SHAINA Administration Guaifenesin/Dextromethorphan 15 ml 08/20/20 20:14 08/21/20 20:04 Guaifenesin Dm 100-10/5 Ml Udcup PO 15 ml Q4H PRN Administration Cough Hydrocortisone Sodium Succinate 100 mg 08/23/20 12:00 09/03/20 12:51 Hydrocortisone Sod Succ/Pf 100 Mg/2 Ml Vial IVP 100 mg Q6HR SHAINA Administration Fentanyl Citrate 2,000 mcg/ 100 mls @ 0 mls/hr 08/22/20 10:00 09/03/20 07:20 Sodium Chloride IV 09/21/20 10:00 100 mls INF SHAINA Administration Protocol Per Protocol Sodium Chloride 1,000 mls @ 30 mls/hr 09/01/20 18:15 09/02/20 18:27 Normal Saline 0.9% IV Not Given .Q24H SHAINA Norepinephrine Bitartrate 250 mls @ 0 mls/hr 09/02/20 08:00 09/03/20 04:50 Levophed IVPB 250 mls INF SHAINA Administration Protocol Titrate Insulin Human NPH 40 unit 09/02/20 07:53 09/03/20 09:04 Nph, Human Insulin Isophane 300 Unit/3 Ml Vial SC 40 unit BID SHAINA Administration Levothyroxine Sodium 150 mcg 08/21/20 06:00 09/03/20 05:30 Levothyroxine 150 Mcg Tab PO 150 mcg 0600 SHAINA Administration Lorazepam 2 mg 08/22/20 10:00 08/31/20 01:23 Lorazepam 2 Mg/Ml Vial SLOW IVP 09/21/20 10:00 2 mg Q1H PRN Administration Breakthrough agitation Pantoprazole Sodium 40 mg 08/28/20 09:00 09/03/20 09:02 Pantoprazole 40 Mg Granules Packet PER TUBE 40 mg DAILY SHAINA Administration Propofol 1,000 mg 08/22/20 10:00 09/03/20 09:02 Propofol 1,000 Mg/100 Ml Vial IV 09/21/20 10:00 1,000 mg INF PRN Administration TO ACHIEVE GOAL RASS Protocol Sodium Chloride 10 ml 08/23/20 09:00 09/03/20 09:03 Flush - Normal Saline 10 Ml Syringe IVF 10 ml Q12HR SHAINA Administration Tamsulosin HCl 0.4 mg 08/21/20 09:00 09/03/20 09:02 Tamsulosin Hcl 0.4 Mg Cap PO 0.4 mg DAILY SHAINA Administration Vecuronium [place] 10 mg 08/22/20 09:17 08/31/20 01:23 Vecuronium 10 Mg Vial IVP 10 mg Q30MIN PRN Administration Agitation Zinc Sulfate 220 mg 08/23/20 09:00 09/03/20 09:03 Zinc Sulfate 220 Mg Cap PO 220 mg DAILY SHAINA Administration - Exam ENT - other findings: ET tube Neck: no JVD Heart: RRR Respiratory - other findings: coarse BS with rhonchi Gastrointestinal: soft, non-tender, normal bowel sounds Extremities: 2+ LE edema Hosp A/P (1) Hypotension arterial Status: Acute Qualifiers: Hypotension type: other hypotension type Qualified Code(s): I95.89 - Other hypotension (2) Acute renal failure (ARF) Status: Acute Qualifiers: Acute renal failure type: with acute tubular necrosis Qualified Code(s): N17.0 - Acute kidney failure with tubular necrosis (3) Acute respiratory failure with hypoxemia Code(s): J96.01 - ACUTE RESPIRATORY FAILURE WITH HYPOXIA Status: Acute (4) Pneumonia due to COVID-19 virus Code(s): U07.1 - COVID-19; J12.89 - OTHER VIRAL PNEUMONIA Status: Acute (5) Acute metabolic encephalopathy Code(s): G93.41 - METABOLIC ENCEPHALOPATHY Status: Acute (6) COPD exacerbation Code(s): J44.1 - CHRONIC OBSTRUCTIVE PULMONARY DISEASE W (ACUTE) EXACERBATION Status: Acute (7) Hypertension Code(s): I10 - ESSENTIAL (PRIMARY) HYPERTENSION Status: Chronic Qualifiers: Hypertension type: essential hypertension Qualified Code(s): I10 - Essential (primary) hypertension (8) Hypothyroidism Code(s): E03.9 - HYPOTHYROIDISM, UNSPECIFIED Status: Chronic - Plan cont vent cont steroidss cont anticoag cont pressors for HTN cont bronchodilators now wih markeddly increased creatinine, oliguric prognosis dismadiscussed with negative turner apprentice
--- NOTE | 2020-09-03 16:00 | PDOC.BPN ---
- Brief Progress Note Encounter Date: 09/03/20 Encounter Time: 15:58 discussed with GI. Dxstarted with C Diff colitis, then megacolon, now with bowel ishemia. Patient DNR, not candidate for surgery
--- NOTE | 2020-09-03 18:57 | PRG ---
DATE OF SERVICE: 09/03/2020 SUBJECTIVE: She is stable on Levophed. OBJECTIVE: VITAL SIGNS: Blood pressure 119/49, heart rate 60, respiratory rate is 18. LUNGS: Coarse equal breath sounds. HEART: Regular rhythm. ABDOMEN: Soft. LABORATORY DATA: White count is 22, hemoglobin 9, platelets 254. Creatinine is up to 4.2, BUN is 136, potassium is 5.8. We do not think dialysis will increase her chances of survival. She continues on 100% oxygen. We will discuss with the other physicians. CRITICAL CARE TIME: 30 minutes. Job ID: [id number]
[2020-09-03] MEDS: Gabapentin 300 MG CAP PO SCH (20:37)
[2020-09-03] MEDS: Enoxaparin Sodium 80 MG/0.8 ML SYRINGE SC SCH (20:37)
[2020-09-04] MEDS: Propofol 1,000 MG/100 ML VIAL IV PRN ×2 (00:30→06:51)
[2020-09-04] MEDS: Hydrocortisone Sod Succ/PF 100 mg/2 ml Vial IVP SCH ×5 (00:30→23:37)
[2020-09-04] MEDS: fentaNYL Citrate/PF 2,000 MCG in Sodium Chloride 0.9% 60 ML IV SCH (03:19)
[2020-09-04 04:26] LABS: Anion Gap 24 mmol/L (10-20); Calc. Creatinine Clearance 31 mL/min (70-130); Calcium 7.2 mg/dL (7.8-10.44); Carbon Dioxide 21 mmol/L (23-31); Chloride 98 mmol/L (98-107); Estimated GFR-MDRD 10; Glucose 299 mg/dL (80-115); Sodium 137 mmol/L (136-145)
[2020-09-04 04:38] LABS: BUN (Urea Nitrogen) 154 mg/dL (9.8-20.1)
[2020-09-04 05:31] LABS: Band 27 % (5-11); Hemoglobin 9.2 g/dL (12.0-16.0); Lymphocytes 5 % (21-51); MDiff Complete? YES; Mean Corpuscular HGB CONC 32.9 g/dL (32.0-36.0); Mean Corpuscular Hemoglobin 26.3 pg (27.0-31.0); Mean Platelet Volume 9.3 fL (7.4-10.4); Monocytes 3 % (0-10); Neutrophil 65 % (42-75); Platelet Count 209 thou/uL (130-400); RBC Distribution Width 17.6 % (11.5-14.5); Red Blood Cell (RBC) Count 3.49 mill/uL (4.20-5.40)
[2020-09-04] MEDS: Levothyroxine 150 MCG TAB PO SCH (05:52)
[2020-09-04] MEDS: Sodium Chloride 0.9% 1,000 ML IV SCH (07:04)
[2020-09-04] MEDS: Pantoprazole 40 MG GRANULES PACKET PER TUBE SCH (07:14)
[2020-09-04] MEDS: Tamsulosin HCl 0.4 MG CAP PO SCH (07:14)
[2020-09-04] MEDS: Ascorbic Acid 500 mg Chewable Tablet PER TUBE SCH (07:14)
[2020-09-04] MEDS: Zinc Sulfate 220 MG CAP PO SCH (07:26)
[2020-09-04] MEDS: NPH, Human Insulin Isophane 300 UNIT/3 ML VIAL SC SCH ×2 (07:27→20:46)
[2020-09-04] MEDS: Cholecalciferol 1,000 UNITS (25 MCG) TAB PO SCH (07:28)
[2020-09-04] MEDS ORDERED: Furosemide 100 MG/10 ML VIAL SLOW IVP SCH (10:00)
[2020-09-04] MEDS ORDERED: Dextrose 5% in Water 1,000 ML IV PRN (10:00)
[2020-09-04] MEDS ORDERED: HumaLOG 300 UNITS/3 ML VIAL SC PRN (10:00)
[2020-09-04] MEDS: HumaLOG 300 UNITS/3 ML VIAL SC PRN ×3 (10:20→21:28)
--- NOTE | 2020-09-04 15:43 | PDOC.HOSPP ---
- Subjective Encounter Date: 09/04/20 Encounter Time: 15:28 Subjective: intubated, sedated - Objective Vital Signs & Weight: Vital Signs (12 hours) Temp Pulse Resp Pulse Ox 09/04/20 14:58 72 09/04/20 14:00 18 09/04/20 12:45 71 09/04/20 12:00 97.6 F 18 09/04/20 10:59 67 09/04/20 10:00 18 09/04/20 08:20 64 09/04/20 08:00 97.8 F 18 93 L 09/04/20 06:00 18 09/04/20 04:00 97.7 F 18 Weight Admit Weight 305 lb Weight 326 lb 11.601 oz Most Recent Monitor Data Heart Rate from ECG 73 NIBP 82/44 NIBP BP-Mean 56 Respiration from ECG 36 SpO2 78 I&O: 09/03/20 09/04/20 09/05/20 06:59 06:59 06:59 Intake Total 1788.2 1447.6 Output Total 108 995 750 Balance 1680.2 452.6 -750 Result Diagrams: 09/04/20 03:25 09/04/20 03:25 Additional Labs: Accuchecks 09/04/20 10:16 POC Glucose 257 H Hospitalist ROS - Medication Medications: Active Medications Generic Name Dose Route Start Last Admin Trade Name Freq PRN Reason Stop Dose Admin Acetaminophen 650 mg 08/19/20 20:24 08/20/20 20:39 Acetaminophen 325 Mg Tab PO 650 mg Q4H PRN Administration Headache/Fever or Pain Albuterol/Ipratropium 3 ml 08/29/20 19:00 09/04/20 12:45 Ipratropium/Albuterol Sulfate 3 Ml Neb NEB 3 ml [id number] SHAINA Administration Ascorbic Acid 1,000 mg 08/23/20 09:00 09/04/20 07:14 Ascorbic Acid 500 Mg Chewable Tablet PER TUBE 1,000 mg DAILY SHAINA Administration Benzonatate 100 mg 08/20/20 04:12 08/21/20 22:27 Benzonatate 100 Mg Cap PO 100 mg TIDPRN PRN Administration Cough Cholecalciferol 1,000 units 08/22/20 09:00 09/04/20 07:28 Cholecalciferol 1,000 Units (25 Mcg) Tab PO 1,000 units DAILY SHAINA Administration Enoxaparin Sodium 80 mg 09/03/20 21:00 09/03/20 20:37 Enoxaparin Sodium 80 Mg/0.8 Ml Syringe SC 80 mg 2100 SHAINA Administration Gabapentin 900 mg 08/20/20 21:00 09/03/20 20:37 Gabapentin 300 Mg Cap PO 900 mg HS SHAINA Administration Guaifenesin/Dextromethorphan 15 ml 08/20/20 20:14 08/21/20 20:04 Guaifenesin Dm 100-10/5 Ml Udcup PO 15 ml Q4H PRN Administration Cough Hydrocortisone Sodium Succinate 100 mg 08/23/20 12:00 09/04/20 10:09 Hydrocortisone Sod Succ/Pf 100 Mg/2 Ml Vial IVP 100 mg Q6HR SHAINA Administration Fentanyl Citrate 2,000 mcg/ 100 mls @ 0 mls/hr 08/22/20 10:00 09/04/20 03:19 Sodium Chloride IV 09/21/20 10:00 100 mls INF SHAINA Administration Protocol Per Protocol Norepinephrine Bitartrate 250 mls @ 0 mls/hr 09/02/20 08:00 09/03/20 20:36 Levophed IVPB 250 mls INF SHAINA Administration Protocol Titrate Insulin Human NPH 40 unit 09/02/20 07:53 09/04/20 07:27 Nph, Human Insulin Isophane 300 Unit/3 Ml Vial SC 40 unit BID SHAINA Administration Levothyroxine Sodium 150 mcg 08/21/20 06:00 09/04/20 05:52 Levothyroxine 150 Mcg Tab PO 150 mcg 0600 SHAINA Administration Lorazepam 2 mg 08/22/20 10:00 08/31/20 01:23 Lorazepam 2 Mg/Ml Vial SLOW IVP 09/21/20 10:00 2 mg Q1H PRN Administration Breakthrough agitation Pantoprazole Sodium 40 mg 08/28/20 09:00 09/04/20 07:14 Pantoprazole 40 Mg Granules Packet PER TUBE 40 mg DAILY SHAINA Administration Propofol 1,000 mg 08/22/20 10:00 09/04/20 06:51 Propofol 1,000 Mg/100 Ml Vial IV 09/21/20 10:00 1,000 mg INF PRN Administration TO ACHIEVE GOAL RASS Protocol Sodium Chloride 10 ml 08/23/20 09:00 11/11/20 07:28 Flush - Normal Saline 10 Ml Syringe IVF 10 ml Q12HR SHAINA Administration Tamsulosin HCl 0.4 mg 08/21/20 09:00 09/04/20 07:14 Tamsulosin Hcl 0.4 Mg Cap PO 0.4 mg DAILY SHAINA Administration Vecuronium [place] 10 mg 08/22/20 09:17 08/31/20 01:23 Vecuronium 10 Mg Vial IVP 10 mg Q30MIN PRN Administration Agitation Zinc Sulfate 220 mg 08/23/20 09:00 09/04/20 07:26 Zinc Sulfate 220 Mg Cap PO 220 mg DAILY SHAINA Administration - Exam ENT - other findings: intunated, NGT Heart: RRR, no murmur Respiratory - other findings: coa arse BS bilat Gastrointestinal: soft, non-tender, non-distended, normal bowel sounds Extremities: 2+ LE edema Hosp A/P (1) Hypotension arterial Status: Acute Qualifiers: Hypotension type: other hypotension type Qualified Code(s): I95.89 - Other hypotension (2) Acute renal failure (ARF) Status: Acute Qualifiers: Acute renal failure type: with acute tubular necrosis Qualified Code(s): N17.0 - Acute kidney failure with tubular necrosis (3) Acute respiratory failure with hypoxemia Code(s): J96.01 - ACUTE RESPIRATORY FAILURE WITH HYPOXIA Status: Acute (4) Pneumonia due to COVID-19 virus Code(s): U07.1 - COVID-19; J12.89 - OTHER VIRAL PNEUMONIA Status: Acute (5) Acute metabolic encephalopathy Code(s): G93.41 - METABOLIC ENCEPHALOPATHY Status: Acute (6) COPD exacerbation Code(s): J44.1 - CHRONIC OBSTRUCTIVE PULMONARY DISEASE W (ACUTE) EXACERBATION Status: Acute (7) Hypertension Code(s): I10 - ESSENTIAL (PRIMARY) HYPERTENSION Status: Chronic Qualifiers: Hypertension type: essential hypertension Qualified Code(s): I10 - Essential (primary) hypertension (8) Hypothyroidism Code(s): E03.9 - HYPOTHYROIDISM, UNSPECIFIED Status: Chronic Qualifiers: Hypothyroidism type: unspecified Qualified Code(s): E03.9 - Hypothyroidism, unspecified - Plan cont vent cont steroidss cont anticoag cont pressors for HTN cont bronchodilators UO increased. receiving IV diuretic No acute indication for HD cont current aggressive care
--- NOTE | 2020-09-04 18:21 | PRG ---
DATE OF SERVICE: 09/04/2020 SUBJECTIVE: Surprisingly, today had an increase in her exhaled tidal volumes or pressure settings with mechanical ventilation been reduced. OBJECTIVE: VITAL SIGNS: Blood pressure is 117/56, heart rates in the 60s, respiratory rates in the teens, and oximetry is in the high 80s to low 90s. LUNGS: Distant clear. HEART: Regular rhythm. ABDOMEN: Soft. LABORATORY DATA: White count 16, hemoglobin 9.2, platelets 209. Sodium 137, potassium 6, chloride 98, bicarb 21, BUN 154, creatinine 4.3. She was given Lasix today and had 850 mL out. Intake and output yesterday were positive 450. IMPRESSION: 1. COVID pneumonia. 2. Respiratory failure. 3. Acute renal failure. 4. Obesity. 5. Pre-existing chronic hypoxemic respiratory failure with chronic obstructive pulmonary disease, on home O2 prior to this illness. 6. We will continue with supportive care short of heroic measures. She is very debatable whether or not dialysis would be helpful if she needs it. We will continue three accessors on a daily basis. Unfortunately, she has no family to assist in decisions, so we are trying to do what is best for her within reason. Critical care time 30 min. Job ID: [id number] MTDD
[2020-09-04] MEDS: Enoxaparin Sodium 80 MG/0.8 ML SYRINGE SC SCH (20:45)
[2020-09-04] MEDS: Gabapentin 300 MG CAP PO SCH (20:45)
[2020-09-04] MEDS ORDERED: Insulin Glargine 10 UNITS in Pre-Filled Syringe 1 EACH SC SCH (21:00)
[2020-09-05] MEDS: Norepinephrine 8 MG/0.9% NS 250 ML IVPB SCH ×2 (00:05→17:58)
[2020-09-05 05:22] LABS: Anion Gap 25 mmol/L (10-20); Calc. Creatinine Clearance 32 mL/min (70-130); Carbon Dioxide 21 mmol/L (23-31); Chloride 100 mmol/L (98-107); Estimated GFR-MDRD 11; Glucose 279 mg/dL (80-115); Potassium 5.6 mmol/L (3.5-5.1); Sodium 140 mmol/L (136-145)
[2020-09-05 05:32] LABS: Band 23 % (5-11); Hemoglobin 7.8 g/dL (12.0-16.0); Lymphocytes 4 % (21-51); MDiff Complete? YES; Mean Corpuscular HGB CONC 31.1 g/dL (32.0-36.0); Mean Corpuscular Hemoglobin 25.1 pg (27.0-31.0); Mean Corpuscular Volume 80.6 fL (78.0-98.0); Mean Platelet Volume 10.1 fL (7.4-10.4); Monocytes 2 % (0-10); Myelocyte 2 % (0-0); Neutrophil 69 % (42-75); Nucleated RBC 1 % (0); Platelet Count 144 thou/uL (130-400); Red Blood Cell (RBC) Count 3.09 mill/uL (4.20-5.40); White Blood Cell (WBC) Count 9.9 thou/uL (4.8-10.8)
[2020-09-05 05:33] LABS: BUN (Urea Nitrogen) 169 mg/dL (9.8-20.1)
[2020-09-05] MEDS: Hydrocortisone Sod Succ/PF 100 mg/2 ml Vial IVP SCH ×4 (05:49→23:06)
[2020-09-05] MEDS: Levothyroxine 150 MCG TAB PO SCH (05:49)
[2020-09-05] MEDS: HumaLOG 300 UNITS/3 ML VIAL SC PRN ×4 (06:27→21:08)
[2020-09-05] MEDS: NPH, Human Insulin Isophane 300 UNIT/3 ML VIAL SC SCH ×2 (09:52→16:07)
[2020-09-05] MEDS: Tamsulosin HCl 0.4 MG CAP PO SCH (09:53)
[2020-09-05] MEDS: Zinc Sulfate 220 MG CAP PO SCH (09:53)
[2020-09-05] MEDS: Pantoprazole 40 MG GRANULES PACKET PER TUBE SCH (09:53)
[2020-09-05] MEDS: Ascorbic Acid 500 mg Chewable Tablet PER TUBE SCH (09:53)
[2020-09-05] MEDS: Cholecalciferol 1,000 UNITS (25 MCG) TAB PO SCH (10:45)
--- NOTE | 2020-09-05 15:54 | PDOC.HOSPP ---
- Subjective Encounter Date: 09/05/20 Encounter Time: 15:51 Subjective: intubated, sedated - Objective Vital Signs & Weight: Vital Signs (12 hours) Temp Pulse Resp BP Pulse Ox 09/05/20 15:08 91 97/41 L 09/05/20 15:07 95 22 H 72 L 09/05/20 12:00 98.4 F 24 H 09/05/20 11:01 92 101/42 L 09/05/20 10:00 24 H 09/05/20 08:19 90 89/48 L 09/05/20 08:17 92 28 H 83 L 09/05/20 08:00 98.7 F 27 H 82 L 09/05/20 06:00 23 H 09/05/20 04:00 97.8 F 24 H Weight Admit Weight 305 lb Weight 327 lb 13.238 oz Most Recent Monitor Data Heart Rate from ECG 91 NIBP 89/38 NIBP BP-Mean 55 Respiration from ECG 22 SpO2 75 I&O: 09/04/20 09/05/20 09/06/20 06:59 06:59 06:59 Intake Total 1447.6 729.8 90 Output Total 995 1450 175 Balance 452.6 -720.2 -85 Result Diagrams: 09/05/20 03:52 09/05/20 03:52 Additional Labs: Accuchecks 09/05/20 09/05/20 09/04/20 10:02 03:57 21:14 POC Glucose 212 H 241 H 245 H 09/04/20 16:36 POC Glucose 252 H Hospitalist ROS - Medication Medications: Active Medications Generic Name Dose Route Start Last Admin Trade Name Freq PRN Reason Stop Dose Admin Acetaminophen 650 mg 08/19/20 20:24 08/20/20 20:39 Acetaminophen 325 Mg Tab PO 650 mg Q4H PRN Administration Headache/Fever or Pain Albuterol/Ipratropium 3 ml 08/29/20 19:00 09/05/20 15:07 Ipratropium/Albuterol Sulfate 3 Ml Neb NEB 3 ml [id number] SHAINA Administration Ascorbic Acid 1,000 mg 08/23/20 09:00 09/05/20 09:53 Ascorbic Acid 500 Mg Chewable Tablet PER TUBE 1,000 mg DAILY SHAINA Administration Benzonatate 100 mg 08/20/20 04:12 08/21/20 22:27 Benzonatate 100 Mg Cap PO 100 mg TIDPRN PRN Administration Cough Cholecalciferol 1,000 units 08/22/20 09:00 09/05/20 10:45 Cholecalciferol 1,000 Units (25 Mcg) Tab PO 1,000 units DAILY SHAINA Administration Enoxaparin Sodium 80 mg 09/03/20 21:00 09/04/20 20:45 Enoxaparin Sodium 80 Mg/0.8 Ml Syringe SC 80 mg 2100 SHAINA Administration Gabapentin 900 mg 08/20/20 21:00 09/04/20 20:45 Gabapentin 300 Mg Cap PO 900 mg HS SHAINA Administration Guaifenesin/Dextromethorphan 15 ml 08/20/20 20:14 08/21/20 20:04 Guaifenesin Dm 100-10/5 Ml Udcup PO 15 ml Q4H PRN Administration Cough Hydrocortisone Sodium Succinate 100 mg 08/23/20 12:00 09/05/20 12:30 Hydrocortisone Sod Succ/Pf 100 Mg/2 Ml Vial IVP 100 mg Q6HR SHAINA Administration Fentanyl Citrate 2,000 mcg/ 100 mls @ 0 mls/hr 08/22/20 10:00 09/04/20 03:19 Sodium Chloride IV 09/21/20 10:00 100 mls INF SHAINA Administration Protocol Per Protocol Norepinephrine Bitartrate 250 mls @ 0 mls/hr 09/02/20 08:00 09/05/20 00:05 Levophed IVPB 250 mls INF SHAINA Administration Protocol Titrate Insulin Human Lispro 0 units 09/04/20 10:00 09/05/20 10:05 Humalog 300 Units/3 Ml Vial SC 3 unit .MILD SLIDING SCALE PRN Administration MILD SLIDING SCALE Protocol Levothyroxine Sodium 150 mcg 08/21/20 06:00 09/05/20 05:49 Levothyroxine 150 Mcg Tab PO 150 mcg 0600 SHAINA Administration Lorazepam 2 mg 08/22/20 10:00 08/31/20 01:23 Lorazepam 2 Mg/Ml Vial SLOW IVP 09/21/20 10:00 2 mg Q1H PRN Administration Breakthrough agitation Pantoprazole Sodium 40 mg 08/28/20 09:00 09/05/20 09:53 Pantoprazole 40 Mg Granules Packet PER TUBE 40 mg DAILY SHAINA Administration Propofol 1,000 mg 08/22/20 10:00 09/04/20 06:51 Propofol 1,000 Mg/100 Ml Vial IV 09/21/20 10:00 1,000 mg INF PRN Administration TO ACHIEVE GOAL RASS Protocol Sodium Chloride 10 ml 08/23/20 09:00 09/05/20 09:54 Flush - Normal Saline 10 Ml Syringe IVF 10 ml Q12HR SHAINA Administration Tamsulosin HCl 0.4 mg 08/21/20 09:00 09/05/20 09:53 Tamsulosin Hcl 0.4 Mg Cap PO 0.4 mg DAILY SHAINA Administration Vecuronium [place] 10 mg 08/22/20 09:17 08/31/20 01:23 Vecuronium 10 Mg Vial IVP 10 mg Q30MIN PRN Administration Agitation Zinc Sulfate 220 mg 08/23/20 09:00 09/05/20 09:53 Zinc Sulfate 220 Mg Cap PO 220 mg DAILY SHAINA Administration - Exam Neck: no JVD Heart: RRR, no murmur Respiratory - other findings: coarse BS bilat Gastrointestinal: soft, non-tender, normal bowel sounds Extremities: 1+ LE edema Hosp A/P (1) Hypotension arterial Status: Acute Qualifiers: Hypotension type: other hypotension type Qualified Code(s): I95.89 - Other hypotension (2) Acute renal failure (ARF) Status: Acute Qualifiers: Acute renal failure type: with acute tubular necrosis Qualified Code(s): N17.0 - Acute kidney failure with tubular necrosis (3) Acute respiratory failure with hypoxemia Code(s): J96.01 - ACUTE RESPIRATORY FAILURE WITH HYPOXIA Status: Acute (4) Pneumonia due to COVID-19 virus Code(s): U07.1 - COVID-19; J12.89 - OTHER VIRAL PNEUMONIA Status: Acute (5) Acute metabolic encephalopathy Code(s): G93.41 - METABOLIC ENCEPHALOPATHY Status: Acute (6) COPD exacerbation Code(s): J44.1 - CHRONIC OBSTRUCTIVE PULMONARY DISEASE W (ACUTE) EXACERBATION Status: Acute (7) Hypertension Code(s): I10 - ESSENTIAL (PRIMARY) HYPERTENSION Status: Chronic Qualifiers: Hypertension type: essential hypertension Qualified Code(s): I10 - Essential (primary) hypertension (8) Hypothyroidism Code(s): E03.9 - HYPOTHYROIDISM, UNSPECIFIED Status: Chronic Qualifiers: Hypothyroidism type: unspecified Qualified Code(s): E03.9 - Hypothyroidism, unspecified - Plan cont vent cont steroidss cont anticoag cont pressors for HTN cont bronchodilators UO increased. receiving IV diuretic Glucose still > 200, increase humulin N to 45 q12h No acute indication for HD cont current aggressive care
--- NOTE | 2020-09-05 20:26 | PRG ---
DATE OF SERVICE: 09/05/2020 OBJECTIVE: VITAL SIGNS: Karis Vo is afebrile, respiratory rate is 18, FiO2 is still at 100%, saturations in the 90s, blood pressure 114/47. LUNGS: Clear. HEART: Regular rhythm. ABDOMEN: Soft. LABORATORY DATA: White count 9.9, hemoglobin 7.8, platelets 144. BUN is up to 169, creatinine 4.2, potassium 5.6, glucose 279. Intake and outputs, negative 720. Bui output was 1450 mL. IMPRESSION: 1. Respiratory failure. 2. Chronic hypoxemic respiratory failure secondary to chronic obstructive pulmonary disease prior to this admission. 3. COVID pneumonia. 4. Prolonged hypoxemia during this admission. 5. Acute renal failure secondary to her pneumonia and COVID infection. Really cannot see any way she could survive this. We will continue supportive care and comfort measures. 6. It is unlikely the dialysis would increase her chances for functional recovery. Critical care time, 30 minutes. Job ID: [id number]
[2020-09-05] MEDS: Enoxaparin Sodium 80 MG/0.8 ML SYRINGE SC SCH (20:57)
[2020-09-05] MEDS: Gabapentin 300 MG CAP PO SCH (20:58)
[2020-09-05] MEDS: Lorazepam 2 MG/ML VIAL SLOW IVP PRN (23:52)
[2020-09-06] MEDS: Propofol 1,000 MG/100 ML VIAL IV PRN (00:01)
[2020-09-06] MEDS: fentaNYL Citrate/PF 2,000 MCG in Sodium Chloride 0.9% 60 ML IV SCH (00:43)
[2020-09-06 04:33] LABS: Anion Gap 24 mmol/L (10-20); Calc. Creatinine Clearance 34 mL/min (70-130); Carbon Dioxide 20 mmol/L (23-31); Chloride 102 mmol/L (98-107); Estimated GFR-MDRD 11; Glucose 241 mg/dL (80-115); Potassium 5.2 mmol/L (3.5-5.1); Sodium 141 mmol/L (136-145)
[2020-09-06 04:39] LABS: Band 36 % (5-11); Hemoglobin 7.9 g/dL (12.0-16.0); Lymphocytes 4 % (21-51); MDiff Complete? YES; Mean Corpuscular HGB CONC 32.1 g/dL (32.0-36.0); Mean Corpuscular Hemoglobin 25.4 pg (27.0-31.0); Mean Platelet Volume 9.7 fL (7.4-10.4); Monocytes 6 % (0-10); Neutrophil 54 % (42-75); Platelet Count 187 thou/uL (130-400); Platelet Morphology Comment Appears Adequate; RBC Distribution Width 18.1 % (11.5-14.5); White Blood Cell (WBC) Count 17.3 thou/uL (4.8-10.8)
[2020-09-06 04:46] LABS: BUN (Urea Nitrogen) 179 mg/dL (9.8-20.1)
[2020-09-06] MEDS: HumaLOG 300 UNITS/3 ML VIAL SC PRN ×4 (04:57→22:05)
[2020-09-06] MEDS: Levothyroxine 150 MCG TAB PO SCH (05:09)
[2020-09-06] MEDS: Hydrocortisone Sod Succ/PF 100 mg/2 ml Vial IVP SCH ×4 (05:09→23:12)
[2020-09-06] MEDS: Tamsulosin HCl 0.4 MG CAP PO SCH (09:10)
[2020-09-06] MEDS: Ascorbic Acid 500 mg Chewable Tablet PER TUBE SCH (09:11)
[2020-09-06] MEDS: Pantoprazole 40 MG GRANULES PACKET PER TUBE SCH (09:11)
[2020-09-06] MEDS: Zinc Sulfate 220 MG CAP PO SCH (09:11)
[2020-09-06] MEDS: Cholecalciferol 1,000 UNITS (25 MCG) TAB PO SCH (09:11)
[2020-09-06] MEDS: NPH, Human Insulin Isophane 300 UNIT/3 ML VIAL SC SCH ×2 (09:12→20:59)
--- NOTE | 2020-09-06 14:27 | PRG ---
DATE OF SERVICE: 09/06/2020 SUBJECTIVE: Ms. Vo weaned off her Levophed today. We plan not to restart it. Her nurse had a conversation with the son, who has been located. He claimed that she would never want to go through all this. We will continue short of aggressive care, short of hemodialysis or CPR. Her sats have been in the 60s most of the day. OBJECTIVE: VITAL SIGNS: Blood pressure is in the 90s, off Levophed; heart rate is stable, she is in sinus rhythm. LUNGS: Clear. HEART: Regular rhythm. ABDOMEN: Soft. LABORATORY DATA: White count 17.3, hemoglobin 7.9, platelets 187. Electrolytes; BUN is up to 179, creatinine is 3.9, glucose 241, and potassium 5.2. IMPRESSION: 1. Multiorgan dysfunction with COVID. 2. Life-threatening obesity. 3. Pre-existing chronic obstructive pulmonary disease with chronic hypoxemic respiratory failure. She is not expected to survive much longer, but actually thought she was going to pass away last weekend, so we just have to continue with current care measures. Job ID: [id number]
--- NOTE | 2020-09-06 15:35 | PDOC.HOSPP ---
- Subjective Encounter Date: 09/06/20 Encounter Time: 15:31 Subjective: intubated, non-responsive - Objective Vital Signs & Weight: Vital Signs (12 hours) Temp Pulse Resp Pulse Ox 09/06/20 15:02 75 18 09/06/20 14:00 18 09/06/20 12:00 94.1 F L 24 H 09/06/20 10:48 82 09/06/20 10:00 33 H 09/06/20 08:00 97.6 F 23 H 68 L 09/06/20 06:51 76 09/06/20 06:50 77 29 H 09/06/20 06:00 30 H 09/06/20 04:00 97.6 F 24 H Weight Admit Weight 305 lb Weight 324 lb 11.854 oz Most Recent Monitor Data Heart Rate from ECG 75 NIBP 123/64 NIBP BP-Mean 83 Respiration from ECG 18 SpO2 59 I&O: 09/05/20 09/06/20 09/07/20 06:59 06:59 06:59 Intake Total 729.8 1021.0 Output Total 1450 1550 1015 Balance -720.2 -529.0 -1015 Result Diagrams: 09/06/20 03:30 09/06/20 03:30 Additional Labs: Accuchecks 09/06/20 09/05/20 09/05/20 09:48 21:05 15:58 POC Glucose 214 H 185 H 185 H Hospitalist ROS - Medication Medications: Active Medications Generic Name Dose Route Start Last Admin Trade Name Freq PRN Reason Stop Dose Admin Acetaminophen 650 mg 08/19/20 20:24 08/20/20 20:39 Acetaminophen 325 Mg Tab PO 650 mg Q4H PRN Administration Headache/Fever or Pain Albuterol/Ipratropium 3 ml 08/29/20 19:00 09/06/20 15:02 Ipratropium/Albuterol Sulfate 3 Ml Neb NEB 3 ml [id number] SHAINA Administration Ascorbic Acid 1,000 mg 08/23/20 09:00 09/06/20 09:11 Ascorbic Acid 500 Mg Chewable Tablet PER TUBE 1,000 mg DAILY SHAINA Administration Benzonatate 100 mg 08/20/20 04:12 08/21/20 22:27 Benzonatate 100 Mg Cap PO 100 mg TIDPRN PRN Administration Cough Cholecalciferol 1,000 units 08/22/20 09:00 09/06/20 09:11 Cholecalciferol 1,000 Units (25 Mcg) Tab PO 1,000 units DAILY SHAINA Administration Enoxaparin Sodium 80 mg 09/03/20 21:00 09/05/20 20:57 Enoxaparin Sodium 80 Mg/0.8 Ml Syringe SC 80 mg 2100 SHAINA Administration Gabapentin 900 mg 08/20/20 21:00 09/05/20 20:58 Gabapentin 300 Mg Cap PO 900 mg HS SHAINA Administration Guaifenesin/Dextromethorphan 15 ml 08/20/20 20:14 08/21/20 20:04 Guaifenesin Dm 100-10/5 Ml Udcup PO 15 ml Q4H PRN Administration Cough Hydrocortisone Sodium Succinate 100 mg 08/23/20 12:00 09/06/20 12:47 Hydrocortisone Sod Succ/Pf 100 Mg/2 Ml Vial IVP 100 mg Q6HR SHAINA Administration Fentanyl Citrate 2,000 mcg/ 100 mls @ 0 mls/hr 08/22/20 10:00 09/06/20 00:43 Sodium Chloride IV 09/21/20 10:00 100 mls INF SHAINA Administration Protocol Per Protocol Norepinephrine Bitartrate 250 mls @ 0 mls/hr 09/02/20 08:00 09/05/20 17:58 Levophed IVPB 250 mls INF SHAINA Administration Protocol Titrate Insulin Human Lispro 0 units 09/04/20 10:00 09/06/20 09:54 Humalog 300 Units/3 Ml Vial SC 3 unit .MILD SLIDING SCALE PRN Administration MILD SLIDING SCALE Protocol Insulin Human NPH 45 unit 09/05/20 21:00 09/06/20 09:12 Nph, Human Insulin Isophane 300 Unit/3 Ml Vial SC 45 unit Q12HR SHAINA Administration Levothyroxine Sodium 150 mcg 08/21/20 06:00 09/06/20 05:09 Levothyroxine 150 Mcg Tab PO 150 mcg 0600 SHAINA Administration Lorazepam 2 mg 08/22/20 10:00 09/05/20 23:52 Lorazepam 2 Mg/Ml Vial SLOW IVP 09/21/20 10:00 2 mg Q1H PRN Administration Breakthrough agitation Pantoprazole Sodium 40 mg 08/28/20 09:00 09/06/20 09:11 Pantoprazole 40 Mg Granules Packet PER TUBE 40 mg DAILY SHAINA Administration Propofol 1,000 mg 08/22/20 10:00 09/06/20 00:01 Propofol 1,000 Mg/100 Ml Vial IV 09/21/20 10:00 1,000 mg INF PRN Administration TO ACHIEVE GOAL RASS Protocol Sodium Chloride 10 ml 08/23/20 09:00 09/06/20 09:14 Flush - Normal Saline 10 Ml Syringe IVF 10 ml Q12HR SHAINA Administration Tamsulosin HCl 0.4 mg 08/21/20 09:00 09/06/20 09:10 Tamsulosin Hcl 0.4 Mg Cap PO 0.4 mg DAILY SHAINA Administration Vecuronium [place] 10 mg 08/22/20 09:17 08/31/20 01:23 Vecuronium 10 Mg Vial IVP 10 mg Q30MIN PRN Administration Agitation Zinc Sulfate 220 mg 08/23/20 09:00 09/06/20 09:11 Zinc Sulfate 220 Mg Cap PO 220 mg DAILY SHAINA Administration Hosp A/P (1) Hypotension arterial Status: Acute Qualifiers: Hypotension type: other hypotension type Qualified Code(s): I95.89 - Other hypotension (2) Acute renal failure (ARF) Status: Acute Qualifiers: Acute renal failure type: with acute tubular necrosis Qualified Code(s): N17.0 - Acute kidney failure with tubular necrosis (3) Acute respiratory failure with hypoxemia Code(s): J96.01 - ACUTE RESPIRATORY FAILURE WITH HYPOXIA Status: Acute (4) Pneumonia due to COVID-19 virus Code(s): U07.1 - COVID-19; J12.89 - OTHER VIRAL PNEUMONIA Status: Acute (5) Acute metabolic encephalopathy Code(s): G93.41 - METABOLIC ENCEPHALOPATHY Status: Acute (6) COPD exacerbation Code(s): J44.1 - CHRONIC OBSTRUCTIVE PULMONARY DISEASE W (ACUTE) EXACERBATION Status: Acute (7) Hypertension Code(s): I10 - ESSENTIAL (PRIMARY) HYPERTENSION Status: Chronic Qualifiers: Hypertension type: essential hypertension Qualified Code(s): I10 - Essential (primary) hypertension (8) Hypothyroidism Code(s): E03.9 - HYPOTHYROIDISM, UNSPECIFIED Status: Chronic Qualifiers: Hypothyroidism type: unspecified Qualified Code(s): E03.9 - Hypothyroidism, unspecified - Plan cont vent- O2 sats 60-70 with maximum TX off pressors UO improved, creat decreased-ATN improving cont accu/ss/humulin N prognosis poor
[2020-09-06] MEDS: Gabapentin 300 MG CAP PO SCH (20:58)
[2020-09-06] MEDS: Enoxaparin Sodium 80 MG/0.8 ML SYRINGE SC SCH (20:59)
[2020-09-07 04:44] LABS: Anion Gap 24 mmol/L (10-20); Calc. Creatinine Clearance 47 mL/min (70-130); Calcium 6.8 mg/dL (7.8-10.44); Carbon Dioxide 22 mmol/L (23-31); Chloride 106 mmol/L (98-107); Estimated GFR-MDRD 17; Glucose 242 mg/dL (80-115); Sodium 148 mmol/L (136-145)
[2020-09-07] MEDS: HumaLOG 300 UNITS/3 ML VIAL SC PRN (04:49)
[2020-09-07 04:58] LABS: BUN (Urea Nitrogen) 173 mg/dL (9.8-20.1)
[2020-09-07] MEDS: Hydrocortisone Sod Succ/PF 100 mg/2 ml Vial IVP SCH ×3 (05:01→17:06)
[2020-09-07] MEDS: Levothyroxine 150 MCG TAB PO SCH (05:01)
[2020-09-07 05:29] VITALS: BMI 53.5
[2020-09-07 05:35] LABS: Anisocytosis SLIGHT = 6-15 cells (100X) (0-5/hpf); Band 29 % (5-11); Hemoglobin 7.6 g/dL (12.0-16.0); Lymphocytes 3 % (21-51); MDiff Complete? YES; Mean Corpuscular HGB CONC 32.4 g/dL (32.0-36.0); Mean Corpuscular Hemoglobin 25.9 pg (27.0-31.0); Mean Corpuscular Volume 79.9 fL (78.0-98.0); Mean Platelet Volume 10.2 fL (7.4-10.4); Monocytes 1 % (0-10); Neutrophil 67 % (42-75); Nucleated RBC 2 % (0); Platelet Count 114 thou/uL (130-400); RBC Distribution Width 18.5 % (11.5-14.5); Red Blood Cell (RBC) Count 2.95 mill/uL (4.20-5.40); White Blood Cell (WBC) Count 8.7 thou/uL (4.8-10.8)
[2020-09-07] MEDS: Pantoprazole 40 MG GRANULES PACKET PER TUBE SCH (08:09)
[2020-09-07] MEDS: Ascorbic Acid 500 mg Chewable Tablet PER TUBE SCH (08:09)
[2020-09-07] MEDS: Tamsulosin HCl 0.4 MG CAP PO SCH (08:09)
[2020-09-07] MEDS: Zinc Sulfate 220 MG CAP PO SCH (08:09)
[2020-09-07] MEDS: Cholecalciferol 1,000 UNITS (25 MCG) TAB PO SCH (08:13)
[2020-09-07] MEDS: NPH, Human Insulin Isophane 300 UNIT/3 ML VIAL SC SCH (08:46)
[2020-09-07] MEDS ORDERED: Norepinephrine 8 MG in Dextrose 5% in Water 242 ML IVPB SCH (10:00)
[2020-09-07 10:50] VITALS: BP 82/48
--- NOTE | 2020-09-07 15:52 | PRG ---
DATE OF SERVICE: 09/07/2020 SUBJECTIVE: She has no longer required prone positioning. However, oxygenation remains extremely tenuous with FiO2 of 70%. She remains sedated. Her Levophed has been weaned without expectation that it will be resumed. I have asked the nurses to contact the family and make sure that they are aware of her continued deterioration, although noting that she has gotten like this before and had some degree of recovery and transient stabilization. PHYSICAL EXAMINATION: VITAL SIGNS: Blood pressure is currently 54/23, heart rate is 86, respiratory rate is 24. GENERAL: She is obese, intubated female, not responsive to stimuli. She has Pickwickian features. There is no JVD. LUNGS: Show rhonchi, but no wheezing or rales. HEART: Regular rate and rhythm with resting tachycardia. ABDOMEN: Soft and obese. She has 2+ edema. LABORATORY DATA: White count 8700, hemoglobin 7.6, hematocrit 23.6, and platelet count a 114,000. Differential includes 67 segs and 29 bands. Chemistry today includes sodium 148, potassium 4, chloride 106, CO2 is 22, BUN 173 and creatinine 2.8. She does not have an x-ray today. IMPRESSION: 1. COVID pneumonia with respiratory failure, mixed hypercapnic and hypoxic. 2. Marked prerenal azotemia exacerbated by steroids and mild volume depletion. 3. Worsening hypotension. PLAN: We will continue current therapy, although she appears to be imminently terminal, she is not a candidate for dialysis. We will contact the family and be sure that they are aware of her continuing deterioration. We need to affirm her DNR status, although that was reported to be the case on the most recent note from Dr. Dunlap. ADDENDUM: Critical care time for this patient is 34 minutes. Job ID: [id number]
[2020-09-07 16:09] VITALS: TEMP 98.5
--- NOTE | 2020-09-07 17:26 | PDOC.HOSPP ---
- Subjective Encounter Date: 09/07/20 - Objective Vital Signs & Weight: Vital Signs (12 hours) Temp Pulse Resp BP Pulse Ox 09/07/20 16:00 98.5 F 09/07/20 15:44 80 09/07/20 14:00 30 H 09/07/20 13:36 86 09/07/20 12:00 98.6 F 30 H 09/07/20 10:48 91 82/48 L 09/07/20 10:00 30 H 09/07/20 08:00 28 H 74 L 09/07/20 07:51 89 85/47 L 09/07/20 07:00 98.4 F 09/07/20 06:00 27 H Weight Admit Weight 305 lb Weight 321 lb 10.471 oz Most Recent Monitor Data Heart Rate from ECG 75 NIBP 55/21 NIBP BP-Mean 32 Respiration from ECG 22 SpO2 89 I&O: 09/06/20 09/07/20 09/08/20 06:59 06:59 06:59 Intake Total 1021.0 507 317 Output Total 1550 3590 130 Balance -529.0 -3083 187 Result Diagrams: 09/07/20 03:15 09/07/20 03:15 Additional Labs: Accuchecks 09/07/20 09/06/20 11:17 22:04 POC Glucose 181 H 223 H Hospitalist ROS - Medication Medications: Active Medications Generic Name Dose Route Start Last Admin Trade Name Freq PRN Reason Stop Dose Admin Acetaminophen 650 mg 08/19/20 20:24 08/20/20 20:39 Acetaminophen 325 Mg Tab PO 650 mg Q4H PRN Administration Headache/Fever or Pain Albuterol/Ipratropium 3 ml 08/29/20 19:00 09/07/20 13:36 Ipratropium/Albuterol Sulfate 3 Ml Neb NEB 3 ml [id number] SHAINA Administration Ascorbic Acid 1,000 mg 08/23/20 09:00 09/07/20 08:09 Ascorbic Acid 500 Mg Chewable Tablet PER TUBE 1,000 mg DAILY SHAINA Administration Benzonatate 100 mg 08/20/20 04:12 08/21/20 22:27 Benzonatate 100 Mg Cap PO 100 mg TIDPRN PRN Administration Cough Cholecalciferol 1,000 units 08/22/20 09:00 09/07/20 08:13 Cholecalciferol 1,000 Units (25 Mcg) Tab PO 1,000 units DAILY SHAINA Administration Enoxaparin Sodium 80 mg 09/03/20 21:00 09/06/20 20:59 Enoxaparin Sodium 80 Mg/0.8 Ml Syringe SC 80 mg 2100 SHAINA Administration Gabapentin 900 mg 08/20/20 21:00 09/06/20 20:58 Gabapentin 300 Mg Cap PO 900 mg HS SHAINA Administration Guaifenesin/Dextromethorphan 15 ml 08/20/20 20:14 08/21/20 20:04 Guaifenesin Dm 100-10/5 Ml Udcup PO 15 ml Q4H PRN Administration Cough Hydrocortisone Sodium Succinate 100 mg 08/23/20 12:00 09/07/20 17:06 Hydrocortisone Sod Succ/Pf 100 Mg/2 Ml Vial IVP 100 mg Q6HR SHAINA Administration Fentanyl Citrate 2,000 mcg/ 100 mls @ 0 mls/hr 08/22/20 10:00 09/06/20 00:43 Sodium Chloride IV 09/21/20 10:00 100 mls INF SHAINA Administration Protocol Per Protocol Insulin Human Lispro 0 units 09/04/20 10:00 09/07/20 04:49 Humalog 300 Units/3 Ml Vial SC 3 unit .MILD SLIDING SCALE PRN Administration MILD SLIDING SCALE Protocol Insulin Human NPH 45 unit 09/05/20 21:00 09/07/20 08:46 Nph, Human Insulin Isophane 300 Unit/3 Ml Vial SC 45 unit Q12HR SHAINA Administration Levothyroxine Sodium 150 mcg 08/21/20 06:00 09/07/20 05:01 Levothyroxine 150 Mcg Tab PO 150 mcg 0600 SHAINA Administration Lorazepam 2 mg 08/22/20 10:00 09/05/20 23:52 Lorazepam 2 Mg/Ml Vial SLOW IVP 09/21/20 10:00 2 mg Q1H PRN Administration Breakthrough agitation Pantoprazole Sodium 40 mg 08/28/20 09:00 09/07/20 08:09 Pantoprazole 40 Mg Granules Packet PER TUBE 40 mg DAILY SHAINA Administration Propofol 1,000 mg 08/22/20 10:00 09/06/20 00:01 Propofol 1,000 Mg/100 Ml Vial IV 09/21/20 10:00 1,000 mg INF PRN Administration TO ACHIEVE GOAL RASS Protocol Sodium Chloride 10 ml 08/23/20 09:00 09/07/20 08:10 Flush - Normal Saline 10 Ml Syringe IVF 10 ml Q12HR SHAINA Administration Tamsulosin HCl 0.4 mg 08/21/20 09:00 09/07/20 08:09 Tamsulosin Hcl 0.4 Mg Cap PO 0.4 mg DAILY SHAINA Administration Vecuronium [place] 10 mg 08/22/20 09:17 08/31/20 01:23 Vecuronium 10 Mg Vial IVP 10 mg Q30MIN PRN Administration Agitation Zinc Sulfate 220 mg 08/23/20 09:00 09/07/20 08:09 Zinc Sulfate 220 Mg Cap PO 220 mg DAILY SHAINA Administration - Exam Respiratory: no tachypnea Hosp A/P (1) Acute respiratory failure with hypoxemia Code(s): J96.01 - ACUTE RESPIRATORY FAILURE WITH HYPOXIA Status: Acute (2) Hypotension Status: Acute (3) Pneumonia due to COVID-19 virus Code(s): U07.1 - COVID-19; J12.89 - OTHER VIRAL PNEUMONIA Status: Acute (4) COPD (chronic obstructive pulmonary disease) Status: Chronic (5) GERD (gastroesophageal reflux disease) Code(s): K21.9 - GASTRO-ESOPHAGEAL REFLUX DISEASE WITHOUT ESOPHAGITIS Status: Chronic (6) Hypothyroidism Code(s): E03.9 - HYPOTHYROIDISM, UNSPECIFIED Status: Chronic Qualifiers: Hypothyroidism type: unspecified Qualified Code(s): E03.9 - Hypothyroidism, unspecified - Plan The patient is intubated. Continue vent management per pulmonology. Continue hydrocortisone and enoxaparin. Creatinine level is improving. The patient's urine output has been inadequate today and sodium level is elevated. We will increase water flushes and start D5W at 50 cc/h. Check CBC and BMP in the a.m.
[2020-09-07] MEDS ORDERED: Dextrose 5% in Water 1,000 ML IV SCH (17:30)
[2020-09-07] MEDS ORDERED: Fentanyl BOLUS 250 ML IVPB PRN (20:24)
--- NOTE | 2020-09-07 20:43 | PRG ---
DATE OF SERVICE: 09/07/2020 Earlier this evening, I called the patient's son and updated him on the continued decline. I have notified him that she remains on 100% with very low oxygen saturation and is quite hypotensive despite pressor support. He has previously requested DNR status. We have talked about options including to continue the current course with an expectation that she would pass away sometime in the near future versus an approach to withdrawal support and provide terminal pain and restlessness control. He has opted to remove the ventilator. We have offered him the opportunity for video Skype, so that he can see his mother prior to her . He declines. We have placed a phone at the patient's pillow and allow him to have conversation with her. Following this, we will discontinue the fentanyl infusion, but give fentanyl 100 mcg every 5 minutes p.r.n. for terminal dyspnea. She will be extubated to nasal cannula. Given the severity of her underlying lung disease, I expect her to pass away very quickly. Job ID: [id number]
--- NOTE | 2020-09-07 21:27 | PRG ---
DATE OF SERVICE: 09/07/2020 TIME OF : 2037. Following conversation with the patient's son, a decision was made to terminate support and provide comfort terminal care. The fentanyl continuous infusion was discontinued. She was removed from the ventilator and placed on nasal cannula. Fentanyl 100 mcg with q.5 minutes p.r.n. was ordered. The patient took only a few agonal breaths and then became apneic. Within a brief period of time, she had a wide-complex junctional rhythm which deteriorated to asystole. She was pronounced at 2037. The family was notified of her passing and condolences expressed on our behalf. Job ID: [id number]
--- NOTE | 2020-09-08 10:42 | DIS ---
DATE OF ADMISSION: 08/19/2020 DATE OF DISCHARGE: 09/07/2020 FINAL SUMMARY: DATE OF : 09/07/2020. TIME OF : 08:38 p.m. HISTORY OF PRESENT ILLNESS: The patient is a 65-year-old female, who presented to the hospital with increasing shortness of breath. She had a stuttering course preceding admission with a brief admission in early July for altered mental status and readmitted mid July with fever, cough, and consolidation. Her COVID test was negative at that time. She was discharged again with diagnosis of pneumonia, only to be re-admitted with worsening oxygen saturation, progressive radiographic findings, and now positive COVID test. HOSPITAL COURSE: The patient was admitted to the hospital and treated with appropriate treatment for her COVID pneumonia. Her condition deteriorated, necessitating intubation and mechanical ventilation. Central line was placed. She had a azael interval period of time, often requiring prone positioning. Unfortunately, her condition never improved and she remained on a very high oxygen replacement of as high as 100% for many days. Initially, no family was available or could be located and she was evaluated by 2 physicians declaration of DNR. Later in her stay, family was located and a conversation was held with them. The two doctor's DNR was revoked and the family reinstituted that plan. She was quite hypotensive requiring pressors. Maximal ventilatory support was inadequate to maintain saturation above the mid 80s. She developed worsening prerenal azotemia at least compounded by catabolism and steroid therapy. She was not going to be a very good dialysis candidate. I had a long talk with her son earlier on the day of her , talking about strategies. She was having refractory hypotension and hypoxemia with no available therapeutic alternatives. We discussed simply letting the course proceeded naturally versus more direct approach of extubating her for comfort care. He chose the latter. She was extubated and shortly thereafter. FINAL DIAGNOSES: 1. COVID pneumonia with overwhelming hypercapnia, hypoxia, and multisystem organ failure. 2. Acute renal insufficiency secondary to ATN, not requiring dialysis. 3. History of past tobacco use. 4. Morbid obesity. The body was released to the home of family's choosing. Job ID: [id number]
== END 2020-09-07 21:00 | disposition expired | DRG 870 ==
LOC: ERS 12:45 → T4-A 16:13 → CCU 08-22 08:55
PROVIDERS: ADMIT Student in an Organized Health Care Education/Training Program; ATTEND Internal Medicine
PROC: 8E0ZXY6 Isolation (ICD-10-PCS; 2020-08-19)
PROC: XW033E5 Introduction of Remdesivir Anti-infective into Peripheral Vein, Percutaneous Approach, New Technology Group 5 (ICD-10-PCS; 2020-08-20)
PROC: 5A09357 Assistance with Respiratory Ventilation, Less than 24 Consecutive Hours, Continuous Positive Airway Pressure (ICD-10-PCS; 2020-08-21)
PROC: 5A1955Z Respiratory Ventilation, Greater than 96 Consecutive Hours (ICD-10-PCS; principal; 2020-08-22)
PROC: XW13325 Transfusion of Convalescent Plasma (Nonautologous) into Peripheral Vein, Percutaneous Approach, New Technology Group 5 (ICD-10-PCS; 2020-08-22)
PROC: 02H633Z Insertion of Infusion Device into Right Atrium, Percutaneous Approach (ICD-10-PCS; 2020-08-22)
PROC: B548ZZA Ultrasonography of Superior Vena Cava, Guidance (ICD-10-PCS; 2020-08-22)
PROC: 0BH17EZ Insertion of Endotracheal Airway into Trachea, Via Natural or Artificial Opening (ICD-10-PCS; 2020-08-22)
PROC: 3E043XZ Introduction of Vasopressor into Central Vein, Percutaneous Approach (ICD-10-PCS; 2020-08-26)
DX: A41.89 Other specified sepsis (principal); U07.1 COVID-19; J12.89 Other viral pneumonia; Z51.5 Encounter for palliative care; Z66 Do not resuscitate; Z79.891 Long term (current) use of opiate analgesic; N17.0 Acute kidney failure with tubular necrosis; G93.41 Metabolic encephalopathy; J96.21 Acute and chronic respiratory failure with hypoxia; J96.22 Acute and chronic respiratory failure with hypercapnia; Z68.43 Body mass index [BMI] 50.0-59.9, adult; J44.0 Chronic obstructive pulmonary disease with (acute) lower respiratory infection; J44.1 Chronic obstructive pulmonary disease with (acute) exacerbation; K55.9 Vascular disorder of intestine, unspecified; A04.72 Enterocolitis due to Clostridium difficile, not specified as recurrent; E66.01 Morbid (severe) obesity due to excess calories; E03.9 Hypothyroidism, unspecified; I25.10 Atherosclerotic heart disease of native coronary artery without angina pectoris; I50.9 Heart failure, unspecified; I11.0 Hypertensive heart disease with heart failure; K21.9 Gastro-esophageal reflux disease without esophagitis; E11.9 Type 2 diabetes mellitus without complications; E86.9 Volume depletion, unspecified; R00.1 Bradycardia, unspecified; D64.9 Anemia, unspecified; Z79.890 Hormone replacement therapy; Z86.73 Personal history of transient ischemic attack (TIA), and cerebral infarction without residual deficits; Z90.710 Acquired absence of both cervix and uterus; Z85.42 Personal history of malignant neoplasm of other parts of uterus; Z87.891 Personal history of nicotine dependence; Z99.81 Dependence on supplemental oxygen; Z90.49 Acquired absence of other specified parts of digestive tract; Z92.21 Personal history of antineoplastic chemotherapy; Z79.899 Other long term (current) drug therapy; Z79.82 Long term (current) use of aspirin; Z79.52 Long term (current) use of systemic steroids; Z78.1 Physical restraint status
CPT/HCPCS: 36415; 36416; 36430; 71045; 80048; 80053; 80076; 81003; 81015; 82728; 82805; 83036; 83605; 83880; 85025; 85027; 85379; 86140; 86769; 86850; 86900; 86901; 87040; 93005; 94002; 94003; 94640; 94660; 96365; 96367; 96375; J0456; J0692; J0696; J1100; J1265; J1650; J1720; J1815; J1940; J2060; J2543; J2704; J2920; J2930; J3010; J3480; J3490; J7050; J7070; J7620; P9017; U0002